=== PATIENT | female | born 2000 | race Caucasian/White ===

== ENCOUNTER 2023-03-22 20:00 | Outpatient (REF) | payer BC, SELFPAY ==
[2023-03-26 17:07] LABS: Age Gdln ACOG Testing Note (.); IGP, rfx Aptima HPV ASCU Note (.)
== END 2023-03-22 20:01 | disposition home or self-care (01) ==
LOC: LAB 20:00
PROVIDERS: Visit Provider Obstetrics & Gynecology
DX: Z12.4 Encounter for screening for malignant neoplasm of cervix (principal)
CPT/HCPCS: G0145

== ENCOUNTER 2023-07-01 08:29 | Outpatient (OUT) | payer BC, SELFPAY ==
--- NOTE | 2023-07-01 08:31 | US_ITS ---
[address] [address] Patient Name: DONAVAN WALTON MRN: [id number] date: 2000 Sex: F Assigned Patient Location: US Current Patient Location: US Accession/Order Number: [id number] Exam Date: 07/01/2023 08:32 Report Date: 07/01/2023 09:14 At the request of: RUDI CHACON Procedure: US OB transvaginal EXAMINATION: US OB transvaginal HISTORY: MISSED MENSES COMPARISON: No relevant comparison available. FINDINGS: Ladd intrauterine gestation Gestational sac: 2.33 cm, 7 weeks 0 days CRL: 0.5 cm, 6 weeks 1 day Yolk sac: 2 mm. Heart rate: 105 bpm Cervix: Closed, 3.7 cm. The ovaries are normal in appearance Identified adjacent to the gestational sac is a 9.5 x 5.7 x 6.8 mm area of hypoechogenicity Clinical age: 8 weeks 5 days Clinical JIGNESH: 02/05/2024 Ultrasound age: 6 weeks 1 day Ultrasound JIGNESH: 02/23/2024 US/US OB transvaginal IMPRESSION: Viable ladd intrauterine gestation measuring 6 weeks 1 day 9.5 mm subchorionic hematoma Electronically authenticated by: ÁNGELA PRIETO Date: 07/01/2023 09:14
== END 2023-07-01 08:30 | disposition home or self-care (01) ==
LOC: US 08:29
PROVIDERS: Visit Provider Obstetrics & Gynecology
DX: Z34.81 Encounter for supervision of other normal pregnancy, first trimester (principal); N92.6 Irregular menstruation, unspecified; Z3A.01 Less than 8 weeks gestation of pregnancy
CPT/HCPCS: 76817

== ENCOUNTER 2023-07-07 09:40 | Outpatient (OUT) | payer BC, SELFPAY ==
--- NOTE | 2023-07-07 09:44 | US_ITS ---
The [address] [address] Patient Name: DONAVAN WALTON MRN: [id number] date: 2000 Sex: F Assigned Patient Location: US Current Patient Location: US Accession/Order Number: [id number] Exam Date: 07/07/2023 09:59 Report Date: 07/07/2023 15:08 At the request of: RUDI CHACON Procedure: US OB transvaginal EXAMINATION: US OB transvaginal HISTORY: subchorionic hematoma [id number] COMPARISON: Ultrasound OB transvaginal 07/01/2023 FINDINGS: GESTATIONAL SAC: Present and normal appearing. YOLK SAC: Present and normal appearing. POLE: Present and normal appearing. CARDIAC: Present. UTERUS: 1.6 x 1.0 x 0.7 cm hypoechoic area within endometrial cavity adjacent the gestational sac. OVARIES: Right: Normal. Left: Corpus lutein cyst. CERVIX: 5.2 cm in length and closed. CUL-DE-SAC: Normal. OTHER: None. AGE BY LMP: 7 weeks 0 days JIGNESH BY LMP: 02/23/2024 AGE BY US CRL: 7 weeks 5 days JIGNESH BY US CRL: 02/18/2024 US/US OB transvaginal IMPRESSION: 1. Single live intrauterine . 2. Slight increase in size of the nonspecific hypoechoic fluid collection within the endometrial cavity adjacent the gestational sac; most likely representing sequela of prior subchorionic hematoma. A blighted ovum is not completely excluded. Follow-up recommended. Electronically authenticated by: KIM LEIGH Date: 07/07/2023 15:08
--- OUTSIDE RECORDS SUMMARY | 2023-07-07 10:38 | XMS_ITS | CCD ---
Author Name Unknown Address [address] [place] [address] Organization [facility] Care Team Providers Care Peoplesoft Programmer Name Role Phone VIA, DR BRADSHAW Admitting Unavailable KARASIK, DR BRADSHAW Procedure Practitioner Unava ilable KARASIK, DR BRADSHAW Attending Unavailable REQUEST, DR SANTA LISTED Primary Care Unavaila ble KARASIK, DR BRADSHAW Consulting Unavailable INES, DR GRIJALVA Consulting Unavailable RYAN, ANNMARIE VEGAS Consulting Unava ilable KARASIK, DR BRADSHAW Attending Unavailable KARASIK, DR BRADSHAW Consulting Unavailable KARASIK, DR BRADSHAW Admitting Unavailable ZIEBER, DR KIM Jones Consulting Unavailable KARASIK, DR BRADSHAW Attending Unavailable KARASIK, DR BRADSHAW Consulting Unavailable REQUEST, DR SANTA LISTED Primary Care Unavaila ble KARASIK, DR BRADSHAW Admitting Unavailable ZIEBER, DR KIM Jones Consulting Unavailable KARASIK, DR BRADSHAW Admitting Unavailable REQUEST, DR SANTA LISTED Primary Care Unavaila ble KARASIK, DR BRADSHAW Attending Unavailable KARASIK, DR BRADSHAW Consulting Unavailable KARASIK, DR BRADSHAW Admitting Unavailable KARASIK, DR BRADSHAW Consulting Unavailable KARASIK, DR BRADSHAW Attending Unavailable REQUEST, DR SANTA LISTED Primary Care Unavaila ble KARASIK, DR BRADSHAW Attending Unavailable REQUEST, DR SANTA LISTED Primary Care Unavaila ble KARASIK, DR BRADSHAW Admitting Unavailable KARASIK, DR BRADSHAW Attending Unavailable KARASIK, DR BRADSHAW Consulting Unavailable REQUEST, DR SANTA LISTED Primary Care Unavaila ble KARASIK, DR BRADSHAW Admitting Unavailable Problems Problem Classification Problem Date Documented Date Episodic/Chronic Immunizations and screening for infectious disease (2 sources) Encounter for screening for infections with a predominantly sexual mode of transmission; Translations: [Contact with and (suspected) exposure to infections with a predominantly sexual mode of transmission] Onset: 01-22-2022 Episodic Other and delivery including normal (12 sources) Encounter for full-term uncomplicated delivery; Translations: [Single live ] Onset: 11-23-2021 Episodic Other screening for suspected conditions (not mental disorders or infectious disease) (13 sources) Encounter for screening for Streptococcus B; Translations: [Encounter for other specified screening] Onset: 01-22-2022 Episodic Residual codes; unclassified (1 source) 38 weeks gestation of ; Translations: [38 WEEKS GESTATION OF ] Onset: 07-04-2022 Episodic Unclassified (1 source) CONTACT W/AND (SUSP) EXPOS COVID-19; Translations: [CONTACT W/AND (SUSP) EXPOS COVID-19] Onset: 07-04-2022 Results Test Name Value Interpretation Reference Range Facility CBC AUTO DIFFon 06-18-2022 BASO # 0.1 103/ul Normal 0.0-0.1 [facility] Comment on above: Performed By: #### U MICRO, UACSIND #### [facility] [address] [place] [address] Dr. Pancho Oliva Basophils/100 WBC (Bld) 0.8 % Normal 0.2-2.0 [facility] Comment on above: Performed By: #### U MICRO, UACSIND #### [facility] [address] [place] [address] Dr. Pancho Oliva EO # 0.3 103/ul Normal 0.0-0.7 [facility] Comment on above: Performed By: #### U MICRO, UACSIND #### [facility] [address] [place] [address] Dr. Pancho Oliva Eosinophils/100 WBC (Bld) 2.1 % Normal 0.9-7.0 [facility] Comment on above: Performed By: #### U MICRO, UACSIND #### [facility] [address] [place] [address] Dr. Pancho Oliva Erythrocyte distribution width (RBC) [Ratio] 13.9 % Normal 11.0-15.0 [facility] Comment on above: Performed By: #### U MICRO, UACSIND #### [facility] [address] [place] [address] Dr. Pancho Oliva Hematocrit (Bld) [Volume fraction] 36.2 % Normal 36.0-48.0 [facility] Comment on above: Performed By: #### U MICRO, UACSIND #### [facility] [address] [place] [address] Dr. Pancho Oliva Hemoglobin (Bld) [Mass/Vol] 11.8 g/dL Critically low 12.0-16.0 [facility] Comment on above: Performed By: #### U MICRO, UACSIND #### [facility] [address] [place] [address] Dr. Pancho Oliva IG # 0.16 10e3/ul Critically high 0.00-0.03 [facility] Comment on above: Performed By: #### U MICRO, UACSIND #### [facility] [address] [place] [address] Dr. Pancho Oliva IG % 1.1 % Critically high 0.0-0.5 [facility] Comment on above: Performed By: #### U MICRO, UACSIND #### [facility] [address] [place] [address] Dr. Pancho Oliva LYMPH # 3.5 103/ul Normal 1.2-3.8 [facility] Comment on above: Performed By: #### U MICRO, UACSIND #### [facility] [address] [place] [address] Dr. Pancho Oliva Lymphocytes/100 WBC (Bld) 23.3 % Normal 20.5-60.0 [facility] Comment on above: Performed By: #### U MICRO, UACSIND #### [facility] [address] [place] [address] Dr. Pancho Oliva MANUAL DIFF REQ NO Normal [facility] Comment on above: Performed By: #### U MICRO, UACSIND #### [facility] [address] [place] [address] Dr. Pancho Oliva MCH (RBC) [Entitic mass] 27.1 pg Normal 26.7-34.0 [facility] Comment on above: Performed By: #### U MICRO, UACSIND #### [facility] [address] [address] [address] Pancho Oliva MCHC (RBC) [Mass/Vol] 32.6 g/dL Normal 29.9-35.2 [facility] Comment on above: Performed By: #### U MICRO, UACSIND #### [facility] [address] [address] [address] Pancho Oliva MCV (RBC) [Entitic vol] 83.0 fL Normal 81.0-99.0 [facility] Comment on above: Performed By: #### U MICRO, UACSIND #### [facility] [address] [address] [address] Pancho Oliva MONO # 0.7 103/ul Normal 0.3-0.8 [facility] Comment on above: Performed By: #### U MICRO, UACSIND #### [facility] [address] [place] [address] Dr. Pancho Oliva Monocytes/100 WBC (Bld) 4.3 % Normal 1.7-12.0 [facility] Comment on above: Performed By: #### U MICRO, UACSIND #### [facility] [address] [address] [address] Pancho Oliva NEUT # 10.2 103/ul Critically high 1.4-6.5 [facility] Comment on above: Performed By: #### U MICRO, UACSIND #### [facility] [address] [address] [address] Pancho Oliva Neutrophils/100 WBC (Bld) 68.4 % Normal 43.0-75.0 [facility] Comment on above: Performed By: #### U MICRO, UACSIND #### [facility] [address] [address] [address] Pancho Oliva Platelet mean volume (Bld) [Entitic vol] 9.7 fL Normal 9.5-13.5 [facility] Comment on above: Performed By: #### U MICRO, UACSIND #### [facility] [address] [address] [address] Pancho Oliva PLT 271 103/ul Normal 150-450 [facility] Comment on above: Performed By: #### U MICRO, UACSIND #### [facility] [address] [address] [address] Pancho Oliva RBC 4.36 106/ul Normal 4.20-5.40 [facility] Comment on above: Performed By: #### U MICRO, UACSIND #### [facility] [address] [address] [address] Pancho Oliva WBC 15.0 103/ul Critically high 4.0-11.0 [facility] Comment on above: Performed By: #### U MICRO, UACSIND #### [facility] [address] [place] [address] Dr. Pancho Oliva RPR QUANTon 06-18-2022 Rapid Plasma Reagin, Quant Non-Reactive Normal NonRea<1:1 [facility] Comment on above: Result Comment: Plea se Note: This test does not meet current guidelines for screening and diagnosis of syphilis. This test is intended for following treatment response in patients being treated for syphilis infection. To screen for syphilis infection, a reflex cascade that includes both RPR and a treponema-specific assay should be utilized, such as Treponema pallidum (Syphilis) Screening [place] (252768) or Rapid Plasma Reagin (RPR) Test With Reflex to Quantitative RPR and Confirmatory Treponema pallidum Antibodies (512522). Performed By: #### R PRQ #### [facility] [address] [place] [address] Dr. Pancho Oliva CBC AUTO DIFFon 06-16-2022 BASO # 0.1 103/ul Normal 0.0-0.1 [facility] Comment on above: Performed By: #### U MICRO, UACSIND #### [facility] [address] [place] [address] Dr. Pancho Oliva Basophils/100 WBC (Bld) 0.5 % Normal 0.2-2.0 [facility] Comment on above: Performed By: #### U MICRO, UACSIND #### [facility] [address] [place] [address] Dr. Pancho Oliva EO # 0.0 103/ul Normal 0.0-0.7 [facility] Comment on above: Performed By: #### U MICRO, UACSIND #### [facility] [address] [place] [address] Dr. Pancho Oliva Eosinophils/100 WBC (Bld) 0.1 % Critically low 0.9-7.0 [facility] Comment on above: Performed By: #### U MICRO, UACSIND #### [facility] [address] [address] [address] Pancho Oliva Erythrocyte distribution width (RBC) [Ratio] 13.5 % Normal 11.0-15.0 [facility] Comment on above: Performed By: #### U MICRO, UACSIND #### [facility] [address] [place] [address] Dr. Pancho Oliva Hematocrit (Bld) [Volume fraction] 38.7 % Normal 36.0-48.0 [facility] Comment on above: Performed By: #### U MICRO, UACSIND #### [facility] [address] [place] [address] Dr. Pancho Oliva Hemoglobin (Bld) [Mass/Vol] 13.0 g/dL Normal 12.0-16.0 [facility] Comment on above: Performed By: #### U MICRO, UACSIND #### [facility] [address] [place] [address] Dr. Pancho Oliva IG # 0.15 10e3/ul Critically high 0.00-0.[address] [facility] Comment on above: Performed By: #### U MICRO, UACSIND #### [facility] [address] [place] [address] Dr. Pancho Oliva IG % 0.8 % Critically high 0.0-0.5 [facility] Comment on above: Performed By: #### U MICRO, UACSIND #### [facility] [address] [place] [address] Dr. Pancho Oliva LYMPH # 1.8 103/ul Normal 1.2-3.8 [facility] Comment on above: Performed By: #### U MICRO, UACSIND #### [facility] [address] [address] [address] Pancho Oliva Lymphocytes/100 WBC (Bld) 8.9 % Critically low 20.5-60.0 [facility] Comment on above: Performed By: #### U MICRO, UACSIND #### [facility] [address] [address] [address] Pancho Oliva MANUAL DIFF REQ NO Normal [facility] Comment on above: Performed By: #### U MICRO, UACSIND #### [facility] [address] [address] [address] Pancho Oliva MCH (RBC) [Entitic mass] 27.2 pg Normal 26.7-34.0 [facility] Comment on above: Performed By: #### U MICRO, UACSIND #### [facility] [address] [place] [address] Dr. Pancho Oliva MCHC (RBC) [Mass/Vol] 33.6 g/dL Normal 29.9-35.2 [facility] Comment on above: Performed By: #### U MICRO, UACSIND #### [facility] [address] [address] [address] Pancho Oliva MCV (RBC) [Entitic vol] 81.0 fL Normal 81.0-99.0 [facility] Comment on above: Performed By: #### U MICRO, UACSIND #### [facility] [address] [address] [address] Pancho Oliva MONO # 0.5 103/ul Normal 0.3-0.8 [facility] Comment on above: Performed By: #### U MICRO, UACSIND #### [facility] [address] [address] [address] Pancho Oliva Monocytes/100 WBC (Bld) 2.5 % Normal 1.7-12.0 [facility] Comment on above: Performed By: #### U MICRO, UACSIND #### [facility] [address] [address] [address] Pancho Oliva NEUT # 17.2 103/ul Critically high 1.4-6.5 [facility] Comment on above: Performed By: #### U MICRO, UACSIND #### [facility] [address] [address] [address] Pancho Oliva Neutrophils/100 WBC (Bld) 87.2 % Critically high 43.0-75.0 [facility] Comment on above: Performed By: #### U MICRO, UACSIND #### [facility] [address] [place] [address] Dr. Pancho Oliva Platelet mean volume (Bld) [Entitic vol] 9.9 fL Normal 9.5-13.5 [facility] Comment on above: Performed By: #### U MICRO, UACSIND #### [facility] [address] [place] [address] Dr. Pancho Oliva PLT 332 103/ul Normal 150-450 [facility] Comment on above: Performed By: #### U MICRO, UACSIND #### [facility] [address] [place] [address] Dr. Pancho Oliva RBC 4.78 106/ul Normal 4.20-5.40 [facility] Comment on above: Performed By: #### U MICRO, UACSIND #### [facility] [address] [place] [address] Dr. Pancho Oliva WBC 19.8 103/ul Critically high 4.0-11.0 [facility] Comment on above: Performed By: #### U MICRO, UACSIND #### [facility] [address] [place] [address] Dr. Pancho Oliva CULTURE URINEon 06-16-2022 CULTURE URINE Culture Observations : LIGHT GROWTH OF MIXED GENITAL XOCHITL. NO POTENTIAL PATHOGENS SEEN. Normal [facility] Comment on above: Performed By: #### U RCX #### [facility] [address] [place] [address] Dr. Pancho Oliva Cov[facility]-19 PCR ([facility]on 05-20 SARS-CoV-2 (COVID-19) RNA RHIANNA+probe Ql (Unsp spec) Not detected Normal NOT DETECTED [facility] Comment on above: Result Comment: When diagnostic testing is negative, the possibility of a false negative should be considered in the context of a patient's recent exposures and the presence of clinical signs and symptoms consistent with SARS-CoV-2. This test is not yet approved or cleared by the [place] FDA. When there are no FDA-approved or cleared tests available, and other criteria are met, FDA can make tests available under an emergency access mechanism called an Emergency Use Authorization (EUA). The EUA for this test is supported by the [place] of Health and Human Service's declaration that circumstances exist to justify the emergency use of in vitro diagnostics for the detection and/or diagnosis of the virus that causes COVID-19. This EUA will remain in effect for the duration of the COVID-19 declaration justifying emergency of IVDs, unless it is terminated or revoked by the FDA (after which the test may no longer be used). Performed By: #### C VDTBH #### [facility] [address] [place] [address] Dr. Pancho Oliva DRUG SCREEN RAPID (URINE)on 06-16-2022 AMP Negative Normal NEGATIVE [facility] Comment on above: Performed By: #### U MICRO, UACSIND #### [facility] [address] [place] [address] Dr. Pancho Oliva BAR Negative Normal NEGATIVE [facility] Comment on above: Performed By: #### U MICRO, UACSIND #### [facility] [address] [place] [address] Dr. Pancho Oliva BUP Negative Normal NEGATIVE [facility] Comment on above: Performed By: #### U MICRO, UACSIND #### [facility] [address] [place] [address] Dr. Pancho Oliva BZO Negative Normal NEGATIVE [facility] Comment on above: Performed By: #### U MICRO, UACSIND #### [facility] [address] [place] [address] Dr. Pancho Oliva CALVIN Negative Normal NEGATIVE [facility] Comment on above: Performed By: #### U MICRO, UACSIND #### [facility] [address] [place] [address] Dr. Pancho Oliva CUT-OFFS SEE BELOW Normal [facility] Comment on above: Result Comment: AMP (Amphetamine): 500ng/mL, BAR (Barbituates): 200 ng/mL, BZO (Benzodiazepines): 150 ng/mL, BUP (Buprenorphine): 10 ng/mL, CALVIN (Cocaine): 150 ng/mL, mAMP (Methamphetamine): 500 ng/mL, MTD (Methadone): 200 ng/mL, OPI (Opiates): 100 ng/mL, OXY (Oxycodone): 100 ng/mL, PCP (Phencyclidine): 25 ng/mL, PPX (Propoxyphene): 300 ng/mL, THC (Cannabinoids): 50 ng/mL, TCA (Trycyclic Antidepressants): 300 ng/mL Performed By: #### U MICRO, UACSIND #### [facility] [address] [place] [address] Dr. Pancho Oliva DRUG CUT HEADER DRUG CLASS TEST SYSTEM CUT-OFF CONCENTRATIONS ARE FOLLOWS: Normal [facility] Comment on above: Performed By: #### U MICRO, UACSIND #### [facility] [address] [place] [address] Dr. Pancho Oliva mAMP Negative Normal NEGATIVE [facility] Comment on above: Performed By: #### U MICRO, UACSIND #### [facility] [address] [place] [address] Dr. Pancho Oliva MTD Negative Normal NEGATIVE [facility] Comment on above: Performed By: #### U MICRO, UACSIND #### [facility] [address] [place] [address] Dr. Pancho Oliva OPI Negative Normal NEGATIVE [facility] Comment on above: Performed By: #### U MICRO, UACSIND #### [facility] [address] [place] [address] Dr. Pancho Oliva OXY Negative Normal NEGATIVE [facility] Comment on above: Performed By: #### U MICRO, UACSIND #### [facility] [address] [place] [address] Dr. Pancho Oliva PCP Negative Normal NEGATIVE [facility] Comment on above: Performed By: #### U MICRO, UACSIND #### [facility] [address] [place] [address] Dr. Pancho Oliva PPX Negative Normal NEGATIVE [facility] Comment on above: Performed By: #### U MICRO, UACSIND #### [facility] [address] [place] [address] Dr. Pancho Oliva TCA Negative Normal NEGATIVE [facility] Comment on above: Performed By: #### U MICRO, UACSIND #### [facility] [address] [place] [address] Dr. Pancho Oliva THC Negative Normal NEGATIVE [facility] Comment on above: Performed By: #### U MICRO, UACSIND #### [facility] [address] [place] [address] Dr. Pancho Oliva TYPE AND SCREENon 06-16-2022 TYPE AND SCREEN Negative Normal [facility] Comment on above: Performed By: #### U MICRO, UACSIND #### [facility] [address] [place] [address] Dr. Pancho Oliva UA (CLEAN/CATCH) KENO WRITER / RUNNER/MICRO I F IND.on 06-16-2022 Bilirubin Ql (U) Negative Normal NEGATIVE [facility] Comment on above: Performed By: #### U MICRO, UACSIND #### [facility] [address] [place] [address] Dr. Pancho Oliva Clarity (U) CLEAR Normal CLEAR [facility] Comment on above: Performed By: #### U MICRO, UACSIND #### [facility] [address] [place] [address] Dr. Pancho Oliva Color (U) YELLOW Normal YELLOW [facility] Comment on above: Performed By: #### U MICRO, UACSIND #### [facility] [address] [place] [address] Dr. Pancho Oliva Glucose Ql (U) Negative Normal NEGATIVE [facility] Comment on above: Performed By: #### U MICRO, UACSIND #### [facility] [address] [place] [address] Dr. Pancho Oliva Hemoglobin Ql (U) SMALL Abnormal NEGATIVE [facility] Comment on above: Performed By: #### U MICRO, UACSIND #### [facility] [address] [address] [address] Pancho Oliva Ketones Ql (U) TRACE Abnormal NEGATIVE [facility] Comment on above: Performed By: #### U MICRO, UACSIND #### [facility] [address] [address] [address] Pancho Oliva LEUKOCYTES Negative Normal NEGATIVE [facility] Comment on above: Performed By: #### U MICRO, UACSIND #### [facility] [address] [address] [address] Pancho Oliva Nitrite Ql (U) Negative Normal NEGATIVE [facility] Comment on above: Performed By: #### U MICRO, UACSIND #### [facility] [address] [place] [address] Dr. Pancho Oliva pH (U) 5.5 [pH] Normal 5-9 [facility] Comment on above: Performed By: #### U MICRO, UACSIND #### [facility] [address] [address] [address] Pancho Oliva SPEC GRAVITY >=1.030 Abnormal 1.005-<=1.025 [facility] Comment on above: Performed By: #### U MICRO, UACSIND #### [facility] [address] [place] [address] Dr. Pancho Oliva UA PROTEIN 100 mg/dl Abnormal NEGATIVE/ TRACE [facility] Comment on above: Performed By: #### U MICRO, UACSIND #### [facility] [address] [address] [address] Pancho Oliva UR MICRO IND INDICATED Normal [facility] Comment on above: Performed By: #### U MICRO, UACSIND #### [facility] [address] [address] [address] Pancho Oliva Urobilinogen Qn (U) 0.2 {Pearl'U}/dL Normal 0.2 - 1. 0 [facility] Comment on above: Performed By: #### U MICRO, UACSIND #### [facility] [address] [place] [address] Dr. Pancho Oliva URINE MICROSCOPIC ONLYon 11- 30-2022 AMORPHOUS CRYSTALS FEW Normal [facility] Comment on above: Performed By: #### U MICRO, UACSIND #### [facility] [address] [address] [address] Pancho Oliva BACTERIA SMALL Abnormal NONE SEEN [facility] Comment on above: Performed By: #### U MICRO, UACSIND #### [facility] [address] [address] [address] Pancho Oliva Bacteria identified Cx Nom (U) INDICATED Normal [facility] Comment on above: Performed By: #### U MICRO, UACSIND #### [facility] [address] [address] [address] Pancho Oliva CAST SEEN Abnormal NONE SEEN [facility] Comment on above: Performed By: #### U MICRO, UACSIND #### [facility] [address] [place] [address] Dr. Pancho Oliva Crystals LM Nom (Urine sed) SEEN Abnormal NONE SEEN [facility] Comment on above: Performed By: #### U MICRO, UACSIND #### [facility] [address] [place] [address] Dr. Pancho Oliva Epithelial cells LM Ql (Urine sed) FEW Abnormal NONE SEEN /RARE [facility] Comment on above: Performed By: #### U MICRO, UACSIND #### [facility] [address] [place] [address] Dr. Pancho Oliva HYALINE CAST RARE Normal [facility] Comment on above: Performed By: #### U MICRO, UACSIND #### [facility] [address] [place] [address] Dr. Pancho Oliva MUCOUS TRACE Abnormal NONE SEEN [facility] Comment on above: Performed By: #### U MICRO, UACSIND #### [facility] [address] [place] [address] Dr. Pancho Oliva RBC 2-5 Abnormal 0-2 [facility] Comment on above: Performed By: #### U MICRO, UACSIND #### [facility] [address] [place] [address] Dr. Pancho Oliva WBC 0-2 Abnormal NONE SEEN [facility] Comment on above: Performed By: #### U MICRO, UACSIND #### [facility] [address] [address] [address] Pancho Oliva CHLAMYDIA/GONOCOCCUS RHIANNA ( AB/URINE/PAPon 06-04-2022 Chlamydia trachomatis, RHIANNA Negative Normal Negative [facility] [facility] Comment on above: Performed By: #### U MICRO, UACSIND #### [facility] [address] [address] [address] Pancho Oliva Neisseria gonorrhoeae, RHIANNA Negative Normal Negative [facility] Comment on above: Performed By: #### U MICRO, UACSIND #### [facility] [address] [place] [address] Dr. Pancho Oliva GROUP B STREP CULTUREon 05-18 S. agalactiae Ag Ql (Unsp spec) Culture Observations: NEGATIVE FOR GROUP B STREPTOCOCCUS. Normal [facility] Comment on above: Performed By: #### U MICRO, UACSIND #### [facility] [address] [place] [address] Dr. Pancho Oliva US PREG ANATOMY SINGLEon US PREG ANATOMY SINGLE EXAMINATION: US PREG ANATOMY SINGLE HISTORY: anatomy study COMPARISON: No relevant comparison available. TECHNIQUE: Transabdominal sonographic examination was performed for obstetrical and evaluation. FINDINGS: Number: 1 Heart Rate: 148.0 bpm H.B. /min Amniotic Fluid Volume: Placental Location: ANTERIOR with lower margin 7.0 cm from os. Cervix Length: 4 cm , closed. ANATOMY: Normal Structures -cerebellum, choroid plexus, cisterna magna, lateral cerebral ventricles, orbits, midline falx, hard palate, four-chamber heart, RVOT, LVOT, stomach, kidneys, bladder, umbilical cord insertion into abdomen, three-vessel cord, cervical spine, thoracic spine, lumbar spine, sacral spine, right upper extremity, left upper extremity, right lower extremity, left lower extremity. SUBOPTIMALLY SEEN: None ABNORMALITIES: None BIOMETRY: BPD: 7.2 cm 28 weeks 5 days HC: 25.9 cm 28 weeks 1 days AC: 25.2 cm 29 weeks 3 days FL: 5.8 cm 30 weeks 2 days EFW:1402.9 grams; 77% FL/AC: 23.0 FL/BPD: 81.0 HC/AC: 1.0 GESTATIONAL AGE: Age by EDC: 28 weeks 3 days JIGNESH by EDC: 06/28/2022 Age by current US: 29 weeks 1 days JIGNESH by current US: 06/23/2022 IMPRESSION: 1. Single live intrauterine with growth detailed above. Electronically authenticated by: KIM LEIGH Date: 2022-04-08 22:10 Normal [facility] GLUCOSE - 1HRon 04-07-2022 Glucose [Mass/Vol] 114 mg/dL Critically high 74-106 [facility] Comment on above: Performed By: #### U MICRO, UACSIND #### [facility] [address] [place] [address] Dr. Pancho Oliva HEMOGRAM AND PLATELon 2021 Hematocrit (Bld) [Volume fraction] 36.1 % Normal 36.0-48.0 [facility] Comment on above: Performed By: #### U MICRO, UACSIND #### [facility] [address] [address] [address] Pancho Oliva Hemoglobin (Bld) [Mass/Vol] 12.1 g/dL Normal 12.0-16.0 [facility] Comment on above: Performed By: #### U MICRO, UACSIND #### [facility] [address] [address] [address] Pancho Oliva MCH (RBC) [Entitic mass] 28.5 pg Normal 26.7-34.0 [facility] Comment on above: Performed By: #### U MICRO, UACSIND #### [facility] [address] [address] [address] Pancho Oliva MCHC (RBC) [Mass/Vol] 33.5 g/dL Normal 29.9-35.2 [facility] Comment on above: Performed By: #### U MICRO, UACSIND #### [facility] [address] [place] [address] Dr. Pancho Oliva MCV (RBC) [Entitic vol] 85.1 fL Normal 81.0-99.0 [facility] Comment on above: Performed By: #### U MICRO, UACSIND #### [facility] [address] [address] [address] Pancho Oliva PLT 333 103/ul Normal 150-450 [facility] Comment on above: Performed By: #### U MICRO, UACSIND #### [facility] [address] [address] [address] Pancho Oliva RBC 4.24 106/ul Normal 4.20-5.40 [facility] Comment on above: Performed By: #### U MICRO, UACSIND #### [facility] [address] [address] [address] Pancho Oliva WBC 16.5 103/ul Critically high 4.0-11.0 The [facility] Comment on above: Performed By: #### U MICRO, UACSIND #### [facility] [address] [address] [address] Pancho Oliva AFP TETRA PROFILE (MATERNAL) on 01-21-2022 AFP MoM 0.81 Normal [facility] Comment on above: Performed By: #### A FPTET #### [facility] [address] [address] [address] Pancho Oliva AFP Value 26.1 ng/mL Normal [facility] Comment on above: Performed By: #### A FPTET #### [facility] [address] [address] [address] Pancho Oliva Comment Comment Normal [facility] Comment on above: Result Comment: Marguerite Hassan, Ph.D., [facility] Director . References: Available Upon Request. . Multiples Of Median Cutoffs Abbreviation Definitions For AFP Elevations IDD- Insulin Dep Diabetes Daugherty 2.5 Black 2.8 OSBR- Open Spina Bifida IDD 2.0 Twins 4.5 Risk DSR Cutoff 1:270 DSR- Down Syndrome Risk T18 Cutoff 1:100 T18- Trisomy 18 . For further inquiries contact [facility] at [phone]. . This test was developed and its performance characteristics determined by [employer]. It has not been cleared or approved by the Food and Drug Administration. Performed By: #### A FPTET #### [facility] [address] [place] [address] Dr. Pancho Oliva INDRA MoM 0.96 Normal [facility] Comment on above: Performed By: #### A FPTET #### [facility] [address] [place] [address] Dr. Pancho Oliva INDRA Value 118.40 pg/mL Normal [facility] Comment on above: Performed By: #### A FPTET #### [facility] [address] [place] [address] Dr. Pancho Oliva DSR (By Age) 1 [place] 1121 Normal [facility] Comment on above: Performed By: #### A FPTET #### [facility] [address] [place] [address] Dr. Pancho Oliva DSR (Second Trimester) 1 [place] [address] [facility] Comment on above: Performed By: #### A FPTET #### [facility] [address] [place] [address] Dr. Pancho Lee. Age on Collection Date 17.1 WEEKS [facility] Comment on above: Performed By: #### A FPTET #### [facility] [address] [place] [address] Dr. Pancho Foss. Age Based On LMP [facility] Comment on above: Performed By: #### A FPTET #### [facility] [address] [place] [address] Dr. Pancho Oliva hCG MoM 0.73 Normal [facility] Comment on above: Performed By: #### A FPTET #### [facility] [address] [place] [address] [place] [address] m[IU]/mL Normal [facility] Comment on above: Performed By: #### A FPTET #### [facility] [address] [place] [address] Dr. Pancho Oliva Insulin Dep Diabetes No Normal [facility] Comment on above: Performed By: #### A FPTET #### [facility] [address] [place] [address] Dr. Pancho Oliva Interpretation Comment Normal [facility] Comment on above: Result Comment: Inte rpretation: Screen Negative This result is screen negative for OSB, Down Syndrome and Trisomy 18. The AFP MoM and patient specific risks calculated are based on the gestational age and the clinical information provided. This test can identify up to 80% of open neural tube defects. Closed neural tube defects and some open defects may not be detected by this test. The combination of maternal age, AFP, hCG, uE3, and INDRA identifies 75-80% of Down Syndrome. The combination of maternal age, AFP, hCG and uE3 identifies 60% of Trisomy 18 pregnancies. The [place] [employer] recommends amniocentesis be offered to women age 35 and older. Recalculations are not recommended when gestational dating by LMP and ultrasound are within 10 days. Performed By: #### A FPTET #### [facility] [address] [place] [address] Dr. Pancho Oliva [age] Normal [facility] Comment on above: Performed By: #### A FPTET #### [facility] [address] [place] [address] Dr. Pancho Oliva Multiple Gestation No Normal [facility] Comment on above: Performed By: #### A FPTET #### [facility] [address] [place] [address] Dr. Panch[place] Oliva OS[place] 1 [place] [address] Normal [facility] Comment on above: Performed By: #### A FPTET #### [facility] [address] [place] [address] Dr. Pancho Oliva PDF . Normal [facility] Comment on above: Performed By: #### A FPTET #### [facility] [address] [place] [address] Dr. Pancho Oliva Race [facility] Comment on above: Performed By: #### A FPTET #### [facility] [address] [place] [address] Dr. Pancho Oliva Results Report Normal [facility] Comment on above: Performed By: #### A FPTET #### [facility] [address] [place] [address] Dr. Pancho Oliva T18 (By Age) 1:4368 Normal [facility] Comment on above: Performed By: #### A FPTET #### [facility] [address] [place] [address] Dr. Pancho Oliva T18 Risk Not increased Normal [facility] Comment on above: Performed By: #### A FPTET #### [facility] [address] [place] [address] Dr. Pancho Oliva Test Results: Negative Normal [facility] Comment on above: Performed By: #### A FPTET #### [facility] [address] [place] [address] Dr. Pancho Oliva uE3 MoM 1.70 Normal [facility] Comment on above: Performed By: #### A FPTET #### [facility] [address] [place] [address] Dr. Pancho Oliva uE3 Value 1.80 ng/mL Normal [facility] Comment on above: Performed By: #### A FPTET #### [facility] [address] [place] [address] Dr. Pancho Oliva HEP B SURFACE ANTIGEN SCREEN on 01-20-2022 HBsAg Screen Negative Normal Negative [facility] Comment on above: Performed By: #### U MICRO, UACSIND #### [facility] [address] [place] [address] Dr. Pancho Oliva HEPATITIS C VIRUS AB W/ REFL EX QUANTon 01-20-2022 HCV AB 0.1 s/co ratio Normal 0.0-0.9 [facility] Comment on above: Performed By: #### U MICRO, UACSIND #### [facility] [address] [place] [address] Dr. Pancho Oliva Interpretation: Comment Normal [facility] Comment on above: Result Comment: Nega tive Not infected with HCV, unless recent infection is suspected or other evidence exists to indicate HCV infection. Performed By: #### U MICRO, UACSIND #### [facility] [address] [place] [address] Dr. Pancho Oliva HIV 1 AND 2 WITH REFLEXon HIV Screen 4th Generation wRfx Non-Reactive Normal Non Reactive [facility] Comment on above: Result Comment: HIV Negative HIV-1/HIV-2 antibodies and HIV-1 p24 antigen were NOT detected. There is no laboratory evidence of HIV infection. Performed By: #### U MICRO, UACSIND #### [facility] [address] [place] [address] Dr. Pacnho Oliva RPR QUANTon 01-20-2022 Rapid Plasma Reagin, Quant Non-Reactive Normal NonRea<1:1 [facility] Comment on above: Result Comment: Plea Note: This test does not meet current guidelines for screening and diagnosis of syphilis. This test is intended for following treatment response in patients being treated for syphilis infection. To screen for syphilis infection, a reflex cascade that includes both RPR and a treponema-specific assay should be utilized, such as Treponema pallidum (Syphilis) Screening [place] (556266) or Rapid Plasma Reagin (RPR) Test With Reflex to Quantitative RPR and Confirmatory Treponema pallidum Antibodies (449533). Performed By: #### R PRQ #### [facility] [address] [place] [address] Dr. Pancho Oliva RUBELLA AB IGGon 01-20-2022 Rubella Antibodies, IgG 6.39 index Normal Immune >0.99 [facility] Comment on above: Result Comment: Non- immune <0.90 Equivocal 0.90 - 0.99 Immune >0.99 Performed By: #### R UBIGG #### [facility] [address] [place] [address] Dr. Pancho Oliva CBC AUTO DIFFon 01-19-2022 BASO # 0.1 103/ul Normal 0.0-0.1 [facility] Comment on above: Performed By: #### C BC #### [facility] [address] [place] [address] Dr. Pancho Oliva Basophils/100 WBC (Bld) 0.6 % Normal 0.2-2.0 [facility] Comment on above: Performed By: #### C BC #### [facility] [address] [place] [address] Dr. Pancho Oliva EO # 0.3 103/ul Normal 0.0-0.7 [facility] Comment on above: Performed By: #### C BC #### [facility] [address] [place] [address] Dr. Pancho Oliva Eosinophils/100 WBC (Bld) 2.1 % Normal 0.9-7.0 [facility] Comment on above: Performed By: #### C BC #### [facility] [address] [place] [address] Dr. Pancho Oliva Erythrocyte distribution width (RBC) [Ratio] 12.3 % Normal 11.0-15.0 [facility] Comment on above: Performed By: #### C BC #### [facility] [address] [place] [address] Dr. Pancho Oliva Hematocrit (Bld) [Volume fraction] 37.0 % Normal 36.0-48.0 [facility] Comment on above: Performed By: #### C BC #### [facility] [address] [place] [address] Dr. Pancho Oliva Hemoglobin (Bld) [Mass/Vol] 12.6 g/dL Normal 12.0-16.0 [facility] Comment on above: Performed By: #### C BC #### [facility] [address] [place] [address] Dr. Pancho Oliva IG # 0.19 10e3/ul Critically high 0.00-0.03 [facility] Comment on above: Performed By: #### C BC #### [facility] [address] [place] [address] Dr. Pancho Oliva IG % 1.2 % Critically high 0.0-0.5 [facility] Comment on above: Performed By: #### C BC #### [facility] [address] [place] [address] Dr. Pancho Oliva LYMPH # 2.6 103/ul Normal 1.2-3.8 [facility] Comment on above: Performed By: #### C BC #### [facility] [address] [address] [address] Pancho Oliva Lymphocytes/100 WBC (Bld) 15.6 % Critically low 20.5-60.0 [facility] Comment on above: Performed By: #### C BC #### [facility] [address] [address] [address] Pancho Oliva MANUAL DIFF REQ NO Normal [facility] Comment on above: Performed By: #### C BC #### [facility] [address] [address] [address] Pancho Oliva MCH (RBC) [Entitic mass] 28.4 pg Normal 26.7-34.0 [facility] Comment on above: Performed By: #### C BC #### [facility] [address] [place] [address] Dr. Pancho Oliva MCHC (RBC) [Mass/Vol] 34.1 g/dL Normal 29.9-35.2 [facility] Comment on above: Performed By: #### C BC #### [facility] [address] [place] [address] Dr. Pancho Oliva MCV (RBC) [Entitic vol] 83.5 fL Normal 81.0-99.0 [facility] Comment on above: Performed By: #### C BC #### [facility] [address] [place] [address] Dr. Pancho Oliva MONO # 0.7 103/ul Normal 0.3-0.8 [facility] Comment on above: Performed By: #### C BC #### [facility] [address] [place] [address] Dr. Pancho Oliva Monocytes/100 WBC (Bld) 4.2 % Normal 1.7-12.0 [facility] Comment on above: Performed By: #### C BC #### [facility] [address] [place] [address] Dr. Pancho Oliva NEUT # 12.6 103/ul Critically high 1.4-6.5 The [facility] Comment on above: Performed By: #### C BC #### [facility] [address] [address] [address] Pancho Oliva Neutrophils/100 WBC (Bld) 76.3 % Critically high 43.0-75.0 [facility] Comment on above: Performed By: #### C BC #### [facility] [address] [address] [address] Pancho Oliva Platelet mean volume (Bld) [Entitic vol] 9.0 fL Critically low 9.5-13.5 [facility] Comment on above: Performed By: #### C BC #### [facility] [address] [address] [address] Pancho Oliva PLT 359 103/ul Normal 150-450 [facility] Comment on above: Performed By: #### C BC #### [facility] [address] [place] [address] Dr. Pancho Oliva RBC 4.43 106/ul Normal 4.20-5.40 [facility] Comment on above: Performed By: #### C BC #### [facility] [address] [address] [address] Pancho Oliva WBC 16.5 103/ul Critically high 4.0-11.0 [facility] Comment on above: Performed By: #### C BC #### [facility] [address] [place] [address] Dr. Pancho Oliva CULTURE URINEon 01-19-2022 CULTURE URINE Culture Observations : HEAVY GROWTH OF MIXED GENITAL XOCHITL. NO POTENTIAL PATHOGENS SEEN. Normal [facility] Comment on above: Performed By: #### U RCX #### [facility] [address] [place] [address] Dr. Pancho Oliva GLYCOHEMOGLOBIN A1Con 2021 ADA RECOMMENDATION SEE BELOW Normal [facility] Comment on above: Result Comment: ADA RECOMMENDED LIMIT 4.0 - 6.0 ADA THERAPEUTIC TARGET < 7.0 ACTION SUGGESTED > 7.0 Performed By: #### U MICRO, UACSIND #### [facility] [address] [place] [address] Dr. Pancho Oliva Glucose [Mass/Vol] 94 mg/dL Normal [facility] Comment on above: Performed By: #### U MICRO, UACSIND #### [facility] [address] [address] [address] Pancho Oliva HbA1c (Bld) [Mass fraction] 4.9 % Normal 4.5-6.2 [facility] Comment on above: Performed By: #### U MICRO, UACSIND #### [facility] [address] [address] [address] Pancho Oliva TYPE AND SCREENon 01-19-2022 TYPE AND SCREEN Negative Normal [facility] Comment on above: Performed By: #### U MICRO, UACSIND #### [facility] [address] [address] [address] Pancho Oliva US PREG TVon 11-23-2021 US PREG TV EXAMINATION: US PREG TV HISTORY: Missed period COMPARISON: No relevant comparison available. FINDINGS: GESTATIONAL SAC: Present and normal appearing. POLE: Present and normal appearing. YOLK SAC: Present. CARDIAC: Present. UTERUS: Normal size and appearance. OVARIES: Right: Contains a large 3.6 cm simple appearing cyst. Left: Not seen. CERVIX: 5.9 cm in length and closed. CUL-DE-SAC: Normal. OTHER: None. AGE BY LMP: 9 weeks, 0 days JIGNESH BY LMP: 06/28/2022 AGE BY US CRL: 9 weeks, 0 days JIGNESH BY US CRL: 06/28/2022 IMPRESSION: 1. Single live intrauterine . Electronically authenticated by: KIM LEIGH Date: 2021-11-23 16:11 Normal [facility] Vital Signs Date Time Vital Sign Value Performing Clinician Terrii jcy 01-21-2022 02:06-0400 Body weight 97.[address] AUGUSTINE ENRIQUE [facility] Comment on above: Performed By: #### A FPTET #### [facility] [address] [address] [address] Pancho Oliva Encounters Encounter Date Encounter Type Care Provider Facility Start: 07-01-2023 End: 07-01-2023 ambulatory Not Available Start: 06-16-2022 End: 06-18-2022 Evaluation and management of inpatient DR AUGUSTINE ENRIQUE Facility:[facility] Start: 06-01-2022 End: 06-01-[address] AUGUSTINE ENRIQUE Facility:[facility] Start: 04-08-2022 End: 04-09-[address] AUGUSTINE ENRIQUE Facility:[facility] Start: 04-07-2022 End: 04-08-[address] AUGUSTINE ENRIQUE Facility:[facility] Start: 02-16-[address] AUGUSTINE ENRIQUE Faci lity:[facility] Start: 01-19-2022 End: 01-20-[address] AUGUSTINE ENRIQUE Facility:[facility] Start: 11-23-2021 End: 11-24-[address] AUGUSTINE ENRIQUE Facility:[facility] Procedures Date Procedure Procedure Detail Performing Clinician Start: 06-17-2022 Delivery of Products of Conception, External Approach DR AUGUSTINE ENRIQUE Payers Date Payer Category Payer Unknown [id number] [id number] [id number] 2000 Unknown [id number] 2.16.84 [id number] 2000 Unknown [id number] 2.16.84 [id number] 2000 Unknown [id number] 2.16.84 [id number] 2000 Unknown [id number] 2.16.84 [id number] 2000 Unknown [id number] 2.16.84 [id number] 2000 Unknown [id number] 2.16.84 [id number] 2000 Unknown [id number] 1959 Self-pay 1959 Unknown [id number] 1959 Unknown [id number] Summary Purpose Family History No Family History Records FoundNo Family History Records Found Advance Directives No Advanced Directives Records FoundNo Advanced Directives Records Found Additional Source Comments INFORMATION SOURCE (unrecogn ized section and content) DATE CREATED AUTHOR 07/09/2022 [facility] DATE CREATED AUTHOR AUTHOR'S MOJGAN BAEZA 07/03/2023 [facility] FOR RECORDS PERTAINING TO PATIENTS WHO ARE OR HAVE BEEN ENROLLED IN A CHEMICAL DEPENDENCY/SUBSTANCEABUSE PROGRAM, SOME INFORMATION MAY BE OMITTED. This clinical summary was aggregated from multiple sources. Caution should be exercised in using it in the provision of clinical care. This summary normalizes information from multiple sources, and as a consequence, information in this document may materially change the coding, format and clinical context of patient data. In addition, data may be omitted in some cases. CLINICAL DECISIONS SHOULD BE BASED ON THE PRIMARY CLINICAL RECORDS. [facility] [employer] provides no warranty or guarantee of the accuracy or completeness of information in this document.
== END 2023-07-07 09:41 | disposition home or self-care (01) ==
LOC: US 09:40
PROVIDERS: Visit Provider Obstetrics & Gynecology
DX: O41.8X90 Other specified disorders of amniotic fluid and membranes, unspecified trimester, not applicable or unspecified (principal); O46.8X9 Other antepartum hemorrhage, unspecified trimester; Z3A.01 Less than 8 weeks gestation of pregnancy
CPT/HCPCS: 76817

== ENCOUNTER 2023-08-08 09:54 | Outpatient (OUT) | payer BC, SELFPAY ==
--- NOTE | 2023-08-08 10:00 | US_ITS ---
[address] [address] Patient Name: DONAVAN WALTON MRN: [id number] date: 2000 Sex: F Assigned Patient Location: Current Patient Location: Accession/Order Number: [id number] Exam Date: 08/08/2023 10:01 Report Date: 08/08/2023 10:56 At the request of: RUDI CHACON Procedure: US OB <= 14 weeks fetus EXAMINATION: US OB <= 14 weeks fetus HISTORY: Subchorionic hematoma, antepartum,single fetus O41.8X90 COMPARISON: No relevant comparison available. FINDINGS: Ladd intrauterine gestation Gestational sac: 5.45 cm, 11 weeks 3 days CRL: 5.8 cm, 12 weeks 3 days Heart rate: 145 beats minute Cervix: Closed, 6.6 cm The uterus is normal. Identified adjacent to the gestational sac is an area of anechoic echogenicity measuring 1.5 x 1.2 x 0.9 cm. The ovaries are normal Clinical age: 11 weeks 4 days Clinical JIGNESH: 02/23/2024 Ultrasound age: 12 weeks 3 days Ultrasound JIGNESH: 8/2 cm 24 US/US OB <= 14 weeks fetus IMPRESSION: 1.5 cm subchorionic hematoma Viable ladd intrauterine gestation measuring 12 weeks 3 days Electronically authenticated by: ÁNGELA PRIETO Date: 08/08/2023 10:56
== END 2023-08-08 09:55 | disposition home or self-care (01) ==
LOC: US 09:56
PROVIDERS: Visit Provider Obstetrics & Gynecology
DX: O41.8X91 Other specified disorders of amniotic fluid and membranes, unspecified trimester, fetus 1 (principal); O46.8X1 Other antepartum hemorrhage, first trimester; Z3A.12 12 weeks gestation of pregnancy
CPT/HCPCS: 76801

== ENCOUNTER 2023-08-11 08:04 | Outpatient (OUT) | payer BC, SELFPAY ==
--- OUTSIDE RECORDS SUMMARY | 2023-08-11 08:07 | XMS_ITS | CCD ---
Author Name Unknown Address [address] [place] [id number] Organization [facility] Care Team Providers Care Bone Crusher Name Role Phone IVA, DR BRADSHAW Admitting Unavailable KARASIK, DR BRADSHAW [...] Unavaila ble KARASIK, DR BRADSHAW Admitting Unavailable INESRUDI Attending Unavailable Problems Problem Classification Problem Date Documented [...] 06-18-2022 BASO # 0.1 103/ul Normal 0.0-0.1 [facility] Comment on above: Performed By: #### U MICRO, UACSIND #### [facility] [address] [place] [address] Dr. Pancho Oliva Basophils/100 WBC (Bld) 0.8 % Normal 0.2-2.0 [facility] Comment on above: Performed By: #### U MICRO, UACSIND #### [facility] [address] [place] [address] Dr. Pancho Oliva EO # 0.3 103/ul Normal 0.0-0.7 [facility] Comment on above: Performed By: #### U MICRO, UACSIND #### [facility] [address] [place] [address] Dr. Pancho Oliva Eosinophils/100 WBC (Bld) 2.1 % Normal 0.9-7.0 [facility] Comment on above: Performed By: #### U MICRO, UACSIND #### [facility] [address] [place] [address] Dr. Pancho Oliva Erythrocyte distribution width (RBC) [Ratio] 13.9 % Normal 11.0-15.0 [facility] Comment on above: Performed By: #### U MICRO, UACSIND #### [facility] [address] [address] [address] Pancho Oliva Hematocrit (Bld) [Volume fraction] 36.2 % Normal 36.0-48.0 [facility] Comment on above: Performed By: #### U MICRO, UACSIND #### [facility] [address] [place] [address] Dr. Pancho Oliva Hemoglobin (Bld) [Mass/Vol] 11.8 g/dL Critically low 12.0-16.0 [facility] Comment on above: Performed By: #### U MICRO, UACSIND #### [facility] [address] [place] [address] Dr. Pancho Oliva IG # 0.16 10e3/ul Critically high 0.00-0.03 [facility] Comment on above: Performed By: #### U MICRO, UACSIND #### [facility] [address] [place] [address] Dr. Pancho Oliva IG % 1.1 % Critically high 0.0-0.5 [facility] Comment on above: Performed By: #### U MICRO, UACSIND #### [facility] [address] [place] [address] Dr. Pancho Oliva LYMPH # 3.5 103/ul Normal 1.2-3.8 [facility] Comment on above: Performed By: #### U MICRO, UACSIND #### [facility] [address] [place] [address] Dr. Pancho Oliva Lymphocytes/100 WBC (Bld) 23.3 % Normal 20.5-60.0 [facility] Comment on above: Performed By: #### U MICRO, UACSIND #### [facility] [address] [place] [address] Dr. Pancho Oliva MANUAL DIFF REQ NO Normal [facility] Comment on above: Performed By: #### U MICRO, UACSIND #### [facility] [address] [place] [address] Dr. Pancho Oliva MCH (RBC) [Entitic mass] 27.1 pg Normal 26.7-34.0 [facility] Comment on above: Performed By: #### U MICRO, UACSIND #### [facility] [address] [place] [address] Dr. Pancho Oliva MCHC (RBC) [Mass/Vol] 32.6 g/dL Normal 29.9-35.2 [facility] Comment on above: Performed By: #### U MICRO, UACSIND #### [facility] [address] [place] [address] Dr. Pancho Oliva MCV (RBC) [Entitic vol] 83.0 fL Normal 81.0-99.0 [facility] Comment on above: Performed By: #### U MICRO, UACSIND #### [facility] [address] [place] [address] Dr. Pancho Oliva MONO # 0.7 103/ul Normal 0.3-0.8 [facility] Comment on above: Performed By: #### U MICRO, UACSIND #### [facility] [address] [place] [address] Dr. Pancho Oliva Monocytes/100 WBC (Bld) 4.3 % Normal 1.7-12.0 [facility] Comment on above: Performed By: #### U MICRO, UACSIND #### [facility] [address] [place] [address] Dr. Pancho Oliva NEUT # 10.2 103/ul Critically high 1.4-6.5 [facility] Comment on above: Performed By: #### U MICRO, UACSIND #### [facility] [address] [place] [address] Dr. Pancho Oliva Neutrophils/100 WBC (Bld) 68.4 % Normal 43.0-75.0 [facility] Comment on above: Performed By: #### U MICRO, UACSIND #### [facility] [address] [place] [address] Dr. Pancho Oliva Platelet mean volume (Bld) [Entitic vol] 9.7 fL Normal 9.5-13.5 [facility] Comment on above: Performed By: #### U MICRO, UACSIND #### [facility] [address] [place] [address] Dr. Pancho Oliva PLT 271 103/ul Normal 150-450 [facility] Comment on above: Performed By: #### U MICRO, UACSIND #### [facility] [address] [place] [address] Dr. Pancho Oliva RBC 4.36 106/ul Normal 4.20-5.40 [facility] Comment on above: Performed By: #### U MICRO, UACSIND #### [facility] [address] [place] [address] Dr. Pancho Oliva WBC 15.0 103/ul Critically high 4.0-11.0 [facility] Comment on above: Performed By: #### U MICRO, UACSIND #### [facility] [address] [place] [address] Dr. Pancho Oliva RPR QUANTon 06-18-2022 Rapid Plasma Reagin, Quant Non-Reactive Normal NonRea<1:1 [facility] Comment on above: Result Comment: Jami acuna Note: This test does not meet current guidelines for screening and diagnosis of syphilis. This test is intended for following treatment response in patients being treated for syphilis infection. To screen for syphilis infection, a reflex cascade that includes both RPR and a treponema-specific assay should be utilized, such as Treponema pallidum (Syphilis) Screening [place] (778756) or Rapid Plasma Reagin (RPR) Test With Reflex to Quantitative RPR and Confirmatory Treponema pallidum Antibodies (661068). Performed By: #### R PRQ #### [facility] [address] [place] [address] Dr. Pancho Oliva CBC AUTO DIFFon 06-16-2022 BASO # 0.1 103/ul Normal 0.0-0.1 [facility] Comment on above: Performed By: #### U MICRO, UACSIND #### [facility] [address] [place] [address] Dr. Pancho Oliva Basophils/100 WBC (Bld) 0.5 % Normal 0.2-2.0 [facility] Comment on above: Performed By: #### U MICRO, UACSIND #### [facility] [address] [place] [address] Dr. Pancho Oliva EO # 0.0 103/ul Normal 0.0-0.7 [facility] Comment on above: Performed By: #### U MICRO, UACSIND #### [facility] [address] [address] [address] Pancho Oliva Eosinophils/100 WBC (Bld) 0.1 % Critically low 0.9-7.0 [facility] Comment on above: Performed By: #### U MICRO, UACSIND #### [facility] [address] [place] [address] Dr. Pancho Oliva Erythrocyte distribution width (RBC) [Ratio] 13.5 % Normal 11.0-15.0 [facility] Comment on above: Performed By: #### U MICRO, UACSIND #### [facility] [address] [place] [address] Dr. Pancho Oliva Hematocrit (Bld) [Volume fraction] 38.7 % Normal 36.0-48.0 [facility] Comment on above: Performed By: #### U MICRO, UACSIND #### [facility] [address] [place] [address] Dr. Pancho Oliva Hemoglobin (Bld) [Mass/Vol] 13.0 g/dL Normal 12.0-16.0 [facility] Comment on above: Performed By: #### U MICRO, UACSIND #### [facility] [address] [place] [address] Dr. Pancho Oliva IG # 0.15 10e3/ul Critically high 0.00-0.03 [facility] Comment on above: Performed By: #### U MICRO, UACSIND #### [facility] [address] [place] [address] Dr. Pancho Oliva IG % 0.8 % Critically high 0.0-0.5 [facility] Comment on above: Performed By: #### U MICRO, UACSIND #### [facility] [address] [place] [address] Dr. Pancho Oliva LYMPH # 1.8 103/ul Normal 1.2-3.8 [facility] Comment on above: Performed By: #### U MICRO, UACSIND #### [facility] [address] [address] [address] Pancho Oliva Lymphocytes/100 WBC (Bld) 8.9 % Critically low 20.5-60.0 [facility] Comment on above: Performed By: #### U MICRO, UACSIND #### [facility] [address] [place] [address] Dr. Pancho Oliva MANUAL DIFF REQ NO Normal [facility] Comment on above: Performed By: #### U MICRO, UACSIND #### [facility] [address] [place] [address] Dr. Pancho Oliva MCH (RBC) [Entitic mass] 27.2 pg Normal 26.7-34.0 [facility] Comment on above: Performed By: #### U MICRO, UACSIND #### [facility] [address] [place] [address] Dr. Pancho Oliva MCHC (RBC) [Mass/Vol] 33.6 g/dL Normal 29.9-35.2 [facility] Comment on above: Performed By: #### U MICRO, UACSIND #### [facility] [address] [place] [address] Dr. Pancho Oliva MCV (RBC) [Entitic vol] 81.0 fL Normal 81.0-99.0 [facility] Comment on above: Performed By: #### U MICRO, UACSIND #### [facility] [address] [place] [address] Dr. Pancho Oliva MONO # 0.5 103/ul Normal 0.3-0.8 [facility] Comment on above: Performed By: #### U MICRO, UACSIND #### [facility] [address] [place] [address] Dr. Pancho Oliva Monocytes/100 WBC (Bld) 2.5 % Normal 1.7-12.0 [facility] Comment on above: Performed By: #### U MICRO, UACSIND #### [facility] [address] [place] [address] Dr. Pancho Oliva NEUT # 17.2 103/ul Critically high 1.4-6.5 [facility] Comment on above: Performed By: #### U MICRO, UACSIND #### [facility] [address] [place] [address] Dr. Pancho Oliva Neutrophils/100 WBC (Bld) 87.2 % Critically high 43.0-75.0 [facility] Comment on above: Performed By: #### U MICRO, UACSIND #### [facility] [address] [place] [address] Dr. Pancho Oliva Platelet mean volume (Bld) [Entitic vol] 9.9 fL Normal 9.5-13.5 [facility] Comment on above: Performed By: #### U MICRO, UACSIND #### [facility] [address] [place] [address] Dr. Pancho Oliva PLT 332 103/ul Normal 150-450 [facility] Comment on above: Performed By: #### U MICRO, UACSIND #### [facility] [address] [place] [address] Dr. Pancho Oliva RBC 4.78 106/ul Normal 4.20-5.40 [facility] Comment on above: Performed By: #### U MICRO, UACSIND #### [facility] [address] [place] [address] Dr. Pancho Oliva WBC 19.8 103/ul Critically high 4.0-11.0 [facility] Comment on above: Performed By: #### U MICRO, UACSIND #### [facility] [address] [place] [address] Dr. Pancho Oliva CULTURE URINEon 06-16-2022 CULTURE URINE Culture Observations : LIGHT GROWTH OF MIXED GENITAL XOCHITL. NO POTENTIAL PATHOGENS SEEN. Normal [facility] Comment on above: Performed By: #### U RCX #### [facility] [address] [place] [address] Dr. Pancho Oliva [facility] SARS-CoV-2 (COVID-19) RNA RHIANNA+probe Ql (Unsp spec) Not detected Normal NOT DETECTED [facility] Comment on above: Result Comment: When [...] for this test is supported by the [employer] of Health and Human Service's declaration that [...] used). Performed By: #### C VDTBH #### [facility] [address] [place] [address] Dr. Pancho Oliva DRUG SCREEN RAPID (URINE)on 06-16-2022 AMP Negative Normal NEGATIVE [facility] Comment on above: Performed By: #### U MICRO, UACSIND #### [facility] [address] [place] [address] Dr. Pancho Oliva BAR Negative Normal NEGATIVE [facility] Comment on above: Performed By: #### U MICRO, UACSIND #### [facility] [address] [place] [address] Dr. Pancho Oliva BUP Negative Normal NEGATIVE [facility] Comment on above: Performed By: #### U MICRO, UACSIND #### [facility] [address] [place] [address] Dr. Pancho Oliva BZO Negative Normal NEGATIVE [facility] Comment on above: Performed By: #### U MICRO, UACSIND #### [facility] [address] [place] [address] Dr. Pancho Oliva CALVIN Negative Normal NEGATIVE [facility] Comment on above: Performed By: #### U MICRO, UACSIND #### [facility] [address] [place] [address] Dr. Pancho Oliva CUT-OFFS SEE BELOW Normal [facility] Comment on above: Result Comment: AMP (Amphetamine): [...] Performed By: #### U MICRO, UACSIND #### [facility] [address] [place] [address] Dr. Pancho Oliva DRUG CUT HEADER DRUG CLASS TEST SYSTEM CUT-OFF CONCENTRATIONS ARE FOLLOWS: Normal [facility] Comment on above: Performed By: #### U MICRO, UACSIND #### [facility] [address] [place] [address] Dr. Pancho Oliva mAMP Negative Normal NEGATIVE [facility] Comment on above: Performed By: #### U MICRO, UACSIND #### [facility] [address] [place] [address] Dr. Pancho Oliva MTD Negative Normal NEGATIVE [facility] Comment on above: Performed By: #### U MICRO, UACSIND #### [facility] [address] [address] [address] Pancho Oliva OPI Negative Normal NEGATIVE [facility] Comment on above: Performed By: #### U MICRO, UACSIND #### [facility] [address] [address] [address] Pancho Oliva OXY Negative Normal NEGATIVE [facility] Comment on above: Performed By: #### U MICRO, UACSIND #### [facility] [address] [address] [address] Pancho Oliva PCP Negative Normal NEGATIVE [facility] Comment on above: Performed By: #### U MICRO, UACSIND #### [facility] [address] [place] [address] Dr. Pancho Oliva PPX Negative Normal NEGATIVE [facility] Comment on above: Performed By: #### U MICRO, UACSIND #### [facility] [address] [place] [address] Dr. Pancho Oliva TCA Negative Normal NEGATIVE [facility] Comment on above: Performed By: #### U MICRO, UACSIND #### [facility] [address] [place] [address] Dr. Pancho Oliva THC Negative Normal NEGATIVE [facility] Comment on above: Performed By: #### U MICRO, UACSIND #### [facility] [address] [place] [address] Dr. Pancho Oliva TYPE AND SCREENon 06-16-2022 TYPE AND SCREEN Negative Normal [facility] Comment on above: Performed By: #### U MICRO, UACSIND #### [facility] [address] [place] [address] Dr. Pancho Oliva UA (CLEAN/CATCH) TRAVELING SECRETARY/MICRO I F IND.on 06-16-2022 Bilirubin Ql (U) Negative Normal NEGATIVE [facility] Comment on above: Performed By: #### U MICRO, UACSIND #### [facility] [address] [place] [address] Dr. Pancho Oliva Clarity (U) CLEAR Normal CLEAR [facility] Comment on above: Performed By: #### U MICRO, UACSIND #### [facility] [address] [place] [address] Dr. Pancho Oliva Color (U) YELLOW Normal YELLOW [facility] Comment on above: Performed By: #### U MICRO, UACSIND #### [facility] [address] [place] [address] Dr. Pancho Oliva Glucose Ql (U) Negative Normal NEGATIVE [facility] Comment on above: Performed By: #### U MICRO, UACSIND #### [facility] [address] [place] [address] Dr. Pancho Oliva Hemoglobin Ql (U) SMALL Abnormal NEGATIVE [facility] Comment on above: Performed By: #### U MICRO, UACSIND #### [facility] [address] [address] [address] Pancho Oliva Ketones Ql (U) TRACE Abnormal NEGATIVE [facility] Comment on above: Performed By: #### U MICRO, UACSIND #### [facility] [address] [address] [address] Pancho Oliva LEUKOCYTES Negative Normal NEGATIVE [facility] Comment on above: Performed By: #### U MICRO, UACSIND #### [facility] [address] [place] [address] Dr. Pancho Oliva Nitrite Ql (U) Negative Normal NEGATIVE [facility] Comment on above: Performed By: #### U MICRO, UACSIND #### [facility] [address] [place] [address] Dr. Pancho Oliva pH (U) 5.5 [pH] Normal 5-9 [facility] Comment on above: Performed By: #### U MICRO, UACSIND #### [facility] [address] [place] [address] Dr. Pancho Oliva SPEC GRAVITY >=1.030 Abnormal 1.005-<=1.025 [facility] Comment on above: Performed By: #### U MICRO, UACSIND #### [facility] [address] [place] [address] Dr. Pancho Oliva UA PROTEIN 100 mg/dl Abnormal NEGATIVE/ TRACE [facility] Comment on above: Performed By: #### U MICRO, UACSIND #### [facility] [address] [address] [address] Pancho Oliva UR MICRO IND INDICATED Normal [facility] Comment on above: Performed By: #### U MICRO, UACSIND #### [facility] [address] [place] [address] Dr. Pancho Oliva Urobilinogen Qn (U) 0.2 {Pearl'U}/dL Normal 0.2 - 1. 0 [facility] Comment on above: Performed By: #### U MICRO, UACSIND #### [facility] [address] [place] [address] Dr. Pancho Oliva URINE MICROSCOPIC ONLYon AMORPHOUS CRYSTALS FEW Normal [facility] Comment on above: Performed By: #### U MICRO, UACSIND #### [facility] [address] [address] [address] Pancho Oliva BACTERIA SMALL Abnormal NONE SEEN [facility] Comment on above: Performed By: #### U MICRO, UACSIND #### [facility] [address] [address] [address] Pancho Oliva Bacteria identified Cx Nom (U) INDICATED Normal [facility] Comment on above: Performed By: #### U MICRO, UACSIND #### [facility] [address] [place] [address] Dr. Pancho Oliva CAST SEEN Abnormal NONE SEEN [facility] Comment on above: Performed By: #### U MICRO, UACSIND #### [facility] [address] [place] [address] Dr. Pancho Oliva Crystals LM Nom (Urine sed) SEEN Abnormal NONE SEEN [facility] Comment on above: Performed By: #### U MICRO, UACSIND #### [facility] [address] [address] [address] Pancho Oliva Epithelial cells LM Ql (Urine sed) FEW Abnormal NONE SEEN /RARE [facility] Comment on above: Performed By: #### U MICRO, UACSIND #### [facility] [address] [place] [address] Dr. Pancho Oliva HYALINE CAST RARE Normal [facility] Comment on above: Performed By: #### U MICRO, UACSIND #### [facility] [address] [address] [address] Pancho Oliva MUCOUS TRACE Abnormal NONE SEEN [facility] Comment on above: Performed By: #### U MICRO, UACSIND #### [facility] [address] [place] [address] Dr. Pancho Oliva RBC 2-5 Abnormal 0-2 [facility] Comment on above: Performed By: #### U MICRO, UACSIND #### [facility] [address] [place] [address] Dr. Pancho Oliva WBC 0-2 Abnormal NONE SEEN [facility] Comment on above: Performed By: #### U MICRO, UACSIND #### [facility] [address] [address] [address] Pancho Oliva CHLAMYDIA/GONOCOCCUS RHIANNA ( AB/URINE/PAPon 06-04-2022 Chlamydia trachomatis, RHIANNA Negative Normal Negative [facility] Comment on above: Performed By: #### U MICRO, UACSIND #### [facility] [address] [address] [address] Pancho Oliva Neisseria gonorrhoeae, RHIANNA Negative Normal Negative [facility] Comment on above: Performed By: #### U MICRO, UACSIND #### [facility] [address] [address] [address] Pancho Oliva GROUP B STREP CULTUREon 05-18 S. agalactiae Ag Ql (Unsp spec) Culture Observations: NEGATIVE FOR GROUP B STREPTOCOCCUS. Normal [facility] Comment on above: Performed By: #### U MICRO, UACSIND #### [facility] [address] [place] [address] Dr. Pancho Oliva US PREG ANATOMY SINGLEon [...] KIM LEIGH Date: 2022-04-08 22:10 Normal [facility] GLUCOSE - 1HRon 04-07-2022 Glucose [Mass/Vol] 114 mg/dL Critically high 74-106 [facility] Comment on above: Performed By: #### U MICRO, UACSIND #### [facility] [address] [address] [address] Pancho Oliva HEMOGRAM AND PLATELon 2021 Hematocrit (Bld) [Volume fraction] 36.1 % Normal 36.0-48.0 [facility] Comment on above: Performed By: #### U MICRO, UACSIND #### [facility] [address] [address] [address] Pancho Oliva Hemoglobin (Bld) [Mass/Vol] 12.1 g/dL Normal 12.0-16.0 [facility] Comment on above: Performed By: #### U MICRO, UACSIND #### [facility] [address] [address] [address] Pancho Oliva MCH (RBC) [Entitic mass] 28.5 pg Normal 26.7-34.0 [facility] Comment on above: Performed By: #### U MICRO, UACSIND #### [facility] [address] [address] [address] Pancho Oliva MCHC (RBC) [Mass/Vol] 33.5 g/dL Normal 29.9-35.2 [facility] Comment on above: Performed By: #### U MICRO, UACSIND #### [facility] [address] [address] [address] Pancho Oliva MCV (RBC) [Entitic vol] 85.1 fL Normal 81.0-99.0 [facility] Comment on above: Performed By: #### U MICRO, UACSIND #### [facility] [address] [address] [address] Pancho Oliva PLT 333 103/ul Normal 150-450 [facility] Comment on above: Performed By: #### U MICRO, UACSIND #### [facility] [address] [address] [address] Pancho Oliva RBC 4.24 106/ul Normal 4.20-5.40 [facility] Comment on above: Performed By: #### U MICRO, UACSIND #### [facility] [address] [address] [address] Pancho Oliva WBC 16.5 103/ul Critically high 4.0-11.0 [facility] Comment on above: Performed By: #### U MICRO, UACSIND #### [facility] [address] [address] [address] Pancho Oliva AFP TETRA PROFILE (MATERNAL) on 01-21-2022 AFP MoM 0.81 Normal [facility] Comment on above: Performed By: #### A FPTET #### [facility] [address] [address] [address] Pancho Oliva AFP Value 26.1 ng/mL Normal [facility] Comment on above: Performed By: #### A FPTET #### [facility] [address] [address] [address] Pancho Oliva Comment Comment Normal [facility] Comment on above: Result Comment: Marguerite Hassan, Ph.D., [facility] Director . References: Available Upon Request. . Multiples Of Median Cutoffs Abbreviation Definitions For AFP Elevations IDD- Insulin Dep Diabetes Daugherty 2.5 Black 2.8 OSBR- Open Spina Bifida IDD 2.0 Twins 4.5 Risk DSR Cutoff 1:270 DSR- Down Syndrome Risk T18 Cutoff 1:100 T18- Trisomy 18 . For further inquiries contact [facility] at [phone]. . This test was developed and its performance characteristics determined by [employer]. It has not been cleared or approved by the Food and Drug Administration. Performed By: #### A FPTET #### [facility] [address] [place] [address] Dr. Pancho Oliva INDRA MoM 0.96 Normal [facility] Comment on above: Performed By: #### A FPTET #### [facility] [address] [place] [address] Dr. Pancho Oliva INDRA Value 118.40 pg/mL Normal [facility] Comment on above: Performed By: #### A FPTET #### [facility] [address] [place] [address] Dr. Pancho Oliva DSR (By Age) 1 [place] 1121 Normal [facility] Comment on above: Performed By: #### A FPTET #### [facility] [address] [place] [address] Dr. Pancho Oliva DSR (Second Trimester) 1 [place] [address] [facility] Comment on above: Performed By: #### A FPTET #### [facility] [address] [place] [address] Dr. Pancho Lee. Age on Collection Date 17.1 WEEKS [facility] Comment on above: Performed By: #### A FPTET #### [facility] [address] [place] [address] Dr. Pancho Foss. Age Based On LMP [facility] Comment on above: Performed By: #### A FPTET #### [facility] [address] [place] [address] Dr. Pancho Oliva hCG MoM 0.73 Normal [facility] Comment on above: Performed By: #### A FPTET #### [facility] [address] [place] [address] [place] [address] m[IU]/mL [facility] Comment on above: Performed By: #### A FPTET #### [facility] [address] [place] [address] Dr. Pancho Oliva Insulin Dep Diabetes No Normal [facility] Comment on above: Performed By: #### A FPTET #### [facility] [address] [place] [address] Dr. Pancho Oliva Interpretation Comment Normal [facility] Comment on above: Result Comment: Inte rpretation: [...] of maternal age, AFP, hCG, uE3, and NIDRA identifies 75-80% of Down Syndrome. The combination of maternal age, AFP, hCG and uE3 identifies 60% of Trisomy 18 pregnancies. The [employer] recommends amniocentesis be offered to women age 35 and older. Recalculations are not recommended when gestational dating by LMP and ultrasound are within 10 days. Performed By: #### A FPTET #### [facility] [address] [place] [address] Dr. Pancho Oliva [age] [address] [facility] Comment on above: Performed By: #### A FPTET #### [facility] [address] [place] [address] Dr. Pancho Oliva Multiple Gestation No Normal [facility] Comment on above: Performed By: #### A FPTET #### [facility] [address] [place] [address] Dr. Panch[place] Oliva OSBR [place] 1 [place] [address] Normal [facility] Comment on above: Performed By: #### A FPTET #### [facility] [address] [place] [address] Dr. Pancho Oliva PDF . Normal [facility] Comment on above: Performed By: #### A FPTET #### [facility] [address] [place] [address] Dr. Pancho Oliva Race Normal [facility] Comment on above: Performed By: #### A FPTET #### [facility] [address] [place] [address] Dr. Pancho Oliva Results Report Normal [facility] Comment on above: Performed By: #### A FPTET #### [facility] [address] [place] [address] Dr. Pancho Oliva T18 (By Age) 1:4368 Normal [facility] Comment on above: Performed By: #### A FPTET #### [facility] [address] [place] [address] Dr. Pancho Oliva T18 Risk Not increased Normal [facility] Comment on above: Performed By: #### A FPTET #### [facility] [address] [place] [address] Dr. Pancho Oliva Test Results: Negative Normal [facility] Comment on above: Performed By: #### A FPTET #### [facility] [address] [place] [address] Dr. Pancho Oliva uE3 MoM 1.70 Normal [facility] Comment on above: Performed By: #### A FPTET #### [facility] [address] [place] [address] Dr. Pancho Oliva uE3 Value 1.80 ng/mL Normal [facility] Comment on above: Performed By: #### A FPTET #### [facility] [address] [place] [address] Dr. Pancho Oliva HEP B SURFACE ANTIGEN SCREEN on 01-20-2022 HBsAg Screen Negative Normal Negative [facility] Comment on above: Performed By: #### U MICRO, UACSIND #### [facility] [address] [place] [address] Dr. Pancho Oliva HEPATITIS C VIRUS AB W/ REFL EX QUANTon 01-20-2022 HCV AB 0.1 s/co ratio Normal 0.0-0.9 [facility] Comment on above: Performed By: #### U MICRO, UACSIND #### [facility] [address] [place] [address] Dr. Pancho Oliva Interpretation: Comment Normal [facility] Comment on above: Result Comment: Nega tive Not infected with HCV, unless recent infection is suspected or other evidence exists to indicate HCV infection. Performed By: #### U MICRO, UACSIND #### [facility] [address] [address] [address] Pancho Oliva HIV 1 AND 2 WITH REFLEXon HIV Screen 4th Generation wRfx Non-Reactive Normal Non Reactive [facility] Comment on above: Result Comment: HIV Negative HIV-1/HIV-2 antibodies and HIV-1 p24 antigen were NOT detected. There is no laboratory evidence of HIV infection. Performed By: #### U MICRO, UACSIND #### [facility] [address] [place] [address] Dr. Pancho Oliva RPR QUANTon 01-20-2022 Rapid Plasma Reagin, Quant Non-Reactive Normal NonRea<1:1 [facility] Comment on above: Result Comment: Plea se Note: This test does not meet current guidelines for screening and diagnosis of syphilis. This test is intended for following treatment response in patients being treated for syphilis infection. To screen for syphilis infection, a reflex cascade that includes both RPR and a treponema-specific assay should be utilized, such as Treponema pallidum (Syphilis) Screening [place] (110586) or Rapid Plasma Reagin (RPR) Test With Reflex to Quantitative RPR and Confirmatory Treponema pallidum Antibodies (761774). Performed By: #### R PRQ #### [facility] [address] [place] [address] Dr. Pancho Oliva RUBELLA AB IGGon 01-20-2022 Rubella Antibodies, IgG 6.39 index Normal Immune >0.99 [facility] Comment on above: Result Comment: Non- immune <0.90 Equivocal 0.90 - 0.99 Immune >0.99 Performed By: #### R UBIGG #### [facility] [address] [place] [address] Dr. Pancho Oliva CBC AUTO DIFFon 01-19-2022 BASO # 0.1 103/ul Normal 0.0-0.1 [facility] Comment on above: Performed By: #### C BC #### [facility] [address] [place] [address] Dr. Pancho Oliva Basophils/100 WBC (Bld) 0.6 % Normal 0.2-2.0 [facility] Comment on above: Performed By: #### C BC #### [facility] [address] [address] [address] Pancho Oliva EO # 0.3 103/ul Normal 0.0-0.7 [facility] Comment on above: Performed By: #### C BC #### [facility] [address] [address] [address] Pancho Oliva Eosinophils/100 WBC (Bld) 2.1 % Normal 0.9-7.0 [facility] Comment on above: Performed By: #### C BC #### [facility] [address] [address] [address] Pancho Oliva Erythrocyte distribution width (RBC) [Ratio] 12.3 % Normal 11.0-15.0 [facility] Comment on above: Performed By: #### C BC #### [facility] [address] [place] [address] Dr. Pancho Oliva Hematocrit (Bld) [Volume fraction] 37.0 % Normal 36.0-48.0 [facility] Comment on above: Performed By: #### C BC #### [facility] [address] [place] [address] Dr. Pancho Oliva Hemoglobin (Bld) [Mass/Vol] 12.6 g/dL Normal 12.0-16.0 [facility] Comment on above: Performed By: #### C BC #### [facility] [address] [address] [address] Pancho Oliva IG # 0.19 10e3/ul Critically high 0.00-0.03 [facility] Comment on above: Performed By: #### C BC #### [facility] [address] [address] [address] Pancho Oliva IG % 1.2 % Critically high 0.0-0.5 [facility] Comment on above: Performed By: #### C BC #### [facility] [address] [place] [address] Dr. Pancho Oliva LYMPH # 2.6 103/ul Normal 1.2-3.8 [facility] Comment on above: Performed By: #### C BC #### [facility] [address] [place] [address] Dr. Pancho Oliva Lymphocytes/100 WBC (Bld) 15.6 % Critically low 20.5-60.0 [facility] Comment on above: Performed By: #### C BC #### [facility] [address] [place] [address] Dr. Pancho Oliva MANUAL DIFF REQ NO Normal [facility] Comment on above: Performed By: #### C BC #### [facility] [address] [place] [address] Dr. aPncho Oliva MCH (RBC) [Entitic mass] 28.4 pg Normal 26.7-34.0 [facility] Comment on above: Performed By: #### C BC #### [facility] [address] [place] [address] Dr. Pancho Oliva MCHC (RBC) [Mass/Vol] 34.1 g/dL Normal 29.9-35.2 [facility] Comment on above: Performed By: #### C BC #### [facility] [address] [place] [address] Dr. Pancho Oliva MCV (RBC) [Entitic vol] 83.5 fL Normal 81.0-99.0 [facility] Comment on above: Performed By: #### C BC #### [facility] [address] [place] [address] Dr. Pancho Oliva MONO # 0.7 103/ul Normal 0.3-0.8 [facility] Comment on above: Performed By: #### C BC #### [facility] [address] [place] [address] Dr. Pancho Oliva Monocytes/100 WBC (Bld) 4.2 % Normal 1.7-12.0 [facility] Comment on above: Performed By: #### C BC #### [facility] [address] [place] [address] Dr. Pancho Oliva NEUT # 12.6 103/ul Critically high 1.4-6.5 [facility] Comment on above: Performed By: #### C BC #### [facility] [address] [address] [address] Pancho Oliva Neutrophils/100 WBC (Bld) 76.3 % Critically high 43.0-75.0 [facility] Comment on above: Performed By: #### C BC #### [facility] [address] [address] [address] Pancho Oliva Platelet mean volume (Bld) [Entitic vol] 9.0 fL Critically low 9.5-13.5 [facility] Comment on above: Performed By: #### C BC #### [facility] [address] [address] [address] Pancho Oliva PLT 359 103/ul Normal 150-450 [facility] Comment on above: Performed By: #### C BC #### [facility] [address] [place] [address] Dr. Pancho Oliva RBC 4.43 106/ul Normal 4.20-5.40 [facility] Comment on above: Performed By: #### C BC #### [facility] [address] [address] [address] Pancho Oliva WBC 16.5 103/ul Critically high 4.0-11.0 [facility] Comment on above: Performed By: #### C BC #### [facility] [address] [place] [address] Dr. Pancho Oliva CULTURE URINEon 01-19-2022 CULTURE URINE Culture Observations : HEAVY GROWTH OF MIXED GENITAL XOCHITL. NO POTENTIAL PATHOGENS SEEN. Normal [facility] Comment on above: Performed By: #### U RCX #### [facility] [address] [place] [address] Dr. Pancho Oliva GLYCOHEMOGLOBIN A1Con 2021 ADA RECOMMENDATION SEE BELOW Normal [facility] Comment on above: Result Comment: ADA RECOMMENDED LIMIT 4.0 - 6.0 ADA THERAPEUTIC TARGET < 7.0 ACTION SUGGESTED > 7.0 Performed By: #### U MICRO, UACSIND #### [facility] [address] [place] [address] Dr. Pancho Oliva Glucose [Mass/Vol] 94 mg/dL Normal [facility] Comment on above: Performed By: #### U MICRO, UACSIND #### [facility] [address] [address] [address] Pancho Oliva HbA1c (Bld) [Mass fraction] 4.9 % Normal 4.5-6.2 [facility] Comment on above: Performed By: #### U MICRO, UACSIND #### [facility] [address] [address] [address] Pancho Oliva TYPE AND SCREENon 01-19-2022 TYPE AND SCREEN Negative Normal [facility] Comment on above: Performed By: #### U MICRO, UACSIND #### [facility] [address] [address] [address] Pancho Oliva US PREG TVon 11-23-2021 [...] KIM LEIGH Date: 2021-11-23 16:11 Normal [facility] Vital Signs Date Time Vital Sign Value Performing Clinician Faci lity 01-21-2022 02:06-0400 Body weight 97.[address] AUGUSTINE ENRIQUE [facility] Comment on above: Performed By: #### A FPTET #### [facility] [address] [place] [address] Dr. Pancho Oliva Encounters Encounter Date Encounter Type Care Provider Facility Start: 08-01-2023 End: 08-01-2023 ambulatory RUDI INES Not Available Start: 07-01-2023 End: 07-01-2023 ambulatory RUDI INES Not Available Start: 06-16-2022 End: 06-18-2022 Evaluation [...] ENRIQUE Payers Date Payer Category Payer Unknown [id number] [id number] [id number] 2000 Unknown [id number] 2.16.84 [id number] 2000 Unknown [id number] 2.16.84 [id number] 2000 Unknown [id number] 2.16.84 [id number] 2000 Unknown [id number] 2.16.84 [id number] 2000 Unknown [id number] 2.16.84 [id number] 2000 Unknown [id number] 2.16.84 [id number] 2000 Unknown [id number] 2.16.84 [id number] 2000 Unknown [id number] 1959 Self-pay 1959 Unknown [id number] 1959 Unknown [id number] Summary Purpose Family History No Family History Records FoundNo Family History Records Found Advance Directives No Advanced Directives Records FoundNo Advanced Directives Records Found Additional Source Comments INFORMATION SOURCE (unrecogn ized section and content) DATE CREATED AUTHOR 07/09/2022 [facility] DATE CREATED AUTHOR AUTHOR'S ORGANIZ ATION 08/01/2023 [facility] FOR RECORDS PERTAINING TO PATIENTS WHO [...] BE BASED ON THE PRIMARY CLINICAL RECORDS. [employer] provides no warranty or guarantee of the accuracy or completeness of information in this document.
[2023-08-11 08:33] LABS: Basophils Absolute Auto 0.1 10^3/uL (0.0-0.1); Basophils Percent Auto 0.7 % (0.2-2.0); Eosinophils Absolute Auto 0.3 10^3/uL (0.0-0.7); Hematocrit 38.3 % (36.0-48.0); Hemoglobin 12.6 g/dL (12.0-16.0); Immature Granulocytes Abs Auto 0.08 10^3/uL (0.00-0.03); Immature Granulocytes Pct Auto 0.6 % (0.0-0.5); Lymphocytes Absolute Auto 2.5 10^3/uL (1.2-3.8); Lymphocytes Percent Auto 18.6 % (20.5-60.0); Mean Corpuscular HGB Conc 32.9 g/dL (29.9-35.2); Mean Corpuscular Hemoglobin 27.6 pg (26.7-34.0); Mean Corpuscular Volume 83.8 fL (81.0-99.0); Mean Platelet Volume 9.6 fL (9.5-13.5); Monocytes Absolute Auto 0.6 10^3/uL (0.3-0.8); Monocytes Percent Auto 4.1 % (1.7-12.0); Platelet Count 336 10^3/uL (150-450); Red Blood Count 4.57 10^6/uL (4.20-5.40); Red Cell Distribution Width 12.9 % (11.0-15.0); White Blood Count 13.5 10^3/uL (4.0-11.0)
[2023-08-11 09:30] LABS: BOX Test Sent Out Y
[2023-08-11 11:22] LABS: Estimated Average Glucose 94 mg/dL; Glycohemoglobin A1C 4.9 % (4.5-6.2)
[2023-08-11 11:33] LABS: Thyroid Stimulating Hormone 1.839 uIU/mL (0.358-3.740)
[2023-08-12 07:09] LABS: HBsAg Screen Negative (Negative); HCV Ab Non Reactive (Non Reactive); HIV Ab/p24 Ag Screen Non Reactive (Non Reactive); Rubella Antibodies, IgG 4.18 index (Immune >0.99)
[2023-08-12 12:10] LABS: Rapid Plasma Reagin, Quant Non Reactive titer (NonRea<1:1)
== END 2023-08-11 08:05 | disposition home or self-care (01) ==
LOC: LAB 08:04
PROVIDERS: Visit Provider Obstetrics & Gynecology
DX: Z34.80 Encounter for supervision of other normal pregnancy, unspecified trimester (principal); Z3A.00 Weeks of gestation of pregnancy not specified
CPT/HCPCS: 36415; 83036; 84443; 85025; 86592; 86762; 86803; 86850; 86900; 86901; 87086; 87340; 87389

== ENCOUNTER 2023-10-10 10:32 | Outpatient (OUT) | payer BC, SELFPAY ==
--- NOTE | 2023-10-10 10:34 | US_ITS ---
[address] [address] Patient Name: DONAVAN WALTON MRN: [id number] date: 2000 Sex: F Assigned Patient Location: [facility] Current Patient Location: Accession/Order Number: [id number] Exam Date: 10/10/2023 10:35 Report Date: 10/10/2023 11:51 At the request of: RUDI CHACON Procedure: US OB anatomy EXAMINATION: US OB anatomy, US OB cervical length HISTORY: ANATOMY COMPARISON: No relevant comparison available. TECHNIQUE: Transabdominal sonographic examination was performed for obstetrical and evaluation. FINDINGS: Number: 1 Heart Rate: 137.0 bpm H.B. /min Amniotic Fluid Volume: Subjectively normal position: Breech Placental Location: Anterior fundal. The placental edge is 11.3 cm from the internal os Cervix Length: 5 cm , closed Normal anatomy: Lateral ventricles, cerebellum, posterior fossa, nose, lips, orbits, diaphragm, stomach, kidneys, abdominal cord insertion, bladder, umbilical arteries, three-vessel cord, spine, extremities Suboptimal visualization: Four-chamber heart, RVOT, LVOT BIOMETRY: BPD: 4.9 cm 20 weeks 6 days , 59% HC: 18.9 cm 21 weeks 1 days, 69% AC: 16.4 cm 21 weeks 3 days, 73% FL: 3.6 cm 21 weeks 3 days , 70% EFW:419.6 grams; 15 ounces, 86% FL/AC: 21.9 FL/BPD: 73.4 HC/AC: 1.2 GESTATIONAL AGE: Age by EDC: 20 weeks 4 days Age by current US: 21 weeks, 0 days JIGNESH by current US: 02/20/2024 JIGNESH by EDC: 02/23/2024 US/US OB anatomy IMPRESSION: Suboptimal visualization of the heart and ventricular outflow tracts Otherwise normal anatomy scan *Reference: [employer] Practice Guideline for the performance of Obstetric Ultrasound Examinations, April 17, 2007. Electronically authenticated by: ÁNGELA PRIETO Date: 10/10/2023 11:51
--- NOTE | 2023-10-10 10:34 | US_ITS ---
[address] [address] Patient Name: DONAVAN WALTON MRN: [id number] date: 2000 Sex: F Assigned Patient Location[facility] Current Patient Location: Accession/Order Number: [id number] Exam Date: 10/10/2023 10:35 Report Date: 10/10/2023 11:51 At the request of: RUDI CHACON Procedure: US OB cervical length EXAMINATION: US OB anatomy, US OB cervical length HISTORY: ANATOMY COMPARISON: No relevant comparison available. TECHNIQUE: Transabdominal sonographic examination was performed for obstetrical and evaluation. FINDINGS: Number: 1 Heart Rate: 137.0 bpm H.B. /min Amniotic Fluid Volume: Subjectively normal position: Breech Placental Location: Anterior fundal. The placental edge is 11.3 cm from the internal os Cervix Length: 5 cm , closed Normal anatomy: Lateral ventricles, cerebellum, posterior fossa, nose, lips, orbits, diaphragm, stomach, kidneys, abdominal cord insertion, bladder, umbilical arteries, three-vessel cord, spine, extremities Suboptimal visualization: Four-chamber heart, RVOT, LVOT BIOMETRY: BPD: 4.9 cm 20 weeks 6 days , 59% HC: 18.9 cm 21 weeks 1 days, 69% AC: 16.4 cm 21 weeks 3 days, 73% FL: 3.6 cm 21 weeks 3 days , 70% EFW:419.6 grams; 15 ounces, 86% FL/AC: 21.9 FL/BPD: 73.4 HC/AC: 1.2 GESTATIONAL AGE: Age by EDC: 20 weeks 4 days Age by current US: 21 weeks, 0 days JIGNESH by current US: 02/20/2024 JIGNESH by EDC: 02/23/2024 US/US OB cervical length IMPRESSION: Suboptimal visualization of the heart and ventricular outflow tracts Otherwise normal anatomy scan *Reference: [employer] Practice Guideline for the performance of Obstetric Ultrasound Examinations, April 17, 2007. Electronically authenticated by: ÁNGELA PRIETO Date: 10/10/2023 11:51
--- OUTSIDE RECORDS SUMMARY | 2023-10-10 10:39 | XMS_ITS | CCD ---
Author Organization [facility] Care Team Providers Care Test Equipment Mechanic Name Role Phone IVA, DR BRADSHAW Admitting [...] Unavailable KARASIK, DR BRADSHAW Attending Unavailable REQUEST, NONE LISTED Primary Care Unavaila ble KARASIK, DR BRADSHAW Attending Unavailable REQUEST, NONE LISTED Primary Care Unavaila ble KARASIK, DR BRADSHAW Admitting Unavailable KARASIK, DR BRADSHAW Attending Unavailable KARASIK, DR BRADSHAW Consulting Unavailable REQUEST, DR SANTA LISTED Primary Care Unavaila ble KARASIK, DR BRADSHAW Admitting Unavailable Unavailable Primary Care Provider Unavailabl RUDI Hendricks Attending Unavailable MERNAOLYA Attending Unavailable RUDI TRACEY Attending Unavailable Problems Problem Classification Problem Date Documented Date Episodic/Chronic Immunizations and screening for infectious disease (4 sources) Encounter for screening for infections with a predominantly sexual mode of transmission; Translations: [Contact with and (suspected) exposure to infections with a predominantly sexual mode of transmission] Onset: 01-22-2022 08-29-2023 Episodic Other female genital disorders (2 sources) Vaginal discharge; Translations: [Other specified noninflammatory disorders of vagina] 08-29-2023 Episodic Other and delivery including normal (14 sources) Encounter for full-term uncomplicated delivery; Translations: [...] Test Name Value Interpretation Reference Range Facility URETHRITIS/DISCHARGE PLUS VA GINITIS (HTRX)on 08-31-2023 ATOPOBIUM VAGINAE 0 [facility] ATOPOBIUM VAGINAE Not detected [facility] BVAB 2,3 (BACTERIAL VAGINOSIS ASSOCIATED BACTERIA 2, 3); MOBILUNCUS SPP 22.438 Abnormal [facility] BVAB 2,3 (BACTERIAL VAGINOSIS ASSOCIATED BACTERIA 2, 3); MOBILUNCUS SPP Detected Abnormal [facility] JEREMI ALBICANS, PARAPSILOSIS, TROPICALIS 0 [facility] JEREMI ALBICANS, PARAPSILOSIS, TROPICALIS Not detected [facility] JEREMI GLABRATA 0 [facility] lthcare JEREMI GLABRATA Not detected [facility] J[facility]I [facility]USEI [facility] JEREMI KRUSEI Not detected [facility] lthcare CHLAMYDIA TRACHOMATIS 0 [facility] Healthcare CHLAMYDIA TRACHOMATIS Not detected [facility] Healthcare DFR (A1, A5), SUL (1,2) 0 PPM [facility] Healthcare DFR (A1, A5), SUL (1,2) Not detected [facility] Healthcare ERMB, C; MEFA 25.226 Abnormal PPM [facility] care ERMB, C; MEFA Detected Abnormal [facility] care GARDNERELLA VAGINALIS 30.91 Abnormal [facility] GARDNERELLA VAGINALIS Detected Abnormal [facility] Interpretation and review of laboratory results Abnormal [facility] MEGASPHAERA (TYPES 1, 2) 0 [facility] MEGASPHAERA (TYPES 1, 2) Not detected [facility] MYCOPLASMA GENITALIUM 0 [facility] MYCOPLASMA GENITALIUM Not detected [facility] NEISSERIA GONORRHOEAE 0 [facility] NEISSERIA GONORRHOEAE Not detected [facility] TET B, TET M 23.014 Abnormal PPM [facility] are TET B, TET M Detected Abnormal [facility] are TRICHOMONAS VAGINALIS 0 [facility] TRICHOMONAS VAGINALIS Not detected [facility] macro (dipstick) panel (U)on 08-29-2023 Bilirubin, UA Negative Negative - 4(70) +++ mg/dL [facility] Blood, UA Negative Negative - 50 Teddy/mcL [facility] Clarity, UA Clear [facility] re Color, UA [facility] Glucose, [facility]A Negative Negative - 1999(110) ++++ mg/dL [facility] Interpretation and review of laboratory results Abnormal [facility] Ketones, UA Positive Negative - 160(16) ++++ mg/dL [facility] Leukocytes, UA Trace Negative - 500+++ Nicolasa/mcL [facility] Nitrite, UA Negative Negative - Positive [facility] pH, UA 6.0 5 - 9 [facility] e Protein, UA Negative Negative - 1999(20) ++++ mg/dL [facility] Spec Grav, UA 1.030 1 - 1.03 [facility] Urobilinogen, UA 0.2 0.2 - 12 mg/dL [facility] CBC AUTO DIFFon 06-18-2022 BASO # 0.1 103/ul Normal 0.0-0.1 [facility] Comment on above: Performed By: #### U MICRO, UACSIND #### [facility] [address] [address] [address] Pancho Oliva Basophils/100 WBC (Bld) 0.8 % Normal 0.2-2.0 [facility] Comment on above: Performed By: #### U MICRO, UACSIND #### [facility] [address] [address] [address] Pancho Oliva EO # 0.3 103/ul Normal 0.0-0.7 [facility] Comment on above: Performed By: #### U MICRO, UACSIND #### [facility] [address] [address] [address] Pancho Oliva Eosinophils/100 WBC (Bld) 2.1 % Normal 0.9-7.0 [facility] Comment on above: Performed By: #### U MICRO, UACSIND #### [facility] [address] [place] [address] Dr. Pancho Oliva Erythrocyte distribution width (RBC) [Ratio] 13.9 % Normal 11.0-15.0 [facility] Comment on above: Performed By: #### U MICRO, UACSIND #### [facility] [address] [place] [address] Dr. Pancho Oliva Hematocrit (Bld) [Volume fraction] 36.2 % Normal 36.0-48.0 [facility] Comment on above: Performed By: #### U MICRO, UACSIND #### [facility] [address] [place] [address] Dr. Pancho Oliva Hemoglobin (Bld) [Mass/Vol] 11.8 g/dL Critically low 12.0-16.0 [facility] Comment on above: Performed By: #### U MICRO, UACSIND #### [facility] [address] [place] [address] Dr. Pancho Oliva IG # 0.16 10e3/ul Critically high 0.00-0.03 [facility] Comment on above: Performed By: #### U MICRO, UACSIND #### [facility] [address] [place] [address] Dr. Pancho Oliva IG % 1.1 % Critically high 0.0-0.5 [facility] Comment on above: Performed By: #### U MICRO, UACSIND #### [facility] [address] [place] [address] Dr. Pancho Oliva LYMPH # 3.5 103/ul Normal 1.2-3.8 [facility] Comment on above: Performed By: #### U MICRO, UACSIND #### [facility] [address] [place] [address] Dr. Pancho Oliva Lymphocytes/100 WBC (Bld) 23.3 % Normal 20.5-60.0 [facility] Comment on above: Performed By: #### U MICRO, UACSIND #### [facility] [address] [place] [address] Dr. Pancho Oliva MANUAL DIFF REQ NO Normal [facility] Comment on above: Performed By: #### U MICRO, UACSIND #### [facility] [address] [place] [address] Dr. Pancho Oliva MCH (RBC) [Entitic mass] 27.1 pg Normal 26.7-34.0 [facility] Comment on above: Performed By: #### U MICRO, UACSIND #### [facility] [address] [place] [address] Dr. Pancho Oliva MCHC (RBC) [Mass/Vol] 32.6 g/dL Normal 29.9-35.2 [facility] Comment on above: Performed By: #### U MICRO, UACSIND #### [facility] [address] [place] [address] Dr. Pancho Oliva MCV (RBC) [Entitic vol] 83.0 fL Normal 81.0-99.0 [facility] Comment on above: Performed By: #### U MICRO, UACSIND #### [facility] [address] [place] [address] Dr. Pancho Oliva MONO # 0.7 103/ul Normal 0.3-0.8 [facility] Comment on above: Performed By: #### U MICRO, UACSIND #### [facility] [address] [place] [address] Dr. Pancho Oliva Monocytes/100 WBC (Bld) 4.3 % Normal 1.7-12.0 [facility] Comment on above: Performed By: #### U MICRO, UACSIND #### [facility] [address] [place] [address] Dr. Pancho Oliva NEUT # 10.2 103/ul Critically high 1.4-6.5 [facility] Comment on above: Performed By: #### U MICRO, UACSIND #### [facility] [address] [address] [address] Pancho Oliva Neutrophils/100 WBC (Bld) 68.4 % Normal 43.0-75.0 [facility] Comment on above: Performed By: #### U MICRO, UACSIND #### [facility] [address] [address] [address] Pancho Oliva Platelet mean volume (Bld) [Entitic vol] 9.7 fL Normal 9.5-13.5 [facility] Comment on above: Performed By: #### U MICRO, UACSIND #### [facility] [address] [address] [address] Pancho Oliva PLT 271 103/ul Normal 150-450 [facility] Comment on above: Performed By: #### U MICRO, UACSIND #### [facility] [address] [address] [address] Pancho Oliva RBC 4.36 106/ul Normal 4.20-5.40 [facility] Comment on above: Performed By: #### U MICRO, UACSIND #### [facility] [address] [address] [address] Pancho Oliva WBC 15.0 103/ul Critically high 4.0-11.0 [facility] Comment on above: Performed By: #### U MICRO, UACSIND #### [facility] [address] [address] [address] Pancho Oliva RPR QUANTon 06-18-2022 Rapid Plasma Reagin, Quant Non-Reactive Normal NonRea<1:1 [facility] Comment on above: Result Comment: Plea se Note: This test does not meet current guidelines for screening and diagnosis of syphilis. This test is intended for following treatment response in patients being treated for syphilis infection. To screen for syphilis infection, a reflex cascade that includes both RPR and a treponema-specific assay should be utilized, such as Treponema pallidum (Syphilis) Screening [place] (378245) or Rapid Plasma Reagin (RPR) Test With Reflex to Quantitative RPR and Confirmatory Treponema pallidum Antibodies (814465). Performed By: #### R PRQ #### [facility] [address] [place] [address] Dr. Pancho Oliva CBC AUTO DIFFon 06-16-2022 BASO # 0.1 103/ul Normal 0.0-0.1 [facility] Comment on above: Performed By: #### U MICRO, UACSIND #### [facility] [address] [place] [address] Dr. Pancho Oliva Basophils/100 WBC (Bld) 0.5 % Normal 0.2-2.0 [facility] Comment on above: Performed By: #### U MICRO, UACSIND #### [facility] [address] [place] [address] Dr. Pancho Oliva EO # 0.0 103/ul Normal 0.0-0.7 [facility] Comment on above: Performed By: #### U MICRO, UACSIND #### [facility] [address] [place] [address] Dr. Pancho Oliva Eosinophils/100 WBC (Bld) 0.1 % Critically low 0.9-7.0 [facility] Comment on above: Performed By: #### U MICRO, UACSIND #### [facility] [address] [place] [address] Dr. Pancho Oliva Erythrocyte distribution width (RBC) [Ratio] 13.5 % Normal 11.0-15.0 [facility] Comment on above: Performed By: #### U MICRO, UACSIND #### [facility] [address] [place] [address] Dr. Pancho Oliva Hematocrit (Bld) [Volume fraction] 38.7 % Normal 36.0-48.0 [facility] Comment on above: Performed By: #### U MICRO, UACSIND #### [facility] [address] [place] [address] Dr. Pancho Oliva Hemoglobin (Bld) [Mass/Vol] 13.0 g/dL Normal 12.0-16.0 [facility] Comment on above: Performed By: #### U MICRO, UACSIND #### [facility] [address] [place] [address] Dr. Pancho Oliva IG # 0.15 10e3/ul Critically high 0.00-0.03 [facility] Comment on above: Performed By: #### U MICRO, UACSIND #### [facility] [address] [address] [address] Pancho Oliva IG % 0.8 % Critically high 0.0-0.5 [facility] Comment on above: Performed By: #### U MICRO, UACSIND #### [facility] [address] [address] [address] Pancho Oliva LYMPH # 1.8 103/ul Normal 1.2-3.8 [facility] Comment on above: Performed By: #### U MICRO, UACSIND #### [facility] [address] [place] [address] Dr. Pancho Oliva Lymphocytes/100 WBC (Bld) 8.9 % Critically low 20.5-60.0 [facility] Comment on above: Performed By: #### U MICRO, UACSIND #### [facility] [address] [place] [address] Dr. Pancho Oliva MANUAL DIFF REQ NO Normal [facility] Comment on above: Performed By: #### U MICRO, UACSIND #### [facility] [address] [place] [address] Dr. Pancho Oliva MCH (RBC) [Entitic mass] 27.2 pg Normal 26.7-34.0 [facility] Comment on above: Performed By: #### U MICRO, UACSIND #### [facility] [address] [place] [address] Dr. Pancho Oliva MCHC (RBC) [Mass/Vol] 33.6 g/dL Normal 29.9-35.2 [facility] Comment on above: Performed By: #### U MICRO, UACSIND #### [facility] [address] [place] [address] Dr. Pancho Oliva MCV (RBC) [Entitic vol] 81.0 fL Normal 81.0-99.0 [facility] Comment on above: Performed By: #### U MICRO, UACSIND #### [facility] [address] [address] [address] Pancho Oliva MONO # 0.5 103/ul Normal 0.3-0.8 [facility] Comment on above: Performed By: #### U MICRO, UACSIND #### [facility] [address] [address] [address] Pancho Oliva Monocytes/100 WBC (Bld) 2.5 % Normal 1.7-12.0 [facility] Comment on above: Performed By: #### U MICRO, UACSIND #### [facility] [address] [address] [address] Pancho Oliva NEUT # 17.2 103/ul Critically high 1.4-6.5 [facility] Comment on above: Performed By: #### U MICRO, UACSIND #### [facility] [address] [place] [address] Dr. Pancho Oliva Neutrophils/100 WBC (Bld) 87.2 % Critically high 43.0-75.0 [facility] Comment on above: Performed By: #### U MICRO, UACSIND #### [facility] [address] [address] [address] Pancho Oliva Platelet mean volume (Bld) [Entitic vol] 9.9 fL Normal 9.5-13.5 [facility] Comment on above: Performed By: #### U MICRO, UACSIND #### [facility] [address] [address] [address] Pancho Oliva PLT 332 103/ul Normal 150-450 [facility] Comment on above: Performed By: #### U MICRO, UACSIND #### [facility] [address] [address] [address] Pancho Oliva RBC 4.78 106/ul Normal 4.20-5.40 [facility] Comment on above: Performed By: #### U MICRO, UACSIND #### [facility] [address] [address] [address] Pancho Oliva WBC 19.8 103/ul Critically high 4.0-11.0 [facility] Comment on above: Performed By: #### U MICRO, UACSIND #### [facility] [address] [address] [address] Pancho Oliva CULTURE URINEon 06-16-2022 CULTURE URINE Culture Observations: LIGHT GROWTH OF MIXED GENITAL XOCHITL. NO POTENTIAL PATHOGENS SEEN. Normal [facility] Comment on above: Performed By: #### U RCX #### [facility] [address] [address] [address] Pancho Oliva Covid-19 PCR (CVDTB)on 05-20 SARS-CoV-2 (COVID-19) RNA RHIANNA+probe Ql (Unsp spec) Not detected Normal NOT DETECTED [facility] Comment on above: Result Comment: When diagnostic [...] for this test is supported by the [place] of Health and Human Service's declaration that [...] used). Performed By: #### C VDTBH #### [facility] [address] [address] [address] Pancho Oliva DRUG SCREEN RAPID (URINE)on 06-16-2022 AMP Negative Normal NEGATIVE [facility] Comment on above: Performed By: #### U MICRO, UACSIND #### [facility] [address] [place] [address] Dr. Pancho Oliva BAR Negative Normal NEGATIVE [facility] Comment on above: Performed By: #### U MICRO, UACSIND #### [facility] [address] [address] [address] Pancho Oliva BUP Negative Normal NEGATIVE [facility] Comment on above: Performed By: #### U MICRO, UACSIND #### [facility] [address] [place] [address] Dr. Pancho Oliva BZO Negative Normal NEGATIVE [facility] Comment on above: Performed By: #### U MICRO, UACSIND #### [facility] [address] [place] [address] Dr. Pancho Oliva CALVIN Negative Normal NEGATIVE [facility] Comment on above: Performed By: #### U MICRO, UACSIND #### [facility] [address] [place] [address] Dr. Pancho Oliva CUT-OFFS SEE BELOW Normal [facility] Comment on above: Result Comment: AMP [...] Performed By: #### U MICRO, UACSIND #### [facility] [address] [place] [address] Dr. Pancho Oliva DRUG CUT HEADER DRUG CLASS TEST SYSTEM CUT-OFF CONCENTRATIONS ARE FOLLOWS: Normal [facility] Comment on above: Performed By: #### U MICRO, UACSIND #### [facility] [address] [place] [address] Dr. Pancho Oliva mAMP Negative Normal NEGATIVE [facility] Comment on above: Performed By: #### U MICRO, UACSIND #### [facility] [address] [place] [address] Dr. Pancho Oliva MTD Negative Normal NEGATIVE [facility] Comment on above: Performed By: #### U MICRO, UACSIND #### [facility] [address] [address] [address] Pancho Oliva OPI Negative Normal NEGATIVE [facility] Comment on above: Performed By: #### U MICRO, UACSIND #### [facility] [address] [address] [address] Pancho Oliva OXY Negative Normal NEGATIVE [facility] Comment on above: Performed By: #### U MICRO, UACSIND #### [facility] [address] [address] [address] Pancho Oliva PCP Negative Normal NEGATIVE [facility] Comment on above: Performed By: #### U MICRO, UACSIND #### [facility] [address] [address] [address] Pancho Oliva PPX Negative Normal NEGATIVE [facility] Comment on above: Performed By: #### U MICRO, UACSIND #### [facility] [address] [address] [address] Pancho Olvia TCA Negative Normal NEGATIVE [facility] Comment on above: Performed By: #### U MICRO, UACSIND #### [facility] [address] [address] [address] Pancho Oliva THC Negative Normal NEGATIVE [facility] Comment on above: Performed By: #### U MICRO, UACSIND #### [facility] [address] [place] [address] Dr. Pancho Oliva TYPE AND SCREENon 06-16-2022 TYPE AND SCREEN Negative Normal [facility] Comment on above: Performed By: #### U MICRO, UACSIND #### [facility] [address] [address] [address] Pancho Oliva UA (CLEAN/CATCH) TICKET SALES SUPERVISOR/MICRO I F IND.on 06-16-2022 Bilirubin Ql (U) Negative Normal NEGATIVE [facility] Comment on above: Performed By: #### U MICRO, UACSIND #### [facility] [address] [place] [address] Dr. Pancho Oliva Clarity (U) CLEAR Normal CLEAR [facility] Comment on above: Performed By: #### U MICRO, UACSIND #### [facility] [address] [address] [address] Pancho Oliva Color (U) YELLOW Normal YELLOW [facility] Comment on above: Performed By: #### U MICRO, UACSIND #### [facility] [address] [address] [address] Pancho Oliva Glucose Ql (U) Negative Normal NEGATIVE [facility] Comment on above: Performed By: #### U MICRO, UACSIND #### [facility] [address] [address] [address] Pancho Oliva Hemoglobin Ql (U) SMALL Abnormal NEGATIVE [facility] Comment on above: Performed By: #### U MICRO, UACSIND #### [facility] [address] [place] [address] Dr. Pancho Oliva Ketones Ql (U) TRACE Abnormal NEGATIVE [facility] Comment on above: Performed By: #### U MICRO, UACSIND #### [facility] [address] [place] [address] Dr. Pancho Oliva LEUKOCYTES Negative Normal NEGATIVE [facility] Comment on above: Performed By: #### U MICRO, UACSIND #### [facility] [address] [address] [address] Pancho Oliva Nitrite Ql (U) Negative Normal NEGATIVE [facility] Comment on above: Performed By: #### U MICRO, UACSIND #### [facility] [address] [address] [address] Pancho Oliva pH (U) 5.5 [pH] Normal 5-9 [facility] Comment on above: Performed By: #### U MICRO, UACSIND #### [facility] [address] [address] [address] Pancho Oliva SPEC GRAVITY >=1.030 Abnormal 1.005-<=1.025 [facility] Comment on above: Performed By: #### U MICRO, UACSIND #### [facility] [address] [address] [address] Pancho Oliva UA PROTEIN 100 mg/dl Abnormal NEGATIVE/ TRACE [facility] Comment on above: Performed By: #### U MICRO, UACSIND #### [facility] [address] [address] [address] Pancho Oliva UR MICRO IND INDICATED Normal [facility] Comment on above: Performed By: #### U MICRO, UACSIND #### [facility] [address] [address] [address] Pancho Oliva Urobilinogen Qn (U) 0.2 {Pearl'U}/dL Normal 0.2 - 1. 0 [facility] Comment on above: Performed By: #### U MICRO, UACSIND #### [facility] [address] [address] [address] Pancho Oliva URINE MICROSCOPIC ONLYon AMORPHOUS CRYSTALS FEW Normal [facility] Comment on above: Performed By: #### U MICRO, UACSIND #### [facility] [address] [place] [address] Dr. Pancho Oliva BACTERIA SMALL Abnormal NONE SEEN [facility] Comment on above: Performed By: #### U MICRO, UACSIND #### [facility] [address] [address] [address] Pancho Oliva Bacteria identified Cx Nom (U) INDICATED Normal [facility] Comment on above: Performed By: #### U MICRO, UACSIND #### [facility] [address] [place] [address] Dr. Pancho Oliva CAST SEEN Abnormal NONE SEEN [facility] Comment on above: Performed By: #### U MICRO, UACSIND #### [facility] [address] [place] [address] Dr. Pancho Oliva Crystals LM Nom (Urine sed) SEEN Abnormal NONE SEEN [facility] Comment on above: Performed By: #### U MICRO, UACSIND #### [facility] [address] [place] [address] Dr. Pancho Oliva Epithelial cells LM Ql (Urine sed) FEW Abnormal NONE SEEN /RARE [facility] Comment on above: Performed By: #### U MICRO, UACSIND #### [facility] [address] [address] [address] Pancho Oliva HYALINE CAST RARE Normal [facility] Comment on above: Performed By: #### U MICRO, UACSIND #### [facility] [address] [address] [address] Pancho Oliva MUCOUS TRACE Abnormal NONE SEEN [facility] Comment on above: Performed By: #### U MICRO, UACSIND #### [facility] [address] [address] [address] Pancho Oliva RBC 2-5 Abnormal 0-2 [facility] Comment on above: Performed By: #### U MICRO, UACSIND #### [facility] [address] [address] [address] Pancho Oliva WBC 0-2 Abnormal NONE SEEN [facility] Comment on above: Performed By: #### U MICRO, UACSIND #### [facility] [address] [place] [address] Dr. Pancho Oliva CHLAMYDIA/GONOCOCCUS RHIANNA (SW AB/URINE/PAPon 06-04-2022 Chlamydia trachomatis, RHIANNA Negative Normal Negative [facility] Comment on above: Performed By: #### U MICRO, UACSIND #### [facility] [address] [place] [address] Dr. Pancho Oliva Neisseria gonorrhoeae, RHIANNA Negative Normal Negative [facility] Comment on above: Performed By: #### U MICRO, UACSIND #### [facility] [address] [place] [address] Dr. Pancho Oliva GROUP B STREP CULTUREon 05-18 S. agalactiae Ag Ql (Unsp spec) Culture Observations: NEGATIVE FOR GROUP B STREPTOCOCCUS. Normal [facility] Comment on above: Performed By: #### U MICRO, UACSIND #### [facility] [address] [place] [address] Dr. Pancho Oliva US PREG ANATOMY SINGLEon [...] by: KIM LEIGH Date: 2022-04-08 22:10 Normal [facility] GLUCOSE - 1HRon 04-07-2022 Glucose [Mass/Vol] 114 mg/dL Critically high 74-106 [facility] Comment on above: Performed By: #### U MICRO, UACSIND #### [facility] [address] [address] [address] Pancho Oliva HEMOGRAM AND PLATELon 2021 Hematocrit (Bld) [Volume fraction] 36.1 % Normal 36.0-48.0 [facility] Comment on above: Performed By: #### U MICRO, UACSIND #### [facility] [address] [address] [address] Pancho Oliva Hemoglobin (Bld) [Mass/Vol] 12.1 g/dL Normal 12.0-16.0 [facility] Comment on above: Performed By: #### U MICRO, UACSIND #### [facility] [address] [address] [address] Pancho Oliva MCH (RBC) [Entitic mass] 28.5 pg Normal 26.7-34.0 [facility] Comment on above: Performed By: #### U MICRO, UACSIND #### [facility] [address] [place] [address] Dr. Pancho Oliva MCHC (RBC) [Mass/Vol] 33.5 g/dL Normal 29.9-35.2 [facility] Comment on above: Performed By: #### U MICRO, UACSIND #### [facility] [address] [address] [address] Pancho Oliva MCV (RBC) [Entitic vol] 85.1 fL Normal 81.0-99.0 [facility] Comment on above: Performed By: #### U MICRO, UACSIND #### [facility] [address] [place] [address] Dr. Pancho Oliva PLT 333 103/ul Normal 150-450 [facility] Comment on above: Performed By: #### U MICRO, UACSIND #### [facility] [address] [place] [address] Dr. Pancho Oliva RBC 4.24 106/ul Normal 4.20-5.40 [facility] Comment on above: Performed By: #### U MICRO, UACSIND #### [facility] [address] [place] [address] Dr. Pancho Oliva WBC 16.5 103/ul Critically high 4.0-11.0 [facility] Comment on above: Performed By: #### U MICRO, UACSIND #### [facility] [address] [place] [address] Dr. Pancho Oliva AFP TETRA PROFILE (MATERNAL) on 01-21-2022 AFP MoM 0.81 Normal [facility] Comment on above: Performed By: #### A FPTET #### [facility] [address] [place] [address] Dr. Pancho Oliva AFP Value 26.1 ng/mL Normal [facility] Comment on above: Performed By: #### A FPTET #### [facility] [address] [place] [address] Dr. Pancho Oliva Comment Comment Normal [facility] Comment on above: Result Comment: Marguerite Hassan, Ph.D., [facility] Director . References: Available Upon Request. . Multiples Of Median Cutoffs Abbreviation Definitions For AFP Elevations IDD- Insulin Dep Diabetes Daugherty 2.5 Black 2.8 OSBR- Open Spina Bifida IDD 2.0 Twins 4.5 Risk DSR Cutoff 1:270 DSR- Down Syndrome Risk T18 Cutoff 1:100 T18- Trisomy 18 . For further inquiries contact [employer] [facility] at [phone]. . This test was developed and its performance characteristics determined by [employer]. It has not been cleared or approved by the Food and Drug Administration. Performed By: #### A FPTET #### [facility] [address] [place] [address] Dr. Pancho Oliva INDRA MoM 0.96 Normal [facility] Comment on above: Performed By: #### A FPTET #### [facility] [address] [place] [address] Dr. Pancho Oliva INDRA Value 118.40 pg/mL [facility] Comment on above: Performed By: #### A FPTET #### [facility] [address] [place] [address] Dr. Pancho Oliva DSR (By Age) 1 [place] 1121 Normal [facility] Comment on above: Performed By: #### A FPTET #### [facility] [address] [place] [address] Dr. aPncho Oliva DSR (Second Trimester) 1 [place] [address] [facility] Comment on above: Performed By: #### A FPTET #### [facility] [address] [place] [address] Dr. Pancho Lee. Age on Collection Date 17.1 WEEKS Normal [facility] Comment on above: Performed By: #### A FPTET #### [facility] [address] [place] [address] Dr. Pancho Foss. Age Based On LMP [facility] Comment on above: Performed By: #### A FPTET #### [facility] [address] [address] [address] Pancho Oliva hCG MoM 0.73 Normal [facility] Comment on above: Performed By: #### A FPTET #### [facility] [address] [address] [place] [address] m[IU]/mL Normal [facility] Comment on above: Performed By: #### A FPTET #### [facility] [address] [address] [address] Pancho Oliva Insulin Dep Diabetes No Normal [facility] Comment on above: Performed By: #### A FPTET #### [facility] [address] [address] [address] Pancho Oliva Interpretation Comment Normal [facility] Comment on above: Result Comment: Inte rpretation: [...] identifies 60% of Trisomy 18 pregnancies. The [employer] recommends amniocentesis be offered to women age 35 and older. Recalculations are not recommended when gestational dating by LMP and ultrasound are within 10 days. Performed By: #### A FPTET #### [facility] [address] [place] [address] Dr. Pancho Oliva [age] Normal [facility] Comment on above: Performed By: #### A FPTET #### [facility] [address] [place] [address] Dr. Pancho Oliva Multiple Gestation No Normal [facility] Comment on above: Performed By: #### A FPTET #### [facility] [address] [place] [address] Dr. Panch[place] Oliva OS[place] 1 [place] [address] Normal [facility] Comment on above: Performed By: #### A FPTET #### [facility] [address] [place] [address] Dr. Pancho Oliva PDF . Normal [facility] Comment on above: Performed By: #### A FPTET #### [facility] [address] [place] [address] Dr. Pancho Oliva Race Normal [facility] Comment on above: Performed By: #### A FPTET #### [facility] [address] [place] [address] Dr. Pancho Oliva Results Report [facility] Comment on above: Performed By: #### A FPTET #### [facility] [address] [place] [address] Dr. Pancho Oliva T18 (By Age) 1:4368 Normal [facility] Comment on above: Performed By: #### A FPTET #### [facility] [address] [place] [address] Dr. Pancho Oliva T18 Risk Not increased [facility] Comment on above: Performed By: #### A FPTET #### [facility] [address] [place] [address] Dr. Pancho Oliva Test Results: Negative [facility] Comment on above: Performed By: #### A FPTET #### [facility] [address] [place] [address] Dr. Pancho Oliva uE3 MoM 1.70 [facility] Comment on above: Performed By: #### A FPTET #### [facility] [address] [place] [address] Dr. Pancho Oliva uE3 Value 1.80 ng/mL Normal [facility] Comment on above: Performed By: #### A FPTET #### [facility] [address] [place] [address] Dr. Pancho Oliva HEP B SURFACE ANTIGEN SCREEN on 01-20-2022 HBsAg Screen Negative Normal Negative [facility] Comment on above: Performed By: #### U MICRO, UACSIND #### [facility] [address] [address] [address] Pancho Oliva HEPATITIS C VIRUS AB W/ REFL EX QUANTon 01-20-2022 HCV AB 0.1 s/co ratio Normal 0.0-0.9 [facility] Comment on above: Performed By: #### U MICRO, UACSIND #### [facility] [address] [address] [address] Pancho Oliva Interpretation: Comment Normal [facility] Comment on above: Result Comment: Nega tive Not infected with HCV, unless recent infection is suspected or other evidence exists to indicate HCV infection. Performed By: #### U MICRO, UACSIND #### [facility] [address] [address] [address] Pancho Oliva HIV 1 AND 2 WITH REFLEXon HIV Screen 4th Generation wRfx Non-Reactive Normal Non Reactive [facility] Comment on above: Result Comment: HIV Negative HIV-1/HIV-2 antibodies and HIV-1 p24 antigen were NOT detected. There is no laboratory evidence of HIV infection. Performed By: #### U MICRO, UACSIND #### [facility] [address] [place] [address] Dr. Pancho Oliva RPR QUANTon 01-20-2022 Rapid Plasma Reagin, Quant Non-Reactive Normal NonRea<1:1 [facility] Comment on above: Result Comment: Plea se Note: This test does not meet current guidelines for screening and diagnosis of syphilis. This test is intended for following treatment response in patients being treated for syphilis infection. To screen for syphilis infection, a reflex cascade that includes both RPR and a treponema-specific assay should be utilized, such as Treponema pallidum (Syphilis) Screening [place] (697219) or Rapid Plasma Reagin (RPR) Test With Reflex to Quantitative RPR and Confirmatory Treponema pallidum Antibodies (942539). Performed By: #### R PRQ #### [facility] [address] [place] [address] Dr. Pancho Oliva RUBELLA AB IGGon 01-20-2022 Rubella Antibodies, IgG 6.39 index Normal Immune >0.99 [facility] Comment on above: Result Comment: Non- immune <0.90 Equivocal 0.90 - 0.99 Immune >0.99 Performed By: #### R UBIGG #### [facility] [address] [place] [address] Dr. Pancho Oliva CBC AUTO DIFFon 01-19-2022 BASO # 0.1 103/ul Normal 0.0-0.1 [facility] Comment on above: Performed By: #### C BC #### [facility] [address] [place] [address] Dr. Pancho Oliva Basophils/100 WBC (Bld) 0.6 % Normal 0.2-2.0 [facility] Comment on above: Performed By: #### C BC #### [facility] [address] [place] [address] Dr. Pancho Oliva EO # 0.3 103/ul Normal 0.0-0.7 [facility] Comment on above: Performed By: #### C BC #### [facility] [address] [place] [address] Dr. Pancho lOiva Eosinophils/100 WBC (Bld) 2.1 % Normal 0.9-7.0 [facility] Comment on above: Performed By: #### C BC #### [facility] [address] [place] [address] Dr. Pancho Oliva Erythrocyte distribution width (RBC) [Ratio] 12.3 % Normal 11.0-15.0 [facility] Comment on above: Performed By: #### C BC #### [facility] [address] [place] [address] Dr. Pancho Oliva Hematocrit (Bld) [Volume fraction] 37.0 % Normal 36.0-48.0 [facility] Comment on above: Performed By: #### C BC #### [facility] [address] [place] [address] Dr. Pancho Oliva Hemoglobin (Bld) [Mass/Vol] 12.6 g/dL Normal 12.0-16.0 [facility] Comment on above: Performed By: #### C BC #### [facility] [address] [address] [address] Pancho Oliva IG # 0.19 10e3/ul Critically high 0.00-0.03 [facility] Comment on above: Performed By: #### C BC #### [facility] [address] [address] [address] Pancho Oliva IG % 1.2 % Critically high 0.0-0.5 [facility] Comment on above: Performed By: #### C BC #### [facility] [address] [address] [address] Pancho Oliva LYMPH # 2.6 103/ul Normal 1.2-3.8 [facility] Comment on above: Performed By: #### C BC #### [facility] [address] [place] [address] Dr. Pancho Oliva Lymphocytes/100 WBC (Bld) 15.6 % Critically low 20.5-60.0 [facility] Comment on above: Performed By: #### C BC #### [facility] [address] [place] [address] Dr. Pancho Oliva MANUAL DIFF REQ NO Normal [facility] Comment on above: Performed By: #### C BC #### [facility] [address] [place] [address] Dr. Pancho Oliva MCH (RBC) [Entitic mass] 28.4 pg Normal 26.7-34.0 [facility] Comment on above: Performed By: #### C BC #### [facility] [address] [address] [address] Pancho Oliva MCHC (RBC) [Mass/Vol] 34.1 g/dL Normal 29.9-35.2 [facility] Comment on above: Performed By: #### C BC #### [facility] [address] [place] [address] Dr. Pancho Oliva MCV (RBC) [Entitic vol] 83.5 fL Normal 81.0-99.0 [facility] Comment on above: Performed By: #### C BC #### [facility] [address] [place], [place] [id number] Dr. Pancho Oliva MONO # 0.7 103/ul Normal 0.3-0.8 [facility] Comment on above: Performed By: #### C BC #### [facility] [address] [place] [address] Dr. Pancho Oliva Monocytes/100 WBC (Bld) 4.2 % Normal 1.7-12.0 [facility] Comment on above: Performed By: #### C BC #### [facility] [address] [place] [address] Dr. Pancho Oliva NEUT # 12.6 103/ul Critically high 1.4-6.5 [facility] Comment on above: Performed By: #### C BC #### [facility] [address] [place] [address] Dr. Pancho Oliva Neutrophils/100 WBC (Bld) 76.3 % Critically high 43.0-75.0 [facility] Comment on above: Performed By: #### C BC #### [facility] [address] [place] [address] Dr. Pancho Oliva Platelet mean volume (Bld) [Entitic vol] 9.0 fL Critically low 9.5-13.5 [facility] Comment on above: Performed By: #### C BC #### [facility] [address] [place] [address] Dr. Pancho Oliva PLT 359 103/ul Normal 150-450 [facility] Comment on above: Performed By: #### C BC #### [facility] [address] [place] [address] Dr. Pancho Oliva RBC 4.43 106/ul Normal 4.20-5.40 [facility] Comment on above: Performed By: #### C BC #### [facility] [address] [place] [address] Dr. Pancho Oliva WBC 16.5 103/ul Critically high 4.0-11.0 [facility] Comment on above: Performed By: #### C BC #### [facility] [address] [place] [address] Dr. Pancho Oliva CULTURE URINEon 01-19-2022 CULTURE URINE Culture Observations: HEAVY GROWTH OF MIXED GENITAL XOCHITL. NO POTENTIAL PATHOGENS SEEN. Normal [facility] Comment on above: Performed By: #### U RCX #### [facility] [address] [address] [address] Pancho Oliva GLYCOHEMOGLOBIN A1Con 2021 ADA RECOMMENDATION SEE BELOW Normal [facility] Comment on above: Result Comment: ADA RECOMMENDED LIMIT 4.0 - 6.0 ADA THERAPEUTIC TARGET < 7.0 ACTION SUGGESTED > 7.0 Performed By: #### U MICRO, UACSIND #### [facility] [address] [address] [address] Pancho Oliva Glucose [Mass/Vol] 94 mg/dL Normal [facility] Comment on above: Performed By: #### U MICRO, UACSIND #### [facility] [address] [address] [address] Pancho Oliva HbA1c (Bld) [Mass fraction] 4.9 % Normal 4.5-6.2 [facility] Comment on above: Performed By: #### U MICRO, UACSIND #### [facility] [address] [address] [address] Pancho Oliva TYPE AND SCREENon 01-19-2022 TYPE AND SCREEN Negative Normal [facility] Comment on above: Performed By: #### U MICRO, UACSIND #### [facility] [address] [address] [address] Pancho Oliva US PREG TVon 11-23-2021 [...] by: KIM LEIGH Date: 2021-11-23 16:11 Normal [facility] Vital Signs Date Time Vital Sign Value Performing Clinician Facility 08-29-2023 10:55-0500 Body mass index (BMI) [Ratio] 38.11 kg/m2 Olya LE Work Phone: [facility] 08-29-2023 10:55-0500 Body weight 103.87 kg Olya LE Work Phone: [facility] 08-29-2023 10:55-0500 Diastolic blood pressure 78 mm[Hg] Olya LE Work Phone: [facility] 08-29-2023 10:55-0500 Systolic blood pressure 118 mm[Hg] Olya LE Work Phone: [facility] 01-21-2022 02:06-0400 Body weight 97.[address] AUGUSTINE ENRIQUE [facility] Comment on above: Performed By: #### AFPTET #### [facility] [address] [place] [address] Dr. Pancho Oliva Encounters Encounter Date Encounter Type Care Provider Facility Start: 09-26-2023 End: 09-26-2023 ambulatory RUDI TRACEY Not Available Start: 08-29-2023 External Result Encounter Olya LE Work Phone: [facility] External Department Unsolicited Start: 08-29-2023 External Result Encounter Olya LE Work Phone: [facility] External Department Unsolicited Start: 08-29-2023 End: 08-29-2023 ambulatory OLYA BAUMAN Not Available Start: 08-29-2023 End: 08-29-2023 Patient encounter procedure Oyla LE Work Phone: [facility] Healthcare Start: 08-29-2023 End: 08-29-2023 Periodic preventive med est patient 18-39 yrs Olya LE Work Phone: [facility] Comment on above: Second trimester pre gnancy; Well woman exam with routine gynecological exam; STD exposure; Vaginal discharge Start: 08-26-2023 Chart abstracting Olya LE Work Phone: [facility] Start: 08-01-2023 End: 08-01-2023 ambulatory RUDI INES [...] Date Procedure Procedure Detail Performing Clinician Start: 08-29-2023 URETHRITIS/DISCHARGE PLUS VAGINITIS (HTRX) Olya LE Work Phone: Start: 08-29-2023 Urnls dip stick/tabl et rgnt non-auto w/o micrscp Olya LE Work Phone: Start: 06-17-2022 Delivery of Products of Conception, External Approach DR AUGUSTINE ENRIQUE Plan of Treatment Date Care Activity Detail Author Start: 09-26-2023 End: 09-26-2023 Patient encounter procedure 09/26/2023 10:50 AM EDT Routine [facility] [address] [place] [address] Rudi Tracey, DO [address] [place] [address] [facility] Start: 08-29-2023 End: 10-28-2023 Alpha fetoprotein, maternal Alpha fetoprotein, maternal Lab Routine Second trimester Expected: 08/29/2023 (Approximate), Expires: 10/28/2023 [facility] Comment on above: Expected: 08/29/2023 (Approximate), Expires: 10/28/2023 Start: 08-29-2023 End: 08-29-2023 Patient encounter procedure 08/29/2023 10:30 AM EST Routine [facility] [address] [place] [id number] Olya Bauman PA [address] [place] [address] Second trimester [facility] Comment on above: Second trimester pre gnancy CHLAMYDIA TRACHOMATI S (GENITO/STI) CHLAMYDIA TRACHOMATIS (GENITO/STI) Lab Routine STD exposure Ordered: 08/29/2023 [facility] Comment on above: Ordered: 08/29/2023 Cytology Cervical or vaginal smear or scraping study Pap Smear Pathology and Cytology Routine Well woman exam with routine gynecological exam Ordered: 08/29/2023 [facility] Comment on above: Ordered: 08/29/2023 Neisseria gonorrhoea e DNA [Presence] in Unspecified specimen by RHIANNA with probe detection Neisseria gonorrhea DNA probe, direct Lab Routine STD exposure Ordered: 08/29/2023 [facility] Comment on above: Ordered: 08/29/2023 SURESWAB(R) ADVANCED VAGINITIS PLUS, TMA SURESWAB(R) ADVANCED VAGINITIS PLUS, TMA Pathology and Cytology Routine Vaginal discharge Ordered: 08/29/2023 [facility] Work Phone: Comment on above: Ordered: 08/29/2023 Payers Date Payer Category Payer Unknown BCBS BCBS xxxxxx [id number] 2022-Present [phone] [address] [place] [address] [id number] 2000 Unknown [id number] 2000 Unknown [id number] 2000 Unknown [id number] 2000 Unknown [id number] 2000 Unknown [id number] 2000 Unknown [id number] 2000 Unknown [id number] 2000 Unknown [id number] 2000 Unknown [id number] 2000 Unknown [id number] 2000 Unknown [id number] 1959 Self-pay 1959 Unknown [id number] 1959 Unknown [id number] Social History Date Type Detail Facility Start: 02-06-2023 Tobacco smoking stat [facility] Never smoked tobacco [facility] Start: 08-01-2023 End: 08-29-2023 Alcohol intake Lifetime non-drinker (finding) [facility] Start: 02-06-2023 History of Social function [facility] Start: 02-06-2023 Tobacco use panel [facility] Start: 06-02-2023 [facility] Start: 2000 Sex Assigned At Female [facility] Start: 02-07-2023 Gender identity Identifies as female gender (finding) [facility] History of Present illness Narrative 08-29-2023 REY Freeman - 08/29/2023 10:30 AM EST Note Date & Type Note Facility 08-29-2023 History of Presen t illness Narrative Reason for Appointment: Patient ID: Michele Vega is a 23 y.o. female who presents for Routine Visit Patient presents today for Return OB appointment. Current Medications: currently has no medications in their medication list. Medical History: Active Ambulatory Problems Diagnosis Date Noted No Active Ambulatory Problems Resolved Ambulatory Problems Diagnosis Date Noted No Resolved Ambulatory Problems Past Medical History: Diagnosis Date depression ([facility]) Family History Problem Relation Name Age of Onset No Known Problems Daughter Social History Tobacco Use Smoking status: Never Smokeless tobacco: Not on file Substance Use Topics Alcohol use: Never Drug use: Never History reviewed. No pertinent surgical history. No Known Allergies Review of Systems: Review of Systems Constitutional: Negative. HENT: Negative. Eyes: Negative. Respiratory: Negative. Cardiovascular: Negative. Gastrointestinal: Negative. Musculoskeletal: Negative. Skin: Negative. Neurological: Negative. Psychiatric/Behavioral: Negative. All other systems reviewed and are negative. Hematological: Negative. Endocrine: Negative. Objective Physical Exam Constitutional: Appearance: Normal appearance. She is normal weight. Genitourinary: No vaginal discharge. Right Adnexa: not tender and no mass present. Left Adnexa: not tender and no mass present. No cervical discharge. Breasts: Breasts are soft. Right: Normal. Left: Normal. HENT: Head: Normocephalic. Cardiovascular: Rate and Rhythm: Normal rate. Pulses: Normal pulses. Pulmonary: Effort: Pulmonary effort is normal. Breath sounds: Normal breath sounds. Abdominal: Palpations: Abdomen is soft. Musculoskeletal: General: Normal range of motion. Neurological: General: No focal deficit present. Mental Status: She is alert and oriented to person, place, and time. Psychiatric: Mood and Affect: Mood normal. Behavior: Behavior normal. Thought Content: Thought content normal. Judgment: Judgment normal. Vitals and nursing note reviewed. Vitals: Estimated body mass index is 38.11 kg/m as calculated from the following: Height as of 03/22/23: 5' 5 . Weight as of this encounter: 229 lb. BP: 118/78 Patient's last menstrual period was 05/01/2023. Assessment/Plan Encounter Diagnoses Name Primary? Second trimester Well woman exam with routine gynecological exam STD exposure Vaginal discharge Patient presents today for an annual exam/routine obstetrics appointment. Patient is currently 14w4d . Patient is doing well and states she has no complaints. Pap/cultures was obtained without difficulty and [facility]. Follow Up: Patient is to return to our office in 4 weeks for routine OB appointment Documented by REY Freeman on behalf of: REY Freeman documented in this encounter [facility] Evaluation note Note Date & Type Note Facility Evaluation note Diagnosis Second trimester state, incidental Well woman exam with routine gynecological exam Routine gynecological examination STD exposure Vaginal discharge Leukorrhea, not specified as infective documented in this encounter [facility] Summary Purpose Family History No Family History Records FoundNo Family History Records Found Advance Directives No Advanced Directives Records FoundNo Advanced Directives Records Found Additional Source Comments INFORMATION SOURCE (unrecogn ized section and content) DATE CREATED AUTHOR 07/09/2022 [facility] DATE CREATED AUTHOR AUTHOR'S ORGANIZ ATION 09/26/2023 [facility] EPIC Reason for Visit (unrecogniz ed section and content) Reason Comments Routine Visit FOR RECORDS PERTAINING TO PATIENTS WHO ARE [...] BE BASED ON THE PRIMARY CLINICAL RECORDS. [employer] provides no warranty or guarantee of the accuracy or completeness of information in this document.
== END 2023-10-10 10:33 | disposition home or self-care (01) ==
LOC: NOMS 10:33
PROVIDERS: Visit Provider Obstetrics & Gynecology
DX: Z34.92 Encounter for supervision of normal pregnancy, unspecified, second trimester (principal); Z36.89 Encounter for other specified antenatal screening; Z3A.21 21 weeks gestation of pregnancy
CPT/HCPCS: 76805; 76817

== ENCOUNTER 2023-11-08 09:15 | Outpatient (OUT) | payer BC, SELFPAY ==
--- NOTE | 2023-11-08 09:19 | US_ITS ---
[address] [address] Patient Name: DONAVAN WALTON MRN: [id number] date: 2000 Sex: F Assigned Patient Location: US Current Patient Location: US Accession/Order Number: [id number] Exam Date: 11/08/2023 09:20 Report Date: 11/08/2023 10:16 At the request of: RUDI CHACON Procedure: US OB incomplete anatomy EXAM: US OB incomplete anatomy HISTORY: follow up ultrasound of anatomy Z36.2 COMPARISON: 10/10/2023 TECHNIQUE: Transabdominal images FINDINGS: position: Cephalic Amniotic fluid volume: Subjectively normal Heart rate: 132 beats minute Normal anatomy: Four-chamber heart, RVOT, LVOT Clinical age: 24 weeks 5 days Clinical JIGNESH: 02/23/2024 US/US OB incomplete anatomy IMPRESSION: Normal observed anatomy Electronically authenticated by: ÁNGELA PRIETO Date: 11/08/2023 10:16
== END 2023-11-08 09:16 | disposition home or self-care (01) ==
LOC: US 09:16
PROVIDERS: Visit Provider Obstetrics & Gynecology
DX: Z36.2 Encounter for other antenatal screening follow-up (principal); Z3A.24 24 weeks gestation of pregnancy
CPT/HCPCS: 76815

== ENCOUNTER 2023-11-30 10:49 | Outpatient (OUT) | payer BC, SELFPAY ==
[2023-11-30 12:00] LABS: Basophils Absolute Auto 0.1 10^3/uL (0.0-0.1); Basophils Percent Auto 0.6 % (0.2-2.0); Eosinophils Absolute Auto 0.1 10^3/uL (0.0-0.7); Eosinophils Percent Auto 1.2 % (0.9-7.0); Hematocrit 34.6 % (36.0-48.0); Hemoglobin 11.3 g/dL (12.0-16.0); Immature Granulocytes Abs Auto 0.08 10^3/uL (0.00-0.03); Immature Granulocytes Pct Auto 0.7 % (0.0-0.5); Lymphocytes Absolute Auto 1.9 10^3/uL (1.2-3.8); Lymphocytes Percent Auto 15.9 % (20.5-60.0); Mean Corpuscular HGB Conc 32.7 g/dL (29.9-35.2); Mean Corpuscular Hemoglobin 27.1 pg (26.7-34.0); Mean Platelet Volume 9.3 fL (9.5-13.5); Monocytes Absolute Auto 0.5 10^3/uL (0.3-0.8); Monocytes Percent Auto 3.7 % (1.7-12.0); Neutrophils Absolute Auto 9.5 10^3/uL (1.4-6.5); Neutrophils Percent Auto 77.9 % (43.0-75.0); Platelet Count 309 10^3/uL (150-450); Red Blood Count 4.17 10^6/uL (4.20-5.40); Red Cell Distribution Width 12.6 % (11.0-15.0); White Blood Count 12.2 10^3/uL (4.0-11.0)
[2023-11-30 12:15] LABS: Glucose 1 Hour 116 mg/dL (<130)
[2023-12-08 00:10] LABS: AFP Value 58.8 ng/mL (.); Gest. Age on Collection Date 18.6 weeks (.); Gestat. Age Based On As provided (.); Insulin Dep Diabetes No (.); Maternal Age At EDD 24.1 yr (.); OSBR Risk 1 IN 2155 (.); Results Report (.)
== END 2023-11-30 10:50 | disposition home or self-care (01) ==
PROVIDERS: Visit Provider Obstetrics & Gynecology
DX: Z34.92 Encounter for supervision of normal pregnancy, unspecified, second trimester (principal)
CPT/HCPCS: 36415; 82105; 82950; 85025

== ENCOUNTER 2023-12-14 11:02 | Outpatient (OUT) | payer BC, SELFPAY ==
--- NOTE | 2023-12-14 11:04 | US_ITS ---
[address] [address] Patient Name: DONAVAN WALTON MRN: [id number] date: 2000 Sex: F Assigned Patient Location: [facility] Current Patient Location: [facility] Accession/Order Number: [id number] Exam Date: 12/14/2023 11:04 Report Date: 12/14/2023 11:57 At the request of: RUDI CHACON Procedure: US OB growth EXAMINATION: US OB growth HISTORY: LARGE FOR GESTATIONAL AGE COMPARISON: No relevant comparison available. FINDINGS: Heart Rate: 140.0 bpm Amniotic Fluid Volume: 28.3 cm Number: 1.0 Position: VARIABLE Maximum Vertical Pocket: 8.5 cm cm 6.8 cm cm 5.8 cm cm 7.2 cm cm BIOMETRY: BPD: 7.9 cm cm; 31 weeks 4 days; 87% HC: 28.6 cmcm; 31 weeks 3 days , 60% AC: 25.8 cm cm; 30 weeks 0 days, 48% FL: 6.0 cm cm; 31 weeks 1 days; 70.6 % % EFW: 1603.6 grams, 3lb 9 oz, 64% FL/AC: 23.1 FL/BPD: 75.8 HC/AC: 1.1 GESTATIONAL AGE: Age by EDC: 29 weeks 6 days JIGNESH by EDC: 02/23/2024 Age by US: 31weeks, 0 days JIGNESH by US: 02/15/2024 US/US OB growth IMPRESSION: Polyhydramnios Otherwise, normal interval growth Electronically authenticated by: ÁNGELA PRIETO Date: 12/14/2023 11:57
== END 2023-12-14 11:03 | disposition home or self-care (01) ==
LOC: NOMS 11:02
PROVIDERS: Visit Provider Obstetrics & Gynecology
DX: Z34.93 Encounter for supervision of normal pregnancy, unspecified, third trimester (principal); Z3A.31 31 weeks gestation of pregnancy
CPT/HCPCS: 76816

== ENCOUNTER 2023-12-30 06:58 | Outpatient (OUT) | payer BC, SELFPAY ==
--- NOTE | 2023-12-30 | US_ITS ---
[address] [address] Patient Name: DONAVAN WALTON MRN: [id number] date: 2000 Sex: F Assigned Patient Location: [facility] Current Patient Location: [facility] Accession/Order Number: [id number] Exam Date: 12/30/2023 10:12 Report Date: 12/30/2023 10:47 At the request of: RUDI CHACON Procedure: US OB BPP w non-stress EXAMINATION: US OB BPP w non-stress HISTORY: POLYHYDRAMINOS AFFECTING O40.9XX0 COMPARISON: 12/14/2023 TECHNIQUE: Ultrasound biophysical profile was performed in the radiology department. FINDINGS: BREATHING MOVEMENTS: 2.0 GROSS BODY MOVEMENTS: 2.0 TONE: 2.0 QUALITATIVE AMNIOTIC FLUID VOLUME: 2.0 PRESENTATION: CEPHALIC HEART RATE: 139.2 bpm H.B./min AMNIOTIC FLUID VOLUME: 37.8 cm cm GESTATIONAL AGE: 32 weeks 1 days CONCLUSION: Total biophysical profile score: 8.0 Polyhydramnios Electronically authenticated by: ÁNGELA PRIETO Date: 12/30/2023 10:47
--- OUTSIDE RECORDS SUMMARY | 2023-12-30 07:01 | XMS_ITS | CCD ---
Author Organization [facility] Care Team Providers Care Marketing Sales Supervisor Name Role Phone IVA, DR BRADSHAW Admitting Unavailable KARASIK, DR BRADSHAW Procedure Practitioner Unava ilable KARASIK, DR BRADSHAW Attending Unavailable REQUEST, NONE LISTED Primary Care Unavaila ble KARASIK, DR BRADSHAW Consulting Unavailable INES, DR GRIJALVA Consulting Unavailable RYAN, ANNMARIE VEGAS Consulting Unava ilable KARASIK, DR BRADSHAW Attending Unavailable KARASIK, DR BRADSHAW Consulting Unavailable KARASIK, DR BRADSHAW Admitting Unavailable ZIEBER, DR KIM Jones Consulting Unavailable KARASIK, DR BRADSHAW Attending Unavailable KARASIK, DR BRADSHAW Consulting Unavailable REQUEST, NONE LISTED Primary Care Unavaila ble KARASIK, DR BRADSHAW Admitting Unavailable ZIEBER, DR KIM Jones Consulting Unavailable KARASIK, DR BRADSHAW Admitting Unavailable REQUEST, NONE LISTED Primary Care Unavaila [...] Unavailable KARASIK, DR BRADSHAW Consulting Unavailable REQUEST, NONE LISTED Primary Care Unavaila ble KARASIK, DR BRADSHAW Admitting Unavailable Unavailable Primary Care Provider Unavailabl e RUDI TRACEY Attending Unavailable OLYA BAUMAN Attending Unavailable RUDI TRACEY Attending Unavailable OLYA BAUMAN Attending Unavailable INESRUDI KING Attending Unavailable RUDI TRACEY Attending Unavailable Problems [...] VA GINITIS (HTRX)on 08-31-2023 [facility] V[facility]INAE Not detected [facility] BVAB 2,3 (BACTERIAL VAGINOSIS ASSOCIATED BACTERIA 2, 3); MOBILUNCUS SPP 22.438 Abnormal [facility] BVAB 2,3 (BACTERIAL VAGINOSIS ASSOCIATED BACTERIA 2, 3); MOBILUNCUS SPP Detected Abnormal [facility] Healthcare JEREMI ALBICANS, PARAPSILOSIS, TROPICALIS 0 [facility] JEREMI ALBICANS, PARAPSILOSIS, TROPICALIS Not detected [facility]EMI GLABRATA 0 [facility]EREMI GLABRATA Not [facility]I KRUSEI [facility] JEREMI KRUSEI Not [facility] CHLAMYDIA TRACHOMATIS 0 [facility] Healthcare CHLAMYDIA TRACHOMATIS Not detected [facility] Healthcare DFR (A1, A5), SUL (1,2) 0 PPM [facility] Healthcare DFR (A1, A5), SUL (1,2) Not detected [facility] Healthcare ERMB, C; MEFA 25.226 Abnormal PPM [facility] care ERMB, C; MEFA Detected Abnormal [facility] GARDNERELLA VAGINALIS 30.91 Abnormal [facility] GARDNERELLA VAGINALIS Detected Abnormal [facility] Interpretation and review of laboratory results Abnormal [facility] MEGASPHAERA (TYPES 1, 2) 0 [facility] MEGASPHAERA (TYPES 1, 2) Not detected [facility] MYCOPLASMA GENITALIUM 0 [facility] MYCOPLASMA GENITALIUM Not detected [facility] NEISSERIA GONORRHOEAE 0 [facility] NEISSERIA GONORRHOEAE Not detected [facility] TET B, TET M 23.014 Abnormal PPM [facility] are TET B, TET M Detected Abnormal [facility] are TRICHOMONAS VAGINALIS 0 [facility] TRICHOMONAS VAGINALIS Not detected [facility]inal[facility] macro (dipstick) panel (U)on 08-29-2023 Bilirubin, UA Negative Negative - 4(70) +++ mg/dL [facility] Blood, UA Negative Negative - 50 Teddy/mcL [facility] Clarity, UA Clear [facility] re Color, UA Yellow [facility] e Glucose, UA Negative Negative - 1999(110) ++++ mg/dL [facility] Interpretation and review of laboratory results Abnormal [facility] Ketones, UA Positive Negative - 160(16) ++++ mg/dL [facility] Leukocytes, UA Trace Negative - 500+++ Nicolasa/mcL [facility] Nitrite, UA Negative Negative - Positive [facility] pH, UA 6.0 5 - 9 [facility] e Protein, UA Negative Negative - 1999(20) ++++ mg/dL [facility] Spec Grav, UA 1.030 1 - 1.03 [facility] Urobilinogen, UA 0.2 0.2 - 12 mg/dL [facility] e CBC AUTO DIFFon 06-18-2022 BASO # 0.1 103/ul Normal 0.0-0.1 [facility] Comment on above: Performed By: #### U MICRO, UACSIND #### [facility] [address] [address] [address] Pancho Oliva Basophils/100 WBC (Bld) 0.8 % Normal 0.2-2.0 [facility] Comment on above: Performed By: #### U MICRO, UACSIND #### [facility] [address] [address] [address] Pancho Oliva EO # 0.3 103/ul Normal 0.0-0.7 [facility] Comment on above: Performed By: #### U MICRO, UACSIND #### [facility] [address] [address] [address] Pancho Oliva Eosinophils/100 WBC (Bld) 2.1 % Normal 0.9-7.0 [facility] Comment on above: Performed By: #### U MICRO, UACSIND #### [facility] [address] [place] [address] Dr. Pancho Oliva Erythrocyte distribution width (RBC) [Ratio] 13.9 % Normal 11.0-15.0 [facility] Comment on above: Performed By: #### U MICRO, UACSIND #### [facility] [address] [place] [address] Dr. Pancho Oliva Hematocrit (Bld) [Volume fraction] 36.2 % Normal 36.0-48.0 [facility] Comment on above: Performed By: #### U MICRO, UACSIND #### [facility] [address] [place] [address] Dr. Pancho Oliva Hemoglobin (Bld) [Mass/Vol] 11.8 g/dL Critically low 12.0-16.0 [facility] Comment on above: Performed By: #### U MICRO, UACSIND #### [facility] [address] [place] [address] Dr. Pancho Oliva IG # 0.16 10e3/ul Critically high 0.00-0.03 [facility] Comment on above: Performed By: #### U MICRO, UACSIND #### [facility] [address] [place] [address] Dr. Pancho Oliva IG % 1.1 % Critically high 0.0-0.5 [facility] Comment on above: Performed By: #### U MICRO, UACSIND #### [facility] [address] [place] [address] Dr. Pancho Oliva LYMPH # 3.5 103/ul Normal 1.2-3.8 [facility] Comment on above: Performed By: #### U MICRO, UACSIND #### [facility] [address] [address] [address] Pancho Oliva Lymphocytes/100 WBC (Bld) 23.3 % Normal 20.5-60.0 [facility] Comment on above: Performed By: #### U MICRO, UACSIND #### [facility] [address] [place] [address] Dr. Pancho Oliva MANUAL DIFF REQ NO Normal [facility] Comment on above: Performed By: #### U MICRO, UACSIND #### [facility] [address] [place] [address] Dr. Pancho Oliva MCH (RBC) [Entitic mass] 27.1 pg Normal 26.7-34.0 [facility] Comment on above: Performed By: #### U MICRO, UACSIND #### [facility] [address] [place] [address] Dr. Pancho Oliva MCHC (RBC) [Mass/Vol] 32.6 g/dL Normal 29.9-35.2 [facility] Comment on above: Performed By: #### U MICRO, UACSIND #### [facility] [address] [place] [address] Dr. Pancho Oliva MCV (RBC) [Entitic vol] 83.0 fL Normal 81.0-99.0 [facility] Comment on above: Performed By: #### U MICRO, UACSIND #### [facility] [address] [place] [address] Dr. Pancho Oliva MONO # 0.7 103/ul Normal 0.3-0.8 [facility] Comment on above: Performed By: #### U MICRO, UACSIND #### [facility] [address] [place] [address] Dr. Pancho Oliva Monocytes/100 WBC (Bld) 4.3 % Normal 1.7-12.0 [facility] Comment on above: Performed By: #### U MICRO, UACSIND #### [facility] [address] [place] [address] Dr. Pancho Oliva NEUT # 10.2 103/ul Critically high 1.4-6.5 [facility] Comment on above: Performed By: #### U MICRO, UACSIND #### [facility] [address] [place] [address] Dr. Pancho Oliva Neutrophils/100 WBC (Bld) 68.4 % Normal 43.0-75.0 [facility] Comment on above: Performed By: #### U MICRO, UACSIND #### [facility] [address] [place] [address] Dr. Pancho Oliva Platelet mean volume (Bld) [Entitic vol] 9.7 fL Normal 9.5-13.5 [facility] Comment on above: Performed By: #### U MICRO, UACSIND #### [facility] [address] [place] [address] Dr. Pancho Oliva PLT 271 103/ul Normal 150-450 [facility] Comment on above: Performed By: #### U MICRO, UACSIND #### [facility] [address] [place] [address] Dr. Pancho Oliva RBC 4.36 106/ul Normal 4.20-5.40 [facility] Comment on above: Performed By: #### U MICRO, UACSIND #### [facility] [address] [place] [address] Dr. Pancho Oliva WBC 15.0 103/ul Critically high 4.0-11.0 [facility] Comment on above: Performed By: #### U MICRO, UACSIND #### [facility] [address] [place] [address] Dr. Pancho Oliva RPR QUANTon 06-18-2022 Rapid Plasma Reagin, Quant Non-Reactive Normal NonRea<1:1 [facility] Comment on above: Result Comment: Jami acuna Note: This test does not meet current guidelines for screening and diagnosis of syphilis. This test is intended for following treatment response in patients being treated for syphilis infection. To screen for syphilis infection, a reflex cascade that includes both RPR and a treponema-specific assay should be utilized, such as Treponema pallidum (Syphilis) Screening [place] (844095) or Rapid Plasma Reagin (RPR) Test With Reflex to Quantitative RPR and Confirmatory Treponema pallidum Antibodies (344839). Performed By: #### R PRQ #### [facility] [address] [place] [address] Dr. Pancho Oliva CBC AUTO DIFFon 06-16-2022 BASO # 0.1 103/ul Normal 0.0-0.1 [facility] Comment on above: Performed By: #### U MICRO, UACSIND #### [facility] [address] [place] [address] Dr. Pancho Oliva Basophils/100 WBC (Bld) 0.5 % Normal 0.2-2.0 [facility] Comment on above: Performed By: #### U MICRO, UACSIND #### [facility] [address] [place] [address] Dr. Pancho Oliva EO # 0.0 103/ul Normal 0.0-0.7 [facility] Comment on above: Performed By: #### U MICRO, UACSIND #### [facility] [address] [place] [address] Dr. Pancho Oliva Eosinophils/100 WBC (Bld) 0.1 % Critically low 0.9-7.0 [facility] Comment on above: Performed By: #### U MICRO, UACSIND #### [facility] [address] [place] [address] Dr. Pancho Oliva Erythrocyte distribution width (RBC) [Ratio] 13.5 % Normal 11.0-15.0 [facility] Comment on above: Performed By: #### U MICRO, UACSIND #### [facility] [address] [place] [address] Dr. Pancho Oliva Hematocrit (Bld) [Volume fraction] 38.7 % Normal 36.0-48.0 [facility] Comment on above: Performed By: #### U MICRO, UACSIND #### [facility] [address] [place] [address] Dr. Pancho Oliva Hemoglobin (Bld) [Mass/Vol] 13.0 g/dL Normal 12.0-16.0 [facility] Comment on above: Performed By: #### U MICRO, UACSIND #### [facility] [address] [address] [address] Pancho Oliva IG # 0.15 10e3/ul Critically high 0.00-0.03 [facility] Comment on above: Performed By: #### U MICRO, UACSIND #### [facility] [address] [address] [address] Pancho Oliva IG % 0.8 % Critically high 0.0-0.5 [facility] Comment on above: Performed By: #### U MICRO, UACSIND #### [facility] [address] [address] [address] Pancho Oilva LYMPH # 1.8 103/ul Normal 1.2-3.8 [facility] Comment on above: Performed By: #### U MICRO, UACSIND #### [facility] [address] [address] [address] Pancho Oliva Lymphocytes/100 WBC (Bld) 8.9 % Critically low 20.5-60.0 [facility] Comment on above: Performed By: #### U MICRO, UACSIND #### [facility] [address] [address] [address] Pancho Oliva MANUAL DIFF REQ NO Normal [facility] Comment on above: Performed By: #### U MICRO, UACSIND #### [facility] [address] [address] [address] Pancho Oliva MCH (RBC) [Entitic mass] 27.2 pg Normal 26.7-34.0 [facility] Comment on above: Performed By: #### U MICRO, UACSIND #### [facility] [address] [address] [address] Pancho Oliva MCHC (RBC) [Mass/Vol] 33.6 g/dL Normal 29.9-35.2 [facility] Comment on above: Performed By: #### U MICRO, UACSIND #### [facility] [address] [address] [address] Pancho Oliva MCV (RBC) [Entitic vol] 81.0 fL Normal 81.0-99.0 [facility] Comment on above: Performed By: #### U MICRO, UACSIND #### [facility] [address] [place] [address] Dr. Pancho Oliva MONO # 0.5 103/ul Normal 0.3-0.8 [facility] Comment on above: Performed By: #### U MICRO, UACSIND #### [facility] [address] [place] [address] Dr. Pancho Oliva Monocytes/100 WBC (Bld) 2.5 % Normal 1.7-12.0 [facility] Comment on above: Performed By: #### U MICRO, UACSIND #### [facility] [address] [place] [address] Dr. Pancho Oliva NEUT # 17.2 103/ul Critically high 1.4-6.5 [facility] Comment on above: Performed By: #### U MICRO, UACSIND #### [facility] [address] [place] [address] Dr. Pancho Oliva Neutrophils/100 WBC (Bld) 87.2 % Critically high 43.0-75.0 [facility] Comment on above: Performed By: #### U MICRO, UACSIND #### [facility] [address] [place] [address] Dr. Pancho Oliva Platelet mean volume (Bld) [Entitic vol] 9.9 fL Normal 9.5-13.5 [facility] Comment on above: Performed By: #### U MICRO, UACSIND #### [facility] [address] [place] [address] Dr. aPncho Oliva PLT 332 103/ul Normal 150-450 [facility] Comment on above: Performed By: #### U MICRO, UACSIND #### [facility] [address] [place] [address] Dr. Pancho Oliva RBC 4.78 106/ul Normal 4.20-5.40 [facility] Comment on above: Performed By: #### U MICRO, UACSIND #### [facility] [address] [place] [address] Dr. Pancho Oliva WBC 19.8 103/ul Critically high 4.0-11.0 [facility] Comment on above: Performed By: #### U MICRO, UACSIND #### [facility] [address] [address] [address] Pancho Oliva CULTURE URINEon 06-16-2022 CULTURE URINE Culture Observations: LIGHT GROWTH OF MIXED GENITAL XOCHITL. NO POTENTIAL PATHOGENS SEEN. Normal [facility] Comment on above: Performed By: #### U RCX #### [facility] [address] [address] [address] Pancho Oliva Covid-19 PCR (CVDTB)on 05-20 SARS-CoV-2 (COVID-19) RNA RHIANNA+probe Ql (Unsp spec) Not detected Normal NOT DETECTED [facility] Comment on above: Result Comment: When diagnostic [...] for this test is supported by the [employer] Worker of Health and Human Service's declaration that [...] used). Performed By: #### C VDTBH #### [facility] [address] [address] [address] Pancho Oliva DRUG SCREEN RAPID (URINE)on 06-16-2022 AMP Negative Normal NEGATIVE [facility] Comment on above: Performed By: #### U MICRO, UACSIND #### [facility] [address] [address] [address] Pancho Oliva BAR Negative Normal NEGATIVE [facility] Comment on above: Performed By: #### U MICRO, UACSIND #### [facility] [address] [address] [address] Pancho Oliva BUP Negative Normal NEGATIVE [facility] Comment on above: Performed By: #### U MICRO, UACSIND #### [facility] [address] [address] [address] Pancho Oliva BZO Negative Normal NEGATIVE [facility] Comment on above: Performed By: #### U MICRO, UACSIND #### [facility] [address] [address] [address] Pancho Oliva CALVIN Negative Normal NEGATIVE [facility] Comment on above: Performed By: #### U MICRO, UACSIND #### [facility] [address] [address] [address] Pancho Oliva CUT-OFFS SEE BELOW Normal [facility] Comment on above: Result Comment: AMP (Amphetamine): [...] Performed By: #### U MICRO, UACSIND #### [facility] [address] [address] [address] Pancho Oliva DRUG CUT HEADER DRUG CLASS TEST SYSTEM CUT-OFF CONCENTRATIONS ARE FOLLOWS: Normal [facility] Comment on above: Performed By: #### U MICRO, UACSIND #### [facility] [address] [address] [address] Pancho Oliva mAMP Negative Normal NEGATIVE [facility] Comment on above: Performed By: #### U MICRO, UACSIND #### [facility] [address] [address] [address] Pancho Oliva MTD Negative Normal NEGATIVE [facility] Comment on above: Performed By: #### U MICRO, UACSIND #### [facility] [address] [address] [address] Pancho Oliva OPI Negative Normal NEGATIVE [facility] Comment on above: Performed By: #### U MICRO, UACSIND #### [facility] [address] [address] [address] Pancho Oliva OXY Negative Normal NEGATIVE [facility] Comment on above: Performed By: #### U MICRO, UACSIND #### [facility] [address] [address] [address] Pancho Oliva PCP Negative Normal NEGATIVE [facility] Comment on above: Performed By: #### U MICRO, UACSIND #### [facility] [address] [place] [address] Dr. Pancho Oliva PPX Negative Normal NEGATIVE [facility] Comment on above: Performed By: #### U MICRO, UACSIND #### [facility] [address] [place] [address] Dr. Pancho Oliva TCA Negative Normal NEGATIVE [facility] Comment on above: Performed By: #### U MICRO, UACSIND #### [facility] [address] [place] [address] Dr. Pancho Oliva THC Negative Normal NEGATIVE [facility] Comment on above: Performed By: #### U MICRO, UACSIND #### [facility] [address] [place] [address] Dr. Pancho Oliva TYPE AND SCREENon 06-16-2022 TYPE AND SCREEN Negative Normal [facility] Comment on above: Performed By: #### U MICRO, UACSIND #### [facility] [address] [place] [address] Dr. Pancho Oliva UA (CLEAN/CATCH) LIFE INSURANCE SALES/MICRO I F IND.on 06-16-2022 Bilirubin Ql (U) Negative Normal NEGATIVE [facility] Comment on above: Performed By: #### U MICRO, UACSIND #### [facility] [address] [place] [address] Dr. Pancho Oliva Clarity (U) CLEAR Normal CLEAR [facility] Comment on above: Performed By: #### U MICRO, UACSIND #### [facility] [address] [address] [address] Pancho Oliva Color (U) YELLOW Normal YELLOW [facility] Comment on above: Performed By: #### U MICRO, UACSIND #### [facility] [address] [address] [address] Pancho Oliva Glucose Ql (U) Negative Normal NEGATIVE [facility] Comment on above: Performed By: #### U MICRO, UACSIND #### [facility] [address] [address] [address] Pancho Oliva Hemoglobin Ql (U) SMALL Abnormal NEGATIVE [facility] Comment on above: Performed By: #### U MICRO, UACSIND #### [facility] [address] [place] [address] Dr. Pancho Oliva Ketones Ql (U) TRACE Abnormal NEGATIVE [facility] Comment on above: Performed By: #### U MICRO, UACSIND #### [facility] [address] [place] [address] Dr. Pancho Oliva LEUKOCYTES Negative Normal NEGATIVE [facility] Comment on above: Performed By: #### U MICRO, UACSIND #### [facility] [address] [place] [address] Dr. Pancho Oliva Nitrite Ql (U) Negative Normal NEGATIVE [facility] Comment on above: Performed By: #### U MICRO, UACSIND #### [facility] [address] [address] [address] Pancho Oliva pH (U) 5.5 [pH] Normal 5-9 The [facility] Comment on above: Performed By: #### U MICRO, UACSIND #### [facility] [address] [address] [address] Pancho Oliva SPEC GRAVITY >=1.030 Abnormal 1.005-<=1.025 [facility] Comment on above: Performed By: #### U MICRO, UACSIND #### [facility] [address] [address] [address] Pancho Oliva UA PROTEIN 100 mg/dl Abnormal NEGATIVE/ TRACE The [facility] Comment on above: Performed By: #### U MICRO, UACSIND #### [facility] [address] [place] [address] Dr. Pancho Oliva UR MICRO IND INDICATED Normal The [facility] Comment on above: Performed By: #### U MICRO, UACSIND #### [facility] [address] [address] [address] Pancho Oliva Urobilinogen Qn (U) 0.2 {Pearl'U}/dL Normal 0.2 - 1. 0 The [facility] Comment on above: Performed By: #### U MICRO, UACSIND #### [facility] [address] [place] [address] Dr. Pancho Oliva URINE MICROSCOPIC ONLYon AMORPHOUS CRYSTALS FEW Normal The [facility] Comment on above: Performed By: #### U MICRO, UACSIND #### [facility] [address] [place] [address] Dr. Pancho Oliva BACTERIA SMALL Abnormal NONE SEEN The [facility] Comment on above: Performed By: #### U MICRO, UACSIND #### [facility] [address] [place] [address] Dr. Pancho Oliva Bacteria identified Cx Nom (U) INDICATED Normal The [facility] Comment on above: Performed By: #### U MICRO, UACSIND #### [facility] [address] [address] [address] Pancho Oliva CAST SEEN Abnormal NONE SEEN The [facility] Comment on above: Performed By: #### U MICRO, UACSIND #### [facility] [address] [address] [address] Pancho Oliva Crystals LM Nom (Urine sed) SEEN Abnormal NONE SEEN The [facility] Comment on above: Performed By: #### U MICRO, UACSIND #### [facility] [address] [place] [address] Dr. Panhco Oliva Epithelial cells LM Ql (Urine sed) FEW Abnormal NONE SEEN /RARE The [facility] Comment on above: Performed By: #### U MICRO, UACSIND #### [facility] [address] [address] [address] Pancho Oliva HYALINE CAST RARE Normal The [facility] Comment on above: Performed By: #### U MICRO, UACSIND #### [facility] [address] [address] [address] Pancho Oliva MUCOUS TRACE Abnormal NONE SEEN [facility] Comment on above: Performed By: #### U MICRO, UACSIND #### [facility] [address] [address] [address] Pancho Oliva RBC 2-5 Abnormal 0-2 [facility] Comment on above: Performed By: #### U MICRO, UACSIND #### [facility] [address] [address] [address] Pancho Oliva WBC 0-2 Abnormal NONE SEEN [facility] Comment on above: Performed By: #### U MICRO, UACSIND #### [facility] [address] [address] [address] Pancho Oliva CHLAMYDIA/GONOCOCCUS RHIANNA ( AB/URINE/PAPon 06-04-2022 Chlamydia trachomatis, RHIANNA Negative Normal Negative [facility] Comment on above: Performed By: #### U MICRO, UACSIND #### [facility] [address] [address] [address] Pancho Oliva Neisseria gonorrhoeae, RHIANNA Negative Normal Negative [facility] Comment on above: Performed By: #### U MICRO, UACSIND #### [facility] [address] [address] [address] Pancho Oliva GROUP B STREP CULTUREon 05-18 S. agalactiae Ag Ql (Unsp spec) Culture Observations: NEGATIVE FOR GROUP B STREPTOCOCCUS. Normal The [facility] Comment on above: Performed By: #### U MICRO, UACSIND #### [facility] [address] [address] [address] Pancho Oliva US PREG ANATOMY SINGLEon [...] KIM LEIGH Date: 2022-04-08 22:10 Normal The [facility] GLUCOSE - 1HRon 04-07-2022 Glucose [Mass/Vol] 114 mg/dL Critically high 74-106 [facility] Comment on above: Performed By: #### U MICRO, UACSIND #### [facility] [address] [address] [address] Pancho Oliva HEMOGRAM AND PLATELon 2021 Hematocrit (Bld) [Volume fraction] 36.1 % Normal 36.0-48.0 [facility] Comment on above: Performed By: #### U MICRO, UACSIND #### [facility] [address] [address] [address] Pancho Oliva Hemoglobin (Bld) [Mass/Vol] 12.1 g/dL Normal 12.0-16.0 [facility] Comment on above: Performed By: #### U MICRO, UACSIND #### [facility] [address] [address] [address] Pancho Oliva MCH (RBC) [Entitic mass] 28.5 pg Normal 26.7-34.0 [facility] Comment on above: Performed By: #### U MICRO, UACSIND #### [facility] [address] [address] [address] Pancho Oliva MCHC (RBC) [Mass/Vol] 33.5 g/dL Normal 29.9-35.2 The [facility] Comment on above: Performed By: #### U MICRO, UACSIND #### [facility] [address] [place] [address] Dr. Pancho Oliva MCV (RBC) [Entitic vol] 85.1 fL Normal 81.0-99.0 [facility] Comment on above: Performed By: #### U MICRO, UACSIND #### [facility] [address] [place] [address] Dr. Pancho Oliva PLT 333 103/ul Normal 150-450 The [facility] Comment on above: Performed By: #### U MICRO, UACSIND #### [facility] [address] [place] [address] Dr. Pancho Oliva RBC 4.24 106/ul Normal 4.20-5.40 The [facility] Comment on above: Performed By: #### U MICRO, UACSIND #### [facility] [address] [address] [address] Pancho Oliva WBC 16.5 103/ul Critically high 4.0-11.0 The [facility] Comment on above: Performed By: #### U MICRO, UACSIND #### [facility] [address] [place] [address] Dr. Pancho Oliva AFP TETRA PROFILE (MATERNAL) on 01-21-2022 AFP MoM 0.81 Normal [facility] Comment on above: Performed By: #### A FPTET #### [facility] [address] [place] [address] Dr. Pancho Oliva AFP Value 26.1 ng/mL Normal [facility] Comment on above: Performed By: #### A FPTET #### [facility] [address] [place] [address] Dr. Pancho Oliva Comment Comment Normal [facility] Comment on above: Result Comment: Marguerite Hassan, Ph.D., [facility] Director . References: Available Upon Request. . Multiples Of Median Cutoffs Abbreviation Definitions For AFP Elevations IDD- Insulin Dep Diabetes Daugherty 2.5 Black 2.8 OSBR- Open Spina Bifida IDD 2.0 Twins 4.5 Risk DSR Cutoff 1:270 DSR- Down Syndrome Risk T18 Cutoff 1:100 T18- Trisomy 18 . For further inquiries contact [facility] [facility] at [phone]. . This test was developed and its performance characteristics determined by [employer]. It has not been cleared or approved by the Food and Drug Administration. Performed By: #### A FPTET #### [facility] [address] [place] [address] Dr. Pancho Oliva INDRA MoM 0.96 Normal [facility] Comment on above: Performed By: #### A FPTET #### [facility] [address] [place] [address] Dr. Pancho Oliva INDRA Value 118.40 pg/mL Normal [facility] Comment on above: Performed By: #### A FPTET #### [facility] [address] [place] [address] Dr. Pancho Oliva DSR (By Age) 1 [place] 1121 Normal [facility] Comment on above: Performed By: #### A FPTET #### [facility] [address] [place] [address] Dr. Pancho Oliva DSR (Second Trimester) 1 [place] [address] Normal [facility] Comment on above: Performed By: #### A FPTET #### [facility] [address] [place] [address] Dr. Pancho Oliva Gest. Age on Collection Date 17.1 WEEKS Normal [facility] Comment on above: Performed By: #### A FPTET #### [facility] [address] [place] [address] Dr. Pancho Oliva Gestat. Age Based On LMP Normal [facility] Comment on above: Performed By: #### A FPTET #### [facility] [address] [place] [address] Dr. Pancho Oliva hCG MoM 0.73 Normal [facility] Comment on above: Performed By: #### A FPTET #### [facility] [address] [place] [address] [place] [address] m[IU]/mL Normal [facility] Comment on above: Performed By: #### A FPTET #### [facility] [address] [address] [address] Pancho Oliva Insulin Dep Diabetes No Normal [facility] Comment on above: Performed By: #### A FPTET #### [facility] [address] [place] [address] Dr. Pancho Oliva Interpretation Comment Normal [facility] Comment on above: Result Comment: Inte [...] identifies 60% of Trisomy 18 pregnancies. The [employer] recommends amniocentesis be offered to women age 35 and older. Recalculations are not recommended when gestational dating by LMP and ultrasound are within 10 days. Performed By: #### A FPTET #### [facility] [address] [place] [address] Dr. Pancho Oliva [age] Normal [facility] Comment on above: Performed By: #### A FPTET #### [facility] [address] [place] [address] Dr. Pancho Oliva Multiple Gestation No Normal [facility] Comment on above: Performed By: #### A FPTET #### [facility] [address] [place] [address] Dr. Pancho Oliva OSBR [place] 1 [place] [address] [facility] Comment on above: Performed By: #### A FPTET #### [facility] [address] [address] [address] Pancho Oliva PDF . Normal [facility] Comment on above: Performed By: #### A FPTET #### [facility] [address] [place] [address] Dr. Pancho Oliva Race Normal [facility] Comment on above: Performed By: #### A FPTET #### [facility] [address] [place] [address] Dr. Pancho Oliva Results Report [facility] Comment on above: Performed By: #### A FPTET #### [facility] [address] [place] [address] Dr. Pancho Oliva T18 (By Age) 1:4368 Normal [facility] Comment on above: Performed By: #### A FPTET #### [facility] [address] [place] [address] Dr. Pancho Oliva T18 Risk Not increased [facility] Comment on above: Performed By: #### A FPTET #### [facility] [address] [place] [address] Dr. Pancho Oliva Test Results: Negative Normal [facility] Comment on above: Performed By: #### A FPTET #### [facility] [address] [place] [address] Dr. Pancho Oliva uE3 MoM [address] [facility] Comment on above: Performed By: #### A FPTET #### [facility] [address] [place] [address] Dr. Pancho Oliva uE3 Value 1.80 ng/mL [facility] Comment on above: Performed By: #### A FPTET #### [facility] [address] [place] [address] Dr. Pancho Oliva HEP B SURFACE ANTIGEN SCREEN on 01-20-2022 HBsAg Screen Negative Normal Negative The [facility] Comment on above: Performed By: #### U MICRO, UACSIND #### [facility] [address] [address] [address] Pancho Oliva HEPATITIS C VIRUS AB W/ REFL EX QUANTon 01-20-2022 HCV AB 0.1 s/co ratio Normal 0.0-0.9 [facility] Comment on above: Performed By: #### U MICRO, UACSIND #### [facility] [address] [address] [address] Pancho Oliva Interpretation: Comment Normal [facility] Comment on above: Result Comment: Nega tive Not infected with HCV, unless recent infection is suspected or other evidence exists to indicate HCV infection. Performed By: #### U MICRO, UACSIND #### [facility] [address] [place] [address] Dr. Pancho Oliva HIV 1 AND 2 WITH REFLEXon HIV Screen 4th Generation wRfx Non-Reactive Normal Non Reactive The [facility] Comment on above: Result Comment: HIV Negative HIV-1/HIV-2 antibodies and HIV-1 p24 antigen were NOT detected. There is no laboratory evidence of HIV infection. Performed By: #### U MICRO, UACSIND #### [facility] [address] [place] [address] Dr. Pancho Oliva RPR QUANTon 01-20-2022 Rapid Plasma Reagin, Quant Non-Reactive Normal NonRea<1:1 The [facility] Comment on above: Result Comment: Plea se Note: This test does not meet current guidelines for screening and diagnosis of syphilis. This test is intended for following treatment response in patients being treated for syphilis infection. To screen for syphilis infection, a reflex cascade that includes both RPR and a treponema-specific assay should be utilized, such as Treponema pallidum (Syphilis) Screening [place] (683165) or Rapid Plasma Reagin (RPR) Test With Reflex to Quantitative RPR and Confirmatory Treponema pallidum Antibodies (657960). Performed By: #### R PRQ #### [facility] [address] [address] [address] Pancho Oliva RUBELLA AB IGGon 01-20-2022 Rubella Antibodies, IgG 6.39 index Normal Immune >0.99 [facility] Comment on above: Result Comment: Non- immune <0.90 Equivocal 0.90 - 0.99 Immune >0.99 Performed By: #### R UBIGG #### [facility] [address] [place] [address] Dr. Pancho Oliva CBC AUTO DIFFon 01-19-2022 BASO # 0.1 103/ul Normal 0.0-0.1 [facility] Comment on above: Performed By: #### C BC #### [facility] [address] [place] [address] Dr. Pancho Oliva Basophils/100 WBC (Bld) 0.6 % Normal 0.2-2.0 [facility] Comment on above: Performed By: #### C BC #### [facility] [address] [place] [address] Dr. Pancho Oliva EO # 0.3 103/ul Normal 0.0-0.7 [facility] Comment on above: Performed By: #### C BC #### [facility] [address] [place] [address] Dr. Pancho Oliva Eosinophils/100 WBC (Bld) 2.1 % Normal 0.9-7.0 [facility] Comment on above: Performed By: #### C BC #### [facility] [address] [place] [address] Dr. Pancho Oliva Erythrocyte distribution width (RBC) [Ratio] 12.3 % Normal 11.0-15.0 [facility] Comment on above: Performed By: #### C BC #### [facility] [address] [place] [address] Dr. Pancho Oliva Hematocrit (Bld) [Volume fraction] 37.0 % Normal 36.0-48.0 [facility] Comment on above: Performed By: #### C BC #### [facility] [address] [place] [address] Dr. Pancho Oliva Hemoglobin (Bld) [Mass/Vol] 12.6 g/dL Normal 12.0-16.0 [facility] Comment on above: Performed By: #### C BC #### [facility] [address] [place] [address] Dr. Pancho Oliva IG # 0.19 10e3/ul Critically high 0.00-0.03 [facility] Comment on above: Performed By: #### C BC #### [facility] [address] [place] [address] Dr. Pancho Oliva IG % 1.2 % Critically high 0.0-0.5 [facility] Comment on above: Performed By: #### C BC #### [facility] [address] [place] [address] Dr. Pancho Oliva LYMPH # 2.6 103/ul Normal 1.2-3.8 [facility] Comment on above: Performed By: #### C BC #### [facility] [address] [place] [address] Dr. Pancho Oliva Lymphocytes/100 WBC (Bld) 15.6 % Critically low 20.5-60.0 [facility] Comment on above: Performed By: #### C BC #### [facility] [address] [place] [address] Dr. Pancho Oliva MANUAL DIFF REQ NO Normal [facility] Comment on above: Performed By: #### C BC #### [facility] [address] [place] [address] Dr. Pancho Oliva MCH (RBC) [Entitic mass] 28.4 pg Normal 26.7-34.0 [facility] Comment on above: Performed By: #### C BC #### [facility] [address] [place] [address] Dr. Pancho Oliva MCHC (RBC) [Mass/Vol] 34.1 g/dL Normal 29.9-35.2 [facility] Comment on above: Performed By: #### C BC #### [facility] [address] [place] [address] Dr. Pancho Oliva MCV (RBC) [Entitic vol] 83.5 fL Normal 81.0-99.0 [facility] Comment on above: Performed By: #### C BC #### [facility] [address] [address] [address] Pancho Oliva MONO # 0.7 103/ul Normal 0.3-0.8 [facility] Comment on above: Performed By: #### C BC #### [facility] [address] [address] [address] Pancho Oliva Monocytes/100 WBC (Bld) 4.2 % Normal 1.7-12.0 [facility] Comment on above: Performed By: #### C BC #### [facility] [address] [address] [address] Pancho Oliva NEUT # 12.6 103/ul Critically high 1.4-6.5 [facility] Comment on above: Performed By: #### C BC #### [facility] [address] [place] [address] Dr. Pancho Oliva Neutrophils/100 WBC (Bld) 76.3 % Critically high 43.0-75.0 [facility] Comment on above: Performed By: #### C BC #### [facility] [address] [place] [address] Dr. Pancho Oliva Platelet mean volume (Bld) [Entitic vol] 9.0 fL Critically low 9.5-13.5 [facility] Comment on above: Performed By: #### C BC #### [facility] [address] [place] [address] Dr. Pancho Oliva PLT 359 103/ul Normal 150-450 [facility] Comment on above: Performed By: #### C BC #### [facility] [address] [place] [address] Dr. Pancho Oliva RBC 4.43 106/ul Normal 4.20-5.40 The [facility] Comment on above: Performed By: #### C BC #### [facility] [address] [place] [address] Dr. Pancho Oliva WBC 16.5 103/ul Critically high 4.0-11.0 [facility] Comment on above: Performed By: #### C BC #### [facility] [address] [address] [address] Pancho Oliva CULTURE URINEon 01-19-2022 CULTURE URINE Culture Observations: HEAVY GROWTH OF MIXED GENITAL XOCHITL. NO POTENTIAL PATHOGENS SEEN. Normal The [facility] [place] Comment on above: Performed By: #### U RCX #### [facility] [place] Laboratory [address] [address] [address] Pancho Oliva GLYCOHEMOGLOBIN A1Con 2021 ADA RECOMMENDATION SEE BELOW Normal The [facility] Comment on above: Result Comment: ADA RECOMMENDED LIMIT 4.0 - 6.0 ADA THERAPEUTIC TARGET < 7.0 ACTION SUGGESTED > 7.0 Performed By: #### U MICRO, UACSIND #### [facility] [place] Laboratory [address] [address] [address] Pancho Oliva Glucose [Mass/Vol] 94 mg/dL Normal [facility] Comment on above: Performed By: #### U MICRO, UACSIND #### [facility] [place] Laboratory [address] [address] [address] Pancho Oliva HbA1c (Bld) [Mass fraction] 4.9 % Normal 4.5-6.2 [facility] [place] Comment on above: Performed By: #### U MICRO, UACSIND #### [facility] [place] [facility] [address] [address] [address] Pancho Oliva TYPE AND SCREENon 01-19-2022 TYPE AND SCREEN Negative Normal [facility] Comment on above: Performed By: #### U MICRO, UACSIND #### [facility] [place] Laboratory [address] [address] [address] Pancho Oliva US PREG TVon 11-23-2021 [...] by: KIM LEIGH Date: 2021-11-23 16:11 Normal [facility] Vital Signs Date Time Vital Sign Value Performing Clinician Facility 08-29-2023 10:55-0500 Body mass index (BMI) [Ratio] 38.11 kg/m2 Olya LE Work Phone: [facility] 08-29-2023 10:55-0500 Body weight 103.87 kg Olya LE Work Phone: [facility] 08-29-2023 10:55-0500 Diastolic blood pressure 78 mm[Hg] Olya LE Work Phone: [facility] 08-29-2023 10:55-0500 Systolic blood pressure 118 mm[Hg] Olya LE Work Phone: [facility] 01-21-2022 02:06-0400 Body weight 97.[address] AUGUSTINE ENRIQUE [facility] Comment on above: Performed By: #### AFPTET #### [facility] [place] Laboratory [address] [place] [address] Dr. Pancho Oliva Encounters Encounter Date Encounter Type Care Provider Facility Start: 12-14-2023 End: 12-14-2023 ambulatory RUDI INES Not Available Start: 12-01-2023 End: 12-01-2023 ambulatory RUDI INES Not Available Start: 10-25-2023 End: 10-25-2023 ambulatory OLYA BAUMAN Not Available Start: 09-26-2023 End: 09-26-2023 ambulatory RUDI INES Not Available Start: 08-29-2023 External Result Encounter Olya LE Work Phone: [facility] External Department Unsolicited Start: 08-29-2023 External Result Encounter Olya LE Work Phone: [facility] External Department Unsolicited Start: 08-29-2023 End: 08-29-2023 ambulatory OLYA BAUMAN Not Available Start: 08-29-2023 End: 08-29-2023 Patient encounter procedure Olya LE Work Phone: [facility] Start: 08-29-2023 End: 08-29-2023 Periodic preventive med est patient 18-39 yrs Olya LE Work Phone: [facility] Comment on above: Second trimester pre gnancy; Well woman exam with routine gynecological exam; STD exposure; Vaginal discharge Start: 08-26-2023 Chart abstracting Olya LE Work Phone: [facility] Start: 08-01-2023 End: 08-01-2023 ambulatory [...] AM EDT Routine [facility] [address] [place] [id number] Rudi Tracey DO [address] [place] [address] [facility] Start: 08-29-2023 End: 10-28-2023 Alpha fetoprotein, maternal Alpha fetoprotein, maternal Lab Routine Second trimester Expected: 08/29/2023 (Approximate), Expires: 10/28/2023 [facility] Comment on above: Expected: 08/29/2023 (Approximate), Expires: 10/28/2023 Start: 08-29-2023 End: 08-29-2023 Patient encounter procedure 08/29/2023 10:30 AM EST Routine [facility] [address] [place] [id number] Olya Bauman PA [address] [place] [address] Second trimester [facility] Comment on above: Second trimester pre gnancy CHLAMYDIA TRACHOMATI S (GENITO/STI) CHLAMYDIA TRACHOMATIS (GENITO/STI) Lab Routine STD exposure Ordered: 08/29/2023 [facility] Comment on above: Ordered: 08/29/2023 Cytology Cervical or vaginal smear or scraping study Pap Smear Pathology and Cytology Routine Well woman exam with routine gynecological exam Ordered: 08/29/2023 [facility] Comment on above: Ordered: 08/29/2023 Neisseria gonorrhoea e DNA [Presence] in Unspecified specimen by RHIANNA with probe detection Neisseria gonorrhea DNA probe, direct Lab Routine STD exposure Ordered: 08/29/2023 [facility] Comment on above: Ordered: 08/29/2023 SURESWAB(R) ADVANCED VAGINITIS PLUS, TMA SURESWAB(R) ADVANCED VAGINITIS PLUS, TMA Pathology and Cytology Routine Vaginal discharge Ordered: 08/29/2023 [facility] Work Phone: Comment on above: Ordered: 08/29/2023 Payers Date Payer Category Payer Unknown BCBS BCBS xxxxxx [id number] 2022-Present [phone] [address] [place] [address] [id number] 2000 Unknown [id number] [id number]3 2000 Unknown [id number] 2.16.840.1.111497.3.579.2.593 2000 Unknown [id number] 2.16.840.1.805011.3.579.2.593 2000 Unknown [id number] 2.16.840.1.358827.3.579.2.593 2000 Unknown [id number] 2.16.840.1.270902.3.579.2.593 2000 Unknown [id number] 2.16.840.1.996809.3.579.2.593 2000 Unknown [id number] 2.16.840.1.831133.3.579.2.593 2000 Unknown [id number] 2.16.840.1.969234.3.579.2.1259 2000 Unknown [id number] 2.16.840.1.918415.3.579.2.1259 2000 Unknown [id number] 2.16.840.1.855694.3.579.2.1259 2000 Unknown [id number] 2.16.840.1.488386.3.579.2.1259 2000 Unknown [id number] 2.16.840.1.632480.3.579.2.1259 2000 Unknown [id number] 2.16.840.1.356949.3.579.2.1259 2000 Unknown [id number] 2.16.840.1.544837.3.579.2.1259 1959 Self-pay 1959 Unknown [id number] 1959 Unknown [id number] Social History Date Type Detail Facility Start: 02-06-2023 Tobacco smoking stat [facility] Never smoked tobacco [facility] Start: 08-01-2023 End: 08-29-2023 Alcohol intake Lifetime non-drinker (finding) [facility] Start: 02-06-2023 History of Social function [facility] Start: 02-06-2023 Tobacco use panel [facility] Start: 06-02-2023 [facility] Start: 2000 Sex Assigned At Female [facility] Start: 02-07-2023 Gender identity Identifies as female gender (finding) [facility] History of Present illness Narrative 08-29-2023 [...] Problems Past Medical History: Diagnosis Date depression ([facility]) Family History Problem Relation Name Age of [...] [facility] without difficulty [facility]. Follow Up: [...] content) DATE CREATED AUTHOR 07/09/2022 The Lisa nguyen DATE CREATED AUTHOR AUTHOR'S ORGANIZ ATION 12/15/2023 [facility] EPIC Reason for Visit (unrecogniz [...] BE BASED ON THE PRIMARY CLINICAL RECORDS. [facility] [employer] [facility]. provides no warranty or guarantee of the accuracy or completeness of information in this document.
[2023-12-30 10:33] VITALS: BP 115/79; PULSE 112
== END 2023-12-30 11:15 | disposition home or self-care (01) ==
LOC: US 06:58 → FBC 10:04
PROVIDERS: Visit Provider Obstetrics & Gynecology
DX: O40.3XX0 Polyhydramnios, third trimester, not applicable or unspecified (principal); Z3A.32 32 weeks gestation of pregnancy
CPT/HCPCS: 76818

== ENCOUNTER 2024-01-03 07:02 | Outpatient (OUT) | payer BC, SELFPAY ==
[2024-01-03 12:04] VITALS: BP 127/86; PULSE 116
== END 2024-01-03 12:30 | disposition home or self-care (01) ==
LOC: FBCO 07:02 → FBC 11:56
PROVIDERS: Visit Provider Obstetrics & Gynecology
DX: O40.3XX0 Polyhydramnios, third trimester, not applicable or unspecified (principal)
CPT/HCPCS: 59025

== ENCOUNTER 2024-01-04 06:42 | Observation (INO) | payer BC, SELFPAY ==
[2024-01-04] VITALS (14 sets, daily range): BP systolic 114–150; BP diastolic 58–110; PULSE 90–126; TEMP 36.4–37.1; O2SAT 92–98; BMI 39.9
--- OUTSIDE RECORDS SUMMARY | 2024-01-04 06:47 | XMS_ITS | CCD ---
Author Organization [facility] Care Team Providers Care Director Of Child Welfare Services Name Role Phone IVA, DR BRADSHAW Admitting [...] BAUMAN Attending Unavailable INESRUDI KING Attending Unavailable MERNAOLYA FAJARDO Attending Unavailable INESRUDI KING Attending Unavailable INESRUDI Attending Unavailable MERNA, OLYA Attending Unavailable Problems Problem Classification Problem Date [...] VA GINITIS (HTRX)on 08-31-2023 AT[facility]BIUM [facility]INAE 0 [facility] ATOPOBIUM VAGINAE Not detected [facility] BVAB 2,3 (BACTERIAL VAGINOSIS ASSOCIATED BACTERIA 2, 3); MOBILUNCUS SPP 22.438 Abnormal [facility] BVAB 2,3 (BACTERIAL VAGINOSIS ASSOCIATED BACTERIA 2, 3); MOBILUNCUS SPP Detected Abnormal [facility] Healthcare JEREMI ALBICANS, PARAPSILOSIS, TROPICALIS 0 [facility] Healthcare JEREMI ALBICANS, PARAPSILOSIS, TROPICALIS Not detected [facility] Healthcare JEREMI GLABRATA 0 NOMS a lthcare JEREMI GLABRATA Not detected [facility] JEREMI KRUSEI 0 [facility] JEREMI KRUSEI Not [facility] CHLAMYDIA TRACHOMATIS 0 [facility] Healthcare CHLAMYDIA TRACHOMATIS Not detected [facility] DFR (A1, A5), SUL (1,2) 0 PPM [facility] Healthcare DFR (A1, A5), SUL (1,2) Not detected [facility] Healthcare ERMB, C; MEFA 25.226 Abnormal PPM [facility] Health care ERMB, C; MEFA Detected Abnormal [facility] GARDNERELLA VAGINALIS 30.91 Abnormal [facility] GARDNERELLA VAGINALIS Detected Abnormal [facility] Interpretation and review of laboratory results Abnormal [facility] MEGASPHAERA (TYPES 1, 2) 0 [facility] MEGASPHAERA (TYPES 1, 2) Not detected [facility] MYCOPLASMA GENITALIUM 0 [facility] MYCOPLASMA GENITALIUM Not detected [facility] NEISSERIA GONORRHOEAE 0 [facility] NEISSERIA GONORRHOEAE Not detected [facility] TET B, TET M 23.014 Abnormal PPM [facility] are TET B, TET M Detected Abnormal [facility] are TRICHOMONAS VAGINALIS 0 [facility] TRICHOMONAS VAGINALIS Not detected [facility] macro (dipstick) panel (U)on 08-29-2023 Bilirubin, UA Negative Negative - 4(70) +++ mg/dL [facility] Blood, UA Negative Negative - 50 Teddy/mcL [facility] Clarity, UA [facility] re Color, UA Yellow [facility] e Glucose, UA Negative Negative - 1999(110) ++++ mg/dL [facility] Interpretation and review of laboratory results Abnormal [facility] Ketones, UA Positive Negative - 160(16) ++++ mg/dL [facility] Leukocytes, UA Trace Negative - 500+++ Nicolasa/mcL [facility] Nitrite, UA Negative Negative - Positive [facility] pH, UA 6.0 5 - 9 [facility] e Protein, UA Negative Negative - 1999(20) ++++ mg/dL [facility] Spec Grav, UA 1.030 1 - 1.03 [facility] Urobilinogen, UA 0.2 0.2 - 12 mg/dL [facility] e CBC AUTO DIFFon 06-18-2022 BASO # 0.1 103/ul Normal 0.0-0.1 [facility] Comment on above: Performed By: #### U MICRO, UACSIND #### [facility] [address] [place], [place] [address] Dr. Pancho Oliva Basophils/100 WBC (Bld) 0.8 % Normal 0.2-2.0 [facility] Comment on above: Performed By: #### U MICRO, UACSIND #### [facility] [address] [place] [address] [address] Pancho Oliva EO # 0.3 103/ul Normal 0.0-0.7 [facility] Comment on above: Performed By: #### U MICRO, UACSIND #### [facility] [address] [place] [address] Dr. Pancho Oliva Eosinophils/100 WBC (Bld) 2.1 % Normal 0.9-7.0 [facility] Comment on above: Performed By: #### U MICRO, UACSIND #### [facility] [address] [place] [address] Dr. Pancho Oliva Erythrocyte distribution width (RBC) [Ratio] 13.9 % Normal 11.0-15.0 [facility] Comment on above: Performed By: #### U MICRO, UACSIND #### [facility] [address] [place] [address] Dr. Pancho Oliva Hematocrit (Bld) [Volume fraction] 36.2 % Normal 36.0-48.0 [facility] Comment on above: Performed By: #### U MICRO, UACSIND #### [facility] [address] [place] [address] Dr. Pancho Oliva Hemoglobin (Bld) [Mass/Vol] 11.8 g/dL Critically low 12.0-16.0 [facility] Comment on above: Performed By: #### U MICRO, UACSIND #### [facility] [address] [place] [address] Dr. Pancho Oliva IG # 0.16 10e3/ul Critically high 0.00-0.03 [facility] Comment on above: Performed By: #### U MICRO, UACSIND #### [facility] [address] [place] [address] Dr. Pancho Oliva IG % 1.1 % Critically high 0.0-0.5 [facility] Comment on above: Performed By: #### U MICRO, UACSIND #### [facility] [address] [place] [address] Dr. Pancho Oliva LYMPH # 3.5 103/ul Normal 1.2-3.8 [facility] Comment on above: Performed By: #### U MICRO, UACSIND #### [facility] [address] [place] [address] Dr. Pancho Oliva Lymphocytes/100 WBC (Bld) 23.3 % Normal 20.5-60.0 [facility] Comment on above: Performed By: #### U MICRO, UACSIND #### [facility] [address] [place] [address] Dr. Pancho Oliva MANUAL DIFF REQ NO Normal [facility] Comment on above: Performed By: #### U MICRO, UACSIND #### [facility] [address] [place] [address] Dr. Pancho Oliva MCH (RBC) [Entitic mass] 27.1 pg Normal 26.7-34.0 [facility] Comment on above: Performed By: #### U MICRO, UACSIND #### [facility] [address] [place] [address] Dr. Pancho Oliva MCHC (RBC) [Mass/Vol] 32.6 g/dL Normal 29.9-35.2 [facility] Comment on above: Performed By: #### U MICRO, UACSIND #### [facility] [address] [place] [address] Dr. Pancho Oliva MCV (RBC) [Entitic vol] 83.0 fL Normal 81.0-99.0 [facility] Comment on above: Performed By: #### U MICRO, UACSIND #### [facility] [address] [place] [address] Dr. Pancho Oliva MONO # 0.7 103/ul Normal 0.3-0.8 [facility] Comment on above: Performed By: #### U MICRO, UACSIND #### [facility] [address] [place] [address] Dr. Pancho Oliva Monocytes/100 WBC (Bld) 4.3 % Normal 1.7-12.0 [facility] Comment on above: Performed By: #### U MICRO, UACSIND #### [facility] [address] [place] [address] Dr. Pancho Oliva NEUT # 10.2 103/ul Critically high 1.4-6.5 [facility] Comment on above: Performed By: #### U MICRO, UACSIND #### [facility] [address] [place] [address] [address] Pancho Oliva Neutrophils/100 WBC (Bld) 68.4 % Normal 43.0-75.0 [facility] Comment on above: Performed By: #### U MICRO, UACSIND #### [facility] [address] [place] [address] [address] Pancho Oliva Platelet mean volume (Bld) [Entitic vol] 9.7 fL Normal 9.5-13.5 [facility] Comment on above: Performed By: #### U MICRO, UACSIND #### [facility] [address] [place] [address] Dr. Pancho Oliva PLT 271 103/ul Normal 150-450 [facility] Comment on above: Performed By: #### U MICRO, UACSIND #### [facility] [address] [place] [address] Dr. Pancho Oliva RBC 4.36 106/ul Normal 4.20-5.40 [facility] Comment on above: Performed By: #### U MICRO, UACSIND #### [facility] [address] [place] [address] Dr. Pancho Oliva WBC 15.0 103/ul Critically high 4.0-11.0 [facility] Comment on above: Performed By: #### U MICRO, UACSIND #### [facility] [address] [place] [address] Dr. Pancho Oliva RPR QUANTon 06-18-2022 Rapid Plasma Reagin, Quant Non-Reactive Normal NonRea<1:1 [facility] Comment on above: Result Comment: Plea Note: This test does not meet current guidelines for screening and diagnosis of syphilis. This test is intended for following treatment response in patients being treated for syphilis infection. To screen for syphilis infection, a reflex cascade that includes both RPR and a treponema-specific assay should be utilized, such as Treponema pallidum (Syphilis) Screening Ravenel (108951) or Rapid Plasma Reagin (RPR) Test With Reflex to Quantitative RPR and Confirmatory Treponema pallidum Antibodies (749845). Performed By: #### R PRQ #### [facility] [address] [place] [address] Dr. Pancho Oliva CBC AUTO DIFFon 06-16-2022 BASO # 0.1 103/ul Normal 0.0-0.1 [facility] Comment on above: Performed By: #### U MICRO, UACSIND #### [facility] [address] [place] [address] Dr. Pancho Oliva Basophils/100 WBC (Bld) 0.5 % Normal 0.2-2.0 [facility] Comment on above: Performed By: #### U MICRO, UACSIND #### [facility] [address] [place] [address] Dr. Pancho Oliva EO # 0.0 103/ul Normal 0.0-0.7 [facility] Comment on above: Performed By: #### U MICRO, UACSIND #### [facility] [address] [place] [address] Dr. Pancho Oliva Eosinophils/100 WBC (Bld) 0.1 % Critically low 0.9-7.0 [facility] Comment on above: Performed By: #### U MICRO, UACSIND #### [facility] [address] [place] [address] Dr. Pancho Oliva Erythrocyte distribution width (RBC) [Ratio] 13.5 % Normal 11.0-15.0 [facility] Comment on above: Performed By: #### U MICRO, UACSIND #### [facility] [address] [place] [address] Dr. Pancho Oliva Hematocrit (Bld) [Volume fraction] 38.7 % Normal 36.0-48.0 [facility] Comment on above: Performed By: #### U MICRO, UACSIND #### [facility] [address] [place] [address] Dr. Pancho Oliva Hemoglobin (Bld) [Mass/Vol] 13.0 g/dL Normal 12.0-16.0 [facility] Comment on above: Performed By: #### U MICRO, UACSIND #### [facility] [address] [place] [address] [address] Pancho Oliva IG # 0.15 10e3/ul Critically high 0.00-0.03 [facility] Comment on above: Performed By: #### U MICRO, UACSIND #### [facility] [address] [place] [address] [address] Pancho Oliva IG % 0.8 % Critically high 0.0-0.5 [facility] Comment on above: Performed By: #### U MICRO, UACSIND #### [facility] [address] [place] [address] [address] Pancho Oliva LYMPH # 1.8 103/ul Normal 1.2-3.8 [facility] Comment on above: Performed By: #### U MICRO, UACSIND #### [facility] [address] [place] [address] [address] Pancho Oliva Lymphocytes/100 WBC (Bld) 8.9 % Critically low 20.5-60.0 [facility] Comment on above: Performed By: #### U MICRO, UACSIND #### [facility] [address] [place] [address] Dr. Pancho Oliva MANUAL DIFF REQ NO Normal [facility] Comment on above: Performed By: #### U MICRO, UACSIND #### [facility] [address] [place] [address] [address] Pancho Oliva MCH (RBC) [Entitic mass] 27.2 pg Normal 26.7-34.0 [facility] Comment on above: Performed By: #### U MICRO, UACSIND #### [facility] [address] [place] [address] [address] Pancho Oliva MCHC (RBC) [Mass/Vol] 33.6 g/dL Normal 29.9-35.2 [facility] Comment on above: Performed By: #### U MICRO, UACSIND #### [facility] [address] [place] [address] [address] Pancho Oliva MCV (RBC) [Entitic vol] 81.0 fL Normal 81.0-99.0 [facility] Comment on above: Performed By: #### U MICRO, UACSIND #### [facility] [address] [place] [address] Dr. Pancho Oliva MONO # 0.5 103/ul Normal 0.3-0.8 [facility] Comment on above: Performed By: #### U MICRO, UACSIND #### [facility] [address] [place] [address] Dr. Pancho Oliva Monocytes/100 WBC (Bld) 2.5 % Normal 1.7-12.0 [facility] Comment on above: Performed By: #### U MICRO, UACSIND #### [facility] [address] [place] [address] Dr. Pancho Oliva NEUT # 17.2 103/ul Critically high 1.4-6.5 [facility] Comment on above: Performed By: #### U MICRO, UACSIND #### [facility] [address] [place] [address] Dr. Pancho Oliva Neutrophils/100 WBC (Bld) 87.2 % Critically high 43.0-75.0 [facility] Comment on above: Performed By: #### U MICRO, UACSIND #### [facility] [address] [place] [address] Dr. Pancho Oliva Platelet mean volume (Bld) [Entitic vol] 9.9 fL Normal 9.5-13.5 [facility] Comment on above: Performed By: #### U MICRO, UACSIND #### [facility] [address] [place] [address] Dr. Pancho Oliva PLT 332 103/ul Normal 150-450 [facility] Comment on above: Performed By: #### U MICRO, UACSIND #### [facility] [address] [place] [address] Dr. Pancho Oliva RBC 4.78 106/ul Normal 4.20-5.40 [facility] Comment on above: Performed By: #### U MICRO, UACSIND #### [facility] [address] [place] [address] [address] Pancho Oliva WBC 19.8 103/ul Critically high 4.0-11.0 [facility] Comment on above: Performed By: #### U MICRO, UACSIND #### [facility] [address] [place] [address] [address] Pancho Oliva CULTURE URINEon 06-16-2022 CULTURE URINE Culture Observations: LIGHT GROWTH OF MIXED GENITAL XOCHITL. NO POTENTIAL PATHOGENS SEEN. Normal [facility] Comment on above: Performed By: #### U RCX #### [facility] [address] [place] [address] [address] Pancho Oliva Covid-19 PCR (CVDTBH)on 05-20 SARS-CoV-2 (COVID-19) RNA RHIANNA+probe Ql (Unsp spec) Not detected Normal NOT DETECTED [facility] Comment on above: Result Comment: When diagnostic [...] for this test is supported by the [employer] of Health and Human Service's declaration that [...] used). Performed By: #### C VDTBH #### [facility] [address] [id number] Pancho Oliva DRUG SCREEN RAPID (URINE)on 06-16-2022 AMP Negative Normal NEGATIVE [facility] Comment on above: Performed By: #### U MICRO, UACSIND #### [facility] [address] [place] [address] [address] Pancho Oliva BAR Negative Normal NEGATIVE [facility] Comment on above: Performed By: #### U MICRO, UACSIND #### [facility] [address] [place] [address] [address] Pancho Oliva BUP Negative Normal NEGATIVE [facility] Comment on above: Performed By: #### U MICRO, UACSIND #### [facility] [address] [place] [address] [address] Pancho Oliva BZO Negative Normal NEGATIVE [facility] Comment on above: Performed By: #### U MICRO, UACSIND #### [facility] [address] [place] [address] [address] Pancho Oliva CALVIN Negative Normal NEGATIVE [facility] Comment on above: Performed By: #### U MICRO, UACSIND #### [facility] [address] [place] [address] Dr. Pancho Oliva CUT-OFFS SEE BELOW Normal [facility] Comment on above: Result Comment: [...] Performed By: #### U MICRO, UACSIND #### [facility] [address] [place] [address] Dr. Pancho Oliva DRUG CUT HEADER DRUG CLASS TEST SYSTEM CUT-OFF CONCENTRATIONS ARE FOLLOWS: Normal [facility] Comment on above: Performed By: #### U MICRO, UACSIND #### [facility] [address] [place] [address] Dr. Pancho Oliva mAMP Negative Normal NEGATIVE [facility] Comment on above: Performed By: #### U MICRO, UACSIND #### [facility] [address] [place] [address] [address] Pancho Oliva MTD Negative Normal NEGATIVE [facility] Comment on above: Performed By: #### U MICRO, UACSIND #### [facility] [address] [place] [address] [address] Pancho Oliva OPI Negative Normal NEGATIVE [facility] Comment on above: Performed By: #### U MICRO, UACSIND #### [facility] [address] [place] [address] [address] Pancho Oliva OXY Negative Normal NEGATIVE [facility] Comment on above: Performed By: #### U MICRO, UACSIND #### [facility] [address] [place] [address] [address] Pancho Oliva PCP Negative Normal NEGATIVE [facility] Comment on above: Performed By: #### U MICRO, UACSIND #### [facility] [address] [place] [address] Dr. Pancho Oliva PPX Negative Normal NEGATIVE [facility] Comment on above: Performed By: #### U MICRO, UACSIND #### [facility] [address] [place] [address] [address] Pancho Oliva TCA Negative Normal NEGATIVE [facility] Comment on above: Performed By: #### U MICRO, UACSIND #### [facility] [address] [place] [address] Dr. Pancho Oliva THC Negative Normal NEGATIVE [facility] Comment on above: Performed By: #### U MICRO, UACSIND #### [facility] [address] [place] [address] [address] Pancho Oliva TYPE AND SCREENon 06-16-2022 TYPE AND SCREEN Negative Normal [facility] Comment on above: Performed By: #### U MICRO, UACSIND #### [facility] [address] [place] [address] Dr. Pancho Oliva UA (CLEAN/CATCH) MEASUREMENT PSYCHOLOGIST/MICRO I F IND.on 06-16-2022 Bilirubin Ql (U) Negative Normal NEGATIVE [facility] Comment on above: Performed By: #### U MICRO, UACSIND #### [facility] [address] [address] [address] Pancho Oliva Clarity (U) CLEAR Normal CLEAR [facility] Comment on above: Performed By: #### U MICRO, UACSIND #### [facility] [address] [place] [address] [address] Pancho Oliva Color (U) YELLOW Normal YELLOW [facility] Comment on above: Performed By: #### U MICRO, UACSIND #### [facility] [address] [place] [address] [address] Pancho Oliva Glucose Ql (U) Negative Normal NEGATIVE [facility] Comment on above: Performed By: #### U MICRO, UACSIND #### [facility] [address] [place] [address] Dr. Pancho Oliva Hemoglobin Ql (U) SMALL Abnormal NEGATIVE [facility] Comment on above: Performed By: #### U MICRO, UACSIND #### [facility] [address] [place] [address] Dr. Pancho Oliva Ketones Ql (U) TRACE Abnormal NEGATIVE [facility] Comment on above: Performed By: #### U MICRO, UACSIND #### [facility] [address] [place] [address] Dr. Pancho Oliva LEUKOCYTES Negative Normal NEGATIVE [facility] Comment on above: Performed By: #### U MICRO, UACSIND #### [facility] [address] [place] [address] Dr. Pancho Oliva Nitrite Ql (U) Negative Normal NEGATIVE [facility] Comment on above: Performed By: #### U MICRO, UACSIND #### [facility] [address] [place] [address] Dr. Pancho Oliva pH (U) 5.5 [pH] Normal 5-9 [facility] Comment on above: Performed By: #### U MICRO, UACSIND #### [facility] [address] [place] [address] Dr. Pancho Oliva SPEC GRAVITY >=1.030 Abnormal 1.005-<=1.025 [facility] Comment on above: Performed By: #### U MICRO, UACSIND #### [facility] [address] [address] [address] Pancho Oliva UA PROTEIN 100 mg/dl Abnormal NEGATIVE/ TRACE [facility] Comment on above: Performed By: #### U MICRO, UACSIND #### [facility] [address] [address] [address] Pancho Oliva UR MICRO IND INDICATED Normal [facility] Comment on above: Performed By: #### U MICRO, UACSIND #### [facility] [address] [address] [address] Pancho Oliva Urobilinogen Qn (U) 0.2 {Pearl'U}/dL Normal 0.2 - 1. 0 [facility] Comment on above: Performed By: #### U MICRO, UACSIND #### [facility] [address] [address] [address] Pancho Oliva URINE MICROSCOPIC ONLYon AMORPHOUS CRYSTALS FEW Normal [facility] Comment on above: Performed By: #### U MICRO, UACSIND #### [facility] [address] [address] [address] Pancho Oliva BACTERIA SMALL Abnormal NONE SEEN [facility] Comment on above: Performed By: #### U MICRO, UACSIND #### [facility] [address] [place] [address] Dr. Pancho Oliva Bacteria identified Cx Nom (U) INDICATED Normal [facility] Comment on above: Performed By: #### U MICRO, UACSIND #### [facility] [address] [address] [address] Pancho Oliva CAST SEEN Abnormal NONE SEEN [facility] Comment on above: Performed By: #### U MICRO, UACSIND #### [facility] [address] [address] [address] Pancho Oliva Crystals LM Nom (Urine sed) SEEN Abnormal NONE SEEN [facility] Comment on above: Performed By: #### U MICRO, UACSIND #### [facility] [address] [address] [address] Pancho Oliva Epithelial cells LM Ql (Urine sed) FEW Abnormal NONE SEEN /RARE [facility] Comment on above: Performed By: #### U MICRO, UACSIND #### [facility] [address] [address] [address] Pancho Oliva HYALINE CAST RARE Normal [facility] Comment on above: Performed By: #### U MICRO, UACSIND #### [facility] [address] [address] [address] Pancho Oliva MUCOUS TRACE Abnormal NONE SEEN [facility] Comment on above: Performed By: #### U MICRO, UACSIND #### [facility] [address] [address] [address] Pancho Oliva RBC 2-5 Abnormal 0-2 [facility] Comment on above: Performed By: #### U MICRO, UACSIND #### [facility] [address] [address] [address] Pancho Oliva WBC 0-2 Abnormal NONE SEEN [facility] Comment on above: Performed By: #### U MICRO, UACSIND #### [facility] [address] [address] [address] Pancho Oliva CHLAMYDIA/GONOCOCCUS RHIANNA ( AB/URINE/PAPon 06-04-2022 Chlamydia trachomatis, RHIANNA Negative Normal Negative [facility] Comment on above: Performed By: #### U MICRO, UACSIND #### [facility] [address] [address] [address] Pancho Oliva Neisseria gonorrhoeae, RHIANNA Negative Normal Negative [facility] Comment on above: Performed By: #### U MICRO, UACSIND #### [facility] [address] [address] [address] Pancho Oliva GROUP B STREP CULTUREon 05-18 S. agalactiae Ag Ql (Unsp spec) Culture Observations: NEGATIVE FOR GROUP B STREPTOCOCCUS. Normal [facility] Comment on above: Performed By: #### U MICRO, UACSIND #### [facility] [address] [place] [address] Dr. Pancho Oliva US PREG ANATOMY SINGLEon [...] by: KIM LEIGH Date: 2022-04-08 22:10 Normal [facility] GLUCOSE - 1HRon 04-07-2022 Glucose [Mass/Vol] 114 mg/dL Critically high 74-106 [facility] Comment on above: Performed By: #### U MICRO, UACSIND #### [facility] [address] [address] [address] Pancho Oliva HEMOGRAM AND PLATELon 2021 Hematocrit (Bld) [Volume fraction] 36.1 % Normal 36.0-48.0 [facility] Comment on above: Performed By: #### U MICRO, UACSIND #### [facility] [address] [address] [address] Pancho Oliva Hemoglobin (Bld) [Mass/Vol] 12.1 g/dL Normal 12.0-16.0 [facility] Comment on above: Performed By: #### U MICRO, UACSIND #### [facility] [address] [address] [address] Pancho Oliva MCH (RBC) [Entitic mass] 28.5 pg Normal 26.7-34.0 [facility] Comment on above: Performed By: #### U MICRO, UACSIND #### [facility] [address] [address] [address] Pancho Oliva MCHC (RBC) [Mass/Vol] 33.5 g/dL Normal 29.9-35.2 [facility] Comment on above: Performed By: #### U MICRO, UACSIND #### [facility] [address] [place] [address] Dr. Pancho Oliva MCV (RBC) [Entitic vol] 85.1 fL Normal 81.0-99.0 [facility] Comment on above: Performed By: #### U MICRO, UACSIND #### [facility] [address] [place] [address] Dr. Pancho Oliva PLT 333 103/ul Normal 150-450 [facility] Comment on above: Performed By: #### U MICRO, UACSIND #### [facility] [address] [place] [address] Dr. Pancho Oliva RBC 4.24 106/ul Normal 4.20-5.40 [facility] Comment on above: Performed By: #### U MICRO, UACSIND #### [facility] [address] [address] [address] Pancho Oliva WBC 16.5 103/ul Critically high 4.0-11.0 [facility] Comment on above: Performed By: #### U MICRO, UACSIND #### [facility] [address] [place] [address] Dr. Pancho Oliva AFP TETRA PROFILE (MATERNAL) on 01-21-2022 AFP MoM 0.81 Normal [facility] Comment on above: Performed By: #### A FPTET #### [facility] [address] [place] [address] Dr. Pancho Oliva AFP Value 26.1 ng/mL Normal [facility] Comment on above: Performed By: #### A FPTET #### [facility] [address] [place] [address] Dr. Pancho Oliva Comment Comment Normal [facility] Comment on above: Result Comment: Marguerite Hassan, Ph.D., [facility] Director . References: Available Upon Request. . Multiples Of Median Cutoffs Abbreviation Definitions For AFP Elevations IDD- Insulin Dep Diabetes Daugherty 2.5 Black 2.8 OSBR- Open Spina Bifida IDD 2.0 Twins 4.5 Risk DSR Cutoff 1:270 DSR- Down Syndrome Risk T18 Cutoff 1:100 T18- Trisomy 18 . For further inquiries contact [facility] at [phone]. . This test was developed and its performance characteristics determined by [facility]. It has not been cleared or approved by the Food and Drug Administration. Performed By: #### A FPTET #### [facility] [address] [place] [address] Dr. Pancho Oliva INDRA MoM 0.96 Normal [facility] Comment on above: Performed By: #### A FPTET #### [facility] [address] [place] [address] Dr. Pancho Oliva INDRA Value 118.40 pg/mL Normal [facility] Comment on above: Performed By: #### A FPTET #### [facility] [address] [place] [address] Dr. Pancho Oliva DSR (By Age) 1 [place] 1121 Normal [facility] Comment on above: Performed By: #### A FPTET #### [facility] [address] [place] [address] Dr. Pancho Oliva DSR (Second Trimester) 1 [place] [address] [facility] Comment on above: Performed By: #### A FPTET #### [facility] [address] [place] [address] Dr. Pancho Oliva Gest. Age on Collection Date 17.1 WEEKS Normal [facility] Comment on above: Performed By: #### A FPTET #### [facility] [address] [place], [place] [id number] Dr. Pancho Oliva Gestat. Age Based On LMP Normal [facility] Comment on above: Performed By: #### A FPTET #### [facility] [address] [place] [address] Dr. Pancho Oliva hCG MoM 0.73 Normal [facility] Comment on above: Performed By: #### A FPTET #### [facility] [address] [place] [address] [place] [address] m[IU]/mL Normal [facility] Comment on above: Performed By: #### A FPTET #### [facility] [address] [place] [address] Dr. Pancho Oliva Insulin Dep Diabetes No Normal [facility] Comment on above: Performed By: #### A FPTET #### [facility] [address] [place] [address] Dr. Pancho Oliva Interpretation Comment Normal [facility] Comment on above: Result Comment: Inte [...] identifies 60% of Trisomy 18 pregnancies. The [employer] recommends amniocentesis be offered to women age 35 and older. Recalculations are not recommended when gestational dating by LMP and ultrasound are within 10 days. Performed By: #### A FPTET #### [facility] [address] [place] [address] Dr. Pancho Oliva [age] Normal [facility] [place] Comment on above: Performed By: #### A FPTET #### [facility] [address] [place] [address] Dr. Pancho Oliva Multiple Gestation No Normal [facility] Comment on above: Performed By: #### A FPTET #### [facility] [address] [address] [address] Panch[place] Oliva OS[place] 1 [place] [address] Normal [facility] Comment on above: Performed By: #### A FPTET #### [facility] [address] [address] [address] Pancho Oliva PDF . Normal [facility] Comment on above: Performed By: #### A FPTET #### [facility] [address] [place] [address] Dr. Pancho Oliva Race Normal [facility] Comment on above: Performed By: #### A FPTET #### [facility] [address] [place] [address] Dr. Pnacho Oliva Results Report Normal [facility] Comment on above: Performed By: #### A FPTET #### [facility] [address] [place] [address] Dr. Pancho Oliva T18 (By Age) 1:4368 Normal [facility] Comment on above: Performed By: #### A FPTET #### [facility] [address] [place] [address] Dr. Pancho Oliva T18 Risk Not increased [facility] Comment on above: Performed By: #### A FPTET #### [facility] [address] [place] [address] Dr. Pancho Oliva Test Results: Negative Normal [facility] Comment on above: Performed By: #### A FPTET #### [facility] [address] [address] [address] Pancho Oliva uE3 MoM 1.70 [facility] Comment on above: Performed By: #### A FPTET #### [facility] [address] [place] [address] Dr. Pancho Oliva uE3 Value 1.80 ng/mL Normal [facility] Comment on above: Performed By: #### A FPTET #### [facility] [address] [place] [address] Dr. Pancho Oliva HEP B SURFACE ANTIGEN SCREEN on 01-20-2022 HBsAg Screen Negative Normal Negative [facility] Comment on above: Performed By: #### U MICRO, UACSIND #### [facility] [address] [address] [address] Pancho Oliva HEPATITIS C VIRUS AB W/ REFL EX QUANTon 01-20-2022 HCV AB 0.1 s/co ratio Normal 0.0-0.9 [facility] Comment on above: Performed By: #### U MICRO, UACSIND #### [facility] [address] [address] [address] Pancho Oliva Interpretation: Comment Normal [facility] Comment on above: Result Comment: Nega tive Not infected with HCV, unless recent infection is suspected or other evidence exists to indicate HCV infection. Performed By: #### U MICRO, UACSIND #### [facility] [address] [place] [address] Dr. Pancho Oliva HIV 1 AND 2 WITH REFLEXon HIV Screen 4th Generation wRfx Non-Reactive Normal Non Reactive [facility] Comment on above: Result Comment: HIV Negative HIV-1/HIV-2 antibodies and HIV-1 p24 antigen were NOT detected. There is no laboratory evidence of HIV infection. Performed By: #### U MICRO, UACSIND #### [facility] [address] [place] [address] Dr. Pancho Oliva RPR QUANTon 01-20-2022 Rapid Plasma Reagin, Quant Non-Reactive Normal NonRea<1:1 [facility] Comment on above: Result Comment: Plea se Note: This test does not meet current guidelines for screening and diagnosis of syphilis. This test is intended for following treatment response in patients being treated for syphilis infection. To screen for syphilis infection, a reflex cascade that includes both RPR and a treponema-specific assay should be utilized, such as Treponema pallidum (Syphilis) Screening Ravenel (020321) or Rapid Plasma Reagin (RPR) Test With Reflex to Quantitative RPR and Confirmatory Treponema pallidum Antibodies (231846). Performed By: #### R PRQ #### [facility] [address] [place] [address] Dr. Pancho Oliva RUBELLA AB IGGon 01-20-2022 Rubella Antibodies, IgG 6.39 index Normal Immune >0.99 [facility] Comment on above: Result Comment: Non- immune <0.90 Equivocal 0.90 - 0.99 Immune >0.99 Performed By: #### R UBIGG #### [facility] [address] [place] [address] Dr. Pancho Oliva CBC AUTO DIFFon 01-19-2022 BASO # 0.1 103/ul Normal 0.0-0.1 [facility] Comment on above: Performed By: #### C BC #### [facility] [address] [place] [address] Dr. Pancho Oliva Basophils/100 WBC (Bld) 0.6 % Normal 0.2-2.0 [facility] Comment on above: Performed By: #### C BC #### [facility] [address] [place] [address] Dr. Pancho Oliva EO # 0.3 103/ul Normal 0.0-0.7 [facility] Comment on above: Performed By: #### C BC #### [facility] [address] [place] [address] Dr. Pancho Oliva Eosinophils/100 WBC (Bld) 2.1 % Normal 0.9-7.0 [facility] Comment on above: Performed By: #### C BC #### [facility] [address] [place] [address] Dr. Pancho Oliva Erythrocyte distribution width (RBC) [Ratio] 12.3 % Normal 11.0-15.0 [facility] Comment on above: Performed By: #### C BC #### [facility] [address] [place] [address] Dr. Pancho Oliva Hematocrit (Bld) [Volume fraction] 37.0 % Normal 36.0-48.0 [facility] Comment on above: Performed By: #### C BC #### [facility] [address] [place] [address] Dr. Pancho Oliva Hemoglobin (Bld) [Mass/Vol] 12.6 g/dL Normal 12.0-16.0 [facility] Comment on above: Performed By: #### C BC #### [facility] [address] [place] [address] Dr. Pancho Oliva IG # 0.19 10e3/ul Critically high 0.00-0.03 [facility] Comment on above: Performed By: #### C BC #### [facility] [address] [place] [address] Dr. Pancho Oliva IG % 1.2 % Critically high 0.0-0.5 [facility] Comment on above: Performed By: #### C BC #### [facility] [address] [place] [address] Dr. Pancho Oliva LYMPH # 2.6 103/ul Normal 1.2-3.8 [facility] Comment on above: Performed By: #### C BC #### [facility] [address] [place] [address] Dr. Pancho Oliva Lymphocytes/100 WBC (Bld) 15.6 % Critically low 20.5-60.0 [facility] Comment on above: Performed By: #### C BC #### [facility] [address] [place] [address] Dr. Pancho Oliva MANUAL DIFF REQ NO Normal [facility] Comment on above: Performed By: #### C BC #### [facility] [address] [place] [address] Dr. Pancho Oliva MCH (RBC) [Entitic mass] 28.4 pg Normal 26.7-34.0 [facility] Comment on above: Performed By: #### C BC #### [facility] [address] [place] [address] Dr. Pancho Oliva MCHC (RBC) [Mass/Vol] 34.1 g/dL Normal 29.9-35.2 [facility] Comment on above: Performed By: #### C BC #### [facility] [address] [place] [address] Dr. Pancho Oliva MCV (RBC) [Entitic vol] 83.5 fL Normal 81.0-99.0 [facility] Comment on above: Performed By: #### C BC #### [facility] [address] [place] [address] Dr. Pancho Oliva MONO # 0.7 103/ul Normal 0.3-0.8 [facility] Comment on above: Performed By: #### C BC #### [facility] [address] [place] [address] Dr. Pancho Oliva Monocytes/100 WBC (Bld) 4.2 % Normal 1.7-12.0 [facility] Comment on above: Performed By: #### C BC #### [facility] [address] [place] [address] Dr. Pancho Oliva NEUT # 12.6 103/ul Critically high 1.4-6.5 [facility] Comment on above: Performed By: #### C BC #### [facility] [address] [place] [address] Dr. Pancho Oliva Neutrophils/100 WBC (Bld) 76.3 % Critically high 43.0-75.0 [facility] Comment on above: Performed By: #### C BC #### [facility] [address] [place] [address] Dr. Pancho Oliva Platelet mean volume (Bld) [Entitic vol] 9.0 fL Critically low 9.5-13.5 [facility] Comment on above: Performed By: #### C BC #### [facility] [address] [place] [address] Dr. Pancho Oliva PLT 359 103/ul Normal 150-450 [facility] Comment on above: Performed By: #### C BC #### [facility] [address] [place] [address] Dr. Pancho Oliva RBC 4.43 106/ul Normal 4.20-5.40 [facility] Comment on above: Performed By: #### C BC #### [facility] [address] [place] [address] Dr. Pancho Oliva WBC 16.5 103/ul Critically high 4.0-11.0 [facility] Comment on above: Performed By: #### C BC #### [facility] [address] [address] [address] Pancho Oliva CULTURE URINEon 01-19-2022 CULTURE URINE Culture Observations: HEAVY GROWTH OF MIXED GENITAL XOCHITL. NO POTENTIAL PATHOGENS SEEN. Normal [facility] Comment on above: Performed By: #### U RCX #### [facility] [address] [address] [address] Pancho Oliva GLYCOHEMOGLOBIN A1Con 2021 ADA RECOMMENDATION SEE BELOW Normal [facility] Comment on above: Result Comment: ADA RECOMMENDED LIMIT 4.0 - 6.0 ADA THERAPEUTIC TARGET < 7.0 ACTION SUGGESTED > 7.0 Performed By: #### U MICRO, UACSIND #### [facility] [address] [address] [address] Pancho Oliva Glucose [Mass/Vol] 94 mg/dL Normal [facility] Comment on above: Performed By: #### U MICRO, UACSIND #### [facility] [address] [address] [address] Pancho Oliva HbA1c (Bld) [Mass fraction] 4.9 % Normal 4.5-6.2 [facility] Comment on above: Performed By: #### U MICRO, UACSIND #### [facility] [address] [place] [address] Dr. Pancho Oliva TYPE AND SCREENon 01-19-2022 TYPE AND SCREEN Negative Normal [facility] Comment on above: Performed By: #### U MICRO, UACSIND #### [facility] [address] [address] [address] Pancho Oliva US PREG TVon 11-23-2021 [...] KIM LEIGH Date: 2021-11-23 16:11 Normal [facility] Vital Signs Date Time Vital Sign Value Performing Clinician Facility 08-29-2023 10:55-0500 Body mass index (BMI) [Ratio] 38.11 kg/m2 Olya LE Work Phone: [facility] 08-29-2023 10:55-0500 Body weight 103.87 kg Olya LE Work Phone: [facility] 08-29-2023 10:55-0500 Diastolic blood pressure 78 mm[Hg] Olya LE Work Phone: [facility] 08-29-2023 10:55-0500 Systolic blood pressure 118 mm[Hg] Olya LE Work Phone: [facility] 01-21-2022 02:06-0400 Body weight 97.[address] AUGUSTINE ENRIQUE [facility] Comment on above: Performed By: #### AFPTET #### [facility] [address] [place] [address] Dr. Pancho Oliva Encounters Encounter Date Encounter Type Care Provider Facility Start: 12-29-2023 End: 12-29-2023 ambulatory OLYA BAUMAN Not Available Start: 12-14-2023 End: 12-14-2023 ambulatory RUDI INES Not Available Start: 12-01-2023 End: 12-01-2023 ambulatory RUDI INES Not Available Start: 10-25-2023 End: 10-25-2023 ambulatory OLYA BAUMAN Not Available Start: 09-26-2023 End: 09-26-2023 ambulatory RUDI INES Not Available Start: 08-29-2023 External Result Encounter Olya LE Work Phone: [facility] External Department Unsolicited Start: 08-29-2023 External Result Encounter Olya LE Work Phone: [facility] External Department Unsolicited Start: 08-29-2023 End: 08-29-2023 Patient encounter procedure Olya LE Work Phone: [facility] Healthcare Start: 08-29-2023 End: 08-29-2023 Periodic preventive med est patient 18-39 yrs Olya LE Work Phone: [facility] Comment on above: Second trimester pre gnancy; Well woman exam with routine gynecological exam; STD exposure; Vaginal discharge Start: 08-29-2023 End: 08-29-2023 ambulatory OLYA BAUMAN Not Available Start: 08-26-2023 Chart abstracting Olya LE Work Phone: [facility] Start: 08-01-2023 End: 08-01-2023 ambulatory [...] AM EDT Routine [facility] [address] [place] [id number] Rudi Tracey DO [address] [place] [address] [facility] Start: 08-29-2023 End: 10-28-2023 Alpha fetoprotein, maternal Alpha fetoprotein, maternal Lab Routine Second trimester Expected: 08/29/2023 (Approximate), Expires: 10/28/2023 [facility] Comment on above: Expected: 08/29/2023 (Approximate), Expires: 10/28/2023 Start: 08-29-2023 End: 08-29-2023 Patient encounter procedure 08/29/2023 10:30 AM EST Routine [facility] [address] [place] [id number] Olya Bauman PA [address] [place] [address] Second trimester [facility] Comment on above: Second trimester pre gnancy CHLAMYDIA TRACHOMATI S (GENITO/STI) CHLAMYDIA TRACHOMATIS (GENITO/STI) Lab Routine STD exposure Ordered: 08/29/2023 [facility] Comment on above: Ordered: 08/29/2023 Cytology Cervical or vaginal smear or scraping study Pap Smear Pathology and Cytology Routine Well woman exam with routine gynecological exam Ordered: 08/29/2023 [facility] Comment on above: Ordered: 08/29/2023 Neisseria gonorrhoea e DNA [Presence] in Unspecified specimen by RHIANNA with probe detection Neisseria gonorrhea DNA probe, direct Lab Routine STD exposure Ordered: 08/29/2023 [facility] Comment on above: Ordered: 08/29/2023 SURESWAB(R) ADVANCED VAGINITIS PLUS, TMA SURESWAB(R) ADVANCED VAGINITIS PLUS, TMA Pathology and Cytology Routine Vaginal discharge Ordered: 08/29/2023 [facility] Work Phone: Comment on above: Ordered: 08/29/2023 Payers Date Payer Category Payer Unknown BCBS BCBS xxxxxx [id number] 2022-Present [phone] [address] [place] [address] [id number] 2000 Unknown [id number] [id number] 2000 Unknown [id number] 2.16.840.1.041800.3.579.2.593 2000 Unknown [id number] 2.16.840.1.590544.3.579.2.593 2000 Unknown [id number] 2.16.840.1.180375.3.579.2.593 2000 Unknown [id number] 2.16.840.1.813912.3.579.2.593 2000 Unknown [id number] 2.16.840.1.336481.3.579.2.593 2000 Unknown [id number] 2.16.840.1.056034.3.579.2.593 2000 Unknown [id number] 2.16.840.1.545545.3.579.2.1259 2000 Unknown [id number] 2.16.840.1.287057.3.579.2.1259 2000 Unknown [id number] 2.16.840.1.649892.3.579.2.1259 2000 Unknown [id number] 2.16.840.1.698887.3.579.2.1259 2000 Unknown [id number] 2.16.840.1.398014.3.579.2.1259 2000 Unknown [id number] 2.16.840.1.139253.3.579.2.1259 2000 Unknown [id number] 2.16.840.1.394477.3.579.2.1259 2000 Unknown [id number] 2.16.840.1.468657.3.579.2.1259 1959 Self-pay 1959 Unknown [id number] 1959 Unknown [id number] Social History Date Type Detail Facility Start: 02-06-2023 Tobacco smoking stat [facility] Never smoked tobacco [facility] Start: 08-01-2023 [...] Problems Past Medical History: Diagnosis Date depression ([facility]) Family History Problem Relation Name Age of [...] obtained without difficulty [facility]. Follow Up: [...] nguyen DATE CREATED AUTHOR AUTHOR'S ORGANIZ ATION 12/30/2023 [facility] Reason for Visit (unrecogniz ed section and [...] BE BASED ON THE PRIMARY CLINICAL RECORDS. [facility] [facility]. provides no warranty or guarantee of the accuracy or completeness of information in this document.
--- NOTE | 2024-01-04 07:03 | ED.GENADUL1 ---
HPI HPI - General Adult General Chief complaint: Chest Pain Stated complaint: chest pain 33 weeks Time Seen by Provider: 01/04/24 07:03 Source: patient Mode of arrival: walk-in Limitations: no limitations History of Present Illness HPI narrative: Patient presents to ED complaining of abdominal pain on and off as well as chest pain. She arrived hypertensive and tachycardic. The nurses had brought me the EKG as soon as I walked in the door which was tachycardic but stable showing no acute ST elevation or depression. Nurses called up to OB and they asked for the patient to be brought directly upstairs. I did not see the patient or do a physical exam as they wanted her directly taken upstairs. Related Data Home Medications ?Medication ?Instructions ?Recorded ?Confirmed citalopram 20 mg tablet mg 01/04/24 omeprazole 20 mg capsule,delayed mg 01/04/24 release ondansetron 4 mg disintegrating mg 01/04/24 tablet Allergies Allergy/AdvReac Type Severity Reaction Status Date / Time No Known Drug Allergies Allergy Verified 01/04/24 06:52 Opioid HPI Opioid Management Most Recent Opioid Data: No Data to Display Review of Systems ROS Narrative Unable to obtain due to taking patient directly upstairs Exam Narrative Exam Narrative: Not completed due to taking patient directly upstairs Constitutional Vital Signs, click to edit/add: Last Vital Signs Temp 98.7 F 01/04/24 06:46 Pulse 118 H 01/04/24 06:46 Resp 24 H 01/04/24 06:46 BP 150/104 H 01/04/24 06:53 Pulse Ox 95 01/04/24 06:46 O2 Del Method Room Air 01/04/24 06:46 Course Vital Signs Vital signs: Vital Signs Temperature 98.7 F 01/04/24 06:46 Pulse Rate 118 H 01/04/24 06:46 Respiratory Rate 24 H 01/04/24 06:46 Pulse Oximetry 95 01/04/24 06:46 Oxygen Delivery Method Room Air 01/04/24 06:46 Temperature 98.7 F 01/04/24 06:46 Pulse Rate 118 H 01/04/24 06:46 Respiratory Rate 24 H 01/04/24 06:46 Blood Pressure 150/104 H 01/04/24 06:53 Pulse Oximetry 95 01/04/24 06:46 Oxygen Delivery Method Room Air 01/04/24 06:46 Medical Decision Making MDM Narrative Medical decision making narrative: Patient was taken directly upstairs for further medical management by [employer] Discharge Plan Discharge Chief Complaint: Chest Pain Clinical Impression: Chest pain Patient Disposition: Admitted as Observation Time of Disposition Decision: 07:05 Prescriptions / Home Meds: No Action citalopram 20 mg tablet omeprazole 20 mg capsule,delayed release(DR/EC) ondansetron 4 mg tablet,disintegrating Print Language: French Referrals: Physician,Non-Staff, MD [Primary Care Provider] - 1 week
--- OUTSIDE RECORDS SUMMARY | 2024-01-04 07:10 | XMS_ITS | CCD ---
Author Organization [facility] Care Team Providers Care Transport Company Manager Name Role Phone IVA, DR BRADSHAW Admitting Unavailable KARASIK, DR BARDSHAW Procedure Practitioner Unava ilable KARASIK, DR BRADSHAW [...] GINITIS (HTRX)on 08-31-2023 AT[facility]UM V[facility]AE 0 [facility] ATOPOBIUM VAGINAE Not detected [facility] BVAB 2,3 (BACTERIAL VAGINOSIS ASSOCIATED BACTERIA 2, 3); MOBILUNCUS SPP 22.438 Abnormal [facility] BVAB 2,3 (BACTERIAL VAGINOSIS ASSOCIATED BACTERIA 2, 3); MOBILUNCUS SPP Detected Abnormal [facility] JEREMI ALBICANS, PARAPSILOSIS, TROPICALIS 0 [facility] JEREMI ALBICANS, PARAPSILOSIS, TROPICALIS Not detected [facility] JEREMI GLABRATA 0 NOMS a lthcare JEREMI GLABRATA Not detected [facility] JEREMI KRUSEI 0 [facility] JEREMI KRUSEI Not [facility] CHLAMYDIA TRACHOMATIS 0 [facility] CHLAMYDIA TRACHOMATIS Not detected [facility] DFR (A1, A5), SUL (1,2) 0 PPM [facility] DFR (A1, A5), SUL (1,2) Not detected [facility] ERMB, C; MEFA 25.226 Abnormal PPM [facility] Health care ERMB, C; MEFA Detected Abnormal [facility] GARDNERELLA VAGINALIS 30.91 Abnormal [facility] GARDNERELLA VAGINALIS Detected Abnormal [facility] Interpretation and review of laboratory results Abnormal [facility] MEGASPHAERA (TYPES 1, 2) 0 [facility] MEGASPHAERA (TYPES 1, 2) Not detected [facility] MYCOPLASMA GENITALIUM 0 [facility] MYCOPLASMA GENITALIUM Not detected [facility] NEISSERIA GONORRHOEAE 0 [facility] NEISSERIA GONORRHOEAE Not detected [facility] TET B, TET M 23.014 Abnormal PPM [facility] are TET B, TET M Detected Abnormal [facility] are TRICHOMONAS VAGINALIS 0 [facility] TRICHOMONAS VAGINALIS Not detected [facility] macro (dipstick) panel (U)on 08-29-2023 Bilirubin, UA Negative Negative - 4(70) +++ mg/dL [facility] Blood, UA Negative Negative - 50 Teddy/mcL [facility] Clarity, UA Clear [facility] re Color, UA Yellow [facility] e Glucose, UA Negative Negative - 1999(110) ++++ mg/dL [facility] Interpretation and review of laboratory results Abnormal [facility] Ketones, UA Positive Negative - 160(16) ++++ mg/dL [facility] Leukocytes, UA Trace Negative - 500+++ Nicolasa/mcL [facility] Nitrite, UA Negative Negative - Positive [facility] pH, UA 6.0 5 - 9 [facility] e Protein, UA Negative Negative - 1999(20) ++++ mg/dL [facility] Spec Grav, UA 1.030 1 - 1.03 [facility] Urobilinogen, UA 0.2 0.2 - 12 mg/dL [facility] Health[facility] e CBC AUTO DIFFon 06-18-2022 BASO # 0.1 103/ul Normal 0.0-0.1 [facility] Comment on above: Performed By: #### U MICRO, UACSIND #### [facility] [address] [place], [place] [address] Dr. Pancho Oliva Basophils/100 WBC (Bld) 0.8 % Normal 0.2-2.0 [facility] Comment on above: Performed By: #### U MICRO, UACSIND #### [facility] [address] [place] [address] [address] Pancho Oliva EO # 0.3 103/ul Normal 0.0-0.7 [facility] Comment on above: Performed By: #### U MICRO, UACSIND #### [facility] [address] [place] [address] Dr. Pancho Oliva Eosinophils/100 WBC (Bld) 2.1 % Normal 0.9-7.0 [facility] Comment on above: Performed By: #### U MICRO, UACSIND #### [facility] [address] [place] [address] Dr. Pancho Oliva Erythrocyte distribution width (RBC) [Ratio] 13.9 % Normal 11.0-15.0 [facility] Comment on above: Performed By: #### U MICRO, UACSIND #### [facility] [address] [place] [address] Dr. Pancho Oliva Hematocrit (Bld) [Volume fraction] 36.2 % Normal 36.0-48.0 [facility] Comment on above: Performed By: #### U MICRO, UACSIND #### [facility] [address] [place] [address] Dr. Pancho Oliva Hemoglobin (Bld) [Mass/Vol] 11.8 g/dL Critically low 12.0-16.0 [facility] Comment on above: Performed By: #### U MICRO, UACSIND #### [facility] [address] [place] [address] Dr. Pancho Oliva IG # 0.16 10e3/ul Critically high 0.00-0.03 [facility] Comment on above: Performed By: #### U MICRO, UACSIND #### [facility] [address] [place] [address] Dr. Pancho Oliva IG % 1.1 % Critically high 0.0-0.5 [facility] Comment on above: Performed By: #### U MICRO, UACSIND #### [facility] [address] [place] [address] Dr. Pancho Oliva LYMPH # 3.5 103/ul Normal 1.2-3.8 [facility] Comment on above: Performed By: #### U MICRO, UACSIND #### [facility] [address] [place] [address] Dr. Pancho Oliva Lymphocytes/100 WBC (Bld) 23.3 % Normal 20.5-60.0 [facility] Comment on above: Performed By: #### U MICRO, UACSIND #### [facility] [address] [place] [address] Dr. Pancho Oliva MANUAL DIFF REQ NO Normal [facility] Comment on above: Performed By: #### U MICRO, UACSIND #### [facility] [address] [place] [address] Dr. Pancho Oliva MCH (RBC) [Entitic mass] 27.1 pg Normal 26.7-34.0 [facility] Comment on above: Performed By: #### U MICRO, UACSIND #### [facility] [address] [place] [address] Dr. Pancho Oliva MCHC (RBC) [Mass/Vol] 32.6 g/dL Normal 29.9-35.2 [facility] Comment on above: Performed By: #### U MICRO, UACSIND #### [facility] [address] [place] [address] Dr. Pancho Oliva MCV (RBC) [Entitic vol] 83.0 fL Normal 81.0-99.0 [facility] Comment on above: Performed By: #### U MICRO, UACSIND #### [facility] [address] [place] [address] Dr. Pancho Oliva MONO # 0.7 103/ul Normal 0.3-0.8 [facility] Comment on above: Performed By: #### U MICRO, UACSIND #### [facility] [address] [place] [address] Dr. Pancho Oliva Monocytes/100 WBC (Bld) 4.3 % Normal 1.7-12.0 [facility] Comment on above: Performed By: #### U MICRO, UACSIND #### [facility] [address] [place] [address] Dr. Pancho Oliva NEUT # 10.2 103/ul Critically high 1.4-6.5 [facility] Comment on above: Performed By: #### U MICRO, UACSIND #### [facility] [address] [address] [address] Pancho Oliva Neutrophils/100 WBC (Bld) 68.4 % Normal 43.0-75.0 [facility] Comment on above: Performed By: #### U MICRO, UACSIND #### [facility] [address] [address] [address] Pancho Oliva Platelet mean volume (Bld) [Entitic vol] 9.7 fL Normal 9.5-13.5 [facility] Comment on above: Performed By: #### U MICRO, UACSIND #### [facility] [address] [place] [address] Dr. Pancho Oliva PLT 271 103/ul Normal 150-450 [facility] Comment on above: Performed By: #### U MICRO, UACSIND #### [facility] [address] [place] [address] Dr. Pancho Oliva RBC 4.36 106/ul Normal 4.20-5.40 [facility] Comment on above: Performed By: #### U MICRO, UACSIND #### [facility] [address] [place] [address] Dr. Pancho Oliva WBC 15.0 103/ul Critically high 4.0-11.0 [facility] Comment on above: Performed By: #### U MICRO, UACSIND #### [facility] [address] [place] [address] Dr. Pancho Oliva RPR QUANTon 06-18-2022 Rapid Plasma Reagin, Quant Non-Reactive Normal NonRea<1:1 [facility] Comment on above: Result Comment: Plea Note: This test does not meet current guidelines for screening and diagnosis of syphilis. This test is intended for following treatment response in patients being treated for syphilis infection. To screen for syphilis infection, a reflex cascade that includes both RPR and a treponema-specific assay should be utilized, such as Treponema pallidum (Syphilis) Screening [place] (477444) or Rapid Plasma Reagin (RPR) Test With Reflex to Quantitative RPR and Confirmatory Treponema pallidum Antibodies (314281). Performed By: #### R PRQ #### [facility] [address] [place] [address] Dr. Pancho Oliva CBC AUTO DIFFon 06-16-2022 BASO # 0.1 103/ul Normal 0.0-0.1 [facility] Comment on above: Performed By: #### U MICRO, UACSIND #### [facility] [address] [place] [address] Dr. Pancho Oliva Basophils/100 WBC (Bld) 0.5 % Normal 0.2-2.0 [facility] Comment on above: Performed By: #### U MICRO, UACSIND #### [facility] [address] [place] [address] Dr. Pancho Oliva EO # 0.0 103/ul Normal 0.0-0.7 [facility] Comment on above: Performed By: #### U MICRO, UACSIND #### [facility] [address] [place] [address] Dr. Pancho Oliva Eosinophils/100 WBC (Bld) 0.1 % Critically low 0.9-7.0 [facility] Comment on above: Performed By: #### U MICRO, UACSIND #### [facility] [address] [place] [address] Dr. Pancho Oliva Erythrocyte distribution width (RBC) [Ratio] 13.5 % Normal 11.0-15.0 [facility] Comment on above: Performed By: #### U MICRO, UACSIND #### [facility] [address] [place] [address] Dr. Pancho Oliva Hematocrit (Bld) [Volume fraction] 38.7 % Normal 36.0-48.0 [facility] Comment on above: Performed By: #### U MICRO, UACSIND #### [facility] [address] [place] [address] Dr. Pancho Oliva Hemoglobin (Bld) [Mass/Vol] 13.0 g/dL Normal 12.0-16.0 [facility] Comment on above: Performed By: #### U MICRO, UACSIND #### [facility] [address] [place] [address] [address] Pancho Oliva IG # 0.15 10e3/ul Critically high 0.00-0.03 [facility] Comment on above: Performed By: #### U MICRO, UACSIND #### [facility] [address] [place] [address] [address] Pancho Oliva IG % 0.8 % Critically high 0.0-0.5 [facility] Comment on above: Performed By: #### U MICRO, UACSIND #### [facility] [address] [place] [address] [address] Pancho Oliva LYMPH # 1.8 103/ul Normal 1.2-3.8 [facility] Comment on above: Performed By: #### U MICRO, UACSIND #### [facility] [address] [place] [address] [address] Pancho Oliva Lymphocytes/100 WBC (Bld) 8.9 % Critically low 20.5-60.0 [facility] Comment on above: Performed By: #### U MICRO, UACSIND #### [facility] [address] [place] [address] Dr. Pancho Oliva MANUAL DIFF REQ NO Normal [facility] Comment on above: Performed By: #### U MICRO, UACSIND #### [facility] [address] [place] [address] [address] Pancho Oliva MCH (RBC) [Entitic mass] 27.2 pg Normal 26.7-34.0 [facility] Comment on above: Performed By: #### U MICRO, UACSIND #### [facility] [address] [place] [address] [address] Pancho Oliva MCHC (RBC) [Mass/Vol] 33.6 g/dL Normal 29.9-35.2 [facility] Comment on above: Performed By: #### U MICRO, UACSIND #### [facility] [address] [address] [address] Pancho Oliva MCV (RBC) [Entitic vol] 81.0 fL Normal 81.0-99.0 [facility] Comment on above: Performed By: #### U MICRO, UACSIND #### [facility] [address] [place] [address] Dr. Pancho Oliva MONO # 0.5 103/ul Normal 0.3-0.8 [facility] Comment on above: Performed By: #### U MICRO, UACSIND #### [facility] [address] [place] [address] Dr. Pancho Oliva Monocytes/100 WBC (Bld) 2.5 % Normal 1.7-12.0 [facility] Comment on above: Performed By: #### U MICRO, UACSIND #### [facility] [address] [place] [address] Dr. Pancho Oliva NEUT # 17.2 103/ul Critically high 1.4-6.5 [facility] Comment on above: Performed By: #### U MICRO, UACSIND #### [facility] [address] [place] [address] Dr. Pnacho Oliva Neutrophils/100 WBC (Bld) 87.2 % Critically high 43.0-75.0 [facility] Comment on above: Performed By: #### U MICRO, UACSIND #### [facility] [address] [place] [address] Dr. Pancho Oliva Platelet mean volume (Bld) [Entitic vol] 9.9 fL Normal 9.5-13.5 [facility] Comment on above: Performed By: #### U MICRO, UACSIND #### [facility] [address] [place] [address] Dr. Pancho Oliva PLT 332 103/ul Normal 150-450 [facility] Comment on above: Performed By: #### U MICRO, UACSIND #### [facility] [address] [place] [address] Dr. Pancho Oliva RBC 4.78 106/ul Normal 4.20-5.40 [facility] Comment on above: Performed By: #### U MICRO, UACSIND #### [facility] [address] [place] [address] [address] Pancho Oliva WBC 19.8 103/ul Critically high 4.0-11.0 [facility] Comment on above: Performed By: #### U MICRO, UACSIND #### [facility] [address] [place] [address] [address] Pancho Oliva CULTURE URINEon 06-16-2022 CULTURE URINE Culture Observations: LIGHT GROWTH OF MIXED GENITAL XOCHITL. NO POTENTIAL PATHOGENS SEEN. Normal [facility] Comment on above: Performed By: #### U RCX #### [facility] [address] [address] [address] Pancho Oliva Covid-19 PCR (CVDTBH)on 05-20 SARS-CoV-2 (COVID-19) RNA RHIANNA+probe Ql (Unsp spec) Not detected Normal NOT DETECTED [facility] Comment on above: Result Comment: When [...] for this test is supported by the Route Service Manager of Health and Human Service's declaration that [...] used). Performed By: #### C VDTBH #### [facility] [id number] Pancho Oliva DRUG SCREEN RAPID (URINE)on 06-16-2022 AMP Negative Normal NEGATIVE [facility] Comment on above: Performed By: #### U MICRO, UACSIND #### [facility] [address] [place] [address] [address] Pancho Oliva BAR Negative Normal NEGATIVE [facility] Comment on above: Performed By: #### U MICRO, UACSIND #### [facility] [address] [address] [address] Pancho Oliva BUP Negative Normal NEGATIVE [facility] Comment on above: Performed By: #### U MICRO, UACSIND #### [facility] [address] [address] [address] Pancho Oliva BZO Negative Normal NEGATIVE [facility] Comment on above: Performed By: #### U MICRO, UACSIND #### [facility] [address] [address] [address] Pancho Oliva CALVIN Negative Normal NEGATIVE [facility] Comment on above: Performed By: #### U MICRO, UACSIND #### [facility] [address] [place] [address] Dr. Pancho Oliva CUT-OFFS SEE BELOW Normal [facility] Comment on above: Result Comment: AMP [...] Performed By: #### U MICRO, UACSIND #### [facility] [address] [place] [address] Dr. Pancho Oliva DRUG CUT HEADER DRUG CLASS TEST SYSTEM CUT-OFF CONCENTRATIONS ARE FOLLOWS: Normal [facility] Comment on above: Performed By: #### U MICRO, UACSIND #### [facility] [address] [place] [address] Dr. Pancho Oliva mAMP Negative Normal NEGATIVE [facility] Comment on above: Performed By: #### U MICRO, UACSIND #### [facility] [address] [place] [address] [address] Pancho Oliva MTD Negative Normal NEGATIVE [facility] Comment on above: Performed By: #### U MICRO, UACSIND #### [facility] [address] [place] [address] [address] Pancho Oliva OPI Negative Normal NEGATIVE [facility] Comment on above: Performed By: #### U MICRO, UACSIND #### [facility] [address] [place] [address] [address] Pancho Oliva OXY Negative Normal NEGATIVE [facility] Comment on above: Performed By: #### U MICRO, UACSIND #### [facility] [address] [place] [address] [address] Pancho Oliva PCP Negative Normal NEGATIVE [facility] Comment on above: Performed By: #### U MICRO, UACSIND #### [facility] [address] [place] [address] Dr. Pancho Oliva PPX Negative Normal NEGATIVE [facility] Comment on above: Performed By: #### U MICRO, UACSIND #### [facility] [address] [address] [address] Pancho Oliva TCA Negative Normal NEGATIVE [facility] Comment on above: Performed By: #### U MICRO, UACSIND #### [facility] [address] [place] [address] Dr. Pancho Oliva THC Negative Normal NEGATIVE [facility] Comment on above: Performed By: #### U MICRO, UACSIND #### [facility] [address] [address] [address] Pancho Oliva TYPE AND SCREENon 06-16-2022 TYPE AND SCREEN Negative Normal [facility] Comment on above: Performed By: #### U MICRO, UACSIND #### [facility] [address] [place] [address] Dr. Pancho Oliva UA (CLEAN/CATCH) NEURORADIOLOGIST/MICRO I F IND.on 06-16-2022 Bilirubin Ql (U) Negative Normal NEGATIVE [facility] Comment on above: Performed By: #### U MICRO, UACSIND #### [facility] [address] [address] [address] Pancho Oliva Clarity (U) CLEAR Normal CLEAR [facility] Comment on above: Performed By: #### U MICRO, UACSIND #### [facility] [address] [address] [address] Pancho Oliva Color (U) YELLOW Normal YELLOW [facility] Comment on above: Performed By: #### U MICRO, UACSIND #### [facility] [address] [address] [address] Pancho Oliva Glucose Ql (U) Negative Normal NEGATIVE [facility] Comment on above: Performed By: #### U MICRO, UACSIND #### [facility] [address] [place] [address] Dr. Pancho Oliva Hemoglobin Ql (U) SMALL Abnormal NEGATIVE [facility] Comment on above: Performed By: #### U MICRO, UACSIND #### [facility] [address] [place] [address] Dr. Pancho Oliva Ketones Ql (U) TRACE Abnormal NEGATIVE [facility] Comment on above: Performed By: #### U MICRO, UACSIND #### [facility] [address] [place] [address] Dr. Pancho Oliva LEUKOCYTES Negative Normal NEGATIVE [facility] Comment on above: Performed By: #### U MICRO, UACSIND #### [facility] [address] [place] [address] Dr. Pancho Oliva Nitrite Ql (U) Negative Normal NEGATIVE [facility] Comment on above: Performed By: #### U MICRO, UACSIND #### [facility] [address] [place] [address] Dr. Pancho Oliva pH (U) 5.5 [pH] Normal 5-9 [facility] Comment on above: Performed By: #### U MICRO, UACSIND #### [facility] [address] [place] [address] Dr. Pancho Oliva SPEC GRAVITY >=1.030 Abnormal 1.005-<=1.025 [facility] Comment on above: Performed By: #### U MICRO, UACSIND #### [facility] [address] [address] [address] Pancho Oliva UA PROTEIN 100 mg/dl Abnormal NEGATIVE/ TRACE [facility] Comment on above: Performed By: #### U MICRO, UACSIND #### [facility] [address] [address] [address] Pancho Oliva UR MICRO IND INDICATED Normal [facility] Comment on above: Performed By: #### U MICRO, UACSIND #### [facility] [address] [address] [address] Pancho Oliva Urobilinogen Qn (U) 0.2 {Pearl'U}/dL Normal 0.2 - 1. 0 [facility] Comment on above: Performed By: #### U MICRO, UACSIND #### [facility] [address] [address] [address] Pancho Oliva URINE MICROSCOPIC ONLYon AMORPHOUS CRYSTALS FEW Normal [facility] Comment on above: Performed By: #### U MICRO, UACSIND #### [facility] [address] [address] [address] Pancho Oliva BACTERIA SMALL Abnormal NONE SEEN [facility] Comment on above: Performed By: #### U MICRO, UACSIND #### [facility] [address] [place] [address] Dr. Pancho Oliva Bacteria identified Cx Nom (U) INDICATED Normal [facility] Comment on above: Performed By: #### U MICRO, UACSIND #### [facility] [address] [address] [address] Pancho Oliva CAST SEEN Abnormal NONE SEEN [facility] Comment on above: Performed By: #### U MICRO, UACSIND #### [facility] [address] [address] [address] Pancho Oliva Crystals LM Nom (Urine sed) SEEN Abnormal NONE SEEN [facility] Comment on above: Performed By: #### U MICRO, UACSIND #### [facility] [address] [address] [address] Pancho Oliva Epithelial cells LM Ql (Urine sed) FEW Abnormal NONE SEEN /RARE [facility] Comment on above: Performed By: #### U MICRO, UACSIND #### [facility] [address] [address] [address] Pancho Oliva HYALINE CAST RARE Normal [facility] Comment on above: Performed By: #### U MICRO, UACSIND #### [facility] [address] [address] [address] Pancho Oliva MUCOUS TRACE Abnormal NONE SEEN [facility] Comment on above: Performed By: #### U MICRO, UACSIND #### [facility] [address] [address] [address] Pancho Oliva RBC 2-5 Abnormal 0-2 [facility] Comment on above: Performed By: #### U MICRO, UACSIND #### [facility] [address] [address] [address] Pancho Oliva WBC 0-2 Abnormal NONE SEEN [facility] Comment on above: Performed By: #### U MICRO, UACSIND #### [facility] [address] [address] [address] Pancho Oliva CHLAMYDIA/GONOCOCCUS RHIANNA ( AB/URINE/PAPon 06-04-2022 Chlamydia trachomatis, RHIANNA Negative Normal Negative [facility] Comment on above: Performed By: #### U MICRO, UACSIND #### [facility] [address] [address] [address] Pancho Oliva Neisseria gonorrhoeae, RHIANNA Negative Normal Negative [facility] Comment on above: Performed By: #### U MICRO, UACSIND #### [facility] [address] [address] [address] Pancho Oliva GROUP B STREP CULTUREon 05-18 S. agalactiae Ag Ql (Unsp spec) Culture Observations: NEGATIVE FOR GROUP B STREPTOCOCCUS. Normal [facility] Comment on above: Performed By: #### U MICRO, UACSIND #### [facility] [address] [place] [address] Dr. Pancho Oliva US PREG ANATOMY SINGLEon [...] Age by EDC: 28 weeks 3 days IJGNESH by EDC: 06/28/2022 Age by current US: 29 weeks 1 days JIGNESH by current US: 06/23/2022 IMPRESSION: 1. Single live intrauterine with growth detailed above. Electronically authenticated by: KIM LEIGH Date: 2022-04-08 22:10 Normal [facility] GLUCOSE - 1HRon 04-07-2022 Glucose [Mass/Vol] 114 mg/dL Critically high 74-106 T [facility] Comment on above: Performed By: #### U MICRO, UACSIND #### [facility] [address] [address] [address] Pancho Oliva HEMOGRAM AND PLATELon 2021 Hematocrit (Bld) [Volume fraction] 36.1 % Normal 36.0-48.0 [facility] Comment on above: Performed By: #### U MICRO, UACSIND #### [facility] [address] [address] [address] Pancho Oliva Hemoglobin (Bld) [Mass/Vol] 12.1 g/dL Normal 12.0-16.0 [facility] Comment on above: Performed By: #### U MICRO, UACSIND #### [facility] [address] [address] [address] Pancho Oliva MCH (RBC) [Entitic mass] 28.5 pg Normal 26.7-34.0 [facility] Comment on above: Performed By: #### U MICRO, UACSIND #### [facility] [address] [address] [address] Pancho Oliva MCHC (RBC) [Mass/Vol] 33.5 g/dL Normal 29.9-35.2 [facility] Comment on above: Performed By: #### U MICRO, UACSIND #### [facility] [address] [place] [address] Dr. Pancho Oliva MCV (RBC) [Entitic vol] 85.1 fL Normal 81.0-99.0 [facility] Comment on above: Performed By: #### U MICRO, UACSIND #### [facility] [address] [place] [address] Dr. Pancho Oliva PLT 333 103/ul Normal 150-450 [facility] Comment on above: Performed By: #### U MICRO, UACSIND #### [facility] [address] [place] [address] Dr. Pancho Oliva RBC 4.24 106/ul Normal 4.20-5.40 [facility] Comment on above: Performed By: #### U MICRO, UACSIND #### [facility] [address] [address] [address] Pancho Oliva WBC 16.5 103/ul Critically high 4.0-11.0 [facility] Comment on above: Performed By: #### U MICRO, UACSIND #### [facility] [address] [place] [address] Dr. Pancho Oliva AFP TETRA PROFILE (MATERNAL) on 01-21-2022 AFP MoM 0.81 Normal [facility] Comment on above: Performed By: #### A FPTET #### [facility] [address] [place] [address] Dr. Pancho Oliva AFP Value 26.1 ng/mL Normal [facility] Comment on above: Performed By: #### A FPTET #### [facility] [address] [place] [address] Dr. Pancho Oliva Comment Comment Normal [facility] Comment on above: Result Comment: Marguerite Hassan, Ph.D., [facility] Director . References: Available Upon Request. . Multiples Of Median Cutoffs Abbreviation Definitions For AFP Elevations IDD- Insulin Dep Diabetes Daugherty 2.5 Black 2.8 OSBR- Open Spina Bifida IDD 2.0 Twins 4.5 Risk DSR Cutoff 1:270 DSR- Down Syndrome Risk T18 Cutoff 1:100 T18- Trisomy 18 . For further inquiries contact [facility] at [phone]. . This test was developed and its performance characteristics determined by [facility]. It has not been cleared or approved by the Food and Drug Administration. Performed By: #### A FPTET #### [facility] [address] [place] [address] Dr. Pancho Oliva INDRA MoM 0.96 Normal [facility] Comment on above: Performed By: #### A FPTET #### [facility] [address] [place] [address] Dr. Pancho Oliva INDRA Value 118.40 pg/mL Normal [facility] Comment on above: Performed By: #### A FPTET #### [facility] [address] [place] [address] Dr. Pancho Oliva DSR (By Age) 1 [place] 1121 Normal [facility] Comment on above: Performed By: #### A FPTET #### [facility] [address] [place] [address] Dr. Pancho Oliva DSR (Second Trimester) 1 [place] [address] [facility] Comment on above: Performed By: #### A FPTET #### [facility] [address] [place] [address] Dr. Pancho Oliva Gest. Age on Collection Date 17.1 WEEKS Normal [facility] Comment on above: Performed By: #### A FPTET #### [facility] [address] [place], [place] [id number] Dr. Pancho Oliva Gestat. Age Based On LMP Normal [facility] Comment on above: Performed By: #### A FPTET #### [facility] [address] [place] [address] Dr. Pancho Oliva hCG MoM 0.73 Normal [facility] Comment on above: Performed By: #### A FPTET #### [facility] [address] [place] [address] [place] [address] m[IU]/mL Normal [facility] Comment on above: Performed By: #### A FPTET #### [facility] [address] [place] [address] Dr. Pancho Oliva Insulin Dep Diabetes No Normal [facility] Comment on above: Performed By: #### A FPTET #### [facility] [address] [place] [address] Dr. Pancho Oliva Interpretation Comment Normal [facility] Comment on above: Result Comment: Inte [...] identifies 60% of Trisomy 18 pregnancies. The [employer] recommends amniocentesis be offered to women age 35 and older. Recalculations are not recommended when gestational dating by LMP and ultrasound are within 10 days. Performed By: #### A FPTET #### [facility] [address] [place] [address] Dr. Pancho Oliva [age] Normal [facility] Comment on above: Performed By: #### A FPTET #### [facility] [address] [place] [address] Dr. Pancho Oliva Multiple Gestation No Normal [facility] Comment on above: Performed By: #### A FPTET #### [facility] [address] [address] [address] Pancho Oliva [place] [address] [place] [address] [facility] Comment on above: Performed By: #### A FPTET #### [facility] [address] [address] [address] Pancho Oliva PDF . Normal [facility] Comment on above: Performed By: #### A FPTET #### [facility] [address] [place] [address] Dr. Pancho Oliva Race Normal [facility] Comment on above: Performed By: #### A FPTET #### [facility] [address] [place] [address] Dr. Pancho Oliva Results Report Normal [facility] Comment on above: Performed By: #### A FPTET #### [facility] [address] [place] [address] Dr. Pancho Oliva T18 (By Age) 1:4368 Normal [facility] Comment on above: Performed By: #### A FPTET #### [facility] [address] [place] [address] Dr. Pancho Oliva T18 Risk Not increased [facility] Comment on above: Performed By: #### A FPTET #### [facility] [address] [place] [address] Dr. Pancho Oliva Test Results: Negative Normal [facility] Comment on above: Performed By: #### A FPTET #### [facility] [address] [address] [address] Pancho Oliva uE3 MoM 1.70 [facility] Comment on above: Performed By: #### A FPTET #### [facility] [address] [place] [address] Dr. Pancho Oliva uE3 Value 1.80 ng/mL Normal [facility] Comment on above: Performed By: #### A FPTET #### [facility] [address] [place] [address] Dr. Pancho Oliva HEP B SURFACE ANTIGEN SCREEN on 01-20-2022 HBsAg Screen Negative Normal Negative [facility] Comment on above: Performed By: #### U MICRO, UACSIND #### [facility] [address] [address] [address] Pancho Oliva HEPATITIS C VIRUS AB W/ REFL EX QUANTon 01-20-2022 HCV AB 0.1 s/co ratio Normal 0.0-0.9 [facility] Comment on above: Performed By: #### U MICRO, UACSIND #### [facility] [address] [address] [address] Pancho Oliva Interpretation: Comment Normal [facility] Comment on above: Result Comment: Nega tive Not infected with HCV, unless recent infection is suspected or other evidence exists to indicate HCV infection. Performed By: #### U MICRO, UACSIND #### [facility] [address] [place] [address] Dr. Pancho Oliva HIV 1 AND 2 WITH REFLEXon HIV Screen 4th Generation wRfx Non-Reactive Normal Non Reactive [facility] Comment on above: Result Comment: HIV Negative HIV-1/HIV-2 antibodies and HIV-1 p24 antigen were NOT detected. There is no laboratory evidence of HIV infection. Performed By: #### U MICRO, UACSIND #### [facility] [address] [place] [address] Dr. Pancho Oliva RPR QUANTon 01-20-2022 Rapid Plasma Reagin, Quant Non-Reactive Normal NonRea<1:1 [facility] Comment on above: Result Comment: Plea se Note: This test does not meet current guidelines for screening and diagnosis of syphilis. This test is intended for following treatment response in patients being treated for syphilis infection. To screen for syphilis infection, a reflex cascade that includes both RPR and a treponema-specific assay should be utilized, such as Treponema pallidum (Syphilis) Screening [place] (392061) or Rapid Plasma Reagin (RPR) Test With Reflex to Quantitative RPR and Confirmatory Treponema pallidum Antibodies (414583). Performed By: #### R PRQ #### [facility] [address] [place] [address] Dr. Pancho Oliva RUBELLA AB IGGon 01-20-2022 Rubella Antibodies, IgG 6.39 index Normal Immune >0.99 [facility] Comment on above: Result Comment: Non- immune <0.90 Equivocal 0.90 - 0.99 Immune >0.99 Performed By: #### R UBIGG #### [facility] [address] [place] [address] Dr. Pancho Oliva CBC AUTO DIFFon 01-19-2022 BASO # 0.1 103/ul Normal 0.0-0.1 [facility] Comment on above: Performed By: #### C BC #### [facility] [address] [place] [address] Dr. Pancho Oliva Basophils/100 WBC (Bld) 0.6 % Normal 0.2-2.0 [facility] Comment on above: Performed By: #### C BC #### [facility] [address] [place] [address] Dr. Pancho Oliva EO # 0.3 103/ul Normal 0.0-0.7 [facility] Comment on above: Performed By: #### C BC #### [facility] [address] [place] [address] Dr. Pancho Oliva Eosinophils/100 WBC (Bld) 2.1 % Normal 0.9-7.0 [facility] Comment on above: Performed By: #### C BC #### [facility] [address] [place] [address] Dr. Pancho Oliva Erythrocyte distribution width (RBC) [Ratio] 12.3 % Normal 11.0-15.0 [facility] Comment on above: Performed By: #### C BC #### [facility] [address] [place] [address] Dr. Pancho Oliva Hematocrit (Bld) [Volume fraction] 37.0 % Normal 36.0-48.0 [facility] Comment on above: Performed By: #### C BC #### [facility] [address] [place] [address] Dr. Pancho Oliva Hemoglobin (Bld) [Mass/Vol] 12.6 g/dL Normal 12.0-16.0 [facility] Comment on above: Performed By: #### C BC #### [facility] [address] [place] [address] Dr. Pancho Oliva IG # 0.19 10e3/ul Critically high 0.00-0.03 [facility] Comment on above: Performed By: #### C BC #### [facility] [address] [place] [address] Dr. Pancho Oliva IG % 1.2 % Critically high 0.0-0.5 [facility] Comment on above: Performed By: #### C BC #### [facility] [address] [place] [address] Dr. Pancho Oliva LYMPH # 2.6 103/ul Normal 1.2-3.8 [facility] Comment on above: Performed By: #### C BC #### [facility] [address] [place] [address] Dr. Pancho Oliva Lymphocytes/100 WBC (Bld) 15.6 % Critically low 20.5-60.0 [facility] Comment on above: Performed By: #### C BC #### [facility] [address] [place] [address] Dr. Pancho Oliva MANUAL DIFF REQ NO Normal [facility] Comment on above: Performed By: #### C BC #### [facility] [address] [place] [address] Dr. Pancho Oliva MCH (RBC) [Entitic mass] 28.4 pg Normal 26.7-34.0 [facility] Comment on above: Performed By: #### C BC #### [facility] [address] [place] [address] Dr. Pancho Oliva MCHC (RBC) [Mass/Vol] 34.1 g/dL Normal 29.9-35.2 [facility] Comment on above: Performed By: #### C BC #### [facility] [address] [place] [address] Dr. Pancho Oliva MCV (RBC) [Entitic vol] 83.5 fL Normal 81.0-99.0 [facility] Comment on above: Performed By: #### C BC #### [facility] [address] [place] [address] Dr. Pancho Oliva MONO # 0.7 103/ul Normal 0.3-0.8 [facility] Comment on above: Performed By: #### C BC #### [facility] [address] [place] [address] Dr. Pancho Oliva Monocytes/100 WBC (Bld) 4.2 % Normal 1.7-12.0 [facility] Comment on above: Performed By: #### C BC #### [facility] [address] [place] [address] Dr. Pancho Oliva NEUT # 12.6 103/ul Critically high 1.4-6.5 [facility] Comment on above: Performed By: #### C BC #### [facility] [address] [place] [address] Dr. Pancho Oliva Neutrophils/100 WBC (Bld) 76.3 % Critically high 43.0-75.0 [facility] Comment on above: Performed By: #### C BC #### [facility] [address] [place] [address] Dr. Pancho Oliva Platelet mean volume (Bld) [Entitic vol] 9.0 fL Critically low 9.5-13.5 [facility] Comment on above: Performed By: #### C BC #### [facility] [address] [place] [address] Dr. Pancho Oliva PLT 359 103/ul Normal 150-450 [facility] Comment on above: Performed By: #### C BC #### [facility] [address] [place] [address] Dr. Pancho Oliva RBC 4.43 106/ul Normal 4.20-5.40 [facility] Comment on above: Performed By: #### C BC #### [facility] [address] [place] [address] Dr. Pancho Oliva WBC 16.5 103/ul Critically high 4.0-11.0 [facility] Comment on above: Performed By: #### C BC #### [facility] [address] [address] [address] Pancho Oliva CULTURE URINEon 01-19-2022 CULTURE URINE Culture Observations: HEAVY GROWTH OF MIXED GENITAL XOCHITL. NO POTENTIAL PATHOGENS SEEN. Normal [facility] Comment on above: Performed By: #### U RCX #### [facility] [address] [address] [address] Pancho Oliva GLYCOHEMOGLOBIN A1Con 2021 ADA RECOMMENDATION SEE BELOW Normal [facility] Comment on above: Result Comment: ADA RECOMMENDED LIMIT 4.0 - 6.0 ADA THERAPEUTIC TARGET < 7.0 ACTION SUGGESTED > 7.0 Performed By: #### U MICRO, UACSIND #### [facility] [address] [address] [address] Pancho Oliva Glucose [Mass/Vol] 94 mg/dL Normal [facility] Comment on above: Performed By: #### U MICRO, UACSIND #### [facility] [address] [address] [address] Pancho Oliva HbA1c (Bld) [Mass fraction] 4.9 % Normal 4.5-6.2 [facility] Comment on above: Performed By: #### U MICRO, UACSIND #### [facility] [address] [place] [address] Dr. Pancho Oliva TYPE AND SCREENon 01-19-2022 TYPE AND SCREEN Negative Normal [facility] Comment on above: Performed By: #### U MICRO, UACSIND #### [facility] [address] [address] [address] Pancho Oliva US PREG TVon 11-23-2021 [...] KIM LEIGH Date: 2021-11-23 16:11 Normal [facility] Vital Signs Date Time Vital Sign Value Performing Clinician Facility 08-29-2023 10:55-0500 Body mass index (BMI) [Ratio] 38.11 kg/m2 Olya LE Work Phone: [facility] 08-29-2023 10:55-0500 Body weight 103.87 kg Olya LE Work Phone: [facility] 08-29-2023 10:55-0500 Diastolic blood pressure 78 mm[Hg] Olya LE Work Phone: [facility] 08-29-2023 10:55-0500 Systolic blood pressure 118 mm[Hg] Olya LE Work Phone: [facility] 01-21-2022 02:06-0400 Body weight 97.[address] AUGUSTINE ENRIQUE [facility] Comment on above: Performed By: #### AFPTET #### [facility] [address] [place] [address] Dr. Pancho Oliva Encounters Encounter Date Encounter [...] External Result Encounter Olya LE Work Phone: [facility] External Department Unsolicited Start: 08-29-2023 External Result Encounter Olya LE Work Phone: [facility] External Department Unsolicited Start: 08-29-2023 End: 08-29-2023 Patient encounter procedure Olya LE Work Phone: [facility] Healthcare Start: 08-29-2023 End: 08-29-2023 Periodic preventive med est patient 18-39 yrs Olya LE Work Phone: [facility] Comment on above: Second trimester pre gnancy; Well woman exam with routine gynecological exam; STD exposure; Vaginal discharge Start: 08-29-2023 End: 08-29-2023 ambulatory OLYA BAUMAN Not Available Start: 08-26-2023 Chart abstracting Olya LE Work Phone: [facility] Start: 08-01-2023 End: 08-01-2023 [...] AM EDT Routine [facility] [address] [place] [id number] Rudi Tracey DO [address] [place] [address] [facility] Start: 08-29-2023 End: 10-28-2023 Alpha fetoprotein, maternal Alpha fetoprotein, maternal Lab Routine Second trimester Expected: 08/29/2023 (Approximate), Expires: 10/28/2023 [facility] Healthcare Comment on above: Expected: 08/29/2023 (Approximate), Expires: 10/28/2023 Start: 08-29-2023 End: 08-29-2023 Patient encounter procedure 08/29/2023 10:30 AM EST Routine [facility] [address] [place] [id number] Olya Bauman PA [address] [place] [address] Second trimester [facility] Comment on above: Second trimester pre gnancy CHLAMYDIA TRACHOMATI S (GENITO/STI) CHLAMYDIA TRACHOMATIS (GENITO/STI) Lab Routine STD exposure Ordered: 08/29/2023 [facility] Comment on above: Ordered: 08/29/2023 Cytology Cervical or vaginal smear or scraping study Pap Smear Pathology and Cytology Routine Well woman exam with routine gynecological exam Ordered: 08/29/2023 [facility] Comment on above: Ordered: 08/29/2023 Neisseria gonorrhoea e DNA [Presence] in Unspecified specimen by RHIANNA with probe detection Neisseria gonorrhea DNA probe, direct Lab Routine STD exposure Ordered: 08/29/2023 [facility] Comment on above: Ordered: 08/29/2023 SURESWAB(R) ADVANCED VAGINITIS PLUS, TMA SURESWAB(R) ADVANCED VAGINITIS PLUS, TMA Pathology and Cytology Routine Vaginal discharge Ordered: 08/29/2023 [facility] Work Phone: Comment on above: Ordered: 08/29/2023 Payers Date Payer Category Payer Unknown BCBS BCBS xxxxxx [id number] 2022-Present [phone] [address] [place] [address] [id number] 2000 Unknown [id number] 2000 Unknown [id number] [id number] 2000 Unknown [id number] [id number]3 2000 Unknown [id number] 2.16.840.1.400465.3.579.2.593 2000 Unknown [id number] 2.16.840.1.788567.3.579.2.593 2000 Unknown [id number] 2.16.840.1.859074.3.579.2.593 2000 Unknown [id number] 2.16.840.1.098055.3.579.2.593 2000 Unknown [id number] 2.16.840.1.344405.3.579.2.1259 2000 Unknown [id number] 2.16.840.1.986471.3.579.2.1259 2000 Unknown [id number] 2.16.840.1.113966.3.579.2.1259 2000 Unknown [id number] 2.16.840.1.789249.3.579.2.1259 2000 Unknown [id number] 2.16.840.1.129103.3.579.2.1259 2000 Unknown [id number] 2.16.840.1.537740.3.579.2.1259 2000 Unknown [id number] 2.16.840.1.656228.3.579.2.1259 2000 Unknown [id number] [id number] 1959 Self-pay 1959 Unknown [id number] 1959 Unknown [id number] Social History Date Type Detail Facility Start: 02-06-2023 Tobacco smoking stat [facility] Never smoked tobacco [facility] Start: [...] Problems Past Medical History: Diagnosis Date depression ([facility]) Family History Problem Relation Name [...] obtained without difficulty [facility]. Follow Up: Patient [...] DATE CREATED AUTHOR AUTHOR'S ORGANIZ ATION 12/30/2023 [facility] Reason for Visit (unrecogniz ed section and [...] BE BASED ON THE PRIMARY CLINICAL RECORDS. [facility] [employer] [facility]. provides no warranty or guarantee of the accuracy or completeness of information in this document.
--- NOTE | 2024-01-04 07:23 | ECG_ITS ---
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
[2024-01-04 07:36] LABS: Bilirubin Urine NEGATIVE (NEGATIVE); Blood Urine LARGE (NEGATIVE); Clarity Urine CLOUDY (CLEAR); Color Urine LT. YELLOW (YELLOW); Glucose Urine UA NEGATIVE (NEGATIVE); Ketones Urine NEGATIVE (NEGATIVE); Leukocyte Esterase Urine MODERATE (NEGATIVE); Nitrite Urine NEGATIVE (NEGATIVE); Protein Urine 30 mg/dL (NEG/TRACE); Specific Gravity Urine 1.015 (1.005-1.025); Urine Microscopic Indicated YES; Urobilinogen Urine 0.2 EU/dL (0.2-1.0)
[2024-01-04 07:44] LABS: Bacteria Urine MODERATE #/HPF (NONE SEEN); Mucus Urine TRACE (NONE SEEN); RBC Urine 20-50 #/HPF (0-2)
[2024-01-04 07:45] LABS: Cast Seen? NONE SEEN #/LPF (NONE SEEN); Crystals Seen? None Seen #/HPF (None Seen); Squamous Epithelial Cell Urine MODERATE #/LPF (NONE/RARE); Urine Culture Indicated YES
--- NOTE | 2024-01-04 07:45 | US_ITS ---
[address] [address] Patient Name: DONAVAN WALTON MRN: [id number] date: 2000 Sex: F Assigned Patient Location: [facility] Current Patient Location: [facility] Accession/Order Number: [id number] Exam Date: 01/04/2024 08:00 Report Date: 01/04/2024 09:04 At the request of: RUDI CHACON Procedure: US OB BPP wo non-stress EXAMINATION: US OB BPP wo non-stress HISTORY: polyhydramnios, abdominal pain COMPARISON: No relevant comparison available. TECHNIQUE: Ultrasound biophysical profile was performed in the radiology department. non-reactive stress testing was performed by nursing staff in the birthing center. FINDINGS: BREATHING MOVEMENTS: 2 GROSS BODY MOVEMENTS: 2 TONE: 2 QUALITATIVE AMNIOTIC FLUID VOLUME: Normal PRESENTATION: CEPHALIC AMNIOTIC FLUID VOLUME: 35.28 cm GESTATIONAL AGE: 230 Day US/US OB BPP wo non-stress IMPRESSION: Total biophysical profile score: 8 Electronically authenticated by: ÁNGELA PRIETO Date: 01/04/2024 09:04
--- NOTE | 2024-01-04 07:48 | US_ITS ---
[address] [address] Patient Name: DONAVAN WALTON MRN: [id number] date: 2000 Sex: F Assigned Patient Location: [facility] Current Patient Location: [facility] Accession/Order Number: [id number] Exam Date: 01/04/2024 08:00 Report Date: 01/04/2024 09:07 At the request of: RUDI CHACON Procedure: US OB cervical length EXAMINATION: US OB cervical length HISTORY: polyhydramnios, abdominal pain COMPARISON: No relevant comparison available. TECHNIQUE: Transabdominal and transvaginal sonographic examination for cervical length. FINDINGS: CERVIX LENGTH: 2.0 cm, closed. (1.7 cm during fundal pressure) POSITION: Cephalic HEART RATE: Present Age by EDC: 32 weeks 6 days JIGNESH by EDC: 02/23/2024 US/US OB cervical length IMPRESSION: 1. Cervix is closed and 2.0 cm in length. Electronically authenticated by: KIM LEIGH Date: 01/04/2024 09:07
[2024-01-04] MEDS: 0.9 % SODIUM CHLORIDE 1,000 ML 999 ML IV (07:59)
[2024-01-04] MEDS: NIFEdipine 10 MG CAPSULE 20 MG PO ×3 (07:59→20:06)
[2024-01-04] MEDS: BETAMETHASONE ACE/BETAMETHASONE SOD PHOS 30 MG/5 ML 12 MG IM (08:53)
[2024-01-04] MEDS: 0.9 % SODIUM CHLORIDE 1,000 ML 125 ML IV ×2 (10:50→19:48)
[2024-01-04] MEDS: NIFEdipine 10 MG CAPSULE PO (11:24)
[2024-01-04] MEDS: ONDANSETRON PF 4 MG/2 ML VIAL IV (11:25)
[2024-01-04] MEDS: AMPICILLIN SODIUM 2,000 MG in 0.9 % SODIUM CHLORIDE 100 ML 200 MG IV (11:25)
[2024-01-04] MEDS: MORPHINE SULFATE 2 MG/ML SYRINGE IV (11:47)
[2024-01-04] MEDS: FLUCONAZOLE 150 MG TABLET PO (11:47)
[2024-01-04] MEDS: AMPICILLIN SODIUM 1,000 MG in 0.9 % SODIUM CHLORIDE 50 ML 100 MG IV ×2 (15:46→20:07)
[2024-01-04] MEDS: CALCIUM CARBONATE 500 MG (200MG ELEMENTAL) TAB CHEW PO (23:26)
--- NOTE | 2024-01-05 00:15 | P.OBHP_ITS ---
OB - H&P: HPI History of Present Illness Chief complaint: chest pain 33 weeks : 2 Para: 1 Gestational age based on last menstrual period: 32 6/7wks Narrative: 23 yo at 33wks presented with uti and ptc, pt denies lof, vb pt has polyhydramnios, sve 1/thick/high History of Present Dating criteria: LMP confirmed by 1st trimester US care: good care Ultrasounds: normal 1st trimester US and normal mid trimester US Labs Blood type: A (+) positive Rubella: immune Review of Systems ROS Status of ROS: 10 or more systems reviewed and unremarkable except as noted in history and below Meds Home Medications and Allergies Home Medications ?Medication ?Instructions ?Recorded ?Confirmed ?Type citalopram 20 mg tablet mg 01/04/24 History omeprazole 20 mg capsule,delayed mg 01/04/24 History release ondansetron 4 mg disintegrating mg 01/04/24 History tablet Allergies Allergy/AdvReac Type Severity Reaction Status Date / Time No Known Drug Allergies Allergy Verified 01/04/24 09:44 Exam Constitutional Vital Signs, click to edit/add: Last Vital Signs Temp 97.7 F 01/04/24 19:21 Pulse 90 01/04/24 20:06 Resp 16 01/04/24 07:00 BP 134/82 01/04/24 20:06 Pulse Ox 96 01/04/24 07:00 O2 Del Method Room Air 01/04/24 06:53 Documenting provider has reviewed patient's vital signs: yes Common normals: no apparent distress Respiratory Common normals: normal respiratory effort and clear to auscultation bilaterally Cardio Common normals: regular rate and regular rhythm GI Common normals: Normal to inspection, nondistended, normoactive bowel sounds present Extremity Common normals: no calf tenderness Results Labs Labs: Urine 01/04/24 Range/Units 07:23 Urine Color Lt. yellow (YELLOW) Urine Clarity Cloudy A (CLEAR) Urine pH 6.0 (5.0-9.0) Ur Specific [place] 1.015 (1.005-1.025) Urine Protein 30 A (NEG/TRACE) mg/dL Urine Glucose (UA) Negative (NEGATIVE) mg/dL OB - A/P Assessment and Plan (1) Intrauterine : (2) Polyhydramnios: (3) Yeast infection involving the vagina and surrounding area: (4) contractions: (5) Suspected shortening of cervix not found: Plan procardia 20mg q6hrs, diflucan and abx given, celestone given, iv hydration, cont efm, pain control, cont observation, dc home in am if symptoms resolved
--- NOTE | 2024-01-05 00:30 | PC.NURSE ---
Pt up to the bathroom to urinate then returns to bed. Signif other at bedside. Pt denies any needs at this time.
[2024-01-05] MEDS: AMPICILLIN SODIUM 1,000 MG in 0.9 % SODIUM CHLORIDE 50 ML 100 MG IV ×3 (00:38→07:56)
[2024-01-05 01:53] VITALS: BP 124/87
[2024-01-05] MEDS: NIFEdipine 10 MG CAPSULE 20 MG PO ×2 (01:53→07:55)
[2024-01-05 01:55] VITALS: BP 124/87; PULSE 83; TEMP 37.3
[2024-01-05] MEDS: 0.9 % SODIUM CHLORIDE 1,000 ML 125 ML IV (04:36)
[2024-01-05 04:43] VITALS: BP 118/82; PULSE 92
[2024-01-05 04:45] VITALS: TEMP 36.9
[2024-01-05] MEDS: CALCIUM CARBONATE 500 MG (200MG ELEMENTAL) TAB CHEW 1000 MG PO (07:55)
[2024-01-05 07:57] VITALS: BP 135/87; PULSE 107
[2024-01-05] MEDS: BETAMETHASONE ACE/BETAMETHASONE SOD PHOS 30 MG/5 ML 12 MG IM (08:44)
== END 2024-01-05 08:50 | disposition home or self-care (01) ==
LOC: ER 07:05 → FBC 07:08
PROVIDERS: Admitting Provider Obstetrics & Gynecology; Emergency Provider Emergency Medicine; Visit Provider Obstetrics & Gynecology
DX: O26.893 Other specified pregnancy related conditions, third trimester (principal); R07.9 Chest pain, unspecified; O40.3XX0 Polyhydramnios, third trimester, not applicable or unspecified; O47.03 False labor before 37 completed weeks of gestation, third trimester; O98.813 Other maternal infectious and parasitic diseases complicating pregnancy, third trimester; B37.31 Acute candidiasis of vulva and vagina; Z3A.33 33 weeks gestation of pregnancy
CPT/HCPCS: 76817; 76819; 81001; 87086; 93005; 96361; 96365; 96366; 96372; 96375; 96376; G0378; J0290; J0702; J2270; J2405

== ENCOUNTER 2024-01-06 07:00 | Outpatient (OUT) | payer BC, SELFPAY ==
--- OUTSIDE RECORDS SUMMARY | 2024-01-06 07:03 | XMS_ITS | CCD ---
Author Organization [facility] Care Team Providers Care Handbag Finisher Name Role Phone IVA, DR BRADSHAW Admitting [...] GINITIS (HTRX)on 08-31-2023 ATOPOBIUM VAGINAE 0 [facility] ATOPOBIUM VAGINAE Not detected [facility] BVAB 2,3 (BACTERIAL VAGINOSIS ASSOCIATED BACTERIA 2, 3); MOBILUNCUS SPP 22.438 Abnormal [facility] BVAB 2,3 (BACTERIAL VAGINOSIS ASSOCIATED BACTERIA 2, 3); MOBILUNCUS SPP Detected Abnormal [facility] JEERMI ALBICANS, PARAPSILOSIS, TROPICALIS 0 [facility] JEREMI ALBICANS, PARAPSILOSIS, TROPICALIS Not detected [facility] JEREMI GLABRATA 0 [facility]S a lthcare JEREMI GLABRATA Not detected [facility] JEREMI KRUSEI 0 [facility] JEREMI KRUSEI Not [facility] CHLAMYDIA TRACHOMATIS 0 [facility] CHLAMYDIA TRACHOMATIS Not detected [facility] DFR (A1, A5), SUL (1,2) 0 PPM [facility] Healthcare DFR (A1, A5), SUL (1,2) Not detected [facility] Healthcare ERMB, C; MEFA 25.226 Abnormal PPM [facility] Health care ERMB, C; MEFA Detected Abnormal [facility] GARDNERELLA VAGINALIS 30.91 Abnormal [facility] GARDNERELLA VAGINALIS Detected Abnormal [facility] Interpretation and review of laboratory results Abnormal [facility] MEGASPHAERA (TYPES 1, 2) 0 [facility] MEGASPHAERA (TYPES 1, 2) Not detected [facility] MYCOPLASMA GENITALIUM 0 [facility] MYCOPLASMA GENITALIUM Not detected [facility] NEISSERIA GONORRHOEAE 0 [facility] NEISSERIA GONORRHOEAE Not detected [facility] TET B, TET M 23.014 Abnormal PPM [facility] are TET B, TET M Detected Abnormal [facility] are TRICHOMONAS VAGINALIS 0 [facility] TRICHOMONAS VAGINALIS Not detected [facility] macro (dipstick) panel (U)on 08-29-2023 Bilirubin, UA Negative Negative - 4(70) +++ mg/dL [facility] Blood, UA Negative Negative - 50 Teddy/mcL [facility] Clarity, UA Clear [facility] re Color, UA Yellow [facility] e Glucose, UA Negative Negative - 1999(110) ++++ mg/dL [facility] Interpretation and review of laboratory results Abnormal [facility] Ketones, UA Positive Negative - 160(16) ++++ mg/dL [facility] Leukocytes, UA Trace Negative - 500+++ Nicolasa/mcL [facility] Nitrite, UA Negative Negative - Positive [facility] pH, UA 6.0 5 - 9 [facility] e Protein, UA Negative Negative - 1999(20) ++++ mg/dL [facility] Spec Grav, UA 1.030 1 - 1.03 [facility] Urobilinogen, UA 0.2 0.2 - 12 mg/dL [facility] e CBC AUTO DIFFon 06-18-2022 BASO # 0.1 103/ul Normal 0.0-0.1 [facility] Comment on above: Performed By: #### U MICRO, UACSIND #### [facility] [address] [place], [place] [address] Dr. Pancho Oliva Basophils/100 WBC (Bld) 0.8 % Normal 0.2-2.0 [facility] Comment on above: Performed By: #### U MICRO, UACSIND #### [facility] [address] [place] [address] [address] Pancho Oliva EO # 0.3 103/ul Normal 0.0-0.7 [facility] Comment on above: Performed By: #### U MICRO, UACSIND #### [facility] [address] [place] [address] Dr. Pancho Oliva Eosinophils/100 WBC (Bld) 2.1 % Normal 0.9-7.0 [facility] Comment on above: Performed By: #### U MICRO, UACSIND #### [facility] [address] [place] [address] Dr. Pancho Oliva Erythrocyte distribution width (RBC) [Ratio] 13.9 % Normal 11.0-15.0 [facility] Comment on above: Performed By: #### U MICRO, UACSIND #### [facility] [address] [place] [address] Dr. Pancho Oliva Hematocrit (Bld) [Volume fraction] 36.2 % Normal 36.0-48.0 [facility] Comment on above: Performed By: #### U MICRO, UACSIND #### [facility] [address] [place] [address] Dr. Pancho Oliva Hemoglobin (Bld) [Mass/Vol] 11.8 g/dL Critically low 12.0-16.0 [facility] Comment on above: Performed By: #### U MICRO, UACSIND #### [facility] [address] [place] [address] Dr. Pancho Oliva IG # 0.16 10e3/ul Critically high 0.00-0.03 [facility] Comment on above: Performed By: #### U MICRO, UACSIND #### [facility] [address] [place] [address] Dr. Pancho Oliva IG % 1.1 % Critically high 0.0-0.5 [facility] Comment on above: Performed By: #### U MICRO, UACSIND #### [facility] [address] [place] [address] Dr. Pancho Oliva LYMPH # 3.5 103/ul Normal 1.2-3.8 [facility] Comment on above: Performed By: #### U MICRO, UACSIND #### [facility] [address] [place] [address] Dr. Pancho Oliva Lymphocytes/100 WBC (Bld) 23.3 % Normal 20.5-60.0 [facility] Comment on above: Performed By: #### U MICRO, UACSIND #### [facility] [address] [place] [address] Dr. Pancho Oliva MANUAL DIFF REQ NO Normal [facility] Comment on above: Performed By: #### U MICRO, UACSIND #### [facility] [address] [place] [address] Dr. Pancho Oliva MCH (RBC) [Entitic mass] 27.1 pg Normal 26.7-34.0 [facility] Comment on above: Performed By: #### U MICRO, UACSIND #### [facility] [address] [place] [address] Dr. Pancho Oliva MCHC (RBC) [Mass/Vol] 32.6 g/dL Normal 29.9-35.2 [facility] Comment on above: Performed By: #### U MICRO, UACSIND #### [facility] [address] [place] [address] Dr. Pancho Oliva MCV (RBC) [Entitic vol] 83.0 fL Normal 81.0-99.0 [facility] Comment on above: Performed By: #### U MICRO, UACSIND #### [facility] [address] [place] [address] Dr. Pancho Oliva MONO # 0.7 103/ul Normal 0.3-0.8 [facility] Comment on above: Performed By: #### U MICRO, UACSIND #### [facility] [address] [place] [address] Dr. Pancho Oliva Monocytes/100 WBC (Bld) 4.3 % Normal 1.7-12.0 [facility] Comment on above: Performed By: #### U MICRO, UACSIND #### [facility] [address] [place] [address] Dr. Pancho Oliva NEUT # 10.2 103/ul Critically high 1.4-6.5 [facility] Comment on above: Performed By: #### U MICRO, UACSIND #### [facility] [address] [place] [address] [address] Pancho Oliva Neutrophils/100 WBC (Bld) 68.4 % Normal 43.0-75.0 [facility] Comment on above: Performed By: #### U MICRO, UACSIND #### [facility] [address] [place] [address] [address] Pancho Oliva Platelet mean volume (Bld) [Entitic vol] 9.7 fL Normal 9.5-13.5 [facility] Comment on above: Performed By: #### U MICRO, UACSIND #### [facility] [address] [place] [address] Dr. Pancho Oliva PLT 271 103/ul Normal 150-450 [facility] Comment on above: Performed By: #### U MICRO, UACSIND #### [facility] [address] [place] [address] Dr. Pancho Oliva RBC 4.36 106/ul Normal 4.20-5.40 [facility] Comment on above: Performed By: #### U MICRO, UACSIND #### [facility] [address] [place] [address] Dr. Pancho Oliva WBC 15.0 103/ul Critically high 4.0-11.0 [facility] Comment on above: Performed By: #### U MICRO, UACSIND #### [facility] [address] [place] [address] Dr. Pancho Oliva RPR QUANTon 06-18-2022 Rapid Plasma Reagin, Quant Non-Reactive Normal NonRea<1:1 [facility] Comment on above: Result Comment: Plea Note: This test does not meet current guidelines for screening and diagnosis of syphilis. This test is intended for following treatment response in patients being treated for syphilis infection. To screen for syphilis infection, a reflex cascade that includes both RPR and a treponema-specific assay should be utilized, such as Treponema pallidum (Syphilis) Screening [place] (432313) or Rapid Plasma Reagin (RPR) Test With Reflex to Quantitative RPR and Confirmatory Treponema pallidum Antibodies (425609). Performed By: #### R PRQ #### [facility] [address] [place] [address] Dr. Pancho Oliva CBC AUTO DIFFon 06-16-2022 BASO # 0.1 103/ul Normal 0.0-0.1 [facility] Comment on above: Performed By: #### U MICRO, UACSIND #### [facility] [address] [place] [address] Dr. Pancho Oliva Basophils/100 WBC (Bld) 0.5 % Normal 0.2-2.0 [facility] Comment on above: Performed By: #### U MICRO, UACSIND #### [facility] [address] [place] [address] Dr. Pancho Oliva EO # 0.0 103/ul Normal 0.0-0.7 [facility] Comment on above: Performed By: #### U MICRO, UACSIND #### [facility] [address] [place] [address] Dr. Pancho Oliva Eosinophils/100 WBC (Bld) 0.1 % Critically low 0.9-7.0 [facility] Comment on above: Performed By: #### U MICRO, UACSIND #### [facility] [address] [place] [address] Dr. Pancho Oliva Erythrocyte distribution width (RBC) [Ratio] 13.5 % Normal 11.0-15.0 [facility] Comment on above: Performed By: #### U MICRO, UACSIND #### [facility] [address] [place] [address] Dr. Pancho Oliva Hematocrit (Bld) [Volume fraction] 38.7 % Normal 36.0-48.0 [facility] Comment on above: Performed By: #### U MICRO, UACSIND #### [facility] [address] [place] [address] Dr. Pancho Oliva Hemoglobin (Bld) [Mass/Vol] 13.0 g/dL Normal 12.0-16.0 [facility] Comment on above: Performed By: #### U MICRO, UACSIND #### [facility] [address] [place] [address] [address] Pancho Oliva IG # 0.15 10e3/ul Critically high 0.00-0.03 [facility] Comment on above: Performed By: #### U MICRO, UACSIND #### [facility] [address] [place] [address] [address] Pancho Oliva IG % 0.8 % Critically high 0.0-0.5 [facility] Comment on above: Performed By: #### U MICRO, UACSIND #### [facility] [address] [place] [address] [address] Pancho Oliva LYMPH # 1.8 103/ul Normal 1.2-3.8 [facility] Comment on above: Performed By: #### U MICRO, UACSIND #### [facility] [address] [place] [address] [address] Pancho Oliva Lymphocytes/100 WBC (Bld) 8.9 % Critically low 20.5-60.0 [facility] Comment on above: Performed By: #### U MICRO, UACSIND #### [facility] [address] [place] [address] Dr. Pancho Oliva MANUAL DIFF REQ NO Normal [facility] Comment on above: Performed By: #### U MICRO, UACSIND #### [facility] [address] [place] [address] [address] Pancho Oliva MCH (RBC) [Entitic mass] 27.2 pg Normal 26.7-34.0 [facility] Comment on above: Performed By: #### U MICRO, UACSIND #### [facility] [address] [place] [address] [address] Pancho Oliva MCHC (RBC) [Mass/Vol] 33.6 g/dL Normal 29.9-35.2 [facility] Comment on above: Performed By: #### U MICRO, UACSIND #### [facility] [address] [place] [address] [address] Pancho Oliva MCV (RBC) [Entitic vol] 81.0 fL Normal 81.0-99.0 [facility] Comment on above: Performed By: #### U MICRO, UACSIND #### [facility] [address] [place] [address] Dr. Pancho Oliva MONO # 0.5 103/ul Normal 0.3-0.8 [facility] Comment on above: Performed By: #### U MICRO, UACSIND #### [facility] [address] [place] [address] Dr. Pancho Oliva Monocytes/100 WBC (Bld) 2.5 % Normal 1.7-12.0 [facility] Comment on above: Performed By: #### U MICRO, UACSIND #### [facility] [address] [place] [address] Dr. Pancho Oliva NEUT # 17.2 103/ul Critically high 1.4-6.5 [facility] Comment on above: Performed By: #### U MICRO, UACSIND #### [facility] [address] [place] [address] Dr. Pancho Oliva Neutrophils/100 WBC (Bld) 87.2 % Critically high 43.0-75.0 [facility] Comment on above: Performed By: #### U MICRO, UACSIND #### [facility] [address] [place] [address] Dr. Pancho Oliva Platelet mean volume (Bld) [Entitic vol] 9.9 fL Normal 9.5-13.5 [facility] Comment on above: Performed By: #### U MICRO, UACSIND #### [facility] [address] [place] [address] Dr. Pancho Oliva PLT 332 103/ul Normal 150-450 [facility] Comment on above: Performed By: #### U MICRO, UACSIND #### [facility] [address] [place] [address] Dr. Pancho Oliva RBC 4.78 106/ul Normal 4.20-5.40 [facility] Comment on above: Performed By: #### U MICRO, UACSIND #### [facility] [address] [place] [address] [address] Pancho Oliva WBC 19.8 103/ul Critically high 4.0-11.0 [facility] Comment on above: Performed By: #### U MICRO, UACSIND #### [facility] [address] [place] [address] [address] Pancho Oliva CULTURE URINEon 06-16-2022 CULTURE URINE Culture Observations: LIGHT GROWTH OF MIXED GENITAL XOCHITL. NO POTENTIAL PATHOGENS SEEN. Normal [facility] Comment on above: Performed By: #### U RCX #### [facility] [address] [place] [address] [address] Pancho Oliva Covid-19 PCR (CVDTBH)on 05-20 SARS-CoV-2 (COVID-19) RNA RHIANNA+probe Ql (Unsp spec) Not detected Normal NOT DETECTED [facility] Comment on above: Result Comment: When [...] for this test is supported by the Sales Operations Analyst of Health and Human Service's declaration that [...] used). Performed By: #### C VDTBH #### [facility] [address] [place] [id number] Pancho Oliva DRUG SCREEN RAPID (URINE)on 06-16-2022 AMP Negative Normal NEGATIVE [facility] Comment on above: Performed By: #### U MICRO, UACSIND #### [facility] [address] [place] [address] [address] Pancho Oliva BAR Negative Normal NEGATIVE [facility] Comment on above: Performed By: #### U MICRO, UACSIND #### [facility] [address] [place] [address] [address] Pancho Oliva BUP Negative Normal NEGATIVE [facility] Comment on above: Performed By: #### U MICRO, UACSIND #### [facility] [address] [place] [address] [address] Pancho Oliva BZO Negative Normal NEGATIVE [facility] Comment on above: Performed By: #### U MICRO, UACSIND #### [facility] [address] [place] [address] [address] Pancho Oliva CALVIN Negative Normal NEGATIVE [facility] Comment on above: Performed By: #### U MICRO, UACSIND #### [facility] [address] [place] [address] Dr. Pancho Oliva CUT-OFFS SEE BELOW Normal [facility] Comment on above: Result Comment: AMP [...] Performed By: #### U MICRO, UACSIND #### [facility] [address] [place] [address] Dr. Pancho Oliva DRUG CUT HEADER DRUG CLASS TEST SYSTEM CUT-OFF CONCENTRATIONS ARE FOLLOWS: Normal [facility] Comment on above: Performed By: #### U MICRO, UACSIND #### [facility] [address] [place] [address] Dr. Pancho Oliva mAMP Negative Normal NEGATIVE [facility] Comment on above: Performed By: #### U MICRO, UACSIND #### [facility] [address] [place] [address] [address] Pancho Oliva MTD Negative Normal NEGATIVE [facility] Comment on above: Performed By: #### U MICRO, UACSIND #### [facility] [address] [place] [address] [address] Pancho Oliva OPI Negative Normal NEGATIVE [facility] Comment on above: Performed By: #### U MICRO, UACSIND #### [facility] [address] [place] [address] [address] Pancho Oliva OXY Negative Normal NEGATIVE [facility] Comment on above: Performed By: #### U MICRO, UACSIND #### [facility] [address] [place] [address] [address] Pancho Oliva PCP Negative Normal NEGATIVE [facility] Comment on above: Performed By: #### U MICRO, UACSIND #### [facility] [address] [place] [address] Dr. Pancho Oliva PPX Negative Normal NEGATIVE [facility] Comment on above: Performed By: #### U MICRO, UACSIND #### [facility] [address] [place] [address] [address] Pancho Oliva TCA Negative Normal NEGATIVE [facility] Comment on above: Performed By: #### U MICRO, UACSIND #### [facility] [address] [place] [address] Dr. Pancho Oliva THC Negative Normal NEGATIVE [facility] Comment on above: Performed By: #### U MICRO, UACSIND #### [facility] [address] [place] [address] [address] Pancho Oliva TYPE AND SCREENon 06-16-2022 TYPE AND SCREEN Negative Normal [facility] Comment on above: Performed By: #### U MICRO, UACSIND #### [facility] [address] [place] [address] Dr. Pancho Oliva UA (CLEAN/CATCH) COMMERCIAL FOOD INSTRUCTOR/MICRO I F IND.on 06-16-2022 Bilirubin Ql (U) Negative Normal NEGATIVE [facility] Comment on above: Performed By: #### U MICRO, UACSIND #### [facility] [address] [place] [address] [address] Pancho Oliva Clarity (U) CLEAR Normal CLEAR [facility] Comment on above: Performed By: #### U MICRO, UACSIND #### [facility] [address] [place] [address] [address] Pancho Oliva Color (U) YELLOW Normal YELLOW [facility] Comment on above: Performed By: #### U MICRO, UACSIND #### [facility] [address] [place] [address] [address] Pancho Oliva Glucose Ql (U) Negative Normal NEGATIVE [facility] Comment on above: Performed By: #### U MICRO, UACSIND #### [facility] [address] [place] [address] Dr. Pancho Oliva Hemoglobin Ql (U) SMALL Abnormal NEGATIVE [facility] Comment on above: Performed By: #### U MICRO, UACSIND #### [facility] [address] [place] [address] Dr. Pancho Oliva Ketones Ql (U) TRACE Abnormal NEGATIVE [facility] Comment on above: Performed By: #### U MICRO, UACSIND #### [facility] [address] [place] [address] Dr. Pancho Oliva LEUKOCYTES Negative Normal NEGATIVE [facility] Comment on above: Performed By: #### U MICRO, UACSIND #### [facility] [address] [place] [address] Dr. Pancho Oliva Nitrite Ql (U) Negative Normal NEGATIVE [facility] Comment on above: Performed By: #### U MICRO, UACSIND #### [facility] [address] [place] [address] Dr. Pancho Oliva pH (U) 5.5 [pH] Normal 5-9 [facility] Comment on above: Performed By: #### U MICRO, UACSIND #### [facility] [address] [place] [address] Dr. Pancho Oliva SPEC GRAVITY >=1.030 Abnormal 1.005-<=1.025 [facility] Comment on above: Performed By: #### U MICRO, UACSIND #### [facility] [address] [place] [address] [address] Pancho Oliva UA PROTEIN 100 mg/dl Abnormal NEGATIVE/ TRACE [facility] Comment on above: Performed By: #### U MICRO, UACSIND #### [facility] [address] [place] [address] [address] Pancho Oliva UR MICRO IND INDICATED Normal [facility] Comment on above: Performed By: #### U MICRO, UACSIND #### [facility] [address] [place] [address] [address] Pancho Oliva Urobilinogen Qn (U) 0.2 {Pearl'U}/dL Normal 0.2 - 1. 0 [facility] Comment on above: Performed By: #### U MICRO, UACSIND #### [facility] [address] [place] [address] [address] Pancho Oliva URINE MICROSCOPIC ONLYon AMORPHOUS CRYSTALS FEW Normal [facility] Comment on above: Performed By: #### U MICRO, UACSIND #### [facility] [address] [place] [address] [address] Pancho Oliva BACTERIA SMALL Abnormal NONE SEEN [facility] Comment on above: Performed By: #### U MICRO, UACSIND #### [facility] [address] [place] [address] Dr. Pancho Oliva Bacteria identified Cx Nom (U) INDICATED Normal [facility] Comment on above: Performed By: #### U MICRO, UACSIND #### [facility] [address] [place] [address] [address] Pancho Oliva CAST SEEN Abnormal NONE SEEN [facility] Comment on above: Performed By: #### U MICRO, UACSIND #### [facility] [address] [place] [address] [address] Pancho Oliva Crystals LM Nom (Urine sed) SEEN Abnormal NONE SEEN [facility] Comment on above: Performed By: #### U MICRO, UACSIND #### [facility] [address] [place] [address] [address] Pancho Oliva Epithelial cells LM Ql (Urine sed) FEW Abnormal NONE SEEN /RARE [facility] Comment on above: Performed By: #### U MICRO, UACSIND #### [facility] [address] [place] [address] [address] Pancho Oliva HYALINE CAST RARE Normal [facility] Comment on above: Performed By: #### U MICRO, UACSIND #### [facility] [address] [place] [address] [address] Pancho Oliva MUCOUS TRACE Abnormal NONE SEEN [facility] Comment on above: Performed By: #### U MICRO, UACSIND #### [facility] [address] [place] [address] [address] Pancho Oliva RBC 2-5 Abnormal 0-2 [facility] Comment on above: Performed By: #### U MICRO, UACSIND #### [facility] [address] [place] [address] [address] Pancho Oliva WBC 0-2 Abnormal NONE SEEN [facility] Comment on above: Performed By: #### U MICRO, UACSIND #### [facility] [address] [place] [address] [address] Pancho Oliva CHLAMYDIA/GONOCOCCUS RHIANNA ( AB/URINE/PAPon 06-04-2022 Chlamydia trachomatis, RHIANNA Negative Normal Negative [facility] Comment on above: Performed By: #### U MICRO, UACSIND #### [facility] [address] [place] [address] [address] Pancho Oliva Neisseria gonorrhoeae, RHIANNA Negative Normal Negative [facility] Comment on above: Performed By: #### U MICRO, UACSIND #### [facility] [address] [place] [address] [address] Pancho Oliva GROUP B STREP CULTUREon 05-18 S. agalactiae Ag Ql (Unsp spec) Culture Observations: NEGATIVE FOR GROUP B STREPTOCOCCUS. Normal [facility] Comment on above: Performed By: #### U MICRO, UACSIND #### [facility] [address] [place] [address] Dr. Pancho Oliva US PREG ANATOMY SINGLEon [...] by: KIM LEIGH Date: 2022-04-08 22:10 Normal [facility] GLUCOSE - 1HRon 04-07-2022 Glucose [Mass/Vol] 114 mg/dL Critically high 74-106 T [facility] Comment on above: Performed By: #### U MICRO, UACSIND #### [facility] [address] [place] [address] [address] Pancho Oliva HEMOGRAM AND PLATELon 2021 Hematocrit (Bld) [Volume fraction] 36.1 % Normal 36.0-48.0 [facility] Comment on above: Performed By: #### U MICRO, UACSIND #### [facility] [address] [place] [address] [address] Pancho Oliva Hemoglobin (Bld) [Mass/Vol] 12.1 g/dL Normal 12.0-16.0 [facility] Comment on above: Performed By: #### U MICRO, UACSIND #### [facility] [address] [place] [address] [address] Pancho Oliva MCH (RBC) [Entitic mass] 28.5 pg Normal 26.7-34.0 [facility] Comment on above: Performed By: #### U MICRO, UACSIND #### [facility] [facility] [address] [address] [address] Pancho Oliva MCHC (RBC) [Mass/Vol] 33.5 g/dL Normal 29.9-35.2 [facility] Comment on above: Performed By: #### U MICRO, UACSIND #### [facility] [address] [place] [address] Dr. Pancho Oliva MCV (RBC) [Entitic vol] 85.1 fL Normal 81.0-99.0 [facility] Comment on above: Performed By: #### U MICRO, UACSIND #### [facility] [address] [place] [address] Dr. Pancho Oliva PLT 333 103/ul Normal 150-450 [facility] Comment on above: Performed By: #### U MICRO, UACSIND #### [facility] [address] [place] [address] Dr. Pancho Oliva RBC 4.24 106/ul Normal 4.20-5.40 [facility] Comment on above: Performed By: #### U MICRO, UACSIND #### [facility] [address] [address] [address] Pancho Oliva WBC 16.5 103/ul Critically high 4.0-11.0 [facility] Comment on above: Performed By: #### U MICRO, UACSIND #### [facility] [address] [place] [address] Dr. Pancho Oliva AFP TETRA PROFILE (MATERNAL) on 01-21-2022 AFP MoM 0.81 Normal [facility] Comment on above: Performed By: #### A FPTET #### [facility] [address] [place] [address] Dr. Pancho Oliva AFP Value 26.1 ng/mL Normal [facility] Comment on above: Performed By: #### A FPTET #### [facility] [address] [place] [address] Dr. Pancho Oliva Comment Comment Normal [facility] Comment on above: Result Comment: Marguerite Hassan, Ph.D., [facility] Director . References: Available Upon Request. . Multiples Of Median Cutoffs Abbreviation Definitions For AFP Elevations IDD- Insulin Dep Diabetes Daugherty 2.5 Black 2.8 OSBR- Open Spina Bifida IDD 2.0 Twins 4.5 Risk DSR Cutoff 1:270 DSR- Down Syndrome Risk T18 Cutoff 1:100 T18- Trisomy 18 . For further inquiries contact [facility] at [phone]. . This test was developed and its performance characteristics determined by [employer]. It has not been cleared or approved by the Food and Drug Administration. Performed By: #### A FPTET #### [facility] [address] [place] [address] Dr. Pancho Oliva INDRA MoM 0.96 Normal [facility] Comment on above: Performed By: #### A FPTET #### [facility] [address] [place] [address] Dr. Pancho Oliva INDRA Value 118.40 pg/mL Normal [facility] Comment on above: Performed By: #### A FPTET #### [facility] [address] [place] [address] Dr. Pancho Oliva DSR (By Age) 1 [place] 1121 Normal [facility] Comment on above: Performed By: #### A FPTET #### [facility] [address] [place] [address] Dr. Pancho Oliva DSR (Second Trimester) 1 [place] [address] [facility] Comment on above: Performed By: #### A FPTET #### [facility] [address] [place] [address] Dr. Pancho Oliva Gest. Age on Collection Date 17.1 WEEKS Normal [facility] Comment on above: Performed By: #### A FPTET #### [facility] [address] [place], [place] [id number] Dr. Pancho Oliva Gestat. Age Based On LMP Normal [facility] Comment on above: Performed By: #### A FPTET #### [facility] [address] [place] [address] Dr. Pancho Oliva hCG MoM 0.73 Normal [facility] Comment on above: Performed By: #### A FPTET #### [facility] [address] [place] [address] [place] [address] m[IU]/mL Normal [facility] Comment on above: Performed By: #### A FPTET #### [facility] [address] [place] [address] Dr. Pancho Oliva Insulin Dep Diabetes No Normal [facility] Comment on above: Performed By: #### A FPTET #### [facility] [address] [place] [address] Dr. Pancho Oliva Interpretation Comment Normal [facility] Comment on above: Result Comment: Inte rpretation: [...] identifies 60% of Trisomy 18 pregnancies. The [employer] recommends amniocentesis be offered to women age 35 and older. Recalculations are not recommended when gestational dating by LMP and ultrasound are within 10 days. Performed By: #### A FPTET #### [facility] [address] [place] [address] Dr. Pancho Oliva [age] Normal [facility] Comment on above: Performed By: #### A FPTET #### [facility] [address] [place] [address] Dr. Pancho Oliva Multiple Gestation No Normal [facility] Comment on above: Performed By: #### A FPTET #### [facility] [address] [address] [address] Panch[place] Oliva OS[place] [address] Normal [facility] Comment on above: Performed By: #### A FPTET #### [facility] [address] [address] [address] Pancho Oliva PDF . Normal [facility] Comment on above: Performed By: #### A FPTET #### [facility] [address] [place] [address] Dr. Pancho Oliva Race Normal [facility] Comment on above: Performed By: #### A FPTET #### [facility] [address] [place] [address] Dr. Pancho Oliva Results Report Normal [facility] Comment on above: Performed By: #### A FPTET #### [facility] [address] [place] [address] Dr. Pancho Oliva T18 (By Age) 1:4368 Normal [facility] Comment on above: Performed By: #### A FPTET #### [facility] [address] [place] [address] Dr. Pancho Oliva T18 Risk Not increased [facility] Comment on above: Performed By: #### A FPTET #### [facility] [address] [place] [address] Dr. Pancho Oliva Test Results: Negative Normal [facility] Comment on above: Performed By: #### A FPTET #### [facility] [address] [address] [address] Pancho Oliva uE3 MoM 1.70 [facility] Comment on above: Performed By: #### A FPTET #### [facility] [address] [place] [address] Dr. Pancho Oliva uE3 Value 1.80 ng/mL Normal [facility] Comment on above: Performed By: #### A FPTET #### [facility] [address] [place] [address] Dr. Pancho Oliva HEP B SURFACE ANTIGEN SCREEN on 01-20-2022 HBsAg Screen Negative Normal Negative [facility] Comment on above: Performed By: #### U MICRO, UACSIND #### [facility] [address] [address] [address] Pancho Oliva HEPATITIS C VIRUS AB W/ REFL EX QUANTon 01-20-2022 HCV AB 0.1 s/co ratio Normal 0.0-0.9 [facility] Comment on above: Performed By: #### U MICRO, UACSIND #### [facility] [address] [address] [address] Pancho Oliva Interpretation: Comment Normal [facility] Comment on above: Result Comment: Nega tive Not infected with HCV, unless recent infection is suspected or other evidence exists to indicate HCV infection. Performed By: #### U MICRO, UACSIND #### [facility] [address] [place] [address] Dr. Pancho Oliva HIV 1 AND 2 WITH REFLEXon HIV Screen 4th Generation wRfx Non-Reactive Normal Non Reactive [facility] Comment on above: Result Comment: HIV Negative HIV-1/HIV-2 antibodies and HIV-1 p24 antigen were NOT detected. There is no laboratory evidence of HIV infection. Performed By: #### U MICRO, UACSIND #### [facility] [address] [place] [address] Dr. Pancho Oliva RPR QUANTon 01-20-2022 Rapid Plasma Reagin, Quant Non-Reactive Normal NonRea<1:1 [facility] Comment on above: Result Comment: Plea se Note: This test does not meet current guidelines for screening and diagnosis of syphilis. This test is intended for following treatment response in patients being treated for syphilis infection. To screen for syphilis infection, a reflex cascade that includes both RPR and a treponema-specific assay should be utilized, such as Treponema pallidum (Syphilis) Screening [place] (253331) or Rapid Plasma Reagin (RPR) Test With Reflex to Quantitative RPR and Confirmatory Treponema pallidum Antibodies (279823). Performed By: #### R PRQ #### [facility] [address] [place] [address] Dr. Pancho Oliva RUBELLA AB IGGon 01-20-2022 Rubella Antibodies, IgG 6.39 index Normal Immune >0.99 [facility] Comment on above: Result Comment: Non- immune <0.90 Equivocal 0.90 - 0.99 Immune >0.99 Performed By: #### R UBIGG #### [facility] [address] [place] [address] Dr. Pancho Oliva CBC AUTO DIFFon 01-19-2022 BASO # 0.1 103/ul Normal 0.0-0.1 [facility] Comment on above: Performed By: #### C BC #### [facility] [address] [place] [address] Dr. Pancho Oliva Basophils/100 WBC (Bld) 0.6 % Normal 0.2-2.0 [facility] Comment on above: Performed By: #### C BC #### [facility] [address] [place] [address] Dr. Pancho Oliva EO # 0.3 103/ul Normal 0.0-0.7 [facility] Comment on above: Performed By: #### C BC #### [facility] [address] [place] [address] Dr. Pancho Oliva Eosinophils/100 WBC (Bld) 2.1 % Normal 0.9-7.0 [facility] Comment on above: Performed By: #### C BC #### [facility] [address] [place] [address] Dr. Pancho Oliva Erythrocyte distribution width (RBC) [Ratio] 12.3 % Normal 11.0-15.0 [facility] Comment on above: Performed By: #### C BC #### [facility] [address] [place] [address] Dr. Pancho Oliva Hematocrit (Bld) [Volume fraction] 37.0 % Normal 36.0-48.0 [facility] Comment on above: Performed By: #### C BC #### [facility] [address] [place] [address] Dr. Pancho Oliva Hemoglobin (Bld) [Mass/Vol] 12.6 g/dL Normal 12.0-16.0 [facility] Comment on above: Performed By: #### C BC #### [facility] [address] [place] [address] Dr. Pancho Oliva IG # 0.19 10e3/ul Critically high 0.00-0.03 [facility] Comment on above: Performed By: #### C BC #### [facility] [address] [place] [address] Dr. Pancho Oliva IG % 1.2 % Critically high 0.0-0.5 [facility] Comment on above: Performed By: #### C BC #### [facility] [address] [place] [address] Dr. Pancho Oliva LYMPH # 2.6 103/ul Normal 1.2-3.8 [facility] Comment on above: Performed By: #### C BC #### [facility] [address] [place] [address] Dr. Pancho Oliva Lymphocytes/100 WBC (Bld) 15.6 % Critically low 20.5-60.0 [facility] Comment on above: Performed By: #### C BC #### [facility] [address] [place] [address] Dr. Pancho Oliva MANUAL DIFF REQ NO Normal [facility] Comment on above: Performed By: #### C BC #### [facility] [address] [place] [address] Dr. Pancho Oliva MCH (RBC) [Entitic mass] 28.4 pg Normal 26.7-34.0 [facility] Comment on above: Performed By: #### C BC #### [facility] [address] [place] [address] Dr. Pancho Oliva MCHC (RBC) [Mass/Vol] 34.1 g/dL Normal 29.9-35.2 [facility] Comment on above: Performed By: #### C BC #### [facility] [address] [place] [address] Dr. Pancho Oliva MCV (RBC) [Entitic vol] 83.5 fL Normal 81.0-99.0 [facility] Comment on above: Performed By: #### C BC #### [facility] [address] [place] [address] Dr. Pancho Oliva MONO # 0.7 103/ul Normal 0.3-0.8 [facility] Comment on above: Performed By: #### C BC #### [facility] [address] [place] [address] Dr. Pancho Oliva Monocytes/100 WBC (Bld) 4.2 % Normal 1.7-12.0 [facility] Comment on above: Performed By: #### C BC #### [facility] [address] [place] [address] Dr. Pancho Oliva NEUT # 12.6 103/ul Critically high 1.4-6.5 [facility] Comment on above: Performed By: #### C BC #### [facility] [address] [place] [address] Dr. Pancho Oliva Neutrophils/100 WBC (Bld) 76.3 % Critically high 43.0-75.0 [facility] Comment on above: Performed By: #### C BC #### [facility] [address] [place] [address] Dr. Pancho Oliva Platelet mean volume (Bld) [Entitic vol] 9.0 fL Critically low 9.5-13.5 [facility] Comment on above: Performed By: #### C BC #### [facility] [address] [place] [address] Dr. Pancho Oliva PLT 359 103/ul Normal 150-450 [facility] Comment on above: Performed By: #### C BC #### [facility] [address] [place] [address] Dr. Pancho Oliva RBC 4.43 106/ul Normal 4.20-5.40 [facility] Comment on above: Performed By: #### C BC #### [facility] [address] [place] [address] Dr. Pancho Oliva WBC 16.5 103/ul Critically high 4.0-11.0 [facility] Comment on above: Performed By: #### C BC #### [facility] [address] [address] [address] Pancho Oliva CULTURE URINEon 01-19-2022 CULTURE URINE Culture Observations: HEAVY GROWTH OF MIXED GENITAL XOCHITL. NO POTENTIAL PATHOGENS SEEN. Normal [facility] Comment on above: Performed By: #### U RCX #### [facility] [address] [address] [address] Pancho Oliva GLYCOHEMOGLOBIN A1Con 2021 ADA RECOMMENDATION SEE BELOW Normal [facility] Comment on above: Result Comment: ADA RECOMMENDED LIMIT 4.0 - 6.0 ADA THERAPEUTIC TARGET < 7.0 ACTION SUGGESTED > 7.0 Performed By: #### U MICRO, UACSIND #### [facility] [address] [address] [address] Pancho Oliva Glucose [Mass/Vol] 94 mg/dL Normal [facility] Comment on above: Performed By: #### U MICRO, UACSIND #### [facility] [address] [address] [address] Pancho Oliva HbA1c (Bld) [Mass fraction] 4.9 % Normal 4.5-6.2 [facility] Comment on above: Performed By: #### U MICRO, UACSIND #### [facility] [address] [place] [address] Dr. Pancho Oliva TYPE AND SCREENon 01-19-2022 TYPE AND SCREEN Negative Normal [facility] Comment on above: Performed By: #### U MICRO, UACSIND #### [facility] [address] [address] [address] Pancho Oliva US PREG TVon 11-23-2021 [...] KIM LEIGH Date: 2021-11-23 16:11 Normal [facility] Vital Signs Date Time Vital Sign Value Performing Clinician Facility 08-29-2023 10:55-0500 Body mass index (BMI) [Ratio] 38.11 kg/m2 Olya LE Work Phone: [facility] 08-29-2023 10:55-0500 Body weight 103.87 kg Olya LE Work Phone: [facility] 08-29-2023 10:55-0500 Diastolic blood pressure 78 mm[Hg] Olya LE Work Phone: [facility] 08-29-2023 10:55-0500 Systolic blood pressure 118 mm[Hg] Olya LE Work Phone: [facility] 01-21-2022 02:06-0400 Body weight 97.[address] AUGUSTINE ENRIQUE [facility] Comment on above: Performed By: #### AFPTET #### [facility] [address] [place] [address] Dr. Pancho Oliva Encounters Encounter Date Encounter [...] External Result Encounter Olya LE Work Phone: [facility] External Department Unsolicited Start: 08-29-2023 External Result Encounter Olya LE Work Phone: [facility] External Department Unsolicited Start: 08-29-2023 End: 08-29-2023 Patient encounter procedure Olya LE Work Phone: [facility] Healthcare Start: 08-29-2023 End: 08-29-2023 Periodic preventive med est patient 18-39 yrs Olya LE Work Phone: [facility] Comment on above: Second trimester pre gnancy; Well woman exam with routine gynecological exam; STD exposure; Vaginal discharge Start: 08-29-2023 End: 08-29-2023 ambulatory OLYA BAUMAN Not Available Start: 08-26-2023 Chart abstracting Olya LE Work Phone: [facility] Start: 08-01-2023 End: 08-01-2023 [...] AM EDT Routine [facility] [address] [place] [id number] Rudi Tracey DO [address] [place] [address] [facility] Start: 08-29-2023 End: 10-28-2023 Alpha fetoprotein, maternal Alpha fetoprotein, maternal Lab Routine Second trimester Expected: 08/29/2023 (Approximate), Expires: 10/28/2023 [facility] Healthcare Comment on above: Expected: 08/29/2023 (Approximate), Expires: 10/28/2023 Start: 08-29-2023 End: 08-29-2023 Patient encounter procedure 08/29/2023 10:30 AM EST Routine [facility] [address] [place] [id number] Olya Bauman PA [address] [place] [address] Second trimester [facility] Comment on above: Second trimester pre gnancy CHLAMYDIA TRACHOMATI S (GENITO/STI) CHLAMYDIA TRACHOMATIS (GENITO/STI) Lab Routine STD exposure Ordered: 08/29/2023 [facility] Comment on above: Ordered: 08/29/2023 Cytology Cervical or vaginal smear or scraping study Pap Smear Pathology and Cytology Routine Well woman exam with routine gynecological exam Ordered: 08/29/2023 [facility] Comment on above: Ordered: 08/29/2023 Neisseria gonorrhoea e DNA [Presence] in Unspecified specimen by RHIANNA with probe detection Neisseria gonorrhea DNA probe, direct Lab Routine STD exposure Ordered: 08/29/2023 [facility] Comment on above: Ordered: 08/29/2023 SURESWAB(R) ADVANCED VAGINITIS PLUS, TMA SURESWAB(R) ADVANCED VAGINITIS PLUS, TMA Pathology and Cytology Routine Vaginal discharge Ordered: 08/29/2023 [facility] Work Phone: Comment on above: Ordered: 08/29/2023 Payers Date Payer Category Payer Unknown BCBS BCBS xxxxxx [id number] 2022-Present [phone] [address] [place] [address] [id number] 2000 Unknown [id number] 2000 Unknown [id number] 2.16.840.1.739988.3.579.2.593 2000 Unknown [id number] 2.16.840.1.976589.3.579.2.593 2000 Unknown [id number] 2.16.840.1.503072.3.579.2.593 2000 Unknown [id number] 2.16.840.1.578762.3.579.2.593 2000 Unknown [id number] 2.16.840.1.181840.3.579.2.593 2000 Unknown [id number] 2.16.840.1.880591.3.579.2.593 2000 Unknown [id number] 2.16.840.1.623215.3.579.2.1259 2000 Unknown [id number] 2.16.840.1.291106.3.579.2.1259 2000 Unknown [id number] 2.16.840.1.946464.3.579.2.1259 2000 Unknown [id number] 2.16.840.1.778665.3.579.2.1259 2000 Unknown [id number] 2.16.840.1.431642.3.579.2.1259 2000 Unknown [id number] 2.16.840.1.520542.3.579.2.1259 2000 Unknown [id number] 2.16.840.1.503373.3.579.2.1259 2000 Unknown [id number] 2.16.840.1.388016.3.579.2.1259 1959 Self-pay 1959 Unknown [id number] 1959 Unknown [id number] Social History Date Type Detail Facility Start: 02-06-2023 Tobacco smoking stat [facility] Never smoked tobacco [facility] Start: 08-01-2023 [...] Problems Past Medical History: Diagnosis Date depression ([facility]) Family History Problem Relation Name [...] obtained without difficulty [facility]. Follow Up: [...] DATE CREATED AUTHOR AUTHOR'S ORGANIZ ATION 12/30/2023 [facility] Reason for Visit (unrecogniz ed section [...] BE BASED ON THE PRIMARY CLINICAL RECORDS. [facility] [employer] [facility]. provides no warranty or guarantee of the accuracy or completeness of information in this document.
--- NOTE | 2024-01-06 10:01 | US_ITS ---
[address] [address] Patient Name: DONAVAN WALTON MRN: [id number] date: 2000 Sex: F Assigned Patient Location: [facility] Current Patient Location: [facility] Accession/Order Number: [id number] Exam Date: 01/06/2024 10:07 Report Date: 01/06/2024 11:30 At the request of: RUDI CHACON Procedure: US OB BPP w non-stress EXAMINATION: US OB BPP w non-stress HISTORY: POLYHYDRAMINOS AFECTING O40.9XX0 COMPARISON: No relevant comparison available. TECHNIQUE: Ultrasound biophysical profile was performed in the radiology department. . FINDINGS: BREATHING MOVEMENTS: 2 GROSS BODY MOVEMENTS: 2 TONE: 2 QUALITATIVE AMNIOTIC FLUID VOLUME: 2 PRESENTATION: CEPHALIC HEART RATE: 121.62 bpm AMNIOTIC FLUID VOLUME: 40.8 GESTATIONAL AGE: 89 Day US/US OB BPP w non-stress IMPRESSION: Marked polyhydramnios Total biophysical profile score: 8 Electronically authenticated by: ÁNGELA PRIETO Date: 01/06/2024 11:30
== END 2024-01-06 11:30 | disposition home or self-care (01) ==
LOC: US 07:01 → FBC 10:01
PROVIDERS: Visit Provider Obstetrics & Gynecology
DX: O40.3XX0 Polyhydramnios, third trimester, not applicable or unspecified (principal); Z3A.33 33 weeks gestation of pregnancy
CPT/HCPCS: 76818

== ENCOUNTER 2024-01-10 06:59 | Outpatient (OUT) | payer BC, SELFPAY ==
[2024-01-10] VITALS (11 sets, daily range): BP systolic 136–151; BP diastolic 80–99; PULSE 100–120; TEMP 36.9
--- OUTSIDE RECORDS SUMMARY | 2024-01-10 07:03 | XMS_ITS | CCD ---
Author Organization [facility] Care Team Providers Care Patient Relations Liaison Name Role Phone IVA, DR BRADSHAW Admitting [...] BAUMAN Attending Unavailable RUDI TRACEY Attending Unavailable MERNAOLYA FAJARDO Attending Unavailable INESRUDI [...] GINITIS (HTRX)on 08-31-2023 AT[facility]UM [facility]AGINAE 0 [facility] ATOPOBIUM VAGINAE Not detected [facility] Healthcare BVAB 2,3 (BACTERIAL VAGINOSIS ASSOCIATED BACTERIA 2, 3); MOBILUNCUS SPP 22.438 Abnormal [facility] BVAB 2,3 (BACTERIAL VAGINOSIS ASSOCIATED BACTERIA 2, 3); MOBILUNCUS SPP Detected Abnormal [facility] Healthcare JEREMI ALBICANS, PARAPSILOSIS, TROPICALIS 0 [facility] Healthcare JEREMI ALBICANS, PARAPSILOSIS, TROPICALIS Not detected [facility] Healthcare JEREMI GLABRATA 0 NOMS a lthcare JEREMI GLABRATA Not detected [facility] ealthcare JEREMI KRUSEI 0 [facility] JEREMI KRUSEI Not [facility] CHLAMYDIA TRACHOMATIS 0 [facility] Healthcare CHLAMYDIA TRACHOMATIS Not detected [facility] Healthcare DFR (A1, A5), SUL (1,2) 0 PPM [facility] Healthcare DFR (A1, A5), SUL (1,2) Not detected [facility] Healthcare ERMB, C; MEFA 25.226 Abnormal PPM [facility] Health care ERMB, C; MEFA Detected Abnormal [facility] GARDNERELLA VAGINALIS 30.91 Abnormal [facility] GARDNERELLA VAGINALIS Detected Abnormal [facility] Interpretation and review of laboratory results Abnormal [facility] MEGASPHAERA (TYPES 1, 2) 0 [facility] MEGASPHAERA (TYPES 1, 2) Not detected [facility] MYCOPLASMA GENITALIUM 0 [facility] MYCOPLASMA GENITALIUM Not detected [facility] NEISSERIA GONORRHOEAE 0 [facility] NEISSERIA GONORRHOEAE Not detected [facility] TET B, TET M 23.014 Abnormal PPM [facility] are TET B, TET M Detected Abnormal [facility] are TRICHOMONAS VAGINALIS 0 [facility] TRICHOMONAS VAGINALIS Not detected [facility] Urinalysis macro (dipstick) panel (U)on 08-29-2023 Bilirubin, UA Negative Negative - 4(70) +++ mg/dL [facility] Blood, UA Negative Negative - 50 Teddy/mcL [facility] Clarity, UA Clear [facility] re Color, UA Yellow [facility] e Glucose, UA Negative Negative - 1999(110) ++++ mg/dL [facility] Interpretation and review of laboratory results Abnormal [facility] Ketones, UA Positive Negative - 160(16) ++++ mg/dL [facility] Leukocytes, UA Trace Negative - 500+++ Nicolasa/mcL [facility] Nitrite, UA Negative Negative - Positive [facility] pH, UA 6.0 5 - 9 [facility] e Protein, UA Negative Negative - 1999(20) ++++ mg/dL [facility] Spec Grav, UA 1.030 1 - 1.03 [facility] Urobilinogen, UA 0.2 0.2 - 12 mg/dL [facility] e CBC AUTO DIFFon 06-18-2022 BASO # 0.1 103/ul Normal 0.0-0.1 [facility] Comment on above: Performed By: #### U MICRO, UACSIND #### [facility] [address] [place], [place] [address] Dr. Pancho Oliva Basophils/100 WBC (Bld) 0.8 % Normal 0.2-2.0 [facility] Comment on above: Performed By: #### U MICRO, UACSIND #### [facility] [address] [place] [address] [address] Pancho Oliva EO # 0.3 103/ul Normal 0.0-0.7 [facility] Comment on above: Performed By: #### U MICRO, UACSIND #### [facility] [address] [place] [address] Dr. Pancho Oliva Eosinophils/100 WBC (Bld) 2.1 % Normal 0.9-7.[address] [facility] Comment on above: Performed By: #### U MICRO, UACSIND #### [facility] [address] [place] [address] Dr. Pancho Oliva Erythrocyte distribution width (RBC) [Ratio] 13.9 % Normal 11.0-15.0 [facility] Comment on above: Performed By: #### U MICRO, UACSIND #### [facility] [address] [place] [address] Dr. Pancho Oliva Hematocrit (Bld) [Volume fraction] 36.2 % Normal 36.0-48.0 [facility] Comment on above: Performed By: #### U MICRO, UACSIND #### [facility] [address] [place] [address] Dr. Pancho Oliva Hemoglobin (Bld) [Mass/Vol] 11.8 g/dL Critically low 12.0-16.0 [facility] Comment on above: Performed By: #### U MICRO, UACSIND #### [facility] [address] [place] [address] Dr. Pancho Oliva IG # 0.16 10e3/ul Critically high 0.00-0.03 [facility] Comment on above: Performed By: #### U MICRO, UACSIND #### [facility] [address] [place] [address] Dr. Pancho Oliva IG % 1.1 % Critically high 0.0-0.5 [facility] Comment on above: Performed By: #### U MICRO, UACSIND #### [facility] [address] [place] [address] Dr. Pancho Oliva LYMPH # 3.5 103/ul Normal 1.2-3.8 [facility] Comment on above: Performed By: #### U MICRO, UACSIND #### [facility] [address] [place] [address] Dr. Pancho Oliva Lymphocytes/100 WBC (Bld) 23.3 % Normal 20.5-60.0 [facility] Comment on above: Performed By: #### U MICRO, UACSIND #### [facility] [address] [place] [address] Dr. Pancho Oliva MANUAL DIFF REQ NO Normal [facility] Comment on above: Performed By: #### U MICRO, UACSIND #### [facility] [address] [place] [address] Dr. Pancho Oliva MCH (RBC) [Entitic mass] 27.1 pg Normal 26.7-34.0 [facility] Comment on above: Performed By: #### U MICRO, UACSIND #### [facility] [address] [place] [address] Dr. Pancho Oliva MCHC (RBC) [Mass/Vol] 32.6 g/dL Normal 29.9-35.2 [facility] Comment on above: Performed By: #### U MICRO, UACSIND #### [facility] [address] [place] [address] Dr. Pancho Oliva MCV (RBC) [Entitic vol] 83.0 fL Normal 81.0-99.[address] [facility] Comment on above: Performed By: #### U MICRO, UACSIND #### [facility] [address] [place] [address] Dr. Pancho Oliva MONO # 0.7 103/ul Normal 0.3-0.[address] [facility] Comment on above: Performed By: #### U MICRO, UACSIND #### [facility] [address] [place] [address] Dr. Pancho Oliva Monocytes/100 WBC (Bld) 4.3 % Normal 1.7-12.0 [facility] Comment on above: Performed By: #### U MICRO, UACSIND #### [facility] [address] [place] [address] Dr. Pancho Oliva NEUT # 10.2 103/ul Critically high 1.4-6.[address] [facility] Comment on above: Performed By: #### U MICRO, UACSIND #### [facility] [address] [address] [address] Pancho Oliva Neutrophils/100 WBC (Bld) 68.4 % Normal 43.0-75.[address] [facility] Comment on above: Performed By: #### U MICRO, UACSIND #### [facility] [address] [address] [address] Pancho Oliva Platelet mean volume (Bld) [Entitic vol] 9.7 fL Normal 9.5-13.[address] [facility] Comment on above: Performed By: #### U MICRO, UACSIND #### [facility] [address] [place] [address] Dr. Pancho Oliva PLT 271 103/ul Normal 150-[address] [facility] Comment on above: Performed By: #### U MICRO, UACSIND #### [facility] [address] [place] [address] Dr. Pancho Oliva RBC 4.36 106/ul Normal 4.20-5.[address] [facility] Comment on above: Performed By: #### U MICRO, UACSIND #### [facility] [address] [place] [address] Dr. Pancho Oliva WBC 15.0 103/ul Critically high 4.0-11.[address] [facility] Comment on above: Performed By: #### U MICRO, UACSIND #### [facility] [address] [place] [address] Dr. Pancho Oliva RPR QUANTon 06-18-2022 Rapid Plasma Reagin, Quant Non-Reactive Normal NonRea<1:[address] [facility] Comment on above: Result Comment: Plea Note: This test does not meet current guidelines for screening and diagnosis of syphilis. This test is intended for following treatment response in patients being treated for syphilis infection. To screen for syphilis infection, a reflex cascade that includes both RPR and a treponema-specific assay should be utilized, such as Treponema pallidum (Syphilis) Screening [place] (612441) or Rapid Plasma Reagin (RPR) Test With Reflex to Quantitative RPR and Confirmatory Treponema pallidum Antibodies ([id number]). Performed By: #### R PRQ #### [facility] [address] [place] [address] Dr. Pancho Oliva CBC AUTO DIFFon 06-16-2022 BASO # 0.1 103/ul Normal 0.0-0.[address] [facility] Comment on above: Performed By: #### U MICRO, UACSIND #### [facility] [address] [place] [address] Dr. Pancho Oliva Basophils/100 WBC (Bld) 0.5 % Normal 0.2-2.[address] [facility] Comment on above: Performed By: #### U MICRO, UACSIND #### [facility] [address] [place] [address] Dr. Pancho Oliva EO # 0.0 103/ul Normal 0.0-0.[address] [facility] Comment on above: Performed By: #### U MICRO, UACSIND #### [facility] [address] [place] [address] Dr. Pancho Oliva Eosinophils/100 WBC (Bld) 0.1 % Critically low 0.9-7.[address] [facility] Comment on above: Performed By: #### U MICRO, UACSIND #### [facility] [address] [place] [address] Dr. Pancho Oliva Erythrocyte distribution width (RBC) [Ratio] 13.5 % Normal 11.0-15.[address] [facility] Comment on above: Performed By: #### U MICRO, UACSIND #### [facility] [address] [place] [address] Dr. Pancho Oliva Hematocrit (Bld) [Volume fraction] 38.7 % Normal 36.0-48.[address] [facility] Comment on above: Performed By: #### U MICRO, UACSIND #### [facility] [address] [place] [address] Dr. Pancho Oliva Hemoglobin (Bld) [Mass/Vol] 13.0 g/dL Normal 12.0-16.[address] [facility] Comment on above: Performed By: #### U MICRO, UACSIND #### [facility] [address] [address] [address] Pancho Oliva IG # 0.15 10e3/ul Critically high 0.00-0.03 [facility] Comment on above: Performed By: #### U MICRO, UACSIND #### [facility] [address] [address] [address] Pancho Oliva IG % 0.8 % Critically high 0.0-0.5 [facility] Comment on above: Performed By: #### U MICRO, UACSIND #### [facility] [address] [address] [address] Pancho Oliva LYMPH # 1.8 103/ul Normal 1.2-3.8 [facility] Comment on above: Performed By: #### U MICRO, UACSIND #### [facility] [address] [address] [address] Pancho Oilva Lymphocytes/100 WBC (Bld) 8.9 % Critically low 20.5-60.0 [facility] Comment on above: Performed By: #### U MICRO, UACSIND #### [facility] [address] [place] [address] Dr. Pancho Oliva MANUAL DIFF REQ NO Normal [facility] Comment on above: Performed By: #### U MICRO, UACSIND #### [facility] [address] [address] [address] Pancho Oliva MCH (RBC) [Entitic mass] 27.2 pg Normal 26.7-34.0 [facility] Comment on above: Performed By: #### U MICRO, UACSIND #### [facility] [address] [address] [address] Pancho Oliva MCHC (RBC) [Mass/Vol] 33.6 g/dL Normal 29.9-35.2 [facility] Comment on above: Performed By: #### U MICRO, UACSIND #### [facility] [address] [address] [address] Pancho Oliva MCV (RBC) [Entitic vol] 81.0 fL Normal 81.0-99.[address] [facility] Comment on above: Performed By: #### U MICRO, UACSIND #### [facility] [address] [place] [address] Dr. Pancho Oliva MONO # 0.5 103/ul Normal 0.3-0.[address] [facility] Comment on above: Performed By: #### U MICRO, UACSIND #### [facility] [address] [place] [address] Dr. Pancho Oliva Monocytes/100 WBC (Bld) 2.5 % Normal 1.7-12.[address] [facility] Comment on above: Performed By: #### U MICRO, UACSIND #### [facility] [address] [place] [address] Dr. Pancho Oliva NEUT # 17.2 103/ul Critically high 1.4-6.[address] [facility] Comment on above: Performed By: #### U MICRO, UACSIND #### [facility] [address] [place] [address] Dr. Pancho Oliva Neutrophils/100 WBC (Bld) 87.2 % Critically high 43.0-75.[address] [facility] Comment on above: Performed By: #### U MICRO, UACSIND #### [facility] [address] [place] [address] Dr. Pancho Oliva Platelet mean volume (Bld) [Entitic vol] 9.9 fL Normal 9.5-13.[address] [facility] Comment on above: Performed By: #### U MICRO, UACSIND #### [facility] [address] [place] [address] Dr. Pancho Oliva PLT 332 103/ul Normal 150-[address] [facility] Comment on above: Performed By: #### U MICRO, UACSIND #### [facility] [address] [place] [address] Dr. Pancho Oliva RBC 4.78 106/ul Normal 4.20-5.[address] [facility] Comment on above: Performed By: #### U MICRO, UACSIND #### [facility] [address] [address] [address] Pancho Oliva WBC 19.8 103/ul Critically high 4.0-11.[address] [facility] Comment on above: Performed By: #### U MICRO, UACSIND #### [facility] [address] [address] [address] Pancho Oliva CULTURE URINEon 06-16-2022 CULTURE URINE Culture Observations: LIGHT GROWTH OF MIXED GENITAL XOCHITL. NO POTENTIAL PATHOGENS SEEN. Normal [facility] Comment on above: Performed By: #### U RCX #### [facility] [address] [address] [address] Pancho Oliva Covid-19 PCR (CVDTBH)on 05-20 SARS-CoV-2 (COVID-19) RNA RHIANNA+probe Ql (Unsp spec) Not detected Normal NOT DETECTED [facility] Comment on above: Result Comment: When [...] for this test is supported by the [employer] of Health and Human Service's declaration that [...] used). Performed By: #### C VDTBH #### [facility] [id number] Pancho Oliva DRUG SCREEN RAPID (URINE)on 06-16-2022 AMP Negative Normal NEGATIVE [facility] Comment on above: Performed By: #### U MICRO, UACSIND #### [facility] [address] [address] [address] Pancho Oliva BAR Negative Normal NEGATIVE [facility] Comment on above: Performed By: #### U MICRO, UACSIND #### [facility] [address] [address] [address] Pancho Oliva BUP Negative Normal NEGATIVE [facility] Comment on above: Performed By: #### U MICRO, UACSIND #### [facility] [address] [address] [address] Pancho Oliva BZO Negative Normal NEGATIVE [facility] Comment on above: Performed By: #### U MICRO, UACSIND #### [facility] [address] [address] [address] Pancho Oliva CALVIN Negative Normal NEGATIVE [facility] Comment on above: Performed By: #### U MICRO, UACSIND #### [facility] [address] [place] [address] Dr. Pancho Oliva CUT-OFFS SEE BELOW Normal [facility] Comment on above: Result Comment: AMP [...] Performed By: #### U MICRO, UACSIND #### [facility] [address] [place] [address] Dr. Pancho Oliva DRUG CUT HEADER DRUG CLASS TEST SYSTEM CUT-OFF CONCENTRATIONS ARE FOLLOWS: Normal [facility] Comment on above: Performed By: #### U MICRO, UACSIND #### [facility] [address] [place] [address] Dr. Pancho Oliva mAMP Negative Normal NEGATIVE [facility] Comment on above: Performed By: #### U MICRO, UACSIND #### [facility] [address] [address] [address] Pancho Oliva MTD Negative Normal NEGATIVE [facility] Comment on above: Performed By: #### U MICRO, UACSIND #### [facility] [address] [address] [address] Pancho Oliva OPI Negative Normal NEGATIVE [facility] Comment on above: Performed By: #### U MICRO, UACSIND #### [facility] [address] [address] [address] Pancho Oliva OXY Negative Normal NEGATIVE [facility] Comment on above: Performed By: #### U MICRO, UACSIND #### [facility] [address] [address] [address] Pancho Oliva PCP Negative Normal NEGATIVE [facility] Comment on above: Performed By: #### U MICRO, UACSIND #### [facility] [address] [place] [address] Dr. Pancho Oliva PPX Negative Normal NEGATIVE [facility] Comment on above: Performed By: #### U MICRO, UACSIND #### [facility] [address] [address] [address] Pancho Oliva TCA Negative Normal NEGATIVE [facility] Comment on above: Performed By: #### U MICRO, UACSIND #### [facility] [address] [place] [address] Dr. Pancho Oliva THC Negative Normal NEGATIVE [facility] Comment on above: Performed By: #### U MICRO, UACSIND #### [facility] [address] [address] [address] Pancho Oliva TYPE AND SCREENon 06-16-2022 TYPE AND SCREEN Negative Normal [facility] Comment on above: Performed By: #### U MICRO, UACSIND #### [facility] [address] [place] [address] Dr. Pancho Oliva UA (CLEAN/CATCH) DIRECTOR OF ANALYTICS/MICRO I F IND.on 06-16-2022 Bilirubin Ql (U) Negative Normal NEGATIVE [facility] Comment on above: Performed By: #### U MICRO, UACSIND #### [facility] [address] [address] [address] Pancho Oliva Clarity (U) CLEAR Normal CLEAR [facility] Comment on above: Performed By: #### U MICRO, UACSIND #### [facility] [address] [address] [address] Pancho Oliva Color (U) YELLOW Normal YELLOW [facility] Comment on above: Performed By: #### U MICRO, UACSIND #### [facility] [address] [address] [address] Pancho Oliva Glucose Ql (U) Negative Normal NEGATIVE [facility] Comment on above: Performed By: #### U MICRO, UACSIND #### [facility] [address] [place] [address] Dr. Pancho Oliva Hemoglobin Ql (U) SMALL Abnormal NEGATIVE [facility] Comment on above: Performed By: #### U MICRO, UACSIND #### [facility] [address] [place] [address] Dr. Pancho Oliva Ketones Ql (U) TRACE Abnormal NEGATIVE [facility] Comment on above: Performed By: #### U MICRO, UACSIND #### [facility] [address] [place] [address] Dr. Pancho Oliva LEUKOCYTES Negative Normal NEGATIVE [facility] Comment on above: Performed By: #### U MICRO, UACSIND #### [facility] [address] [place] [address] Dr. Pancho Oliva Nitrite Ql (U) Negative Normal NEGATIVE [facility] Comment on above: Performed By: #### U MICRO, UACSIND #### [facility] [address] [place] [address] Dr. Pancho Oliva pH (U) 5.5 [pH] Normal 5-[address] [facility] Comment on above: Performed By: #### U MICRO, UACSIND #### [facility] [address] [place] [address] Dr. Pancho Oliva SPEC GRAVITY >=1.030 Abnormal 1.005-<=1.025 [facility] Comment on above: Performed By: #### U MICRO, UACSIND #### [facility] [address] [address] [address] Pancho Oliva UA PROTEIN 100 mg/dl Abnormal NEGATIVE/ TRACE [facility] Comment on above: Performed By: #### U MICRO, UACSIND #### [facility] [address] [address] [address] Pancho Oliva UR MICRO IND INDICATED Normal [facility] Comment on above: Performed By: #### U MICRO, UACSIND #### [facility] [address] [address] [address] Pancho Oliva Urobilinogen Qn (U) 0.2 {Pearl'U}/dL Normal 0.2 - 1. [address] [facility] Comment on above: Performed By: #### U MICRO, UACSIND #### [facility] [facility] [address] [address] [address] Pancho Oliva URINE MICROSCOPIC ONLYon AMORPHOUS CRYSTALS FEW Normal [facility] Comment on above: Performed By: #### U MICRO, UACSIND #### [facility] [address] [address] [address] Pancho Oliva BACTERIA SMALL Abnormal NONE SEEN The [facility] Comment on above: Performed By: #### U MICRO, UACSIND #### [facility] [address] [place] [address] Dr. Pancho Oliva Bacteria identified Cx Nom (U) INDICATED Normal [facility] Comment on above: Performed By: #### U MICRO, UACSIND #### [facility] [address] [address] [address] Pancho Oliva CAST SEEN Abnormal NONE SEEN The [facility] Comment on above: Performed By: #### U MICRO, UACSIND #### [facility] [address] [address] [address] Pancho Oliva Crystals LM Nom (Urine sed) SEEN Abnormal NONE SEEN [facility] Comment on above: Performed By: #### U MICRO, UACSIND #### [facility] [address] [address] [address] Pancho Oliva Epithelial cells LM Ql (Urine sed) FEW Abnormal NONE SEEN /RARE The [facility] Comment on above: Performed By: #### U MICRO, UACSIND #### [facility] [address] [address] [address] Pancho Oliva HYALINE CAST RARE Normal [facility] Comment on above: Performed By: #### U MICRO, UACSIND #### [facility] [address] [address] [address] Pancho Oliva MUCOUS TRACE Abnormal NONE SEEN The [facility] Comment on above: Performed By: #### U MICRO, UACSIND #### [facility] [address] [address] [address] Pancho Oliva RBC 2-5 Abnormal 0-2 [facility] Comment on above: Performed By: #### U MICRO, UACSIND #### [facility] [address] [address] [address] Pancho Oliva WBC 0-2 Abnormal NONE SEEN [facility] Comment on above: Performed By: #### U MICRO, UACSIND #### [facility] [address] [address] [address] Pancho Oliva CHLAMYDIA/GONOCOCCUS RHIANNA ( AB/URINE/PAPon 06-04-2022 Chlamydia trachomatis, RHIANNA Negative Normal Negative [facility] Comment on above: Performed By: #### U MICRO, UACSIND #### [facility] [address] [address] [address] Pancho Oliva Neisseria gonorrhoeae, RHIANNA Negative Normal Negative [facility] Comment on above: Performed By: #### U MICRO, UACSIND #### [facility] [address] [address] [address] Pancho Oliva GROUP B STREP CULTUREon 05-18 S. agalactiae Ag Ql (Unsp spec) Culture Observations: NEGATIVE FOR GROUP B STREPTOCOCCUS. Normal The [facility] Comment on above: Performed By: #### U MICRO, UACSIND #### [facility] [address] [place] [address] Dr. Pancho Oliva US PREG ANATOMY SINGLEon [...] by: KIM LEIGH Date: 2022-04-08 22:10 Normal [facility] GLUCOSE - 1HRon 04-07-2022 Glucose [Mass/Vol] 114 mg/dL Critically high 74-106 [facility] Comment on above: Performed By: #### U MICRO, UACSIND #### [facility] [address] [address] [address] Pancho Oliva HEMOGRAM AND PLATELon 2021 Hematocrit (Bld) [Volume fraction] 36.1 % Normal 36.0-48.0 [facility] Comment on above: Performed By: #### U MICRO, UACSIND #### [facility] [address] [address] [address] Pancho Oliva Hemoglobin (Bld) [Mass/Vol] 12.1 g/dL Normal 12.0-16.0 [facility] Comment on above: Performed By: #### U MICRO, UACSIND #### [facility] [address] [address] [address] Pancho Oliva MCH (RBC) [Entitic mass] 28.5 pg Normal 26.7-34.[address] [facility] Comment on above: Performed By: #### U MICRO, UACSIND #### [facility] [address] [address] [address] Pancho Oliva MCHC (RBC) [Mass/Vol] 33.5 g/dL Normal 29.9-35.[address] [facility] Comment on above: Performed By: #### U MICRO, UACSIND #### [facility] [address] [place] [address] Dr. Pancho Oliva MCV (RBC) [Entitic vol] 85.1 fL Normal 81.0-99.[address] [facility] Comment on above: Performed By: #### U MICRO, UACSIND #### [facility] [address] [place] [address] Dr. Pancho Oliva PLT 333 103/ul Normal 150-[address] [facility] Comment on above: Performed By: #### U MICRO, UACSIND #### [facility] [address] [place] [address] Dr. Pancho Oliva RBC 4.24 106/ul Normal 4.20-5.[address] [facility] Comment on above: Performed By: #### U MICRO, UACSIND #### [facility] [address] [address] [address] Pancho Oliva WBC 16.5 103/ul Critically high 4.0-11.[address] [facility] Comment on above: Performed By: #### U MICRO, UACSIND #### [facility] [address] [place] [address] Dr. Pancho Oliva AFP TETRA PROFILE (MATERNAL) on 01-21-2022 AFP MoM 0.81 Normal [facility] Comment on above: Performed By: #### A FPTET #### [facility] [address] [place] [address] Dr. Pancho Oliva AFP Value 26.1 ng/mL Normal [facility] Comment on above: Performed By: #### A FPTET #### [facility] [address] [place] [address] Dr. Pancho Oliva Comment Comment Normal [facility] Comment on above: Result Comment: Marguerite Hassan, Ph.D., [facility] Director . References: Available Upon Request. . Multiples Of Median Cutoffs Abbreviation Definitions For AFP Elevations IDD- Insulin Dep Diabetes Daugherty 2.5 Black 2.8 OSBR- Open Spina Bifida IDD 2.0 Twins 4.5 Risk DSR Cutoff 1:270 DSR- Down Syndrome Risk T18 Cutoff 1:100 T18- Trisomy 18 . For further inquiries contact [facility] at [phone]. . This test was developed and its performance characteristics determined by [employer]. It has not been cleared or approved by the Food and Drug Administration. Performed By: #### A FPTET #### [facility] [address] [place] [address] Dr. Pancho Oliva INDRA MoM 0.96 Normal [facility] Comment on above: Performed By: #### A FPTET #### [facility] [address] [place] [address] Dr. Pancho Oliva INDRA Value 118.40 pg/mL Normal [facility] Comment on above: Performed By: #### A FPTET #### [facility] [address] [place] [address] Dr. Pancho Oliva DSR (By Age) 1 IN 1121 Normal [facility] Comment on above: Performed By: #### A FPTET #### [facility] [address] [place] [address] Dr. Pancho Oliva DSR (Second Trimester) 1 [place] [address] [facility] Comment on above: Performed By: #### A FPTET #### [facility] [address] [place] [address] Dr. Pancho Oliva Gest. Age on Collection Date 17.1 WEEKS Normal [facility] Comment on above: Performed By: #### A FPTET #### [facility] [address] [place], [place] [id number] Dr. Pancho Oliva Gestat. Age Based On LMP Normal [facility] Comment on above: Performed By: #### A FPTET #### [facility] [address] [place] [address] Dr. Pancho Oliva hCG MoM 0.73 Normal [facility] Comment on above: Performed By: #### A FPTET #### [facility] [address] [place] [address] [place] [address] m[IU]/mL Normal [facility] Comment on above: Performed By: #### A FPTET #### [facility] [address] [place] [address] Dr. Pancho Oliva Insulin Dep Diabetes No Normal [facility] Comment on above: Performed By: #### A FPTET #### [facility] [address] [place] [address] Dr. Pancho Oliva Interpretation Comment Normal [facility] Comment on above: Result Comment: Inte [...] identifies 60% of Trisomy 18 pregnancies. The [employer] recommends amniocentesis be offered to women age 35 and older. Recalculations are not recommended when gestational dating by LMP and ultrasound are within 10 days. Performed By: #### A FPTET #### [facility] [address] [place] [address] Dr. Pancho Oliva [age] Normal [facility] Comment on above: Performed By: #### A FPTET #### [facility] [address] [place] [address] Dr. Pancho Oliva Multiple Gestation No Normal [facility] Comment on above: Performed By: #### A FPTET #### [facility] [address] [address] [address] Panch[place] Oliva [place] [address] Normal [facility] Comment on above: Performed By: #### A FPTET #### [facility] [address] [address] [address] Pancho Oliva PDF . Normal [facility] Comment on above: Performed By: #### A FPTET #### [facility] [address] [place] [address] Dr. Pancho Oliva Race Normal [facility] Comment on above: Performed By: #### A FPTET #### [facility] [address] [place] [address] Dr. Pancho Oliva Results Report Normal [facility] Comment on above: Performed By: #### A FPTET #### [facility] [address] [place] [address] Dr. Pancho Oliva T18 (By Age) 1:4368 Normal [facility] Comment on above: Performed By: #### A FPTET #### [facility] [address] [place] [address] Dr. Pancho Oliva T18 Risk Not increased [facility] Comment on above: Performed By: #### A FPTET #### [facility] [address] [place] [address] Dr. Pancho Oliva Test Results: Negative Normal [facility] Comment on above: Performed By: #### A FPTET #### [facility] [address] [address] [address] Pancho Oliva uE3 MoM 1.70 [facility] Comment on above: Performed By: #### A FPTET #### [facility] [address] [place] [address] Dr. Pancho Oliva uE3 Value 1.80 ng/mL Normal [facility] Comment on above: Performed By: #### A FPTET #### [facility] [address] [place] [address] Dr. Pancho Oliva HEP B SURFACE ANTIGEN SCREEN on 01-20-2022 HBsAg Screen Negative Normal Negative [facility] Comment on above: Performed By: #### U MICRO, UACSIND #### [facility] [address] [address] [address] Pancho Oliva HEPATITIS C VIRUS AB W/ REFL EX QUANTon 01-20-2022 HCV AB 0.1 s/co ratio Normal 0.0-0.9 [facility] Comment on above: Performed By: #### U MICRO, UACSIND #### [facility] [address] [address] [address] Pancho Oliva Interpretation: Comment Normal [facility] Comment on above: Result Comment: Nega tive Not infected with HCV, unless recent infection is suspected or other evidence exists to indicate HCV infection. Performed By: #### U MICRO, UACSIND #### [facility] [address] [place] [address] Dr. Pancho Oliva HIV 1 AND 2 WITH REFLEXon HIV Screen 4th Generation wRfx Non-Reactive Normal Non Reactive [facility] Comment on above: Result Comment: HIV Negative HIV-1/HIV-2 antibodies and HIV-1 p24 antigen were NOT detected. There is no laboratory evidence of HIV infection. Performed By: #### U MICRO, UACSIND #### [facility] [address] [place] [address] Dr. Pancho Oliva RPR QUANTon 01-20-2022 Rapid Plasma Reagin, Quant Non-Reactive Normal NonRea<1:1 [facility] Comment on above: Result Comment: Plea se Note: This test does not meet current guidelines for screening and diagnosis of syphilis. This test is intended for following treatment response in patients being treated for syphilis infection. To screen for syphilis infection, a reflex cascade that includes both RPR and a treponema-specific assay should be utilized, such as Treponema pallidum (Syphilis) Screening [place] (421052) or Rapid Plasma Reagin (RPR) Test With Reflex to Quantitative RPR and Confirmatory Treponema pallidum Antibodies (607712). Performed By: #### R PRQ #### [facility] [address] [place] [address] Dr. Pancho Oliva RUBELLA AB IGGon 01-20-2022 Rubella Antibodies, IgG 6.39 index Normal Immune >0.99 [facility] Comment on above: Result Comment: Non- immune <0.90 Equivocal 0.90 - 0.99 Immune >0.99 Performed By: #### R UBIGG #### [facility] [address] [place] [address] Dr. Pancho Oliva CBC AUTO DIFFon 01-19-2022 BASO # 0.1 103/ul Normal 0.0-0.1 [facility] Comment on above: Performed By: #### C BC #### [facility] [address] [place] [address] Dr. Pancho Oliva Basophils/100 WBC (Bld) 0.6 % Normal 0.2-2.0 [facility] Comment on above: Performed By: #### C BC #### [facility] [address] [place] [address] Dr. Pancho Oliva EO # 0.3 103/ul Normal 0.0-0.7 [facility] Comment on above: Performed By: #### C BC #### [facility] [address] [place] [address] Dr. Pancho Oliva Eosinophils/100 WBC (Bld) 2.1 % Normal 0.9-7.0 [facility] Comment on above: Performed By: #### C BC #### [facility] [address] [place] [address] Dr. Pancho Oliva Erythrocyte distribution width (RBC) [Ratio] 12.3 % Normal 11.0-15.0 [facility] Comment on above: Performed By: #### C BC #### [facility] [address] [place] [address] Dr. Pancho Oliva Hematocrit (Bld) [Volume fraction] 37.0 % Normal 36.0-48.0 [facility] Comment on above: Performed By: #### C BC #### [facility] [address] [place] [address] Dr. Pancho Oliva Hemoglobin (Bld) [Mass/Vol] 12.6 g/dL Normal 12.0-16.0 [facility] Comment on above: Performed By: #### C BC #### [facility] [address] [place] [address] Dr. Pancho Oliva IG # 0.19 10e3/ul Critically high 0.00-0.03 [facility] Comment on above: Performed By: #### C BC #### [facility] [address] [place] [address] Dr. Pancho Oliva IG % 1.2 % Critically high 0.0-0.5 [facility] Comment on above: Performed By: #### C BC #### [facility] [address] [place] [address] Dr. Pancho Oliva LYMPH # 2.6 103/ul Normal 1.2-3.8 [facility] Comment on above: Performed By: #### C BC #### [facility] [address] [place] [address] Dr. Pancho Oliva Lymphocytes/100 WBC (Bld) 15.6 % Critically low 20.5-60.0 [facility] Comment on above: Performed By: #### C BC #### [facility] [address] [place] [address] Dr. Pancho Oliva MANUAL DIFF REQ NO Normal [facility] Comment on above: Performed By: #### C BC #### [facility] [address] [place] [address] Dr. Pancho Oliva MCH (RBC) [Entitic mass] 28.4 pg Normal 26.7-34.0 [facility] Comment on above: Performed By: #### C BC #### [facility] [address] [place] [address] Dr. Pancho Oliva MCHC (RBC) [Mass/Vol] 34.1 g/dL Normal 29.9-35.2 [facility] Comment on above: Performed By: #### C BC #### [facility] [address] [place] [address] Dr. Pancho Oliva MCV (RBC) [Entitic vol] 83.5 fL Normal 81.0-99.0 [facility] Comment on above: Performed By: #### C BC #### [facility] [address] [place] [address] Dr. Pancho Oliva MONO # 0.7 103/ul Normal 0.3-0.8 [facility] Comment on above: Performed By: #### C BC #### [facility] [address] [place] [address] Dr. Pancho Oliva Monocytes/100 WBC (Bld) 4.2 % Normal 1.7-12.0 [facility] Comment on above: Performed By: #### C BC #### [facility] [address] [place] [address] Dr. Pancho Oliva NEUT # 12.6 103/ul Critically high 1.4-6.[address] [facility] Comment on above: Performed By: #### C BC #### [facility] [address] [place] [address] Dr. Pancho Oliva Neutrophils/100 WBC (Bld) 76.3 % Critically high 43.0-75.0 [facility] Comment on above: Performed By: #### C BC #### [facility] [address] [place] [address] Dr. Pancho Oliva Platelet mean volume (Bld) [Entitic vol] 9.0 fL Critically low 9.5-13.5 [facility] Comment on above: Performed By: #### C BC #### [facility] [address] [place] [address] Dr. Pancho Oliva PLT 359 103/ul Normal 150-[address] [facility] Comment on above: Performed By: #### C BC #### [facility] [address] [place] [address] Dr. Pancho Oliva RBC 4.43 106/ul Normal 4.20-5.[address] [facility] Comment on above: Performed By: #### C BC #### [facility] [address] [place] [address] Dr. Pancho Oliva WBC 16.5 103/ul Critically high 4.0-11.[address] [facility] Comment on above: Performed By: #### C BC #### [facility] [address] [address] [address] Pancho Oliva CULTURE URINEon 01-19-2022 CULTURE URINE Culture Observations: HEAVY GROWTH OF MIXED GENITAL XOCHITL. NO POTENTIAL PATHOGENS SEEN. Normal [facility] Comment on above: Performed By: #### U RCX #### [facility] [address] [address] [address] Pancho Oliva GLYCOHEMOGLOBIN A1Con 2021 ADA RECOMMENDATION SEE BELOW Normal [facility] Comment on above: Result Comment: ADA RECOMMENDED LIMIT 4.0 - 6.0 ADA THERAPEUTIC TARGET < 7.0 ACTION SUGGESTED > 7.0 Performed By: #### U MICRO, UACSIND #### [facility] [address] [address] [address] Pancho Oliva Glucose [Mass/Vol] 94 mg/dL Normal [facility] Comment on above: Performed By: #### U MICRO, UACSIND #### [facility] [address] [address] [address] Pancho Oliva HbA1c (Bld) [Mass fraction] 4.9 % Normal 4.5-6.2 [facility] Comment on above: Performed By: #### U MICRO, UACSIND #### [facility] [address] [place] [address] Dr. Pancho Oliva TYPE AND SCREENon 01-19-2022 TYPE AND SCREEN Negative Normal [facility] Comment on above: Performed By: #### U MICRO, UACSIND #### [facility] [address] [address] [address] Pancho Oliva US PREG TVon 11-23-2021 [...] KIM LEIGH Date: 2021-11-23 16:11 Normal [facility] Vital Signs Date Time Vital Sign Value Performing Clinician Facility 08-29-2023 10:55-0500 Body mass index (BMI) [Ratio] 38.11 kg/m2 Olya LE Work Phone: [facility] 08-29-2023 10:55-0500 Body weight 103.87 kg Olya LE Work Phone: [facility] 08-29-2023 10:55-0500 Diastolic blood pressure 78 mm[Hg] Olya LE Work Phone: [facility] 08-29-2023 10:55-0500 Systolic blood pressure 118 mm[Hg] Olya LE Work Phone: [facility] 01-21-2022 02:06-0400 Body weight 97.[address] AUGUSTINE ENRIQUE [facility] Comment on above: Performed By: #### AFPTET #### [facility] [address] [place] [address] Dr. Pancho Oliva Encounters Encounter Date Encounter [...] External Result Encounter Olya LE Work Phone: [facility] External Department Unsolicited Start: 08-29-2023 External Result Encounter Olya LE Work Phone: [facility] External Department Unsolicited Start: 08-29-2023 End: 08-29-2023 Patient encounter procedure Olya LE Work Phone: [facility] Healthcare Start: 08-29-2023 End: 08-29-2023 Periodic preventive med est patient 18-39 yrs Olya LE Work Phone: [facility] Comment on above: Second trimester pre gnancy; Well woman exam with routine gynecological exam; STD exposure; Vaginal discharge Start: 08-29-2023 End: 08-29-2023 ambulatory OLYA BAUMAN Not Available Start: 08-26-2023 Chart abstracting Olya LE Work Phone: [facility] Start: 08-01-2023 End: 08-01-2023 [...] AM EDT Routine [facility] [address] [place] [id number] Rudi Tracey DO [address] [place] [address] [facility] Start: 08-29-2023 End: 10-28-2023 Alpha fetoprotein, maternal Alpha fetoprotein, maternal Lab Routine Second trimester Expected: 08/29/2023 (Approximate), Expires: 10/28/2023 [facility] Healthcare Comment on above: Expected: 08/29/2023 (Approximate), Expires: 10/28/2023 Start: 08-29-2023 End: 08-29-2023 Patient encounter procedure 08/29/2023 10:30 AM EST Routine [facility] [address] [place] [id number] Olya Bauman [place] [address] [place] [address] Second trimester [facility] Comment on above: Second trimester pre gnancy CHLAMYDIA TRACHOMATI S (GENITO/STI) CHLAMYDIA TRACHOMATIS (GENITO/STI) Lab Routine STD exposure Ordered: 08/29/2023 [facility] Comment on above: Ordered: 08/29/2023 Cytology Cervical or vaginal smear or scraping study Pap Smear Pathology and Cytology Routine Well woman exam with routine gynecological exam Ordered: 08/29/2023 [facility] Comment on above: Ordered: 08/29/2023 Neisseria gonorrhoea e DNA [Presence] in Unspecified specimen by RHIANNA with probe detection Neisseria gonorrhea DNA probe, direct Lab Routine STD exposure Ordered: 08/29/2023 [facility] Comment on above: Ordered: 08/29/2023 SURESWAB(R) ADVANCED VAGINITIS PLUS, TMA SURESWAB(R) ADVANCED VAGINITIS PLUS, TMA Pathology and Cytology Routine Vaginal discharge Ordered: 08/29/2023 [facility] Work Phone: Comment on above: Ordered: 08/29/2023 Payers Date Payer Category Payer Unknown BCBS BCBS xxxxxx [id number] 2022-Present [phone] [address] [place] [address] [id number] 2000 Unknown [id number] 2.16.840.1.932861.3.579.2.593 2000 Unknown [id number] 2.16.840.1.495982.3.579.2.593 2000 Unknown [id number] 2.16.840.1.913317.3.579.2.593 2000 Unknown [id number] 2.16.840.1.057174.3.579.2.593 2000 Unknown [id number] 2.16.840.1.899063.3.579.2.593 2000 Unknown [id number] 2.16.840.1.913740.3.579.2.593 2000 Unknown [id number] 2.16.840.1.351118.3.579.2.593 2000 Unknown [id number] 2.16.840.1.681749.3.579.2.1259 2000 Unknown [id number] 2.16.840.1.716526.3.579.2.1259 2000 Unknown [id number] 2.16.840.1.338760.3.579.2.1259 2000 Unknown [id number] 2.16.840.1.605248.3.579.2.1259 2000 Unknown [id number] 2.16.840.1.138583.3.579.2.1259 2000 Unknown [id number] 2.16.840.1.649209.3.579.2.1259 2000 Unknown [id number] 2.16.840.1.275543.3.579.2.1259 2000 Unknown [id number] 2.16.840.1.327360.3.579.2.1259 1959 Self-pay 1959 Unknown [id number] 1959 Unknown [id number] Social History Date Type Detail Facility Start: 02-06-2023 Tobacco smoking stat [facility] Never smoked tobacco [facility] Start: [...] Problems Past Medical History: Diagnosis Date depression ([facility]) Family History Problem Relation Name Age of [...] [facility]. Follow Up: [...] DATE CREATED AUTHOR AUTHOR'S ORGANIZ ATION 12/30/2023 [facility] Reason for Visit (unrecogniz ed section [...] BE BASED ON THE PRIMARY CLINICAL RECORDS. [facility]. provides no warranty or guarantee of the accuracy or completeness of information in this document.
--- NOTE | 2024-01-10 12:58 | US_ITS ---
The [address] [address] Patient Name: DONAVAN WALTON MRN: [id number] date: 2000 Sex: F Assigned Patient Location: [facility] Current Patient Location: [facility] Accession/Order Number: [id number] Exam Date: 01/10/2024 13:00 Report Date: 01/10/2024 13:51 At the request of: RUDI CHACON Procedure: US OB BPP w non-stress Ultrasound biophysical profile CLINICAL: Evaluate well-being. Clinical gestational age 33 weeks 5 days. TECHNIQUE: Dedicated ultrasound imaging of the fetus was performed to include the sand car worker's evaluation of biophysical profile. FINDINGS: Comparison: 01/06/2024 FETUS: There is a single living intrauterine fetus in vertex presentation. heart rate of 121 beats per minute. AMNIOTIC FLUID: The amniotic fluid index is 36.18 cm, with maximum vertical pocket of 10.92 cm. BIOPHYSICAL PROFILE: motion: 2 out of 2. tone: 2 out of 2. breathin out of 2. Amniotic fluid volume: 2 out of 2. Total score: 8 out of 8. OTHER FINDINGS: None. US/US OB BPP w non-stress IMPRESSION: 1. Single viable fetus in vertex presentation with heart rate of 121 beats per minute. 2. Total biophysical profile score of 8 out of 8. 3. Amniotic fluid index of 36.18 cm, with maximum vertical pocket of 10.92 cm. This is greater than 97th percentile for clinical gestational age and compatible with polyhydramnios. KAYLEE on prior study 01/06/2024 was 40.84 cm. Electronically authenticated by: JOHN WILLSON Date: 01/10/2024 13:51
[2024-01-10 13:19] LABS: Basophils Percent Auto 0.3 % (0.2-2.0); Eosinophils Absolute Auto 0.1 10^3/uL (0.0-0.7); Eosinophils Percent Auto 1.2 % (0.9-7.0); Hematocrit 32.8 % (36.0-48.0); Hemoglobin 10.7 g/dL (12.0-16.0); Immature Granulocytes Abs Auto 0.11 10^3/uL (0.00-0.03); Immature Granulocytes Pct Auto 0.9 % (0.0-0.5); Lymphocytes Absolute Auto 2.5 10^3/uL (1.2-3.8); Lymphocytes Percent Auto 20.4 % (20.5-60.0); Mean Corpuscular HGB Conc 32.6 g/dL (29.9-35.2); Mean Corpuscular Hemoglobin 26.2 pg (26.7-34.0); Mean Corpuscular Volume 80.2 fL (81.0-99.0); Mean Platelet Volume 9.8 fL (9.5-13.5); Monocytes Absolute Auto 0.6 10^3/uL (0.3-0.8); Monocytes Percent Auto 4.5 % (1.7-12.0); Neutrophils Absolute Auto 8.8 10^3/uL (1.4-6.5); Neutrophils Percent Auto 72.7 % (43.0-75.0); Platelet Count 276 10^3/uL (150-450); Red Blood Count 4.09 10^6/uL (4.20-5.40); Red Cell Distribution Width 12.8 % (11.0-15.0); White Blood Count 12.1 10^3/uL (4.0-11.0)
[2024-01-10 13:30] LABS: Alanine Aminotransferase 17 U/L (14-59); Aspartate Amino Transferase 14 U/L (15-37); Estimated GFR (African America >60 (>=60); Estimated GFR (Non-African Ame >60 (>=60); Uric Acid 4.5 mg/dL (2.6-6.0)
[2024-01-10 13:51] LABS: Bilirubin Urine NEGATIVE (NEGATIVE); Blood Urine NEGATIVE (NEGATIVE); Clarity Urine CLEAR (CLEAR); Color Urine LT. YELLOW (YELLOW); Glucose Urine UA NEGATIVE (NEGATIVE); Ketones Urine NEGATIVE (NEGATIVE); Leukocyte Esterase Urine MODERATE (NEGATIVE); Nitrite Urine NEGATIVE (NEGATIVE); Protein Urine NEGATIVE (NEG/TRACE); Urobilinogen Urine 0.2 EU/dL (0.2-1.0); pH Urine 6.5 (5.0-9.0)
[2024-01-10 13:59] LABS: Bacteria Urine LARGE #/HPF (NONE SEEN); Mucus Urine NONE SEEN (NONE SEEN); RBC Urine NONE SEEN #/HPF (0-2)
[2024-01-10 14:00] LABS: Squamous Epithelial Cell Urine MODERATE #/LPF (NONE/RARE); Urine Culture Indicated YES
[2024-01-10 14:08] LABS: INR 0.93; Partial Thromboplastin Time 27.7 sec (22.3-36.2); Prothrombin Time 9.9 sec (9.0-11.6)
[2024-01-10 14:10] LABS: Fibrinogen 593 mg/dL (200-400)
== END 2024-01-10 14:20 | disposition home or self-care (01) ==
LOC: FBCO 07:05 → FBC 12:02
PROVIDERS: Visit Provider Obstetrics & Gynecology
DX: O40.3XX0 Polyhydramnios, third trimester, not applicable or unspecified (principal); Z3A.33 33 weeks gestation of pregnancy
CPT/HCPCS: 36415; 76818; 81001; 82565; 84156; 84450; 84460; 84520; 84550; 85025; 85384; 85610; 85730; 87086

== ENCOUNTER 2024-01-11 15:23 | Outpatient (REF) | payer BC, SELFPAY ==
[2024-01-11 15:47] LABS: Total Volume 24 Hour Urine 2700 mL/24hr
[2024-01-11 15:52] LABS: Total Protein 24 Hour Urine 178.2 mg/24hr (<=149.1); Total Protein Urine Random 6.6 mg/dL (<=11.9)
== END 2024-01-11 15:24 | disposition home or self-care (01) ==
LOC: LAB 15:23
PROVIDERS: Visit Provider Obstetrics & Gynecology
DX: I10 Essential (primary) hypertension (principal)
CPT/HCPCS: 81050; 84156

== ENCOUNTER 2024-01-13 11:55 | Observation (INO) | payer BC, SELFPAY ==
--- NOTE | 2024-01-13 | US_ITS ---
[address] [address] Patient Name: DONAVAN WALTON MRN: [id number] date: 2000 Sex: F Assigned Patient Location: [facility] Current Patient Location: [facility] Accession/Order Number: [id number] Exam Date: 01/13/2024 10:36 Report Date: 01/13/2024 12:41 At the request of: RUDI CHACON Procedure: US OB BPP w non-stress EXAMINATION: US OB BPP w non-stress HISTORY: Polyhydramnios effecting O40.9XX0 COMPARISON: No relevant comparison available. TECHNIQUE: Ultrasound biophysical profile was performed in the radiology department. non-reactive stress testing was performed by nursing staff in the birthing center. FINDINGS: BREATHING MOVEMENTS: 2 GROSS BODY MOVEMENTS: 2 TONE: 2 QUALITATIVE AMNIOTIC FLUID VOLUME: 2 PRESENTATION: CEPHALIC HEART RATE: 138.46 bpm AMNIOTIC FLUID VOLUME: 36.8 cm, largest pocket 10.7 cm GESTATIONAL AGE: 34 weeks 1 day US/US OB BPP w non-stress IMPRESSION: Total biophysical profile score: 8 Polyhydramnios Electronically authenticated by: ÁNGELA PRIETO Date: 01/13/2024 12:41
--- OUTSIDE RECORDS SUMMARY | 2024-01-13 07:06 | XMS_ITS | CCD ---
Author Organization [facility] Care Team Providers Care Building Superintendent Name Role Phone IVA, DR BRADSHAW Admitting [...] Provider Unavailabl e RUDI TRACEY Attending Unavailable MERNAOLYA Attending Unavailable INESRUDI KING Attending Unavailable MERNAOLYA Attending Unavailable INESRUDI Attending Unavailable INES, RUDI Attending Unavailable MERNA, OLYA Attending Unavailable INESRUDI Attending Unavailable Problems Problem Classification [...] GINITIS (HTRX)on 08-31-2023 [facility] ATOP[facility]BIUM VAGINAE Not detected [facility] BVAB 2,3 (BACTERIAL VAGINOSIS ASSOCIATED BACTERIA 2, 3); MOBILUNCUS SPP 22.438 Abnormal [facility] BVAB 2,3 (BACTERIAL VAGINOSIS ASSOCIATED BACTERIA 2, 3); MOBILUNCUS SPP Detected Abnormal [facility] JEREMI ALBICANS, PARAPSILOSIS, TROPICALIS 0 [facility] JEREMI ALBICANS, PARAPSILOSIS, TROPICALIS Not detected [facility] Healthcare JEREMI GLABRATA 0 [facility] a lthcare JEREMI GLABRATA Not detected [facility] JEREMI KRUSEI 0 [facility] JEREMI KRUSEI Not [facility] CHLAMYDIA TRACHOMATIS 0 [facility] Healthcare CHLAMYDIA TRACHOMATIS Not detected [facility] DFR (A1, A5), SUL (1,2) 0 PPM [facility] Healthcare DFR (A1, A5), SUL (1,2) Not detected [facility] Healthcare ERMB, C; MEFA 25.226 Abnormal PPM [facility] care ERMB, C; MEFA Detected Abnormal [facility] GARDNERELLA VAGINALIS 30.91 Abnormal [facility] GARDNERELLA VAGINALIS Detected Abnormal [facility] Interpretation and review of laboratory results Abnormal [facility] MEGASPHAERA (TYPES 1, 2) 0 [facility] MEGASPHAERA (TYPES 1, 2) Not detected [facility] MYCOPLASMA GENITALIUM 0 [facility] MYCOPLASMA GENITALIUM Not detected [facility] NEISSERIA GONORRHOEAE 0 [facility] NEISSERIA GONORRHOEAE Not detected [facility] TET B, TET M 23.014 Abnormal PPM [facility] are TET B, TET M Detected Abnormal [facility] are TRICHOMONAS VAGINALIS 0 [facility] TRICHOMONAS VAGINALIS Not detected [facility]inalysis macro (dipstick) panel (U)on 08-29-2023 Bilirubin, UA Negative Negative - 4(70) +++ mg/dL [facility] Blood, UA Negative Negative - 50 Teddy/mcL [facility] Clarity, UA Clear [facility] re Color, UA Yellow [facility] e Glucose, UA Negative Negative - 1999(110) ++++ mg/dL [facility] Interpretation and review of laboratory results Abnormal [facility] Ketones, UA Positive Negative - 160(16) ++++ mg/dL [facility] Leukocytes, UA Trace Negative - 500+++ Nicolasa/mcL [facility] Nitrite, UA Negative Negative - Positive [facility] pH, UA 6.0 5 - 9 [facility] e Protein, UA Negative Negative - 1999(20) ++++ mg/dL [facility] Spec Grav, UA 1.030 1 - 1.03 [facility] Urobilinogen, UA 0.2 0.2 - 12 mg/dL [facility] CBC AUTO DIFFon 06-18-2022 BASO # 0.1 103/ul Normal 0.0-0.1 [facility] Comment on above: Performed By: #### U MICRO, UACSIND #### [facility] [address] [address] [address] Pancho Oliva Basophils/100 WBC (Bld) 0.8 % Normal 0.2-2.0 [facility] Comment on above: Performed By: #### U MICRO, UACSIND #### [facility] [address] [address] [address] Pancho Oliva EO # 0.3 103/ul Normal 0.0-0.7 [facility] Comment on above: Performed By: #### U MICRO, UACSIND #### [facility] [address] [address] [address] Pancho Oliva Eosinophils/100 WBC (Bld) 2.1 % Normal 0.9-7.0 [facility] Comment on above: Performed By: #### U MICRO, UACSIND #### [facility] [address] [address] [address] Pancho Oliva Erythrocyte distribution width (RBC) [Ratio] 13.9 % Normal 11.0-15.0 [facility] Comment on above: Performed By: #### U MICRO, UACSIND #### [facility] [address] [place] [address] Dr. Pancho Oliva Hematocrit (Bld) [Volume fraction] 36.2 % Normal 36.0-48.0 [facility] Comment on above: Performed By: #### U MICRO, UACSIND #### [facility] [address] [address] [address] Pancho Oliva Hemoglobin (Bld) [Mass/Vol] 11.8 g/dL Critically low 12.0-16.0 [facility] Comment on above: Performed By: #### U MICRO, UACSIND #### [facility] [address] [address] [address] Pancho Oliva IG # 0.16 10e3/ul Critically high 0.00-0.03 [facility] Comment on above: Performed By: #### U MICRO, UACSIND #### [facility] [address] [address] [address] Pancho Oliva IG % 1.1 % Critically high 0.0-0.5 [facility] Comment on above: Performed By: #### U MICRO, UACSIND #### [facility] [address] [address] [address] Pancho Oliva LYMPH # 3.5 103/ul Normal 1.2-3.8 [facility] Comment on above: Performed By: #### U MICRO, UACSIND #### [facility] [address] [place] [address] Dr. Pancho Oliva Lymphocytes/100 WBC (Bld) 23.3 % Normal 20.5-60.0 [facility] Comment on above: Performed By: #### U MICRO, UACSIND #### [facility] [address] [place] [address] Dr. Pancho Oliva MANUAL DIFF REQ NO Normal [facility] Comment on above: Performed By: #### U MICRO, UACSIND #### [facility] [address] [place] [address] Dr. Pancho Oliva MCH (RBC) [Entitic mass] 27.1 pg Normal 26.7-34.0 [facility] Comment on above: Performed By: #### U MICRO, UACSIND #### [facility] [address] [place] [address] Dr. Pancho Oliva MCHC (RBC) [Mass/Vol] 32.6 g/dL Normal 29.9-35.2 [facility] Comment on above: Performed By: #### U MICRO, UACSIND #### [facility] [address] [place] [address] Dr. Pancho Oliva MCV (RBC) [Entitic vol] 83.0 fL Normal 81.0-99.0 [facility] Comment on above: Performed By: #### U MICRO, UACSIND #### [facility] [address] [place] [address] Dr. Pancho Oliva MONO # 0.7 103/ul Normal 0.3-0.8 [facility] Comment on above: Performed By: #### U MICRO, UACSIND #### [facility] [address] [place] [address] Dr. Pancho Oliva Monocytes/100 WBC (Bld) 4.3 % Normal 1.7-12.0 [facility] Comment on above: Performed By: #### U MICRO, UACSIND #### [facility] [address] [place] [address] Dr. Pancho Oliva NEUT # 10.2 103/ul Critically high 1.4-6.5 [facility] Comment on above: Performed By: #### U MICRO, UACSIND #### [facility] [address] [address] [address] Pancho Oliva Neutrophils/100 WBC (Bld) 68.4 % Normal 43.0-75.0 [facility] Comment on above: Performed By: #### U MICRO, UACSIND #### [facility] [address] [address] [address] Pancho Oliva Platelet mean volume (Bld) [Entitic vol] 9.7 fL Normal 9.5-13.5 [facility] Comment on above: Performed By: #### U MICRO, UACSIND #### [facility] [address] [place] [address] Dr. Pancho Oliva PLT 271 103/ul Normal 150-450 [facility] Comment on above: Performed By: #### U MICRO, UACSIND #### [facility] [address] [place] [address] Dr. Pancho Oliva RBC 4.36 106/ul Normal 4.20-5.40 [facility] Comment on above: Performed By: #### U MICRO, UACSIND #### [facility] [address] [place] [address] Dr. Pancho Oliva WBC 15.0 103/ul Critically high 4.0-11.0 [facility] Comment on above: Performed By: #### U MICRO, UACSIND #### [facility] [address] [place] [address] Dr. Pancho Oliva RPR QUANTon 06-18-2022 Rapid Plasma Reagin, Quant Non-Reactive Normal NonRea<1:1 [facility] Comment on above: Result Comment: Plea se Note: This test does not meet current guidelines for screening and diagnosis of syphilis. This test is intended for following treatment response in patients being treated for syphilis infection. To screen for syphilis infection, a reflex cascade that includes both RPR and a treponema-specific assay should be utilized, such as Treponema pallidum (Syphilis) Screening [place] (019211) or Rapid Plasma Reagin (RPR) Test With Reflex to Quantitative RPR and Confirmatory Treponema pallidum Antibodies (439077). Performed By: #### R PRQ #### [facility] [address] [place] [address] Dr. Pancho Oliva CBC AUTO DIFFon 06-16-2022 BASO # 0.1 103/ul Normal 0.0-0.1 [facility] Comment on above: Performed By: #### U MICRO, UACSIND #### [facility] [address] [place] [address] Dr. Pancho Oliva Basophils/100 WBC (Bld) 0.5 % Normal 0.2-2.0 [facility] Comment on above: Performed By: #### U MICRO, UACSIND #### [facility] [address] [place] [address] Dr. Pancho Oliva EO # 0.0 103/ul Normal 0.0-0.7 [facility] Comment on above: Performed By: #### U MICRO, UACSIND #### [facility] [address] [place] [address] Dr. Pancho Oliva Eosinophils/100 WBC (Bld) 0.1 % Critically low 0.9-7.0 [facility] Comment on above: Performed By: #### U MICRO, UACSIND #### [facility] [address] [place] [address] Dr. Pancho Oliva Erythrocyte distribution width (RBC) [Ratio] 13.5 % Normal 11.0-15.0 [facility] Comment on above: Performed By: #### U MICRO, UACSIND #### [facility] [address] [place] [address] Dr. Pancho Oliva Hematocrit (Bld) [Volume fraction] 38.7 % Normal 36.0-48.0 [facility] Comment on above: Performed By: #### U MICRO, UACSIND #### [facility] [address] [place] [address] Dr. Pancho Oliva Hemoglobin (Bld) [Mass/Vol] 13.0 g/dL Normal 12.0-16.0 [facility] Comment on above: Performed By: #### U MICRO, UACSIND #### [facility] [address] [place] [address] Dr. Pancho Oliva IG # 0.15 10e3/ul Critically high 0.00-0.03 [facility] Comment on above: Performed By: #### U MICRO, UACSIND #### [facility] [address] [place] [address] Dr. Pancho Oliva IG % 0.8 % Critically high 0.0-0.5 [facility] Comment on above: Performed By: #### U MICRO, UACSIND #### [facility] [address] [place] [address] Dr. Pancho Oliva LYMPH # 1.8 103/ul Normal 1.2-3.8 [facility] Comment on above: Performed By: #### U MICRO, UACSIND #### [facility] [address] [place] [address] Dr. Pancho Oliva Lymphocytes/100 WBC (Bld) 8.9 % Critically low 20.5-60.0 [facility] Comment on above: Performed By: #### U MICRO, UACSIND #### [facility] [address] [place] [address] Dr. Pancho Oliva MANUAL DIFF REQ NO Normal [facility] Comment on above: Performed By: #### U MICRO, UACSIND #### [facility] [address] [place] [address] Dr. Pancho Oliva MCH (RBC) [Entitic mass] 27.2 pg Normal 26.7-34.0 [facility] Comment on above: Performed By: #### U MICRO, UACSIND #### [facility] [address] [place] [address] Dr. Pancho Oliva MCHC (RBC) [Mass/Vol] 33.6 g/dL Normal 29.9-35.2 [facility] Comment on above: Performed By: #### U MICRO, UACSIND #### [facility] [address] [place] [address] Dr. Pancho Oliva MCV (RBC) [Entitic vol] 81.0 fL Normal 81.0-99.0 [facility] Comment on above: Performed By: #### U MICRO, UACSIND #### [facility] [address] [address] [address] Pancho Oliva MONO # 0.5 103/ul Normal 0.3-0.8 [facility] Comment on above: Performed By: #### U MICRO, UACSIND #### [facility] [address] [address] [address] Pancho Oliva Monocytes/100 WBC (Bld) 2.5 % Normal 1.7-12.0 [facility] Comment on above: Performed By: #### U MICRO, UACSIND #### [facility] [address] [place] [address] Dr. Pancho Oliva NEUT # 17.2 103/ul Critically high 1.4-6.5 [facility] Comment on above: Performed By: #### U MICRO, UACSIND #### [facility] [address] [place] [address] Dr. Pancho Oliva Neutrophils/100 WBC (Bld) 87.2 % Critically high 43.0-75.0 [facility] Comment on above: Performed By: #### U MICRO, UACSIND #### [facility] [address] [place] [address] Dr. Pancho Oliva Platelet mean volume (Bld) [Entitic vol] 9.9 fL Normal 9.5-13.5 [facility] Comment on above: Performed By: #### U MICRO, UACSIND #### [facility] [address] [place] [address] Dr. Pancho Oliva PLT 332 103/ul Normal 150-450 [facility] Comment on above: Performed By: #### U MICRO, UACSIND #### [facility] [address] [place] [address] Dr. Pancho Oliva RBC 4.78 106/ul Normal 4.20-5.40 [facility] Comment on above: Performed By: #### U MICRO, UACSIND #### [facility] [address] [address] [address] Pancho Oliva WBC 19.8 103/ul Critically high 4.0-11.0 [facility] Comment on above: Performed By: #### U MICRO, UACSIND #### [facility] [address] [address] [address] Pancho Oliva CULTURE URINEon 06-16-2022 CULTURE URINE Culture Observations: LIGHT GROWTH OF MIXED GENITAL XOCHITL. NO POTENTIAL PATHOGENS SEEN. Normal [facility] Comment on above: Performed By: #### U RCX #### [facility] [address] [address] [address] Pancho Oliva [facility] SARS-CoV-2 (COVID-19) RNA RHIANNA+probe Ql (Unsp spec) Not detected Normal NOT DETECTED [facility] Comment on above: Result Comment: When [...] for this test is supported by the [employer] Serv[employer] of Health and Human Service's declaration that [...] used). Performed By: #### C VDTBH #### [facility] [id number] Pancho Oliva DRUG SCREEN RAPID (URINE)on 06-16-2022 AMP Negative Normal NEGATIVE [facility] Comment on above: Performed By: #### U MICRO, UACSIND #### [facility] [address] [address] [address] Pancho Oliva BAR Negative Normal NEGATIVE [facility] Comment on above: Performed By: #### U MICRO, UACSIND #### [facility] [address] [place] [address] Dr. Pancho Oliva BUP Negative Normal NEGATIVE [facility] Comment on above: Performed By: #### U MICRO, UACSIND #### [facility] [address] [place] [address] Dr. Pancho Oliva BZO Negative Normal NEGATIVE [facility] Comment on above: Performed By: #### U MICRO, UACSIND #### [facility] [address] [place] [address] Dr. Pancho Oliva CALVIN Negative Normal NEGATIVE [facility] Comment on above: Performed By: #### U MICRO, UACSIND #### [facility] [address] [place] [address] Dr. Pancho Oliva CUT-OFFS SEE BELOW Normal [facility] Comment on above: Result Comment: [...] Performed By: #### U MICRO, UACSIND #### [facility] [address] [place] [address] Dr. Pancho Oliva DRUG CUT HEADER DRUG CLASS TEST SYSTEM CUT-OFF CONCENTRATIONS ARE FOLLOWS: Normal [facility] Comment on above: Performed By: #### U MICRO, UACSIND #### [facility] [address] [place] [address] Dr. Pancho Oliva mAMP Negative Normal NEGATIVE [facility] Comment on above: Performed By: #### U MICRO, UACSIND #### [facility] [address] [address] [address] Pancho Oliva MTD Negative Normal NEGATIVE [facility] Comment on above: Performed By: #### U MICRO, UACSIND #### [facility] [address] [address] [address] Pancho Oliva OPI Negative Normal NEGATIVE [facility] Comment on above: Performed By: #### U MICRO, UACSIND #### [facility] [address] [address] [address] Pancho Oliva OXY Negative Normal NEGATIVE [facility] Comment on above: Performed By: #### U MICRO, UACSIND #### [facility] [address] [address] [address] Pancho Oliva PCP Negative Normal NEGATIVE [facility] Comment on above: Performed By: #### U MICRO, UACSIND #### [facility] [address] [place] [address] Dr. Pancho Oliva PPX Negative Normal NEGATIVE [facility] Comment on above: Performed By: #### U MICRO, UACSIND #### [facility] [address] [address] [address] Pancho Oliva TCA Negative Normal NEGATIVE [facility] Comment on above: Performed By: #### U MICRO, UACSIND #### [facility] [address] [place] [address] Dr. Pancho Oliva THC Negative Normal NEGATIVE [facility] Comment on above: Performed By: #### U MICRO, UACSIND #### [facility] [address] [address] [address] Pancho Oliva TYPE AND SCREENon 06-16-2022 TYPE AND SCREEN Negative Normal [facility] Comment on above: Performed By: #### U MICRO, UACSIND #### [facility] [address] [place] [address] Dr. Pancho Oliva UA (CLEAN/CATCH) EUCLID OPERATOR/MICRO I F IND.on 06-16-2022 Bilirubin Ql (U) Negative Normal NEGATIVE [facility] Comment on above: Performed By: #### U MICRO, UACSIND #### [facility] [address] [address] [address] Pancho Oliva Clarity (U) CLEAR Normal CLEAR [facility] Comment on above: Performed By: #### U MICRO, UACSIND #### [facility] [address] [place] [address] Dr. Pancho Oliva Color (U) YELLOW Normal YELLOW [facility] Comment on above: Performed By: #### U MICRO, UACSIND #### [facility] [address] [address] [address] Pancho Oliva Glucose Ql (U) Negative Normal NEGATIVE [facility] Comment on above: Performed By: #### U MICRO, UACSIND #### [facility] [address] [place] [address] Dr. Pancho Oliva Hemoglobin Ql (U) SMALL Abnormal NEGATIVE [facility] Comment on above: Performed By: #### U MICRO, UACSIND #### [facility] [address] [place] [address] Dr. Pancho Oliva Ketones Ql (U) TRACE Abnormal NEGATIVE [facility] Comment on above: Performed By: #### U MICRO, UACSIND #### [facility] [address] [place] [address] Dr. Pancho Olvia LEUKOCYTES Negative Normal NEGATIVE [facility] Comment on above: Performed By: #### U MICRO, UACSIND #### [facility] [address] [place] [address] Dr. Pancho Oliva Nitrite Ql (U) Negative Normal NEGATIVE [facility] Comment on above: Performed By: #### U MICRO, UACSIND #### [facility] [address] [place] [address] Dr. Pancho Oliva pH (U) 5.5 [pH] Normal 5-9 [facility] Comment on above: Performed By: #### U MICRO, UACSIND #### [facility] [address] [place] [address] Dr. Pancho Oliva SPEC GRAVITY >=1.030 Abnormal 1.005-<=1.025 [facility] Comment on above: Performed By: #### U MICRO, UACSIND #### [facility] [address] [address] [address] Pancho Oliva UA PROTEIN 100 mg/dl Abnormal NEGATIVE/ TRACE [facility] Comment on above: Performed By: #### U MICRO, UACSIND #### [facility] [address] [address] [address] Pancho Oliva UR MICRO IND INDICATED Normal [facility] Comment on above: Performed By: #### U MICRO, UACSIND #### [facility] [address] [address] [address] Pancho Oliva Urobilinogen Qn (U) 0.2 {Pearl'U}/dL Normal 0.2 - 1. 0 [facility] Comment on above: Performed By: #### U MICRO, UACSIND #### [facility] [address] [place] [address] Dr. Pancho Oliva URINE MICROSCOPIC ONLYon AMORPHOUS CRYSTALS FEW Normal [facility] Comment on above: Performed By: #### U MICRO, UACSIND #### [facility] [address] [place] [address] Dr. Pancho Oliva BACTERIA SMALL Abnormal NONE SEEN [facility] Comment on above: Performed By: #### U MICRO, UACSIND #### [facility] [address] [place] [address] Dr. Pancho Oliva Bacteria identified Cx Nom (U) INDICATED Normal [facility] Comment on above: Performed By: #### U MICRO, UACSIND #### [facility] [address] [place] [address] Dr. Pancho Oliva CAST SEEN Abnormal NONE SEEN [facility] Comment on above: Performed By: #### U MICRO, UACSIND #### [facility] [address] [place] [address] Dr. Pancho Oliva Crystals LM Nom (Urine sed) SEEN Abnormal NONE SEEN [facility] Comment on above: Performed By: #### U MICRO, UACSIND #### [facility] [address] [place] [address] Dr. Pancho Oliva Epithelial cells LM Ql (Urine sed) FEW Abnormal NONE SEEN /RARE [facility] Comment on above: Performed By: #### U MICRO, UACSIND #### [facility] [address] [address] [address] Pancho Oliva HYALINE CAST RARE Normal [facility] Comment on above: Performed By: #### U MICRO, UACSIND #### [facility] [address] [address] [address] Pancho Oliva MUCOUS TRACE Abnormal NONE SEEN [facility] Comment on above: Performed By: #### U MICRO, UACSIND #### [facility] [address] [address] [address] Pancho Oliva RBC 2-5 Abnormal 0-2 [facility] Comment on above: Performed By: #### U MICRO, UACSIND #### [facility] [address] [address] [address] Pancho Oliva WBC 0-2 Abnormal NONE SEEN [facility] Comment on above: Performed By: #### U MICRO, UACSIND #### [facility] [address] [address] [address] Pancho Oliva CHLAMYDIA/GONOCOCCUS RHIANNA (SW AB/URINE/PAPon 06-04-2022 Chlamydia trachomatis, RHIANNA Negative Normal Negative [facility] Comment on above: Performed By: #### U MICRO, UACSIND #### [facility] [address] [place] [address] Dr. Pancho Oliva Neisseria gonorrhoeae, RHIANNA Negative Normal Negative [facility] Comment on above: Performed By: #### U MICRO, UACSIND #### [facility] [address] [address] [address] Pancho Oliva GROUP B STREP CULTUREon 05-18 S. agalactiae Ag Ql (Unsp spec) Culture Observations: NEGATIVE FOR GROUP B STREPTOCOCCUS. Normal [facility] Comment on above: Performed By: #### U MICRO, UACSIND #### [facility] [address] [address] [address] Pancho Oliva US PREG ANATOMY SINGLEon [...] by: KIM LEIGH Date: 2022-04-08 22:10 Normal [facility] GLUCOSE - 1HRon 04-07-2022 Glucose [Mass/Vol] 114 mg/dL Critically high 74-106 [facility] Comment on above: Performed By: #### U MICRO, UACSIND #### [facility] [address] [address] [address] Pancho Oliva HEMOGRAM AND PLATELon 2021 Hematocrit (Bld) [Volume fraction] 36.1 % Normal 36.0-48.0 [facility] Comment on above: Performed By: #### U MICRO, UACSIND #### [facility] [address] [address] [address] Pancho Oliva Hemoglobin (Bld) [Mass/Vol] 12.1 g/dL Normal 12.0-16.0 [facility] Comment on above: Performed By: #### U MICRO, UACSIND #### [facility] [address] [place] [address] Dr. Pancho Oliva MCH (RBC) [Entitic mass] 28.5 pg Normal 26.7-34.0 [facility] Comment on above: Performed By: #### U MICRO, UACSIND #### [facility] [address] [place] [address] Dr. Pancho Oliva MCHC (RBC) [Mass/Vol] 33.5 g/dL Normal 29.9-35.2 [facility] Comment on above: Performed By: #### U MICRO, UACSIND #### [facility] [address] [place] [address] Dr. Pancho Oliva MCV (RBC) [Entitic vol] 85.1 fL Normal 81.0-99.0 [facility] Comment on above: Performed By: #### U MICRO, UACSIND #### [facility] [address] [place] [address] Dr. Pancho Oliva PLT 333 103/ul Normal 150-450 [facility] Comment on above: Performed By: #### U MICRO, UACSIND #### [facility] [address] [place] [address] Dr. Pancho Oliva RBC 4.24 106/ul Normal 4.20-5.40 [facility] Comment on above: Performed By: #### U MICRO, UACSIND #### [facility] [address] [place] [address] Dr. Pancho Oliva WBC 16.5 103/ul Critically high 4.0-11.0 [facility] Comment on above: Performed By: #### U MICRO, UACSIND #### [facility] [address] [place] [address] Dr. Pancho Oliva AFP TETRA PROFILE (MATERNAL) on 01-21-2022 AFP MoM 0.81 Normal [facility] Comment on above: Performed By: #### A FPTET #### [facility] [address] [place] [address] Dr. Pancho Oliva AFP Value 26.1 ng/mL Normal [facility] Comment on above: Performed By: #### A FPTET #### [facility] [address] [place] [address] Dr. Pancho Oliva Comment Comment Normal [facility] Comment on above: Result Comment: Marguerite Hassan, Ph.D., [facility] Director . References: Available Upon Request. . Multiples Of Median Cutoffs Abbreviation Definitions For AFP Elevations IDD- Insulin Dep Diabetes Daugherty 2.5 Black 2.8 OSBR- Open Spina Bifida IDD 2.0 Twins 4.5 Risk DSR Cutoff 1:270 DSR- Down Syndrome Risk T18 Cutoff 1:100 T18- Trisomy 18 . For further inquiries contact [facility] at [phone]. . This test was developed and its performance characteristics determined by [facility]. It has not been cleared or approved by the Food and Drug Administration. Performed By: #### A FPTET #### [facility] [address] [place] [address] Dr. Pancho Oliva INDRA MoM 0.96 Normal [facility] Comment on above: Performed By: #### A FPTET #### [facility] [address] [place] [address] Dr. Pancho Olvia INDRA Value 118.40 pg/mL [facility] Comment on above: Performed By: #### A FPTET #### [facility] [address] [place] [address] Dr. Pancho Oliva DSR (By Age) 1 [place] 1121 Normal [facility] Comment on above: Performed By: #### A FPTET #### [facility] [address] [place] [address] Dr. Pancho Oliva DSR (Second Trimester) 1 [place] [address] Normal [facility] Comment on above: Performed By: #### A FPTET #### [facility] [address] [place] [address] Dr. Pancho Oliva Gest. Age on Collection Date 17.1 WEEKS Normal [facility] Comment on above: Performed By: #### A FPTET #### [facility] [address] [place] [address] Dr. Pancho Oliva Gestat. Age Based On LMP Normal [facility] Comment on above: Performed By: #### A FPTET #### [facility] [address] [place] [address] Dr. Pancho Oliva hCG MoM 0.73 Normal [facility] Comment on above: Performed By: #### A FPTET #### [facility] [address] [place] [address] [place] [address] m[IU]/mL Normal [facility] Comment on above: Performed By: #### A FPTET #### [facility] [address] [place] [address] Dr. Pancho Oliva Insulin Dep Diabetes No Normal [facility] Comment on above: Performed By: #### A FPTET #### [facility] [address] [place] [address] Dr. Pancho Oliva Interpretation Comment Normal [facility] Comment on [...] identifies 60% of Trisomy 18 pregnancies. The [employer] recommends amniocentesis be offered to women age 35 and older. Recalculations are not recommended when gestational dating by LMP and ultrasound are within 10 days. Performed By: #### A FPTET #### [facility] [address] [place] [address] Dr. Pancho Oliva [age] Normal [facility] Comment on above: Performed By: #### A FPTET #### [facility] [address] [place] [address] Dr. Pancho Oliva Multiple Gestation No Normal [facility] Comment on above: Performed By: #### A FPTET #### [facility] [address] [address] [address] Panch[place] Ol[place] OS[place] [address] Normal [facility] Comment on above: Performed By: #### A FPTET #### [facility] [address] [address] [address] Pancho Oliva PDF . Normal [facility] Comment on above: Performed By: #### A FPTET #### [facility] [address] [address] [address] Pancho Oliva Race Normal [facility] Comment on above: Performed By: #### A FPTET #### [facility] [address] [place] [address] Dr. Pancho Oliva Results Report [facility] Comment on above: Performed By: #### A FPTET #### [facility] [address] [address] [address] Pancho Oliva T18 (By Age) 1:4368 Normal [facility] Comment on above: Performed By: #### A FPTET #### [facility] [address] [place] [address] Dr. Pancho Oliva T18 Risk Not increased [facility] Comment on above: Performed By: #### A FPTET #### [facility] [address] [address] [address] Pancho Oliva Test Results: Negative Normal [facility] Comment on above: Performed By: #### A FPTET #### [facility] [address] [address] [address] Pancho Oliva uE3 MoM 1.70 [facility] Comment on above: Performed By: #### A FPTET #### [facility] [address] [place] [address] Dr. Pancho Oliva uE3 Value 1.80 ng/mL [facility] Comment on above: Performed By: #### A FPTET #### [facility] [address] [address] [address] Pancho Oliva HEP B SURFACE ANTIGEN SCREEN on 01-20-2022 HBsAg Screen Negative Normal Negative [facility] Comment on above: Performed By: #### U MICRO, UACSIND #### [facility] [address] [place] [address] Dr. Pancho Oliva HEPATITIS C VIRUS AB W/ REFL EX QUANTon 01-20-2022 HCV AB 0.1 s/co ratio Normal 0.0-0.9 [facility] Comment on above: Performed By: #### U MICRO, UACSIND #### [facility] [address] [place] [address] Dr. Pancho Oliva Interpretation: Comment Normal [facility] Comment on above: Result Comment: Nega tive Not infected with HCV, unless recent infection is suspected or other evidence exists to indicate HCV infection. Performed By: #### U MICRO, UACSIND #### [facility] [address] [place] [address] Dr. Pancho Oliva HIV 1 AND 2 WITH REFLEXon HIV Screen 4th Generation wRfx Non-Reactive Normal Non Reactive [facility] Comment on above: Result Comment: HIV Negative HIV-1/HIV-2 antibodies and HIV-1 p24 antigen were NOT detected. There is no laboratory evidence of HIV infection. Performed By: #### U MICRO, UACSIND #### [facility] [address] [place] [address] Dr. Pancho Oliva RPR QUANTon 01-20-2022 Rapid Plasma Reagin, Quant Non-Reactive Normal NonRea<1:1 [facility] Comment on above: Result Comment: Plea se Note: This test does not meet current guidelines for screening and diagnosis of syphilis. This test is intended for following treatment response in patients being treated for syphilis infection. To screen for syphilis infection, a reflex cascade that includes both RPR and a treponema-specific assay should be utilized, such as Treponema pallidum (Syphilis) Screening [place] (047911) or Rapid Plasma Reagin (RPR) Test With Reflex to Quantitative RPR and Confirmatory Treponema pallidum Antibodies (205631). Performed By: #### R PRQ #### [facility] [address] [place] [address] Dr. Pancho Oliva RUBELLA AB IGGon 01-20-2022 Rubella Antibodies, IgG 6.39 index Normal Immune >0.99 [facility] Comment on above: Result Comment: Non- immune <0.90 Equivocal 0.90 - 0.99 Immune >0.99 Performed By: #### R UBIGG #### [facility] [address] [place] [address] Dr. Pancho Oliva CBC AUTO DIFFon 01-19-2022 BASO # 0.1 103/ul Normal 0.0-0.1 [facility] Comment on above: Performed By: #### C BC #### [facility] [address] [place] [address] Dr. Pancho Oliva Basophils/100 WBC (Bld) 0.6 % Normal 0.2-2.0 [facility] Comment on above: Performed By: #### C BC #### [facility] [address] [place] [address] Dr. Pancho Oliva EO # 0.3 103/ul Normal 0.0-0.7 [facility] Comment on above: Performed By: #### C BC #### [facility] [address] [place] [address] Dr. Pancho Oliva Eosinophils/100 WBC (Bld) 2.1 % Normal 0.9-7.0 [facility] Comment on above: Performed By: #### C BC #### [facility] [address] [place] [address] Dr. Pancho Oliva Erythrocyte distribution width (RBC) [Ratio] 12.3 % Normal 11.0-15.0 [facility] Comment on above: Performed By: #### C BC #### [facility] [address] [place] [address] Dr. Pancho Oliva Hematocrit (Bld) [Volume fraction] 37.0 % Normal 36.0-48.0 [facility] Comment on above: Performed By: #### C BC #### [facility] [address] [place] [address] Dr. Pancho Oliva Hemoglobin (Bld) [Mass/Vol] 12.6 g/dL Normal 12.0-16.0 [facility] Comment on above: Performed By: #### C BC #### [facility] [address] [place] [address] Dr. Pancho Oliva IG # 0.19 10e3/ul Critically high 0.00-0.03 [facility] Comment on above: Performed By: #### C BC #### [facility] [address] [address] [address] Pancho Oliva IG % 1.2 % Critically high 0.0-0.5 [facility] Comment on above: Performed By: #### C BC #### [facility] [address] [place] [address] Dr. Pancho Oliva LYMPH # 2.6 103/ul Normal 1.2-3.8 [facility] Comment on above: Performed By: #### C BC #### [facility] [address] [place] [address] Dr. Pancho Oliva Lymphocytes/100 WBC (Bld) 15.6 % Critically low 20.5-60.0 [facility] Comment on above: Performed By: #### C BC #### [facility] [address] [place] [address] Dr. Pancho Oliva MANUAL DIFF REQ NO Normal [facility] Comment on above: Performed By: #### C BC #### [facility] [address] [place] [address] Dr. Pancho Oliva MCH (RBC) [Entitic mass] 28.4 pg Normal 26.7-34.0 [facility] Comment on above: Performed By: #### C BC #### [facility] [address] [place] [address] Dr. Pancho Oliva MCHC (RBC) [Mass/Vol] 34.1 g/dL Normal 29.9-35.2 [facility] Comment on above: Performed By: #### C BC #### [facility] [address] [place] [address] Dr. Pancho Oliva MCV (RBC) [Entitic vol] 83.5 fL Normal 81.0-99.0 [facility] Comment on above: Performed By: #### C BC #### [facility] [address] [place] [address] Dr. Pancho Oliva MONO # 0.7 103/ul Normal 0.3-0.8 [facility] Comment on above: Performed By: #### C BC #### [facility] [address] [place] [address] Dr. Pancho Oliva Monocytes/100 WBC (Bld) 4.2 % Normal 1.7-12.0 [facility] Comment on above: Performed By: #### C BC #### [facility] [address] [place] [address] Dr. Pancho Oliva NEUT # 12.6 103/ul Critically high 1.4-6.5 [facility] Comment on above: Performed By: #### C BC #### [facility] [address] [place] [address] Dr. Pancho Oliva Neutrophils/100 WBC (Bld) 76.3 % Critically high 43.0-75.0 [facility] Comment on above: Performed By: #### C BC #### [facility] [address] [place] [address] Dr. Pancho Oliva Platelet mean volume (Bld) [Entitic vol] 9.0 fL Critically low 9.5-13.5 [facility] Comment on above: Performed By: #### C BC #### [facility] [address] [place] [address] Dr. Pancho Oliva PLT 359 103/ul Normal 150-450 [facility] Comment on above: Performed By: #### C BC #### [facility] [address] [place] [address] Dr. Pancho Oliva RBC 4.43 106/ul Normal 4.20-5.40 [facility] Comment on above: Performed By: #### C BC #### [facility] [address] [place] [address] Dr. Pancho Oliva WBC 16.5 103/ul Critically high 4.0-11.0 [facility] Comment on above: Performed By: #### C BC #### [facility] [address] [address] [address] Pancho Oliva CULTURE URINEon 01-19-2022 CULTURE URINE Culture Observations: HEAVY GROWTH OF MIXED GENITAL XOCHITL. NO POTENTIAL PATHOGENS SEEN. Normal [facility] Comment on above: Performed By: #### U RCX #### [facility] [address] [address] [address] Pancho Oliva GLYCOHEMOGLOBIN A1Con 2021 ADA RECOMMENDATION SEE BELOW Normal [facility] Comment on above: Result Comment: ADA RECOMMENDED LIMIT 4.0 - 6.0 ADA THERAPEUTIC TARGET < 7.0 ACTION SUGGESTED > 7.0 Performed By: #### U MICRO, UACSIND #### [facility] [address] [place] [address] Dr. Pancho Oliva Glucose [Mass/Vol] 94 mg/dL Normal [facility] Comment on above: Performed By: #### U MICRO, UACSIND #### [facility] [address] [address] [address] Pancho Oliva HbA1c (Bld) [Mass fraction] 4.9 % Normal 4.5-6.2 [facility] Comment on above: Performed By: #### U MICRO, UACSIND #### [facility] [address] [place] [address] Dr. Pancho Oliva TYPE AND SCREENon 01-19-2022 TYPE AND SCREEN Negative Normal [facility] Comment on above: Performed By: #### U MICRO, UACSIND #### [facility] [address] [address] [address] Pancho Oliva US PREG TVon 11-23-2021 [...] by: KIM LEIGH Date: 2021-11-23 16:11 Normal [facility] Vital Signs Date Time Vital Sign Value Performing Clinician Facility 08-29-2023 10:55-0500 Body mass index (BMI) [Ratio] 38.11 kg/m2 Olya LE Work Phone: [facility] 08-29-2023 10:55-0500 Body weight 103.87 kg Olya LE Work Phone: [facility] 08-29-2023 10:55-0500 Diastolic blood pressure 78 mm[Hg] Olya LE Work Phone: [facility] 08-29-2023 10:55-0500 Systolic blood pressure 118 mm[Hg] Olya LE Work Phone: [facility] 01-21-2022 02:06-0400 Body weight 97.[address] AUGUSTINE ENRIQUE [facility] Comment on above: Performed By: #### AFPTET #### [facility] [address] [place] [address] Dr. Pancho Oliva Encounters Encounter Date Encounter Type Care Provider Facility Start: 01-11-2024 End: 01-11-2024 ambulatory RUDI INES Not Available Start: 12-29-2023 End: 12-29-2023 ambulatory OLYA BAUMAN Not Available Start: 12-14-2023 End: 12-14-2023 ambulatory RUDI INES Not Available Start: 12-01-2023 End: 12-01-2023 ambulatory RUDI INES Not Available Start: 10-25-2023 End: 10-25-2023 ambulatory OLYA BAUMAN Not Available Start: 09-26-2023 End: 09-26-2023 ambulatory RUDI INES Not Available Start: 08-29-2023 External Result Encounter Olya LE Work Phone: [facility] External Department Unsolicited Start: 08-29-2023 External Result Encounter Olya LE Work Phone: [facility] External Department Unsolicited Start: 08-29-2023 End: 08-29-2023 Patient encounter procedure Olya LE Work Phone: [facility] Start: 08-29-2023 End: 08-29-2023 Periodic preventive med est patient 18-39 yrs Olya LE Work Phone: [facility] Comment on above: Second trimester pre gnancy; Well woman exam with routine gynecological exam; STD exposure; Vaginal discharge Start: 08-29-2023 End: 08-29-2023 ambulatory OLYA BAUMAN Not Available Start: 08-26-2023 Chart abstracting Olya LE Work Phone: [facility] Start: 08-01-2023 End: [...] AM EDT Routine [facility] [address] [place] [id number] Rudi Tracey DO [address] [place] [address] [facility] Start: 08-29-2023 End: 10-28-2023 Alpha fetoprotein, maternal Alpha fetoprotein, maternal Lab Routine Second trimester Expected: 08/29/2023 (Approximate), Expires: 10/28/2023 [facility] Comment on above: Expected: 08/29/2023 (Approximate), Expires: 10/28/2023 Start: 08-29-2023 End: 08-29-2023 Patient encounter procedure 08/29/2023 10:30 AM EST Routine [facility] [address] [place] [id number] Olya Bauman PA [address] [place] [address] Second trimester [facility] Comment on above: Second trimester pre gnancy CHLAMYDIA TRACHOMATI S (GENITO/STI) CHLAMYDIA TRACHOMATIS (GENITO/STI) Lab Routine STD exposure Ordered: 08/29/2023 [facility] Comment on above: Ordered: 08/29/2023 Cytology Cervical or vaginal smear or scraping study Pap Smear Pathology and Cytology Routine Well woman exam with routine gynecological exam Ordered: 08/29/2023 [facility] Comment on above: Ordered: 08/29/2023 Neisseria gonorrhoea e DNA [Presence] in Unspecified specimen by RHIANNA with probe detection Neisseria gonorrhea DNA probe, direct Lab Routine STD exposure Ordered: 08/29/2023 [facility] Comment on above: Ordered: 08/29/2023 SURESWAB(R) ADVANCED VAGINITIS PLUS, TMA SURESWAB(R) ADVANCED VAGINITIS PLUS, TMA Pathology and Cytology Routine Vaginal discharge Ordered: 08/29/2023 [facility] Work Phone: Comment on above: Ordered: 08/29/2023 Payers Date Payer Category Payer Unknown BCBS BCBS xxxxxx [id number] 2022-Present [phone] [address] [place] [address] [id number] 2000 Unknown [id number] [id number] 2000 Unknown [id number] 2.16.840.1.444050.3.579.2.593 2000 Unknown [id number] 2.16.840.1.578282.3.579.2.593 2000 Unknown [id number] 2.16.840.1.075422.3.579.2.593 2000 Unknown [id number] 2.16.840.1.098222.3.579.2.593 2000 Unknown [id number] 2.16.840.1.462068.3.579.2.593 2000 Unknown [id number] 2.16.840.1.061247.3.579.2.593 2000 Unknown [id number] 2.16.840.1.637369.3.579.2.1259 2000 Unknown [id number] 2.16.840.1.591799.3.579.2.1259 2000 Unknown [id number] 2.16.840.1.622103.3.579.2.1259 2000 Unknown [id number] 2.16.840.1.666970.3.579.2.1259 2000 Unknown [id number] 2.16.840.1.610400.3.579.2.1259 2000 Unknown [id number] 2.16.840.1.664270.3.579.2.1259 2000 Unknown [id number] 2.16.840.1.722800.3.579.2.1259 2000 Unknown [id number] 2.16.840.1.639994.3.579.2.1259 2000 Unknown [id number] 2.16.840.1.815144.3.579.2.1259 1959 Self-pay 1959 Unknown [id number] 1959 Unknown [id number] Social History Date Type Detail Facility Start: 02-06-2023 Tobacco smoking stat [facility] Never smoked tobacco [facility] [...] Problems Past Medical History: Diagnosis Date depression ([facility] Family History Problem Relation Name [...] obtained without difficulty and patient was given [facility] order to have obtained. Follow Up: Patient [...] pital DATE CREATED AUTHOR AUTHOR'S MOJGAN BAEZA 01/12/2024 [facility] Reason for Visit (unrecogniz ed [...] BE BASED ON THE PRIMARY CLINICAL RECORDS. [employer] provides no warranty or guarantee of the accuracy or completeness of information in this document.
[2024-01-13 11:21] VITALS: BP 154/102; PULSE 100
[2024-01-13 11:29] VITALS: BP 142/97; PULSE 105
[2024-01-13 12:00] VITALS: BP 160/102; TEMP 36.8
[2024-01-13] MEDS: LABETALOL HCL 200 MG TABLET PO (12:03)
--- OUTSIDE RECORDS SUMMARY | 2024-01-13 12:07 | XMS_ITS | CCD ---
Author Organization [facility] Care Team Providers Care Finished Goods Stock Clerk Name Role Phone IVA, DR BRADSHAW Admitting [...] GINITIS (HTRX)on 08-31-2023 ATOPOBIUM VAGINAE 0 [facility] ATOPOBIUM VAGINAE Not detected [facility] BVAB 2,3 (BACTERIAL VAGINOSIS ASSOCIATED BACTERIA 2, 3); MOBILUNCUS SPP 22.438 Abnormal [facility] BVAB 2,3 (BACTERIAL VAGINOSIS ASSOCIATED BACTERIA 2, 3); MOBILUNCUS SPP Detected Abnormal [facility] JEREMI ALBICANS, PARAPSILOSIS, TROPICALIS 0 [facility] JEREMI ALBICANS, PARAPSILOSIS, TROPICALIS Not detected [facility] JEREMI GLABRATA 0 NOMS a lthcare JEREMI GLABRATA Not detected NOM H ealthcare JEREMI KRUSEI 0 [facility] JEREMI KRUSEI Not [facility] CHLAMYDIA TRACHOMATIS 0 [facility] CHLAMYDIA TRACHOMATIS Not detected [facility] DFR (A1, A5), SUL (1,2) 0 PPM [facility] DFR (A1, A5), SUL (1,2) Not detected [facility] ERMB, C; MEFA 25.226 Abnormal PPM [facility] care ERMB, C; MEFA Detected Abnormal [facility] GARDNERELLA VAGINALIS 30.91 Abnormal [facility] GARDNERELLA VAGINALIS Detected Abnormal [facility] Interpretation and review of laboratory results Abnormal [facility] MEGASPHAERA (TYPES 1, 2) 0 [facility] MEGASPHAERA (TYPES 1, 2) Not detected [facility] MYCOPLASMA GENITALIUM 0 [facility] MYCOPLASMA GENITALIUM Not detected [facility] NEISSERIA GONORRHOEAE 0 [facility] NEISSERIA GONORRHOEAE Not detected [facility] TET B, TET M 23.014 Abnormal PPM [facility] are TET B, TET M Detected Abnormal [facility] are TRICHOMONAS VAGINALIS 0 [facility] TRICHOMONAS VAGINALIS Not detected [facility]inalysis macro (dipstick) panel (U)on 08-29-2023 Bilirubin, UA Negative Negative - 4(70) +++ mg/dL [facility] Blood, UA Negative Negative - 50 Teddy/mcL [facility] Clarity, UA Clear [facility] re Color, UA Yellow [facility] e Glucose, UA Negative Negative - 1999(110) ++++ mg/dL [facility] Interpretation and review of laboratory results Abnormal [facility] Ketones, UA Positive Negative - 160(16) ++++ mg/dL [facility] Leukocytes, UA Trace Negative - 500+++ Nicolasa/mcL [facility] Nitrite, UA Negative Negative - Positive [facility] pH, UA 6.0 5 - 9 [facility] e Protein, UA Negative Negative - 1999(20) ++++ mg/dL [facility] Spec Grav, UA 1.030 1 - 1.03 [facility] Urobilinogen, UA 0.2 0.2 - 12 mg/dL [facility] CBC AUTO DIFFon 06-18-2022 BASO # 0.1 103/ul Normal 0.0-0.1 [facility] Comment on above: Performed By: #### U MICRO, UACSIND #### [facility] [address] [address] [address] Pancho Oliva Basophils/100 WBC (Bld) 0.8 % Normal 0.2-2.0 [facility] Comment on above: Performed By: #### U MICRO, UACSIND #### [facility] [address] [address] [address] Pancho Oliva EO # 0.3 103/ul Normal 0.0-0.7 [facility] Comment on above: Performed By: #### U MICRO, UACSIND #### [facility] [address] [address] [address] Pancho Oliva Eosinophils/100 WBC (Bld) 2.1 % Normal 0.9-7.0 [facility] Comment on above: Performed By: #### U MICRO, UACSIND #### [facility] [address] [address] [address] Pancho Oliva Erythrocyte distribution width (RBC) [Ratio] 13.9 % Normal 11.0-15.0 [facility] Comment on above: Performed By: #### U MICRO, UACSIND #### [facility] [address] [place] [address] Dr. Pancho Oliva Hematocrit (Bld) [Volume fraction] 36.2 % Normal 36.0-48.0 [facility] Comment on above: Performed By: #### U MICRO, UACSIND #### [facility] [address] [address] [address] Pancho Oliva Hemoglobin (Bld) [Mass/Vol] 11.8 g/dL Critically low 12.0-16.0 [facility] Comment on above: Performed By: #### U MICRO, UACSIND #### [facility] [address] [address] [address] Pancho Oliva IG # 0.16 10e3/ul Critically high 0.00-0.03 [facility] Comment on above: Performed By: #### U MICRO, UACSIND #### [facility] [address] [address] [address] Pancho Oliva IG % 1.1 % Critically high 0.0-0.5 [facility] Comment on above: Performed By: #### U MICRO, UACSIND #### [facility] [address] [address] [address] Pancho Oliva LYMPH # 3.5 103/ul Normal 1.2-3.8 [facility] Comment on above: Performed By: #### U MICRO, UACSIND #### [facility] [address] [place] [address] Dr. Pancho Oliva Lymphocytes/100 WBC (Bld) 23.3 % Normal 20.5-60.0 [facility] Comment on above: Performed By: #### U MICRO, UACSIND #### [facility] [address] [place] [address] Dr. Pancho Oliva MANUAL DIFF REQ NO Normal [facility] Comment on above: Performed By: #### U MICRO, UACSIND #### [facility] [address] [place] [address] Dr. Pancho Oliva MCH (RBC) [Entitic mass] 27.1 pg Normal 26.7-34.0 [facility] Comment on above: Performed By: #### U MICRO, UACSIND #### [facility] [address] [place] [address] Dr. Pancho Oliva MCHC (RBC) [Mass/Vol] 32.6 g/dL Normal 29.9-35.2 [facility] Comment on above: Performed By: #### U MICRO, UACSIND #### [facility] [address] [place] [address] Dr. Pancho Oliva MCV (RBC) [Entitic vol] 83.0 fL Normal 81.0-99.0 [facility] Comment on above: Performed By: #### U MICRO, UACSIND #### [facility] [address] [place] [address] Dr. Pancho Oliva MONO # 0.7 103/ul Normal 0.3-0.8 [facility] Comment on above: Performed By: #### U MICRO, UACSIND #### [facility] [address] [place] [address] Dr. Pancho Oliva Monocytes/100 WBC (Bld) 4.3 % Normal 1.7-12.0 [facility] Comment on above: Performed By: #### U MICRO, UACSIND #### [facility] [address] [place] [address] Dr. Pancho Oliva NEUT # 10.2 103/ul Critically high 1.4-6.5 [facility] Comment on above: Performed By: #### U MICRO, UACSIND #### [facility] [address] [address] [address] Pancho Oliva Neutrophils/100 WBC (Bld) 68.4 % Normal 43.0-75.0 [facility] Comment on above: Performed By: #### U MICRO, UACSIND #### [facility] [address] [address] [address] Pancho Oliva Platelet mean volume (Bld) [Entitic vol] 9.7 fL Normal 9.5-13.5 [facility] Comment on above: Performed By: #### U MICRO, UACSIND #### [facility] [address] [place] [address] Dr. Pancho Oliva PLT 271 103/ul Normal 150-450 [facility] Comment on above: Performed By: #### U MICRO, UACSIND #### [facility] [address] [place] [address] Dr. Pancho Oliva RBC 4.36 106/ul Normal 4.20-5.40 [facility] Comment on above: Performed By: #### U MICRO, UACSIND #### [facility] [address] [place] [address] Dr. Pancho Oliva WBC 15.0 103/ul Critically high 4.0-11.0 [facility] Comment on above: Performed By: #### U MICRO, UACSIND #### [facility] [address] [place] [address] Dr. Pancho Oilva RPR QUANTon 06-18-2022 Rapid Plasma Reagin, Quant Non-Reactive Normal NonRea<1:1 [facility] Comment on above: Result Comment: Plea se Note: This test does not meet current guidelines for screening and diagnosis of syphilis. This test is intended for following treatment response in patients being treated for syphilis infection. To screen for syphilis infection, a reflex cascade that includes both RPR and a treponema-specific assay should be utilized, such as Treponema pallidum (Syphilis) Screening [place] (824161) or Rapid Plasma Reagin (RPR) Test With Reflex to Quantitative RPR and Confirmatory Treponema pallidum Antibodies (276312). Performed By: #### R PRQ #### [facility] [address] [place] [address] Dr. Pancho Oliva CBC AUTO DIFFon 06-16-2022 BASO # 0.1 103/ul Normal 0.0-0.1 [facility] Comment on above: Performed By: #### U MICRO, UACSIND #### [facility] [address] [place] [address] Dr. Pancho Oliva Basophils/100 WBC (Bld) 0.5 % Normal 0.2-2.0 [facility] Comment on above: Performed By: #### U MICRO, UACSIND #### [facility] [address] [place] [address] Dr. Pancho Oliva EO # 0.0 103/ul Normal 0.0-0.7 [facility] Comment on above: Performed By: #### U MICRO, UACSIND #### [facility] [address] [place] [address] Dr. Pacnho Oliva Eosinophils/100 WBC (Bld) 0.1 % Critically low 0.9-7.0 [facility] Comment on above: Performed By: #### U MICRO, UACSIND #### [facility] [address] [place] [address] Dr. Pancho Oliva Erythrocyte distribution width (RBC) [Ratio] 13.5 % Normal 11.0-15.0 [facility] Comment on above: Performed By: #### U MICRO, UACSIND #### [facility] [address] [place] [address] Dr. Pancho Oliva Hematocrit (Bld) [Volume fraction] 38.7 % Normal 36.0-48.0 [facility] Comment on above: Performed By: #### U MICRO, UACSIND #### [facility] [address] [place] [address] Dr. Pancho Oliva Hemoglobin (Bld) [Mass/Vol] 13.0 g/dL Normal 12.0-16.0 [facility] Comment on above: Performed By: #### U MICRO, UACSIND #### [facility] [address] [place] [address] Dr. Pancho Oliva IG # 0.15 10e3/ul Critically high 0.00-0.03 [facility] Comment on above: Performed By: #### U MICRO, UACSIND #### [facility] [address] [place] [address] Dr. Pancho Oliva IG % 0.8 % Critically high 0.0-0.5 [facility] Comment on above: Performed By: #### U MICRO, UACSIND #### [facility] [address] [place] [address] Dr. Pancho Oliva LYMPH # 1.8 103/ul Normal 1.2-3.8 [facility] Comment on above: Performed By: #### U MICRO, UACSIND #### [facility] [address] [place] [address] Dr. Pancho Oliva Lymphocytes/100 WBC (Bld) 8.9 % Critically low 20.5-60.0 [facility] Comment on above: Performed By: #### U MICRO, UACSIND #### [facility] [address] [place] [address] Dr. Pancho Oliva MANUAL DIFF REQ NO Normal [facility] Comment on above: Performed By: #### U MICRO, UACSIND #### [facility] [address] [place] [address] Dr. Pancho Oliva MCH (RBC) [Entitic mass] 27.2 pg Normal 26.7-34.0 [facility] Comment on above: Performed By: #### U MICRO, UACSIND #### [facility] [address] [place] [address] Dr. Pancho Oliva MCHC (RBC) [Mass/Vol] 33.6 g/dL Normal 29.9-35.2 [facility] Comment on above: Performed By: #### U MICRO, UACSIND #### [facility] [address] [place] [address] Dr. Pancho Oliva MCV (RBC) [Entitic vol] 81.0 fL Normal 81.0-99.0 [facility] Comment on above: Performed By: #### U MICRO, UACSIND #### [facility] [address] [address] [address] Pancho Oliva MONO # 0.5 103/ul Normal 0.3-0.8 [facility] Comment on above: Performed By: #### U MICRO, UACSIND #### [facility] [address] [address] [address] Pancho Oliva Monocytes/100 WBC (Bld) 2.5 % Normal 1.7-12.0 [facility] Comment on above: Performed By: #### U MICRO, UACSIND #### [facility] [address] [place] [address] Dr. Pancho Oliva NEUT # 17.2 103/ul Critically high 1.4-6.5 [facility] Comment on above: Performed By: #### U MICRO, UACSIND #### [facility] [address] [place] [address] Dr. Pancho Oliva Neutrophils/100 WBC (Bld) 87.2 % Critically high 43.0-75.0 [facility] Comment on above: Performed By: #### U MICRO, UACSIND #### [facility] [address] [place] [address] Dr. Pancho Oliva Platelet mean volume (Bld) [Entitic vol] 9.9 fL Normal 9.5-13.5 [facility] Comment on above: Performed By: #### U MICRO, UACSIND #### [facility] [address] [place] [address] Dr. Pancho Oliva PLT 332 103/ul Normal 150-450 [facility] Comment on above: Performed By: #### U MICRO, UACSIND #### [facility] [address] [place] [address] Dr. Pancho Oliva RBC 4.78 106/ul Normal 4.20-5.40 [facility] Comment on above: Performed By: #### U MICRO, UACSIND #### [facility] [address] [address] [address] Pancho Oliva WBC 19.8 103/ul Critically high 4.0-11.0 [facility] Comment on above: Performed By: #### U MICRO, UACSIND #### [facility] [address] [address] [address] Pancho Oliva CULTURE URINEon 06-16-2022 CULTURE URINE Culture Observations: LIGHT GROWTH OF MIXED GENITAL XOCHITL. NO POTENTIAL PATHOGENS SEEN. Normal [facility] Comment on above: Performed By: #### U RCX #### [facility] [address] [address] [address] Pancho Oliva [facility] SARS-CoV-2 (COVID-19) RNA RHIANNA+probe Ql (Unsp spec) Not detected Normal NOT DETECTED [facility] Comment on above: Result Comment: When diagnostic [...] for this test is supported by the [employer] Administrator of Health and Human Service's declaration that [...] By: #### C VDTBH #### [facility] [id number] Pancho Oliva DRUG SCREEN RAPID (URINE)on 06-16-2022 AMP Negative Normal NEGATIVE [facility] Comment on above: Performed By: #### U MICRO, UACSIND #### [facility] [address] [address] [address] Pancho Oliva BAR Negative Normal NEGATIVE [facility] Comment on above: Performed By: #### U MICRO, UACSIND #### [facility] [address] [place] [address] Dr. Pancho Oliva BUP Negative Normal NEGATIVE [facility] Comment on above: Performed By: #### U MICRO, UACSIND #### [facility] [address] [place] [address] Dr. Pancho Oliva BZO Negative Normal NEGATIVE [facility] Comment on above: Performed By: #### U MICRO, UACSIND #### [facility] [address] [place] [address] Dr. Pancho Oliva CALVIN Negative Normal NEGATIVE [facility] Comment on above: Performed By: #### U MICRO, UACSIND #### [facility] [address] [place] [address] Dr. Pancho Oliva CUT-OFFS SEE BELOW Normal [facility] Comment on above: Result Comment: AMP [...] #### U MICRO, UACSIND #### [facility] [address] [place] [address] Dr. Pancho Oliva DRUG CUT HEADER DRUG CLASS TEST SYSTEM CUT-OFF CONCENTRATIONS ARE FOLLOWS: Normal [facility] Comment on above: Performed By: #### U MICRO, UACSIND #### [facility] [address] [place] [address] Dr. Pancho Oliva mAMP Negative Normal NEGATIVE [facility] Comment on above: Performed By: #### U MICRO, UACSIND #### [facility] [address] [address] [address] Pancho Oliva MTD Negative Normal NEGATIVE [facility] Comment on above: Performed By: #### U MICRO, UACSIND #### [facility] [address] [address] [address] Pancho Oliva OPI Negative Normal NEGATIVE [facility] Comment on above: Performed By: #### U MICRO, UACSIND #### [facility] [address] [address] [address] Pancho Oliva OXY Negative Normal NEGATIVE [facility] Comment on above: Performed By: #### U MICRO, UACSIND #### [facility] [address] [address] [address] Pancho Oliva PCP Negative Normal NEGATIVE [facility] Comment on above: Performed By: #### U MICRO, UACSIND #### [facility] [address] [place] [address] Dr. Pancho Oliva PPX Negative Normal NEGATIVE [facility] Comment on above: Performed By: #### U MICRO, UACSIND #### [facility] [address] [address] [address] Pancho Oliva TCA Negative Normal NEGATIVE [facility] Comment on above: Performed By: #### U MICRO, UACSIND #### [facility] [address] [place] [address] Dr. Pancho Oliva THC Negative Normal NEGATIVE [facility] Comment on above: Performed By: #### U MICRO, UACSIND #### [facility] [address] [address] [address] Pancho Oliva TYPE AND SCREENon 06-16-2022 TYPE AND SCREEN Negative Normal [facility] Comment on above: Performed By: #### U MICRO, UACSIND #### [facility] [address] [place] [address] Dr. Pancho Oliva UA (CLEAN/CATCH) OPHTHALMIC TECH/MICRO I F IND.on 06-16-2022 Bilirubin Ql (U) Negative Normal NEGATIVE [facility] Comment on above: Performed By: #### U MICRO, UACSIND #### [facility] [address] [address] [address] Pancho Oliva Clarity (U) CLEAR Normal CLEAR [facility] Comment on above: Performed By: #### U MICRO, UACSIND #### [facility] [address] [place] [address] Dr. Pancho Oliva Color (U) YELLOW Normal YELLOW [facility] Comment on above: Performed By: #### U MICRO, UACSIND #### [facility] [address] [address] [address] Pancho Oliva Glucose Ql (U) Negative Normal NEGATIVE [facility] Comment on above: Performed By: #### U MICRO, UACSIND #### [facility] [address] [place] [address] Dr. Pancho Oliva Hemoglobin Ql (U) SMALL Abnormal NEGATIVE [facility] Comment on above: Performed By: #### U MICRO, UACSIND #### [facility] [address] [place] [address] Dr. Pancho Oliva Ketones Ql (U) TRACE Abnormal NEGATIVE [facility] Comment on above: Performed By: #### U MICRO, UACSIND #### [facility] [address] [place] [address] Dr. Pancho Oliva LEUKOCYTES Negative Normal NEGATIVE [facility] Comment on above: Performed By: #### U MICRO, UACSIND #### [facility] [address] [place] [address] Dr. Pancho Oliva Nitrite Ql (U) Negative Normal NEGATIVE [facility] Comment on above: Performed By: #### U MICRO, UACSIND #### [facility] [address] [place] [address] Dr. Pancho Oliva pH (U) 5.5 [pH] Normal 5-9 [facility] Comment on above: Performed By: #### U MICRO, UACSIND #### [facility] [address] [place] [address] Dr. Pancho Oliva SPEC GRAVITY >=1.030 Abnormal 1.005-<=1.[address] [facility] Comment on above: Performed By: #### U MICRO, UACSIND #### [facility] [address] [address] [address] Pancho Oliva UA PROTEIN 100 mg/dl Abnormal NEGATIVE/ TRACE [facility] Comment on above: Performed By: #### U MICRO, UACSIND #### [facility] [address] [address] [address] Pancho Oliva UR MICRO IND INDICATED Normal [facility] Comment on above: Performed By: #### U MICRO, UACSIND #### [facility] [address] [address] [address] Pancho Oliva Urobilinogen Qn (U) 0.2 {Pearl'U}/dL Normal 0.2 - 1. 0 [facility] Comment on above: Performed By: #### U MICRO, UACSIND #### [facility] [address] [place] [address] Dr. Pancho Oliva URINE MICROSCOPIC ONLYon AMORPHOUS CRYSTALS FEW Normal [facility] Comment on above: Performed By: #### U MICRO, UACSIND #### [facility] [address] [place] [address] Dr. Pancho Oliva BACTERIA SMALL Abnormal NONE SEEN [facility] Comment on above: Performed By: #### U MICRO, UACSIND #### [facility] [address] [place] [address] Dr. Pancho Oliva Bacteria identified Cx Nom (U) INDICATED Normal [facility] Comment on above: Performed By: #### U MICRO, UACSIND #### [facility] [address] [place] [address] Dr. Pancho Oliva CAST SEEN Abnormal NONE SEEN [facility] Comment on above: Performed By: #### U MICRO, UACSIND #### [facility] [address] [place] [address] Dr. Pancho Oliva Crystals LM Nom (Urine sed) SEEN Abnormal NONE SEEN [facility] Comment on above: Performed By: #### U MICRO, UACSIND #### [facility] [address] [place] [address] Dr. Pancho Oliva Epithelial cells LM Ql (Urine sed) FEW Abnormal NONE SEEN /RARE [facility] Comment on above: Performed By: #### U MICRO, UACSIND #### [facility] [address] [address] [address] Pancho Oliva HYALINE CAST RARE Normal [facility] Comment on above: Performed By: #### U MICRO, UACSIND #### [facility] [address] [address] [address] Pancho Oliva MUCOUS TRACE Abnormal NONE SEEN [facility] Comment on above: Performed By: #### U MICRO, UACSIND #### [facility] [address] [address] [address] Pancho Oliva RBC 2-5 Abnormal 0-2 [facility] Comment on above: Performed By: #### U MICRO, UACSIND #### [facility] [address] [address] [address] Pancho Oliva WBC 0-2 Abnormal NONE SEEN [facility] Comment on above: Performed By: #### U MICRO, UACSIND #### [facility] [address] [address] [address] Pancho Oliva CHLAMYDIA/GONOCOCCUS RHIANNA (SW AB/URINE/PAPon 06-04-2022 Chlamydia trachomatis, RHIANNA Negative Normal Negative [facility] Comment on above: Performed By: #### U MICRO, UACSIND #### [facility] [address] [place] [address] Dr. Pancho Oliva Neisseria gonorrhoeae, RHIANNA Negative Normal Negative [facility] Comment on above: Performed By: #### U MICRO, UACSIND #### [facility] [address] [address] [address] Pancho Oliva GROUP B STREP CULTUREon 05-18 S. agalactiae Ag Ql (Unsp spec) Culture Observations: NEGATIVE FOR GROUP B STREPTOCOCCUS. Normal [facility] Comment on above: Performed By: #### U MICRO, UACSIND #### [facility] [address] [address] [address] Pancho Oliva US PREG ANATOMY SINGLEon [...] by: KIM LEIGH Date: 2022-04-08 22:10 Normal [facility] GLUCOSE - 1HRon 04-07-2022 Glucose [Mass/Vol] 114 mg/dL Critically high 74-106 T [facility] Comment on above: Performed By: #### U MICRO, UACSIND #### [facility] [address] [address] [address] Pancho Oliva HEMOGRAM AND PLATELon 2021 Hematocrit (Bld) [Volume fraction] 36.1 % Normal 36.0-48.0 [facility] Comment on above: Performed By: #### U MICRO, UACSIND #### [facility] [address] [address] [address] Pancho Oliva Hemoglobin (Bld) [Mass/Vol] 12.1 g/dL Normal 12.0-16.0 [facility] Comment on above: Performed By: #### U MICRO, UACSIND #### [facility] [address] [place] [address] Dr. Pancho Oliva MCH (RBC) [Entitic mass] 28.5 pg Normal 26.7-34.0 [facility] Comment on above: Performed By: #### U MICRO, UACSIND #### [facility] [address] [place] [address] Dr. Pancho Oliva MCHC (RBC) [Mass/Vol] 33.5 g/dL Normal 29.9-35.2 [facility] Comment on above: Performed By: #### U MICRO, UACSIND #### [facility] [address] [place] [address] Dr. Pancho Oliva MCV (RBC) [Entitic vol] 85.1 fL Normal 81.0-99.0 [facility] Comment on above: Performed By: #### U MICRO, UACSIND #### [facility] [address] [place] [address] Dr. Pancho Oliva PLT 333 103/ul Normal 150-450 [facility] Comment on above: Performed By: #### U MICRO, UACSIND #### [facility] [address] [place] [address] Dr. Pancho Oliva RBC 4.24 106/ul Normal 4.20-5.40 [facility] Comment on above: Performed By: #### U MICRO, UACSIND #### [facility] [address] [place] [address] Dr. Pancho Oliva WBC 16.5 103/ul Critically high 4.0-11.0 [facility] Comment on above: Performed By: #### U MICRO, UACSIND #### [facility] [address] [place] [address] Dr. Pancho Oliva AFP TETRA PROFILE (MATERNAL) on 01-21-2022 AFP MoM 0.81 Normal [facility] Comment on above: Performed By: #### A FPTET #### [facility] [address] [place] [address] Dr. Pancho Oliva AFP Value 26.1 ng/mL Normal [facility] Comment on above: Performed By: #### A FPTET #### [facility] [address] [place] [address] Dr. Pancho Oliva Comment Comment Normal [facility] Comment on above: Result Comment: Marguerite Hassan, Ph.D., [employer] Director . References: Available Upon Request. . Multiples Of Median Cutoffs Abbreviation Definitions For AFP Elevations IDD- Insulin Dep Diabetes Daugherty 2.5 Black 2.8 OSBR- Open Spina Bifida IDD 2.0 Twins 4.5 Risk DSR Cutoff 1:270 DSR- Down Syndrome Risk T18 Cutoff 1:100 T18- Trisomy 18 . For further inquiries contact [facility] at [phone]. . This test was developed and its performance characteristics determined by [employer]. It has not been cleared or approved by the Food and Drug Administration. Performed By: #### A FPTET #### [facility] [address] [place] [address] Dr. Pancho Oliva INDRA MoM 0.96 Normal [facility] Comment on above: Performed By: #### A FPTET #### [facility] [address] [place] [address] Dr. Pancho Oliva INDRA Value 118.40 pg/mL [facility] Comment on above: Performed By: #### A FPTET #### [facility] [address] [place] [address] Dr. Pancho Oliva DSR (By Age) 1 [place] 1121 Normal [facility] Comment on above: Performed By: #### A FPTET #### [facility] [address] [place] [address] Dr. Pancho Oliva DSR (Second Trimester) 1 [place] [address] Normal [facility] Comment on above: Performed By: #### A FPTET #### [facility] [address] [place] [address] Dr. Pancho Oliva Gest. Age on Collection Date 17.1 WEEKS Normal [facility] Comment on above: Performed By: #### A FPTET #### [facility] [address] [place] [address] Dr. Pancho Oliva Gestat. Age Based On LMP Normal [facility] Comment on above: Performed By: #### A FPTET #### [facility] [address] [place] [address] Dr. Pancho Oliva hCG MoM 0.73 Normal [facility] Comment on above: Performed By: #### A FPTET #### [facility] [address] [place] [address] [place] [address] m[IU]/mL Normal [facility] Comment on above: Performed By: #### A FPTET #### [facility] [address] [place] [address] Dr. Pancho Oliva Insulin Dep Diabetes No Normal [facility] Comment on above: Performed By: #### A FPTET #### [facility] [address] [place] [address] Dr. Pancho Oliva Interpretation Comment Normal [facility] Comment on above: Result Comment: Inte rpretation: [...] identifies 60% of Trisomy 18 pregnancies. The [employer] recommends amniocentesis be offered to women age 35 and older. Recalculations are not recommended when gestational dating by LMP and ultrasound are within 10 days. Performed By: #### A FPTET #### [facility] [address] [place] [address] Dr. Pancho Oliva [age] Normal [facility] Comment on above: Performed By: #### A FPTET #### [facility] [address] [place] [address] Dr. Pancho Oliva Multiple Gestation No Normal [facility] Comment on above: Performed By: #### A FPTET #### [facility] [address] [address] [address] Panch[place] Oliva [place] [address] Normal [facility] Comment on above: Performed By: #### A FPTET #### [facility] [address] [address] [address] Pancho Oliva PDF . Normal [facility] Comment on above: Performed By: #### A FPTET #### [facility] [address] [address] [address] Pancho Oliva Race Normal [facility] Comment on above: Performed By: #### A FPTET #### [facility] [address] [place] [address] Dr. Pancho Oliva Results Report [facility] Comment on above: Performed By: #### A FPTET #### [facility] [address] [address] [address] Pancho Oliva T18 (By Age) 1:4368 Normal [facility] Comment on above: Performed By: #### A FPTET #### [facility] [address] [place] [address] Dr. Pancho Oliva T18 Risk Not increased [facility] Comment on above: Performed By: #### A FPTET #### [facility] [address] [address] [address] Pancho Oliva Test Results: Negative Normal [facility] Comment on above: Performed By: #### A FPTET #### [facility] [address] [address] [address] Pancho Oliva uE3 MoM 1.70 [facility] Comment on above: Performed By: #### A FPTET #### [facility] [address] [place] [address] Dr. Pancho Oliva uE3 Value 1.80 ng/mL [facility] Comment on above: Performed By: #### A FPTET #### [facility] [address] [address] [address] Pancho Oliva HEP B SURFACE ANTIGEN SCREEN on 01-20-2022 HBsAg Screen Negative Normal Negative [facility] Comment on above: Performed By: #### U MICRO, UACSIND #### [facility] [address] [place] [address] Dr. Pancho Oliva HEPATITIS C VIRUS AB W/ REFL EX QUANTon 01-20-2022 HCV AB 0.1 s/co ratio Normal 0.0-0.9 [facility] Comment on above: Performed By: #### U MICRO, UACSIND #### [facility] [address] [place] [address] Dr. Pancho Oliva Interpretation: Comment Normal [facility] Comment on above: Result Comment: Nega tive Not infected with HCV, unless recent infection is suspected or other evidence exists to indicate HCV infection. Performed By: #### U MICRO, UACSIND #### [facility] [address] [place] [address] Dr. Pancho Oliva HIV 1 AND 2 WITH REFLEXon HIV Screen 4th Generation wRfx Non-Reactive Normal Non Reactive [facility] Comment on above: Result Comment: HIV Negative HIV-1/HIV-2 antibodies and HIV-1 p24 antigen were NOT detected. There is no laboratory evidence of HIV infection. Performed By: #### U MICRO, UACSIND #### [facility] [address] [place] [address] Dr. Pancho Oliva RPR QUANTon 01-20-2022 Rapid Plasma Reagin, Quant Non-Reactive Normal NonRea<1:1 [facility] Comment on above: Result Comment: Plea se Note: This test does not meet current guidelines for screening and diagnosis of syphilis. This test is intended for following treatment response in patients being treated for syphilis infection. To screen for syphilis infection, a reflex cascade that includes both RPR and a treponema-specific assay should be utilized, such as Treponema pallidum (Syphilis) Screening [place] (741306) or Rapid Plasma Reagin (RPR) Test With Reflex to Quantitative RPR and Confirmatory Treponema pallidum Antibodies (022832). Performed By: #### R PRQ #### [facility] [address] [place] [address] Dr. Pancho Oliva RUBELLA AB IGGon 01-20-2022 Rubella Antibodies, IgG 6.39 index Normal Immune >0.99 [facility] Comment on above: Result Comment: Non- immune <0.90 Equivocal 0.90 - 0.99 Immune >0.99 Performed By: #### R UBIGG #### [facility] [address] [place] [address] Dr. Pancho Oliva CBC AUTO DIFFon 01-19-2022 BASO # 0.1 103/ul Normal 0.0-0.1 [facility] Comment on above: Performed By: #### C BC #### [facility] [address] [place] [address] Dr. Pancho Oliva Basophils/100 WBC (Bld) 0.6 % Normal 0.2-2.0 [facility] Comment on above: Performed By: #### C BC #### [facility] [address] [place] [address] Dr. Pancho Oliva EO # 0.3 103/ul Normal 0.0-0.7 [facility] Comment on above: Performed By: #### C BC #### [facility] [address] [place] [address] Dr. Pancho Oliva Eosinophils/100 WBC (Bld) 2.1 % Normal 0.9-7.0 [facility] Comment on above: Performed By: #### C BC #### [facility] [address] [place] [address] Dr. Pancho Oliva Erythrocyte distribution width (RBC) [Ratio] 12.3 % Normal 11.0-15.0 [facility] Comment on above: Performed By: #### C BC #### [facility] [address] [place] [address] Dr. Pancho Oliva Hematocrit (Bld) [Volume fraction] 37.0 % Normal 36.0-48.0 [facility] Comment on above: Performed By: #### C BC #### [facility] [address] [place] [address] Dr. Pancho Oliva Hemoglobin (Bld) [Mass/Vol] 12.6 g/dL Normal 12.0-16.0 [facility] Comment on above: Performed By: #### C BC #### [facility] [address] [place] [address] Dr. Pancho Oliva IG # 0.19 10e3/ul Critically high 0.00-0.03 [facility] Comment on above: Performed By: #### C BC #### [facility] [address] [address] [address] Pancho Oliva IG % 1.2 % Critically high 0.0-0.5 [facility] Comment on above: Performed By: #### C BC #### [facility] [address] [place] [address] Dr. Pancho Oliva LYMPH # 2.6 103/ul Normal 1.2-3.8 [facility] Comment on above: Performed By: #### C BC #### [facility] [address] [place] [address] Dr. Pancho Oliva Lymphocytes/100 WBC (Bld) 15.6 % Critically low 20.5-60.0 [facility] Comment on above: Performed By: #### C BC #### [facility] [address] [place] [address] Dr. Pancho Oliva MANUAL DIFF REQ NO Normal [facility] Comment on above: Performed By: #### C BC #### [facility] [address] [place] [address] Dr. Pancho Oliva MCH (RBC) [Entitic mass] 28.4 pg Normal 26.7-34.0 [facility] Comment on above: Performed By: #### C BC #### [facility] [address] [place] [address] Dr. Pancho Oliva MCHC (RBC) [Mass/Vol] 34.1 g/dL Normal 29.9-35.2 [facility] Comment on above: Performed By: #### C BC #### [facility] [address] [place] [address] Dr. Pancho Oliva MCV (RBC) [Entitic vol] 83.5 fL Normal 81.0-99.0 [facility] Comment on above: Performed By: #### C BC #### [facility] [address] [place] [address] Dr. Pancho Oliva MONO # 0.7 103/ul Normal 0.3-0.8 [facility] Comment on above: Performed By: #### C BC #### [facility] [address] [place] [address] Dr. Pancho Oliva Monocytes/100 WBC (Bld) 4.2 % Normal 1.7-12.0 [facility] Comment on above: Performed By: #### C BC #### [facility] [address] [place] [address] Dr. Pancho Oliva NEUT # 12.6 103/ul Critically high 1.4-6.5 [facility] Comment on above: Performed By: #### C BC #### [facility] [address] [place] [address] Dr. Pancho Oliva Neutrophils/100 WBC (Bld) 76.3 % Critically high 43.0-75.0 [facility] Comment on above: Performed By: #### C BC #### [facility] [address] [place] [address] Dr. Pancho Oliva Platelet mean volume (Bld) [Entitic vol] 9.0 fL Critically low 9.5-13.5 [facility] Comment on above: Performed By: #### C BC #### [facility] [address] [place] [address] Dr. Pancho Oliva PLT 359 103/ul Normal 150-450 [facility] Comment on above: Performed By: #### C BC #### [facility] [address] [place] [address] Dr. Pancho Oliva RBC 4.43 106/ul Normal 4.20-5.40 [facility] Comment on above: Performed By: #### C BC #### [facility] [address] [place] [address] Dr. Pancho Oliva WBC 16.5 103/ul Critically high 4.0-11.0 [facility] Comment on above: Performed By: #### C BC #### [facility] [address] [address] [address] Pancho Oliva CULTURE URINEon 01-19-2022 CULTURE URINE Culture Observations: HEAVY GROWTH OF MIXED GENITAL XOCHITL. NO POTENTIAL PATHOGENS SEEN. Normal [facility] Comment on above: Performed By: #### U RCX #### [facility] [address] [address] [address] Pancho Oliva GLYCOHEMOGLOBIN A1Con 2021 ADA RECOMMENDATION SEE BELOW Normal [facility] Comment on above: Result Comment: ADA RECOMMENDED LIMIT 4.0 - 6.0 ADA THERAPEUTIC TARGET < 7.0 ACTION SUGGESTED > 7.0 Performed By: #### U MICRO, UACSIND #### [facility] [address] [place] [address] Dr. Pancho Oliva Glucose [Mass/Vol] 94 mg/dL Normal [facility] Comment on above: Performed By: #### U MICRO, UACSIND #### [facility] [address] [address] [address] Pancho Oliva HbA1c (Bld) [Mass fraction] 4.9 % Normal 4.5-6.2 [facility] Comment on above: Performed By: #### U MICRO, UACSIND #### [facility] [address] [place] [address] Dr. Pancho Oliva TYPE AND SCREENon 01-19-2022 TYPE AND SCREEN Negative Normal [facility] Comment on above: Performed By: #### U MICRO, UACSIND #### [facility] [address] [address] [address] Pancho Oliva US PREG TVon 11-23-2021 [...] by: KIM LEIGH Date: 2021-11-23 16:11 Normal [facility] Vital Signs Date Time Vital Sign Value Performing Clinician Facility 08-29-2023 10:55-0500 Body mass index (BMI) [Ratio] 38.11 kg/m2 Olya LE Work Phone: [facility] 08-29-2023 10:55-0500 Body weight 103.87 kg Olya LE Work Phone: [facility] 08-29-2023 10:55-0500 Diastolic blood pressure 78 mm[Hg] Olya LE Work Phone: [facility] 08-29-2023 10:55-0500 Systolic blood pressure 118 mm[Hg] Olya LE Work Phone: [facility] 01-21-2022 02:06-0400 Body weight 97.[address] AUGUSTINE ENRIQUE [facility] Comment on above: Performed By: #### AFPTET #### [facility] [address] [place] [address] Dr. Pancho Oliva Encounters Encounter Date Encounter [...] Patient encounter procedure Olya LE Work Phone: [facility] Start: 08-29-2023 End: 08-29-2023 Periodic preventive [...] AM EDT Routine [facility] OB [address] [id number] Rudi Tracey DO [address] [place] [address] [facility] Start: 08-29-2023 End: 10-28-2023 Alpha fetoprotein, maternal Alpha fetoprotein, maternal Lab Routine Second trimester Expected: 08/29/2023 (Approximate), Expires: 10/28/2023 [facility] Comment on above: Expected: 08/29/2023 (Approximate), Expires: 10/28/2023 Start: 08-29-2023 End: 08-29-2023 Patient encounter procedure 08/29/2023 10:30 AM EST Routine [facility] [address] [id number] Olya Bauman PA [address] [place] [address] Second trimester [facility] OB Comment on [...] direct Lab Routine STD exposure Ordered: 08/29/2023 [facility] Comment on above: Ordered: 08/29/2023 SURESWAB(R) ADVANCED VAGINITIS PLUS, TMA SURESWAB(R) ADVANCED VAGINITIS PLUS, TMA Pathology and Cytology Routine Vaginal discharge Ordered: 08/29/2023 [facility] Work Phone: Comment on above: Ordered: 08/29/2023 Payers Date Payer Category Payer Unknown BCBS BCBS [id number] [id number] 2022-Present [phone] [address] [place] [address] [id number] 2000 Unknown [id number] 2000 Unknown [id number] 2000 Unknown [id number] 2000 Unknown [id number] 2000 Unknown [id number] 2.16.840.1.191045.3.579.2.593 2000 Unknown [id number] 2.16.840.1.097543.3.579.2.593 2000 Unknown [id number] 2.16.840.1.610020.3.579.2.593 2000 Unknown [id number] 2.16.840.1.671354.3.579.2.1259 2000 Unknown [id number] 2.16.840.1.155514.3.579.2.1259 2000 Unknown [id number] 2.16.840.1.174319.3.579.2.1259 2000 Unknown [id number] 2.16.840.1.454443.3.579.2.1259 2000 Unknown [id number] 2.16.840.1.698014.3.579.2.1259 2000 Unknown [id number] 2.16.840.1.184854.3.579.2.1259 2000 Unknown [id number] 2.16.840.1.410984.3.579.2.1259 2000 Unknown [id number] 2.16.840.1.294207.3.579.2.1259 2000 Unknown [id number] 2.16.840.1.748405.3.579.2.1259 1959 Self-pay 1959 Unknown [id number] 1959 Unknown [id number] Social History Date Type Detail Facility Start: 02-06-2023 Tobacco smoking stat [facility] Never smoked tobacco [facility] [...] Problems Past Medical History: Diagnosis Date depression ([facility]) Family History Problem Relation Name [...] obtained without difficulty and patient was given [facility] order to have obtained. Follow Up: [...] DATE CREATED AUTHOR AUTHOR'S MOJGAN BAEZA 01/12/2024 [facility] Reason for Visit (unrecogniz ed section [...] BE BASED ON THE PRIMARY CLINICAL RECORDS. [employer] provides no warranty or guarantee of the accuracy or completeness of information in this document.
[2024-01-13 13:01] LABS: Basophils Absolute Auto 0.1 10^3/uL (0.0-0.1); Basophils Percent Auto 0.4 % (0.2-2.0); Eosinophils Absolute Auto 0.2 10^3/uL (0.0-0.7); Eosinophils Percent Auto 1.1 % (0.9-7.0); Hematocrit 35.2 % (36.0-48.0); Hemoglobin 11.3 g/dL (12.0-16.0); Immature Granulocytes Abs Auto 0.13 10^3/uL (0.00-0.03); Immature Granulocytes Pct Auto 0.9 % (0.0-0.5); Lymphocytes Absolute Auto 2.6 10^3/uL (1.2-3.8); Lymphocytes Percent Auto 17.6 % (20.5-60.0); Mean Corpuscular HGB Conc 32.1 g/dL (29.9-35.2); Mean Corpuscular Hemoglobin 26.4 pg (26.7-34.0); Mean Corpuscular Volume 82.2 fL (81.0-99.0); Monocytes Absolute Auto 0.7 10^3/uL (0.3-0.8); Monocytes Percent Auto 4.8 % (1.7-12.0); Neutrophils Absolute Auto 10.9 10^3/uL (1.4-6.5); Neutrophils Percent Auto 75.2 % (43.0-75.0); Platelet Count 305 10^3/uL (150-450); Red Blood Count 4.28 10^6/uL (4.20-5.40); Red Cell Distribution Width 12.9 % (11.0-15.0); White Blood Count 14.5 10^3/uL (4.0-11.0)
[2024-01-13 13:12] LABS: Alanine Aminotransferase 19 U/L (14-59); Aspartate Amino Transferase 14 U/L (15-37); Estimated GFR (African America >60 (>=60); Estimated GFR (Non-African Ame >60 (>=60); Uric Acid 4.6 mg/dL (2.6-6.0)
[2024-01-13 13:21] VITALS: BP 153/86; PULSE 96
[2024-01-13 13:51] LABS: Bilirubin Urine NEGATIVE (NEGATIVE); Blood Urine TRACE-I (NEGATIVE); Clarity Urine CLEAR (CLEAR); Color Urine LT. YELLOW (YELLOW); Glucose Urine UA NEGATIVE (NEGATIVE); Ketones Urine NEGATIVE (NEGATIVE); Leukocyte Esterase Urine MODERATE (NEGATIVE); Nitrite Urine NEGATIVE (NEGATIVE); Protein Urine NEGATIVE (NEG/TRACE); Specific Gravity Urine 1.015 (1.005-1.025); Urine Microscopic Indicated YES; Urobilinogen Urine 0.2 EU/dL (0.2-1.0)
[2024-01-13 13:58] LABS: Bacteria Urine MODERATE #/HPF (NONE SEEN)
[2024-01-13 13:58] LABS: Partial Thromboplastin Time 27.9 sec (22.3-36.2); Prothrombin Time 9.8 sec (9.0-11.6)
[2024-01-13 14:00] LABS: Cast Seen? NONE SEEN #/LPF (NONE SEEN); Creatinine Urine Random 89.99 mg/dL (20.00-300.00); Crystals Seen? None Seen #/HPF (None Seen); Mucus Urine TRACE (NONE SEEN); Protein Creatinine Ratio Urine 0.28; Squamous Epithelial Cell Urine MODERATE #/LPF (NONE/RARE); Total Protein Urine Random 24.9 mg/dL (<=11.9); Urine Culture Indicated YES
[2024-01-13 14:01] LABS: INR <0.93
[2024-01-13 14:04] LABS: Fibrinogen 717 mg/dL (200-400)
--- OUTSIDE RECORDS SUMMARY | 2024-01-13 14:57 | XMS_ITS ---
Patient Summarization (C-CDA 2.1 CCD) Created on: January 13, 2024 Renetta PIERRE~ANTON : 2000 Sex: Female Author Organization Sample organization Care Team Providers Care Stores Despatch Hand Name Role Phone IVA, DR BRADSHAW Admitting [...] RUDI TRACEY Attending Unavailable MERNAOLYA Attending Unavailable INES, RUDI Attending Unavailable MERNA OLYA Attending Unavailable INES, RUDI Attending Unavailable INES, RUDI Attending Unavailable MERNA, OLYA Attending Unavailable INES, RUDI Attending Unavailable Encounters Encounter Date Encounter Type Care Provider [...] External Result Encounter Olya LE Work Phone: [facility] Department Unsolicited Start: 08-29-2023 External Result Encounter Olya LE Work Phone: [facility] Department Unsolicited Start: 08-29-2023 End: 08-29-2023 Patient encounter procedure Olya LE Work Phone: [facility] Start: 08-29-2023 End: 08-29-2023 Periodic preventive med est patient 18-39 yrs Olya LE Work Phone: [facility] Comment on above: Second trimester pre gnancy; Well woman exam with routine gynecological exam; STD exposure; Vaginal discharge Start: 08-29-2023 End: 08-29-2023 ambulatory OLYA MERNA Not Available Start: 08-26-2023 Chart abstracting Olya [...] End: 11-24-[address] AUGUSTINE ENRIQUE Facility:[facility] Payers Date Payer Category Payer Unknown BCBS BCBS xxxxxx [id number] 2022-Present [phone] [address] [place] [address] [id number] 2000 Unknown [id number] 2000 Unknown [id number] 2.16.840.1.603790.3.579.2.593 2000 Unknown [id number] 2.16.840.1.402766.3.579.2.593 2000 Unknown [id number] 2.16.840.1.358720.3.579.2.593 2000 Unknown [id number] 2.16.840.1.725939.3.579.2.593 2000 Unknown [id number] 2.16.840.1.130779.3.579.2.593 2000 Unknown [id number] 2.16.840.1.289793.3.579.2.593 2000 Unknown [id number] 2.16.840.1.903110.3.579.2.1259 2000 Unknown [id number] 2.16.840.1.242223.3.579.2.1259 2000 Unknown [id number] 2.16.840.1.591628.3.579.2.1259 2000 Unknown [id number] 2.16.840.1.430652.3.579.2.1259 2000 Unknown [id number] 2.16.840.1.477171.3.579.2.9 2000 Unknown [id number] 2.16.840.1.815583.3.579.2.1259 2000 Unknown [id number] 2.16.840.1.954689.3.579.2.9 2000 Unknown [id number] 2.16.840.1.967465.3.579.2.9 2000 Unknown [id number] [id number] 1959 Self-pay 1959 Unknown [id number] 1959 Unknown [id number] Plan of Treatment Date Care Activity Detail Author Start: 09-26-2023 End: 09-26-2023 Patient encounter procedure 09/26/2023 10:50 AM EDT Routine [facility] [address] [place] [id number] Rudi Tracey DO [address] [place] [address] [facility] Start: 08-29-2023 End: 10-28-2023 Alpha fetoprotein, maternal Alpha fetoprotein, maternal Lab Routine Second trimester Expected: 08/29/2023 (Approximate), Expires: 10/28/2023 [facility] Comment on above: Expected: 08/29/2023 (Approximate), Expires: 10/28/2023 Start: 08-29-2023 End: 08-29-2023 Patient encounter procedure 08/29/2023 10:30 AM EST Routine [facility] [address] [id number] Olya Bauman PA [address] [place] [address] Second trimester [facility] Comment on above: Second trimester pre gnancy CHLAMYDIA TRACHOMATI S (GENITO/STI) CHLAMYDIA TRACHOMATIS (GENITO/STI) Lab Routine STD exposure Ordered: 08/29/2023 [facility] Comment on above: Ordered: 08/29/2023 Cytology Cervical or vaginal smear or scraping study Pap Smear Pathology and Cytology Routine Well woman exam with routine gynecological exam Ordered: 08/29/2023 [facility] Comment on above: Ordered: 08/29/2023 Neisseria gonorrhoea e DNA [Presence] in Unspecified specimen by RHIANNA with probe detection Neisseria gonorrhea DNA probe, direct Lab Routine STD exposure Ordered: 08/29/2023 [facility] Comment on above: Ordered: 08/29/2023 SURESWAB(R) ADVANCED VAGINITIS PLUS, TMA SURESWAB(R) ADVANCED VAGINITIS PLUS, TMA Pathology and Cytology Routine Vaginal discharge Ordered: 08/29/2023 [facility] Work Phone: Comment on above: Ordered: 08/29/2023 Problems Problem Classification Problem Date Documented Date [...] [CONTACT W/AND (SUSP) EXPOS COVID-19] Onset: 07-04-2022 Procedures Date Procedure Procedure Detail Performing Clinician Start: 08-29-2023 URETHRITIS/DISCHARGE PLUS VAGINITIS (HTRX) Olya LE Work Phone: Start: 08-29-2023 Urnls dip stick/tabl et rgnt non-auto w/o micrscp Olya LE Work Phone: Start: 06-17-2022 Delivery of Products of Conception, External Approach DR AUGUSTINE ENRIQUE Results Test Name Value Interpretation Reference Range Facility URETHRITIS/DISCHARGE PLUS VA GINITIS (HTRX)on 08-31-2023 [facility] ATOP[facility]BI[facility] VAGINAE Not detected [facility] BVAB 2,3 (BACTERIAL VAGINOSIS ASSOCIATED BACTERIA 2, 3); MOBILUNCUS SPP 22.438 Abnormal [facility] BVAB 2,3 (BACTERIAL VAGINOSIS ASSOCIATED BACTERIA 2, 3); MOBILUNCUS SPP Detected Abnormal [facility] JEREMI ALBICANS, PARAPSILOSIS, TROPICALIS 0 [facility] JEREMI ALBICANS, PARAPSILOSIS, TROPICALIS Not detected [facility] J[facility]I GLABRATA 0 [facility] JEREMI GLABRATA Not detected [facility]althcare [facility]I Not [facility] CHLAMYDIA TRACHOMATIS 0 [facility] CHLAMYDIA TRACHOMATIS Not detected [facility] DFR (A1, A5), SUL (1,2) 0 PPM [facility] DFR (A1, A5), SUL (1,2) Not detected [facility] ERMB, C; MEFA 25.226 Abnormal PPM [facility] care ERMB, C; MEFA Detected Abnormal [facility] care GARDNERELLA VAGINALIS 30.91 Abnormal [facility] GARDNERELLA VAGINALIS Detected Abnormal [facility] Interpretation and review of laboratory results Abnormal [facility] MEGASPHAERA (TYPES 1, 2) 0 [facility] MEGASPHAERA (TYPES 1, 2) Not detected [facility] MYCOPLASMA GENITALIUM 0 [facility] MYCOPLASMA GENITALIUM Not detected [facility] NEISSERIA GONORRHOEAE 0 [facility] NEISSERIA GONORRHOEAE Not detected [facility] TET B, TET M 23.014 Abnormal [facility] are TET B, TET M Detected Abnormal [facility] are TRICHOMONAS VAGINALIS 0 [facility] TRICHOMONAS VAGINALIS Not detected [facility] e Urinalysis macro (dipstick) panel (U)on 08-29-2023 Bilirubin, UA Negative Negative - 4(70) +++ mg/dL [facility] Blood, UA Negative Negative - 50 Teddy/mcL [facility] Clarity, UA Clear [facility] Healthca re Color, UA Yellow [facility] Glucose, UA Negative Negative - 1999(110) ++++ mg/dL [facility] Interpretation and review of laboratory results Abnormal [facility] Ketones, UA Positive Negative - 160(16) ++++ mg/dL [facility] Leukocytes, UA Trace Negative - 500+++ Nicolasa/mcL [facility] Nitrite, UA Negative Negative - Positive [facility] pH, UA 6.0 5 - 9 [facility] e Protein, UA Negative Negative - 1999(20) ++++ mg/dL [facility] Spec Grav, UA 1.030 1 - 1.03 [facility] Urobilinogen, UA 0.2 0.2 - 12 mg/dL [facility] CBC AUTO DIFFon 06-18-2022 BASO # 0.1 103/ul Normal 0.0-0.1 [facility] Comment on above: Performed By: #### U MICRO, UACSIND #### [facility] [address] [address] [address] Pancho Oliva Basophils/100 WBC (Bld) 0.8 % Normal 0.2-2.0 [facility] Comment on above: Performed By: #### U MICRO, UACSIND #### [facility] [address] [address] [address] Pancho Oliva EO # 0.3 103/ul Normal 0.0-0.7 [facility] Comment on above: Performed By: #### U MICRO, UACSIND #### [facility] [address] [address] [address] Pancho Oliva Eosinophils/100 WBC (Bld) 2.1 % Normal 0.9-7.0 [facility] Comment on above: Performed By: #### U MICRO, UACSIND #### [facility] [address] [address] [address] Pancho Oliva Erythrocyte distribution width (RBC) [Ratio] 13.9 % Normal 11.0-15.0 [facility] Comment on above: Performed By: #### U MICRO, UACSIND #### [facility] [address] [address] [address] Pancho Oliva Hematocrit (Bld) [Volume fraction] 36.2 % Normal 36.0-48.0 [facility] Comment on above: Performed By: #### U MICRO, UACSIND #### [facility] [address] [place] [address] Dr. Pancho Oliva Hemoglobin (Bld) [Mass/Vol] 11.8 g/dL Critically low 12.0-16.0 [facility] Comment on above: Performed By: #### U MICRO, UACSIND #### [facility] [address] [place] [address] Dr. Pancho Oliva IG # 0.16 10e3/ul Critically high 0.00-0.03 [facility] Comment on above: Performed By: #### U MICRO, UACSIND #### [facility] [address] [place] [address] Dr. Pancho Oliva IG % 1.1 % Critically high 0.0-0.5 [facility] Comment on above: Performed By: #### U MICRO, UACSIND #### [facility] [address] [place] [address] Dr. Pancho Oliva LYMPH # 3.5 103/ul Normal 1.2-3.8 [facility] Comment on above: Performed By: #### U MICRO, UACSIND #### [facility] [address] [place] [address] Dr. Pancho Oliva Lymphocytes/100 WBC (Bld) 23.3 % Normal 20.5-60.0 [facility] Comment on above: Performed By: #### U MICRO, UACSIND #### [facility] [address] [place] [address] Dr. Pancho Oliva MANUAL DIFF REQ NO Normal [facility] Comment on above: Performed By: #### U MICRO, UACSIND #### [facility] [address] [place] [address] Dr. Pancho Oliva MCH (RBC) [Entitic mass] 27.1 pg Normal 26.7-34.0 [facility] Comment on above: Performed By: #### U MICRO, UACSIND #### [facility] [address] [place] [address] Dr. Pancho Oliva MCHC (RBC) [Mass/Vol] 32.6 g/dL Normal 29.9-35.2 [facility] Comment on above: Performed By: #### U MICRO, UACSIND #### [facility] [address] [place] [address] Dr. Pancho Oliva MCV (RBC) [Entitic vol] 83.0 fL Normal 81.0-99.0 [facility] Comment on above: Performed By: #### U MICRO, UACSIND #### [facility] [address] [place] [address] Dr. Pancho Oliva MONO # 0.7 103/ul Normal 0.3-0.8 [facility] Comment on above: Performed By: #### U MICRO, UACSIND #### [facility] [address] [place] [address] Dr. Pancho Oliva Monocytes/100 WBC (Bld) 4.3 % Normal 1.7-12.0 [facility] Comment on above: Performed By: #### U MICRO, UACSIND #### [facility] [address] [place] [address] Dr. Pancho Oliva NEUT # 10.2 103/ul Critically high 1.4-6.[address] [facility] Comment on above: Performed By: #### U MICRO, UACSIND #### [facility] [address] [place] [address] Dr. Pancho Oliva Neutrophils/100 WBC (Bld) 68.4 % Normal 43.0-75.0 [facility] Comment on above: Performed By: #### U MICRO, UACSIND #### [facility] [address] [place] [address] Dr. Pancho Oliva Platelet mean volume (Bld) [Entitic vol] 9.7 fL Normal 9.5-13.5 [facility] Comment on above: Performed By: #### U MICRO, UACSIND #### [facility] [address] [address] [address] Pancho Oliva PLT 271 103/ul Normal 150-450 [facility] Comment on above: Performed By: #### U MICRO, UACSIND #### [facility] [address] [address] [address] Pancho Oliva RBC 4.36 106/ul Normal 4.20-5.40 [facility] Comment on above: Performed By: #### U MICRO, UACSIND #### [facility] [address] [address] [address] Pancho Oliva WBC 15.0 103/ul Critically high 4.0-11.0 [facility] Comment on above: Performed By: #### U MICRO, UACSIND #### [facility] [address] [address] [address] Pancho Oliva RPR QUANTon 06-18-2022 Rapid Plasma Reagin, Quant Non-Reactive Normal NonRea<1:1 [facility] Comment on above: Result Comment: Plea se Note: This test does not meet current guidelines for screening and diagnosis of syphilis. This test is intended for following treatment response in patients being treated for syphilis infection. To screen for syphilis infection, a reflex cascade that includes both RPR and a treponema-specific assay should be utilized, such as Treponema pallidum (Syphilis) Screening [place] (118708) or Rapid Plasma Reagin (RPR) Test With Reflex to Quantitative RPR and Confirmatory Treponema pallidum Antibodies (236069). Performed By: #### R PRQ #### [facility] [address] [address] [address] Pancho Oliva CBC AUTO DIFFon 06-16-2022 BASO # 0.1 103/ul Normal 0.0-0.1 [facility] Comment on above: Performed By: #### U MICRO, UACSIND #### [facility] [address] [address] [address] Pancho Oliva Basophils/100 WBC (Bld) 0.5 % Normal 0.2-2.0 [facility] Comment on above: Performed By: #### U MICRO, UACSIND #### [facility] [address] [address] [address] Pancho Oliva EO # 0.0 103/ul Normal 0.0-0.7 [facility] Comment on above: Performed By: #### U MICRO, UACSIND #### [facility] [address] [place] [address] Dr. Pancho Oliva Eosinophils/100 WBC (Bld) 0.1 % Critically low 0.9-7.0 [facility] Comment on above: Performed By: #### U MICRO, UACSIND #### [facility] [address] [place] [address] Dr. Pancho Oliva Erythrocyte distribution width (RBC) [Ratio] 13.5 % Normal 11.0-15.0 [facility] Comment on above: Performed By: #### U MICRO, UACSIND #### [facility] [address] [place] [address] Dr. Pancho Oliva Hematocrit (Bld) [Volume fraction] 38.7 % Normal 36.0-48.0 [facility] Comment on above: Performed By: #### U MICRO, UACSIND #### [facility] [address] [place] [address] Dr. Pancho Oliva Hemoglobin (Bld) [Mass/Vol] 13.0 g/dL Normal 12.0-16.0 [facility] Comment on above: Performed By: #### U MICRO, UACSIND #### [facility] [address] [place] [address] Dr. Pancho Oliva IG # 0.15 10e3/ul Critically high 0.00-0.03 [facility] Comment on above: Performed By: #### U MICRO, UACSIND #### [facility] [address] [place] [address] Dr. Pancho Oliva IG % 0.8 % Critically high 0.0-0.5 [facility] Comment on above: Performed By: #### U MICRO, UACSIND #### [facility] [address] [place] [address] Dr. Pancho Oliva LYMPH # 1.8 103/ul Normal 1.2-3.8 [facility] Comment on above: Performed By: #### U MICRO, UACSIND #### [facility] [address] [address] [address] Pancho Oliva Lymphocytes/100 WBC (Bld) 8.9 % Critically low 20.5-60.0 [facility] Comment on above: Performed By: #### U MICRO, UACSIND #### [facility] [address] [address] [address] Pancho Oliva MANUAL DIFF REQ NO Normal [facility] Comment on above: Performed By: #### U MICRO, UACSIND #### [facility] [address] [place] [address] Dr. Pancho Oliva MCH (RBC) [Entitic mass] 27.2 pg Normal 26.7-34.0 [facility] Comment on above: Performed By: #### U MICRO, UACSIND #### [facility] [address] [place] [address] Dr. Pancho Oliva MCHC (RBC) [Mass/Vol] 33.6 g/dL Normal 29.9-35.2 [facility] Comment on above: Performed By: #### U MICRO, UACSIND #### [facility] [address] [place] [address] Dr. Pancho Oliva MCV (RBC) [Entitic vol] 81.0 fL Normal 81.0-99.0 [facility] Comment on above: Performed By: #### U MICRO, UACSIND #### [facility] [address] [place] [address] Dr. Pancho Oliva MONO # 0.5 103/ul Normal 0.3-0.8 [facility] Comment on above: Performed By: #### U MICRO, UACSIND #### [facility] [address] [address] [address] Pancho Oliva Monocytes/100 WBC (Bld) 2.5 % Normal 1.7-12.0 [facility] Comment on above: Performed By: #### U MICRO, UACSIND #### [facility] [address] [address] [address] Pancho Oliva NEUT # 17.2 103/ul Critically high 1.4-6.[address] [facility] Comment on above: Performed By: #### U MICRO, UACSIND #### [facility] [address] [address] [address] Pancho Oliva Neutrophils/100 WBC (Bld) 87.2 % Critically high 43.0-75.0 [facility] Comment on above: Performed By: #### U MICRO, UACSIND #### [facility] [address] [address] [address] Pancho Oliva Platelet mean volume (Bld) [Entitic vol] 9.9 fL Normal 9.5-13.5 [facility] Comment on above: Performed By: #### U MICRO, UACSIND #### [facility] [address] [address] [address] Pancho Oliva PLT 332 103/ul Normal 150-450 [facility] Comment on above: Performed By: #### U MICRO, UACSIND #### [facility] [address] [address] [address] Pancho Oliva RBC 4.78 106/ul Normal 4.20-5.40 [facility] Comment on above: Performed By: #### U MICRO, UACSIND #### [facility] [address] [address] [address] Pancho Oliva WBC 19.8 103/ul Critically high 4.0-11.[address] [facility] Comment on above: Performed By: #### U MICRO, UACSIND #### [facility] [address] [address] [address] Pancho Oliva CULTURE URINEon 06-16-2022 CULTURE URINE Culture Observations: LIGHT GROWTH OF MIXED GENITAL XOCHITL. NO POTENTIAL PATHOGENS SEEN. Normal [facility] Comment on above: Performed By: #### U RCX #### [facility] [address] [address] [address] Pancho Oliva Covid-19 PCR (CVDTB)on 05-20 SARS-CoV-2 (COVID-19) RNA RHIANNA+probe Ql (Unsp spec) Not detected Normal NOT DETECTED [facility] Comment on above: Result Comment: When [...] for this test is supported by the [place] of Health and Human Service's declaration that [...] used). Performed By: #### C VDTBH #### [facility] [address] [place] [address] Dr. Pancho Oliva DRUG SCREEN RAPID (URINE)on 06-16-2022 AMP Negative Normal NEGATIVE [facility] Comment on above: Performed By: #### U MICRO, UACSIND #### [facility] [address] [place] [address] Dr. Pancho Oliva BAR Negative Normal NEGATIVE [facility] Comment on above: Performed By: #### U MICRO, UACSIND #### [facility] [address] [address] [address] Pancho Oliva BUP Negative Normal NEGATIVE [facility] Comment on above: Performed By: #### U MICRO, UACSIND #### [facility] [address] [place] [address] Dr. Pancho Oliva BZO Negative Normal NEGATIVE [facility] Comment on above: Performed By: #### U MICRO, UACSIND #### [facility] [address] [place] [address] Dr. Pancho Oliva CALVIN Negative Normal NEGATIVE [facility] Comment on above: Performed By: #### U MICRO, UACSIND #### [facility] [address] [place] [address] Dr. Pancho Oliva CUT-OFFS SEE BELOW Normal [facility] Comment on above: Result Comment: AMP [...] Performed By: #### U MICRO, UACSIND #### [facility] [address] [place] [address] Dr. Pancho Oliva DRUG CUT HEADER DRUG CLASS TEST SYSTEM CUT-OFF CONCENTRATIONS ARE FOLLOWS: Normal [facility] Comment on above: Performed By: #### U MICRO, UACSIND #### [facility] [address] [place] [address] Dr. Pancho Oliva mAMP Negative Normal NEGATIVE [facility] Comment on above: Performed By: #### U MICRO, UACSIND #### [facility] [address] [place] [address] Dr. Pancho Oliva MTD Negative Normal NEGATIVE [facility] Comment on above: Performed By: #### U MICRO, UACSIND #### [facility] [address] [place] [address] Dr. Pancho Oliva OPI Negative Normal NEGATIVE [facility] Comment on above: Performed By: #### U MICRO, UACSIND #### [facility] [address] [place] [address] Dr. Pancho Oliva OXY Negative Normal NEGATIVE [facility] Comment on above: Performed By: #### U MICRO, UACSIND #### [facility] [address] [place] [address] Dr. Pancho Oliva PCP Negative Normal NEGATIVE [facility] Comment on above: Performed By: #### U MICRO, UACSIND #### [facility] [address] [address] [address] Pancho Oliva PPX Negative Normal NEGATIVE [facility] Comment on above: Performed By: #### U MICRO, UACSIND #### [facility] [address] [address] [address] Pancho Oliva TCA Negative Normal NEGATIVE [facility] Comment on above: Performed By: #### U MICRO, UACSIND #### [facility] [address] [address] [address] Pancho Oliva THC Negative Normal NEGATIVE [facility] Comment on above: Performed By: #### U MICRO, UACSIND #### [facility] [address] [place] [address] Dr. Pancho Oliva TYPE AND SCREENon 06-16-2022 TYPE AND SCREEN Negative Normal [facility] Comment on above: Performed By: #### U MICRO, UACSIND #### [facility] [address] [place] [address] Dr. Pancho Oliva UA (CLEAN/CATCH) HEALTH SOCIAL WORK PROFESSOR/MICRO I F IND.on 06-16-2022 Bilirubin Ql (U) Negative Normal NEGATIVE [facility] Comment on above: Performed By: #### U MICRO, UACSIND #### [facility] [address] [place] [address] Dr. Pancho Oliva Clarity (U) CLEAR Normal CLEAR [facility] Comment on above: Performed By: #### U MICRO, UACSIND #### [facility] [address] [place] [address] Dr. Pancho Oliva Color (U) YELLOW Normal YELLOW [facility] Comment on above: Performed By: #### U MICRO, UACSIND #### [facility] [address] [place] [address] Dr. Panhco Oliva Glucose Ql (U) Negative Normal NEGATIVE [facility] Comment on above: Performed By: #### U MICRO, UACSIND #### [facility] [address] [address] [address] Pancho Oliva Hemoglobin Ql (U) SMALL Abnormal NEGATIVE [facility] Comment on above: Performed By: #### U MICRO, UACSIND #### [facility] [address] [address] [address] Pancho Oliva Ketones Ql (U) TRACE Abnormal NEGATIVE [facility] Comment on above: Performed By: #### U MICRO, UACSIND #### [facility] [address] [address] [address] Pancho Oliva LEUKOCYTES Negative Normal NEGATIVE [facility] Comment on above: Performed By: #### U MICRO, UACSIND #### [facility] [address] [address] [address] Pancho Oliva Nitrite Ql (U) Negative Normal NEGATIVE [facility] Comment on above: Performed By: #### U MICRO, UACSIND #### [facility] [address] [place] [address] Dr. Pancho Oliva pH (U) 5.5 [pH] Normal 5-9 [facility] Comment on above: Performed By: #### U MICRO, UACSIND #### [facility] [address] [address] [address] Pancho Oliva SPEC GRAVITY >=1.030 Abnormal 1.005-<=1.025 [facility] Comment on above: Performed By: #### U MICRO, UACSIND #### [facility] [address] [address] [address] Pancho Oliva UA PROTEIN 100 mg/dl Abnormal NEGATIVE/ TRACE [facility] Comment on above: Performed By: #### U MICRO, UACSIND #### [facility] [address] [address] [address] Pancho Oliva UR MICRO IND INDICATED Normal [facility] Comment on above: Performed By: #### U MICRO, UACSIND #### [facility] [address] [place] [address] Dr. Pancho Oliva Urobilinogen Qn (U) 0.2 {Pearl'U}/dL Normal 0.2 - 1. 0 [facility] [facility] Comment on above: Performed By: #### U MICRO, UACSIND #### [facility] [address] [address] [address] Pancho Oliva URINE MICROSCOPIC ONLYon AMORPHOUS CRYSTALS FEW Normal [facility] Comment on above: Performed By: #### U MICRO, UACSIND #### [facility] [address] [address] [address] Pancho Oliva BACTERIA SMALL Abnormal NONE SEEN [facility] Comment on above: Performed By: #### U MICRO, UACSIND #### [facility] [address] [address] [address] Pancho Oliva Bacteria identified Cx Nom (U) INDICATED Normal [facility] Comment on above: Performed By: #### U MICRO, UACSIND #### [facility] [address] [place] [address] Dr. Pancho Oliva CAST SEEN Abnormal NONE [facility] Comment on above: Performed By: #### U MICRO, UACSIND #### [facility] [address] [address] [address] Pancho Oliva Crystals LM Nom (Urine sed) SEEN Abnormal NONE SEEN [facility] Comment on above: Performed By: #### U MICRO, UACSIND #### [facility] [address] [address] [address] Pancho Oliva Epithelial cells LM Ql (Urine sed) FEW Abnormal NONE SEEN /RARE [facility] Comment on above: Performed By: #### U MICRO, UACSIND #### [facility] [address] [address] [address] Pancho Oliva HYALINE CAST RARE Normal [facility] Comment on above: Performed By: #### U MICRO, UACSIND #### [facility] [address] [address] [address] Pancho Oliva MUCOUS TRACE Abnormal NONE SEEN [facility] Comment on above: Performed By: #### U MICRO, UACSIND #### [facility] [address] [address] [address] Pancho Oliva RBC 2-5 Abnormal 0-2 [facility] Comment on above: Performed By: #### U MICRO, UACSIND #### [facility] [address] [address] [address] Pancho Oliva WBC 0-2 Abnormal NONE SEEN [facility] Comment on above: Performed By: #### U MICRO, UACSIND #### [facility] [address] [address] [address] Pancho Oliva CHLAMYDIA/GONOCOCCUS RHIANNA (SW AB/URINE/PAPon 06-04-2022 Chlamydia trachomatis, RHIANNA Negative Normal Negative [facility] Comment on above: Performed By: #### U MICRO, UACSIND #### [facility] [address] [address] [address] Pancho Oliva Neisseria gonorrhoeae, RHIANNA Negative Normal Negative [facility] Comment on above: Performed By: #### U MICRO, UACSIND #### [facility] [address] [address] [address] Pancho Oliva GROUP B STREP CULTUREon 05-18 S. agalactiae Ag Ql (Unsp spec) Culture Observations: NEGATIVE FOR GROUP B STREPTOCOCCUS. Normal [facility] Comment on above: Performed By: #### U MICRO, UACSIND #### [facility] [address] [address] [address] Pancho Oliva US PREG ANATOMY SINGLEon [...] KIM LEIGH Date: 2022-04-08 22:10 Normal [facility] GLUCOSE - 1HRon 04-07-2022 Glucose [Mass/Vol] 114 mg/dL Critically high 74-106 T [facility] Comment on above: Performed By: #### U MICRO, UACSIND #### [facility] [address] [place] [address] Dr. Pancho Oliva HEMOGRAM AND PLATELon 2021 Hematocrit (Bld) [Volume fraction] 36.1 % Normal 36.0-48.0 [facility] Comment on above: Performed By: #### U MICRO, UACSIND #### [facility] [address] [address] [address] Pancho Oliva Hemoglobin (Bld) [Mass/Vol] 12.1 g/dL Normal 12.0-16.0 [facility] Comment on above: Performed By: #### U MICRO, UACSIND #### [facility] [address] [place] [address] Dr. Pancho Oliva MCH (RBC) [Entitic mass] 28.5 pg Normal 26.7-34.0 [facility] Comment on above: Performed By: #### U MICRO, UACSIND #### [facility] [address] [place] [address] Dr. Pancho Oliva MCHC (RBC) [Mass/Vol] 33.5 g/dL Normal 29.9-35.2 [facility] Comment on above: Performed By: #### U MICRO, UACSIND #### [facility] [address] [address] [address] Pancho Oliva MCV (RBC) [Entitic vol] 85.1 fL Normal 81.0-99.0 [facility] Comment on above: Performed By: #### U MICRO, UACSIND #### [facility] [address] [address] [address] Pancho Oliva PLT 333 103/ul Normal 150-450 [facility] Comment on above: Performed By: #### U MICRO, UACSIND #### [facility] [address] [address] [address] Pancho Oliva RBC 4.24 106/ul Normal 4.20-5.40 [facility] Comment on above: Performed By: #### U MICRO, UACSIND #### [facility] [address] [address] [address] Pancho Oliva WBC 16.5 103/ul Critically high 4.0-11.[address] [facility] Comment on above: Performed By: #### U MICRO, CSIND #### [facility] [address] [address] [address] Pancho Oliva AFP TETRA PROFILE (MATERNAL) on 01-21-2022 AFP MoM 0.81 Normal [facility] Comment on above: Performed By: #### A FPTET #### [facility] [address] [address] [address] Pancho Oliva AFP Value 26.1 ng/mL Normal [facility] Comment on above: Performed By: #### A FPTET #### [facility] [address] [address] [address] Pancho Oliva Comment Comment Normal [facility] Comment on above: Result Comment: Marguerite Hassan, Ph.D., [facility] Director . References: Available Upon Request. . Multiples Of Median Cutoffs Abbreviation Definitions For AFP Elevations IDD- Insulin Dep Diabetes Daugherty 2.5 Black 2.8 OSBR- Open Spina Bifida IDD 2.0 Twins 4.5 Risk DSR Cutoff 1:270 DSR- Down Syndrome Risk T18 Cutoff 1:100 T18- Trisomy 18 . For further inquiries contact [facility] at [phone]. . This test was developed and its performance characteristics determined by [employer]. It has not been cleared or approved by the Food and Drug Administration. Performed By: #### A FPTET #### [facility] [address] [place] [address] Dr. Pancho Oliva INDRA MoM 0.96 Normal [facility] Comment on above: Performed By: #### A FPTET #### [facility] [address] [place] [address] Dr. Pancho Oliva INDRA Value 118.40 pg/mL Normal [facility] Comment on above: Performed By: #### A FPTET #### [facility] [address] [place] [address] Dr. Pancho Oliva DSR (By Age) 1 [place] 1121 Normal [facility] Comment on above: Performed By: #### A FPTET #### [facility] [address] [place] [address] Dr. Pancho Oliva DSR (Second Trimester) 1 [place] [address] [facility] Comment on above: Performed By: #### A FPTET #### [facility] [address] [place] [address] Dr. Pancho Billingsley Age on Collection Date 17.[address] [facility] Comment on above: Performed By: #### A FPTET #### [facility] [address] [place] [address] Dr. Pancho Foss. Age Based On LMP [facility] Comment on above: Performed By: #### A FPTET #### [facility] [address] [place] [address] Dr. Pancho Oliva hCG MoM 0.73 Normal [facility] Comment on above: Performed By: #### A FPTET #### [facility] [address] [place] [address] [place] [address] m[IU]/mL Normal [facility] Comment on above: Performed By: #### A FPTET #### [facility] [address] [place], [place] [id number] Dr. Pancho Oliva Insulin Dep Diabetes No Normal [facility] Comment on above: Performed By: #### A FPTET #### [facility] [address] [place] [address] Dr. Pancho Oliva Interpretation Comment Normal [facility] Comment on above: Result Comment: Inte [...] identifies 60% of Trisomy 18 pregnancies. The [employer] recommends amniocentesis be offered to women age 35 and older. Recalculations are not recommended when gestational dating by LMP and ultrasound are within 10 days. Performed By: #### A FPTET #### [facility] [address] [place] [address] Dr. Pancho Oliva [age] Normal [facility] Comment on above: Performed By: #### A FPTET #### [facility] [address] [place] [address] Dr. Pancho Oliva Multiple Gestation No Normal [facility] Comment on above: Performed By: #### A FPTET #### [facility] [address] [place] [address] Dr. Panch[place] Oliva [place] [address] [facility] Comment on above: Performed By: #### A FPTET #### [facility] [address] [place] [address] Dr. Pancho Oliva PDF . Normal [facility] Comment on above: Performed By: #### A FPTET #### [facility] [address] [place] [address] Dr. Pancho Oliva Race [facility] Comment on above: Performed By: #### A FPTET #### [facility] [address] [address] [address] Pancho Oliva Results Report Normal [facility] Comment on above: Performed By: #### A FPTET #### [facility] [address] [place] [address] Dr. Pancho Oliva T18 (By Age) 1:4368 Normal [facility] Comment on above: Performed By: #### A FPTET #### [facility] [address] [address] [address] Pancho Oliva T18 Risk Not increased Normal [place] Comment on above: Performed By: #### A FPTET #### [facility] [address] [place] [address] Dr. Pancho Oliva Test Results: Negative Normal [place] Comment on above: Performed By: #### A FPTET #### [facility] [address] [place] [address] Dr. Pancho Oliva uE3 MoM 1.70 Normal [facility] Comment on above: Performed By: #### A FPTET #### [facility] [address] [place] [address] Dr. Pancho Oliva uE3 Value 1.80 ng/mL Normal [facility] Comment on above: Performed By: #### A FPTET #### [facility] [address] [place] [address] Dr. Pancho Oliva HEP B SURFACE ANTIGEN SCREEN on 01-20-2022 HBsAg Screen Negative Normal Negative [facility] Comment on above: Performed By: #### U MICRO, UACSIND #### [facility] [address] [place] [address] Dr. Pancho Oliva HEPATITIS C VIRUS AB W/ REFL EX QUANTon 01-20-2022 HCV AB 0.1 s/co ratio Normal 0.0-0.9 [facility] Comment on above: Performed By: #### U MICRO, UACSIND #### [facility] [address] [place] [address] Dr. Pancho Oliva Interpretation: Comment Normal [facility] Comment on above: Result Comment: Nega tive Not infected with HCV, unless recent infection is suspected or other evidence exists to indicate HCV infection. Performed By: #### U MICRO, UACSIND #### [facility] [address] [place] [address] Dr. Pancho Oliva HIV 1 AND 2 WITH REFLEXon HIV Screen 4th Generation wRfx Non-Reactive Normal Non Reactive [facility] Comment on above: Result Comment: HIV Negative HIV-1/HIV-2 antibodies and HIV-1 p24 antigen were NOT detected. There is no laboratory evidence of HIV infection. Performed By: #### U MICRO, UACSIND #### [facility] [address] [address] [address] Pancho Oliva RPR QUANTon 01-20-2022 Rapid Plasma Reagin, Quant Non-Reactive Normal NonRea<1:1 [facility] Comment on above: Result Comment: Plea se Note: This test does not meet current guidelines for screening and diagnosis of syphilis. This test is intended for following treatment response in patients being treated for syphilis infection. To screen for syphilis infection, a reflex cascade that includes both RPR and a treponema-specific assay should be utilized, such as Treponema pallidum (Syphilis) Screening [place] (400031) or Rapid Plasma Reagin (RPR) Test With Reflex to Quantitative RPR and Confirmatory Treponema pallidum Antibodies (493658). Performed By: #### R PRQ #### [facility] [address] [place] [address] Dr. Pancho Oliva RUBELLA AB IGGon 01-20-2022 Rubella Antibodies, IgG 6.39 index Normal Immune >0.99 [facility] Comment on above: Result Comment: Non- immune <0.90 Equivocal 0.90 - 0.99 Immune >0.99 Performed By: #### R UBIGG #### [facility] [address] [place] [address] Dr. Pancho Oliva CBC AUTO DIFFon 01-19-2022 BASO # 0.1 103/ul Normal 0.0-0.1 [facility] Comment on above: Performed By: #### C BC #### [facility] [address] [address] [address] Pancho Oliva Basophils/100 WBC (Bld) 0.6 % Normal 0.2-2.0 [facility] Comment on above: Performed By: #### C BC #### [facility] [address] [place] [address] Dr. Pancho Oliva EO # 0.3 103/ul Normal 0.0-0.7 [facility] Comment on above: Performed By: #### C BC #### [facility] [address] [place] [address] Dr. Pancho Oliva Eosinophils/100 WBC (Bld) 2.1 % Normal 0.9-7.0 [facility] Comment on above: Performed By: #### C BC #### [facility] [address] [place] [address] Dr. Pancho Oliva Erythrocyte distribution width (RBC) [Ratio] 12.3 % Normal 11.0-15.0 [facility] Comment on above: Performed By: #### C BC #### [facility] [address] [place] [address] Dr. Pancho Oliva Hematocrit (Bld) [Volume fraction] 37.0 % Normal 36.0-48.0 [facility] Comment on above: Performed By: #### C BC #### [facility] [address] [place] [address] Dr. Pancho Oliva Hemoglobin (Bld) [Mass/Vol] 12.6 g/dL Normal 12.0-16.0 [facility] Comment on above: Performed By: #### C BC #### [facility] [address] [place] [address] Dr. Pancho Oliva IG # 0.19 10e3/ul Critically high 0.00-0.03 [facility] Comment on above: Performed By: #### C BC #### [facility] [address] [place] [address] Dr. Pancho Oliva IG % 1.2 % Critically high 0.0-0.5 [facility] Comment on above: Performed By: #### C BC #### [facility] [address] [place] [address] Dr. Pancho Oliva LYMPH # 2.6 103/ul Normal 1.2-3.8 [facility] Comment on above: Performed By: #### C BC #### [facility] [address] [place] [address] Dr. Pancho Oliva Lymphocytes/100 WBC (Bld) 15.6 % Critically low 20.5-60.0 [facility] Comment on above: Performed By: #### C BC #### [facility] [address] [place] [address] Dr. Pancho Oliva MANUAL DIFF REQ NO Normal [facility] Comment on above: Performed By: #### C BC #### [facility] [address] [place] [address] Dr. Pancho Oliva MCH (RBC) [Entitic mass] 28.4 pg Normal 26.7-34.0 [facility] Comment on above: Performed By: #### C BC #### [facility] [address] [place] [address] Dr. Pancho Oliva MCHC (RBC) [Mass/Vol] 34.1 g/dL Normal 29.9-35.2 [facility] Comment on above: Performed By: #### C BC #### [facility] [address] [place] [address] Dr. Pancho Oliva MCV (RBC) [Entitic vol] 83.5 fL Normal 81.0-99.0 [facility] Comment on above: Performed By: #### C BC #### [facility] [address] [place] [address] Dr. Pancho Oliva MONO # 0.7 103/ul Normal 0.3-0.8 [facility] Comment on above: Performed By: #### C BC #### [facility] [address] [place] [address] Dr. Pancho Oliva Monocytes/100 WBC (Bld) 4.2 % Normal 1.7-12.0 [facility] Comment on above: Performed By: #### C BC #### [facility] [address] [place] [address] Dr. Pnacho Oliva NEUT # 12.6 103/ul Critically high 1.4-6.5 [facility] Comment on above: Performed By: #### C BC #### [facility] [address] [place] [address] Dr. Pancho Oliva Neutrophils/100 WBC (Bld) 76.3 % Critically high 43.0-75.0 [facility] Comment on above: Performed By: #### C BC #### [facility] [address] [place] [address] Dr. Pancho Oliva Platelet mean volume (Bld) [Entitic vol] 9.0 fL Critically low 9.5-13.5 [facility] Comment on above: Performed By: #### C BC #### [facility] [address] [place] [address] Dr. Pancho Oliva PLT 359 103/ul Normal 150-450 [facility] Comment on above: Performed By: #### C BC #### [facility] [address] [place] [address] Dr. Pancho Oliva RBC 4.43 106/ul Normal 4.20-5.40 [facility] Comment on above: Performed By: #### C BC #### [facility] [address] [place] [address] Dr. Pancho Oliva WBC 16.5 103/ul Critically high 4.0-11.0 [facility] Comment on above: Performed By: #### C BC #### [facility] [address] [place] [address] Dr. Pancho Oliva CULTURE URINEon 01-19-2022 CULTURE URINE Culture Observations: HEAVY GROWTH OF MIXED GENITAL XOCHITL. NO POTENTIAL PATHOGENS SEEN. Normal [facility] Comment on above: Performed By: #### U RCX #### [facility] [address] [place] [address] Dr. Pancho Oliva GLYCOHEMOGLOBIN A1Con 2021 ADA RECOMMENDATION SEE BELOW Normal [facility] Comment on above: Result Comment: ADA RECOMMENDED LIMIT 4.0 - 6.0 ADA THERAPEUTIC TARGET < 7.0 ACTION SUGGESTED > 7.0 Performed By: #### U MICRO, UACSIND #### [facility] [address] [place], [place] [address] Dr. Pancho Oliva Glucose [Mass/Vol] 94 mg/dL Normal [facility] Comment on above: Performed By: #### U MICRO, UACSIND #### [facility] [address] [place], [place] [address] Dr. Pancho Oliva HbA1c (Bld) [Mass fraction] 4.9 % Normal 4.5-6.2 [facility] Comment on above: Performed By: #### U MICRO, UACSIND #### [facility] [address] [place], [place] [address] Dr. Pancho Oliva TYPE AND SCREENon 01-19-2022 TYPE AND SCREEN Negative Normal [facility] Comment on above: Performed By: #### U MICRO, UACSIND #### [facility] [address] [address] [address] Pancho Oliva US PREG TVon 11-23-2021 [...] KIM LEIGH Date: 2021-11-23 16:11 Normal [facility] Social History Date Type Detail Facility Start: 08-01-2023 End: 08-29-2023 Alcohol intake Lifetime non-drinker (finding) [facility] Start: 06-02-2023 [facility] Start: 02-07-2023 Gender identity Identifies as female gender (finding) [facility] Start: 02-06-[facility]23 [facility] Start: 02-06-2023 History of Social function [facility] Start: 02-06-2023 Tobacco use panel [facility] Start: 2000 Sex Assigned At Female [facility] Vital Signs Date Time Vital Sign Value Performing Clinician Facility 08-29-2023 10:55-0500 Body mass index (BMI) [Ratio] 38.11 kg/m2 Olya LE Work Phone: [facility] 08-29-2023 10:55-0500 Body weight 103.87 kg Olya LE Work Phone: [facility] 08-29-2023 10:55-0500 Diastolic blood pressure 78 mm[Hg] Olya LE Work Phone: [facility] 08-29-2023 10:55-0500 Systolic blood pressure 118 mm[Hg] Olya LE Work Phone: [facility] 01-21-2022 02:06-0400 Body weight 97.[address] AUGUSTINE ENRIQUE [facility] Comment on above: Performed By: #### AFPTET #### [facility] [address] [place] [address] Dr. Pancho Oliva History of Present illness Narrative 08-29-2023 REY [...] Problems Past Medical History: Diagnosis Date depression ([facility]) Family History Problem Relation Name Age [...] obtained without difficulty and patient was given [facility] order to have obtained. Follow Up: Patient [...] [facility] DATE CREATED AUTHOR AUTHOR'S ORGANLEIGH ANN ATION 01/12/[address] [facility] Reason for Visit (unrecogniz ed section and [...] BE BASED ON THE PRIMARY CLINICAL RECORDS. [employer] provides no warranty or guarantee of the accuracy or completeness of information in this document.
== END 2024-01-13 15:30 | disposition home or self-care (01) ==
LOC: US 12:01 → FBC 14:44
PROVIDERS: Obstetrics & Gynecology Gynecology; Admitting Provider Obstetrics & Gynecology; Visit Provider Obstetrics & Gynecology
DX: O40.3XX0 Polyhydramnios, third trimester, not applicable or unspecified (principal); Z3A.34 34 weeks gestation of pregnancy
CPT/HCPCS: 36415; 76818; 81001; 82565; 82570; 84156; 84450; 84460; 84520; 84550; 85025; 85384; 85610; 85730; 87086; G0378; G0379

== ENCOUNTER 2024-01-17 07:03 | Outpatient (OUT) | payer BC, SELFPAY ==
--- OUTSIDE RECORDS SUMMARY | 2024-01-17 07:06 | XMS_ITS | CCD ---
Author Organization [facility] Care Team Providers Care Battery Filler Name Role Phone IVA, DR BRADSHAW Admitting [...] TRACEY Attending Unavailable MERNAOLYA Attending Unavailable INESRUDI Attending Unavailable MERNAOLYA Attending Unavailable INESRUDI Attending [...] GINITIS (HTRX)on 08-31-2023 ATOPOBIUM VAGINAE 0 [facility] ATOPOBIUM VAGINAE Not detected [facility] BVAB 2,3 (BACTERIAL VAGINOSIS ASSOCIATED BACTERIA 2, 3); MOBILUNCUS SPP 22.438 Abnormal [facility] BVAB 2,3 (BACTERIAL VAGINOSIS ASSOCIATED BACTERIA 2, 3); MOBILUNCUS SPP Detected Abnormal [facility] JEREMI ALBICANS, PARAPSILOSIS, TROPICALIS 0 [facility] JEREMI ALBICANS, PARAPSILOSIS, TROPICALIS Not detected [facility] JEREMI GLABRATA 0 [facility] a lthcare JEREMI GLABRATA Not detected [facility] JEREMI KRUSEI 0 [facility] JEREMI KRUSEI Not [facility] CHLAMYDIA TRACHOMATIS 0 [facility] CHLAMYDIA TRACHOMATIS Not detected [facility] DFR (A1, A5), SUL (1,2) 0 PPM [facility] DFR (A1, A5), SUL (1,2) Not detected [facility] ERMB, C; MEFA 25.226 Abnormal PPM [facility] care ERMB, C; MEFA Detected Abnormal [facility] GARDNERELLA VAGINALIS 30.91 Abnormal [facility] GARDNERELLA VAGINALIS Detected Abnormal [facility] Interpretation and review of laboratory results Abnormal [facility] MEGASPHAERA (TYPES 1, 2) 0 [facility] MEGASPHAERA (TYPES 1, 2) Not detected [facility] MYCOPLASMA GENITALIUM 0 [facility] MYCOPLASMA GENITALIUM Not detected [facility] NEISSERIA GONORRHOEAE 0 [facility] NEISSERIA GONORRHOEAE Not detected [facility] TET B, TET M 23.014 Abnormal PPM [facility] are TET B, TET M Detected Abnormal [facility] are TRICHOMONAS VAGINALIS 0 [facility] TRICHOMONAS VAGINALIS Not detected [facility] macro (dipstick) panel (U)on 08-29-2023 Bilirubin, UA Negative Negative - 4(70) +++ mg/dL [facility] Blood, UA Negative Negative - 50 Teddy/mcL [facility] Clarity, UA Clear [facility] re Color, UA Yellow [facility] e Glucose, UA Negative Negative - 1999(110) ++++ mg/dL [facility] Interpretation and review of laboratory results Abnormal [facility] Ketones, UA Positive Negative - 160(16) ++++ mg/dL [facility] Leukocytes, UA Trace Negative - 500+++ Nicolasa/mcL [facility] Nitrite, UA Negative Negative - Positive [facility] pH, UA 6.0 5 - 9 [facility] e Protein, UA Negative Negative - 1999(20) ++++ mg/dL [facility] Spec Grav, UA 1.030 1 - 1.03 [facility] Urobilinogen, UA 0.2 0.2 - 12 mg/dL [facility] CBC AUTO DIFFon 06-18-2022 BASO # 0.1 103/ul Normal 0.0-0.1 [facility] Comment on above: Performed By: #### U MICRO, UACSIND #### [facility] [address] [address] [address] Pancho Oliva Basophils/100 WBC (Bld) 0.8 % Normal 0.2-2.0 [facility] Comment on above: Performed By: #### U MICRO, UACSIND #### [facility] [address] [address] [address] Pancho Oliva EO # 0.3 103/ul Normal 0.0-0.7 [facility] Comment on above: Performed By: #### U MICRO, UACSIND #### [facility] [address] [address] [address] Pancho Oliva Eosinophils/100 WBC (Bld) 2.1 % Normal 0.9-7.0 [facility] Comment on above: Performed By: #### U MICRO, UACSIND #### [facility] [address] [address] [address] Pancho Oliva Erythrocyte distribution width (RBC) [Ratio] 13.9 % Normal 11.0-15.0 [facility] Comment on above: Performed By: #### U MICRO, UACSIND #### [facility] [address] [place] [address] Dr. Pancho Oliva Hematocrit (Bld) [Volume fraction] 36.2 % Normal 36.0-48.0 [facility] Comment on above: Performed By: #### U MICRO, UACSIND #### [facility] [address] [address] [address] Pancho Oliva Hemoglobin (Bld) [Mass/Vol] 11.8 g/dL Critically low 12.0-16.0 [facility] Comment on above: Performed By: #### U MICRO, UACSIND #### [facility] [address] [address] [address] Pancho Oliva IG # 0.16 10e3/ul Critically high 0.00-0.03 [facility] Comment on above: Performed By: #### U MICRO, UACSIND #### [facility] [address] [address] [address] Pancho Oliva IG % 1.1 % Critically high 0.0-0.5 [facility] Comment on above: Performed By: #### U MICRO, UACSIND #### [facility] [address] [address] [address] Pancho Oliva LYMPH # 3.5 103/ul Normal 1.2-3.8 [facility] Comment on above: Performed By: #### U MICRO, UACSIND #### [facility] [address] [place] [address] Dr. Pancho Oliva Lymphocytes/100 WBC (Bld) 23.3 % Normal 20.5-60.0 [facility] Comment on above: Performed By: #### U MICRO, UACSIND #### [facility] [address] [place] [address] Dr. Pancho Oliva MANUAL DIFF REQ NO Normal [facility] Comment on above: Performed By: #### U MICRO, UACSIND #### [facility] [address] [place] [address] Dr. Pancho Oliva MCH (RBC) [Entitic mass] 27.1 pg Normal 26.7-34.0 [facility] Comment on above: Performed By: #### U MICRO, UACSIND #### [facility] [address] [place] [address] Dr. Pancho Oliva MCHC (RBC) [Mass/Vol] 32.6 g/dL Normal 29.9-35.2 [facility] Comment on above: Performed By: #### U MICRO, UACSIND #### [facility] [address] [place] [address] Dr. Pancho Oliva MCV (RBC) [Entitic vol] 83.0 fL Normal 81.0-99.0 [facility] Comment on above: Performed By: #### U MICRO, UACSIND #### [facility] [address] [place] [address] Dr. Pancho Oliva MONO # 0.7 103/ul Normal 0.3-0.8 [facility] Comment on above: Performed By: #### U MICRO, UACSIND #### [facility] [address] [place] [address] Dr. Pancho Oliva Monocytes/100 WBC (Bld) 4.3 % Normal 1.7-12.0 [facility] Comment on above: Performed By: #### U MICRO, UACSIND #### [facility] [address] [place] [address] Dr. Pancho Oliva NEUT # 10.2 103/ul Critically high 1.4-6.5 [facility] Comment on above: Performed By: #### U MICRO, UACSIND #### [facility] [address] [address] [address] Pancho Oliva Neutrophils/100 WBC (Bld) 68.4 % Normal 43.0-75.0 [facility] Comment on above: Performed By: #### U MICRO, UACSIND #### [facility] [address] [address] [address] Pancho Oliva Platelet mean volume (Bld) [Entitic vol] 9.7 fL Normal 9.5-13.5 [facility] Comment on above: Performed By: #### U MICRO, UACSIND #### [facility] [address] [place] [address] Dr. Pancho Oliva PLT 271 103/ul Normal 150-450 [facility] Comment on above: Performed By: #### U MICRO, UACSIND #### [facility] [address] [place] [address] Dr. Pancho Oliva RBC 4.36 106/ul Normal 4.20-5.40 [facility] Comment on above: Performed By: #### U MICRO, UACSIND #### [facility] [address] [place] [address] Dr. Pancho Oliva WBC 15.0 103/ul Critically high 4.0-11.0 [facility] Comment on above: Performed By: #### U MICRO, UACSIND #### [facility] [address] [place] [address] Dr. Pancho Oliva RPR QUANTon 06-18-2022 Rapid Plasma Reagin, Quant Non-Reactive Normal NonRea<1:1 [facility] Comment on above: Result Comment: Plea se Note: This test does not meet current guidelines for screening and diagnosis of syphilis. This test is intended for following treatment response in patients being treated for syphilis infection. To screen for syphilis infection, a reflex cascade that includes both RPR and a treponema-specific assay should be utilized, such as Treponema pallidum (Syphilis) Screening [place] (956538) or Rapid Plasma Reagin (RPR) Test With Reflex to Quantitative RPR and Confirmatory Treponema pallidum Antibodies (509562). Performed By: #### R PRQ #### [facility] [address] [place] [address] Dr. Pancho Oliva CBC AUTO DIFFon 06-16-2022 BASO # 0.1 103/ul Normal 0.0-0.1 [facility] Comment on above: Performed By: #### U MICRO, UACSIND #### [facility] [address] [place] [address] Dr. Pancho Oliva Basophils/100 WBC (Bld) 0.5 % Normal 0.2-2.0 [facility] Comment on above: Performed By: #### U MICRO, UACSIND #### [facility] [address] [place] [address] Dr. Pancho Oliva EO # 0.0 103/ul Normal 0.0-0.7 [facility] Comment on above: Performed By: #### U MICRO, UACSIND #### [facility] [address] [place] [address] Dr. Pancho Oliva Eosinophils/100 WBC (Bld) 0.1 % Critically low 0.9-7.0 [facility] Comment on above: Performed By: #### U MICRO, UACSIND #### [facility] [address] [place] [address] Dr. Pancho Oliva Erythrocyte distribution width (RBC) [Ratio] 13.5 % Normal 11.0-15.0 [facility] Comment on above: Performed By: #### U MICRO, UACSIND #### [facility] [address] [place] [address] Dr. Pancho Oliva Hematocrit (Bld) [Volume fraction] 38.7 % Normal 36.0-48.0 [facility] Comment on above: Performed By: #### U MICRO, UACSIND #### [facility] [address] [place] [address] Dr. Pancho Oliva Hemoglobin (Bld) [Mass/Vol] 13.0 g/dL Normal 12.0-16.0 [facility] Comment on above: Performed By: #### U MICRO, UACSIND #### [facility] [address] [place] [address] Dr. Pancho Oliva IG # 0.15 10e3/ul Critically high 0.00-0.03 [facility] Comment on above: Performed By: #### U MICRO, UACSIND #### [facility] [address] [place] [address] Dr. Pancho Oliva IG % 0.8 % Critically high 0.0-0.5 [facility] Comment on above: Performed By: #### U MICRO, UACSIND #### [facility] [address] [place] [address] Dr. Pancho Oliva LYMPH # 1.8 103/ul Normal 1.2-3.8 [facility] Comment on above: Performed By: #### U MICRO, UACSIND #### [facility] [address] [place] [address] Dr. Pancho Oliva Lymphocytes/100 WBC (Bld) 8.9 % Critically low 20.5-60.0 [facility] Comment on above: Performed By: #### U MICRO, UACSIND #### [facility] [address] [place] [address] Dr. Pancho Oliva MANUAL DIFF REQ NO Normal [facility] Comment on above: Performed By: #### U MICRO, UACSIND #### [facility] [address] [place] [address] Dr. Pancho Oliva MCH (RBC) [Entitic mass] 27.2 pg Normal 26.7-34.0 [facility] Comment on above: Performed By: #### U MICRO, UACSIND #### [facility] [address] [place] [address] Dr. Pancho Oliva MCHC (RBC) [Mass/Vol] 33.6 g/dL Normal 29.9-35.2 [facility] Comment on above: Performed By: #### U MICRO, UACSIND #### [facility] [address] [place] [address] Dr. Pancho Oliva MCV (RBC) [Entitic vol] 81.0 fL Normal 81.0-99.0 [facility] Comment on above: Performed By: #### U MICRO, UACSIND #### [facility] [address] [address] [address] Pancho Oliva MONO # 0.5 103/ul Normal 0.3-0.8 [facility] Comment on above: Performed By: #### U MICRO, UACSIND #### [facility] [address] [address] [address] Pancho Oliva Monocytes/100 WBC (Bld) 2.5 % Normal 1.7-12.0 [facility] Comment on above: Performed By: #### U MICRO, UACSIND #### [facility] [address] [place] [address] Dr. Pancho Oliva NEUT # 17.2 103/ul Critically high 1.4-6.5 [facility] Comment on above: Performed By: #### U MICRO, UACSIND #### [facility] [address] [place] [address] Dr. Pancho Oliva Neutrophils/100 WBC (Bld) 87.2 % Critically high 43.0-75.0 [facility] Comment on above: Performed By: #### U MICRO, UACSIND #### [facility] [address] [place] [address] Dr. Pancho Oliva Platelet mean volume (Bld) [Entitic vol] 9.9 fL Normal 9.5-13.5 [facility] Comment on above: Performed By: #### U MICRO, UACSIND #### [facility] [address] [place] [address] Dr. Pancho Oliva PLT 332 103/ul Normal 150-450 [facility] Comment on above: Performed By: #### U MICRO, UACSIND #### [facility] [address] [place] [address] Dr. Pancho Oliva RBC 4.78 106/ul Normal 4.20-5.40 [facility] Comment on above: Performed By: #### U MICRO, UACSIND #### [facility] [address] [address] [address] Pancho Oliva WBC 19.8 103/ul Critically high 4.0-11.0 [facility] Comment on above: Performed By: #### U MICRO, UACSIND #### [facility] [address] [address] [address] Pancho Oliva CULTURE URINEon 06-16-2022 CULTURE URINE Culture Observations: LIGHT GROWTH OF MIXED GENITAL XOCHITL. NO POTENTIAL PATHOGENS SEEN. Normal [facility] Comment on above: Performed By: #### U RCX #### [facility] [address] [address] [address] Pancho Oliva [facility] SARS-CoV-2 (COVID-19) RNA RHIANNA+probe Ql (Unsp spec) Not detected Normal NOT DETECTED [facility] Comment on above: Result Comment: When [...] for this test is supported by the [place] of Health and Human Service's declaration that [...] By: #### C VDTBH #### [facility] [id number] Pancho Oliva DRUG SCREEN RAPID (URINE)on 06-16-2022 AMP Negative Normal NEGATIVE [facility] Comment on above: Performed By: #### U MICRO, UACSIND #### [facility] [address] [address] [address] Pancho Oliva BAR Negative Normal NEGATIVE [facility] Comment on above: Performed By: #### U MICRO, UACSIND #### [facility] [address] [place] [address] Dr. Pancho Oliva BUP Negative Normal NEGATIVE [facility] Comment on above: Performed By: #### U MICRO, UACSIND #### [facility] [address] [place] [address] Dr. Pancoh Oliva BZO Negative Normal NEGATIVE [facility] Comment on above: Performed By: #### U MICRO, UACSIND #### [facility] [address] [place] [address] Dr. Pancho Oliva CALVIN Negative Normal NEGATIVE [facility] Comment on above: Performed By: #### U MICRO, UACSIND #### [facility] [address] [place] [address] Dr. Pancho Oliva CUT-OFFS SEE BELOW Normal [facility] Comment on above: Result Comment: AMP [...] #### U MICRO, UACSIND #### [facility] [address] [place] [address] Dr. Pancho Oliva DRUG CUT HEADER DRUG CLASS TEST SYSTEM CUT-OFF CONCENTRATIONS ARE FOLLOWS: Normal [facility] Comment on above: Performed By: #### U MICRO, UACSIND #### [facility] [address] [place] [address] Dr. Pancho Oliva mAMP Negative Normal NEGATIVE [facility] Comment on above: Performed By: #### U MICRO, UACSIND #### [facility] [address] [address] [address] Pancho Oliva MTD Negative Normal NEGATIVE [facility] Comment on above: Performed By: #### U MICRO, UACSIND #### [facility] [address] [address] [address] Pancho Oliva OPI Negative Normal NEGATIVE [facility] Comment on above: Performed By: #### U MICRO, UACSIND #### [facility] [address] [address] [address] Pancho Oliva OXY Negative Normal NEGATIVE [facility] Comment on above: Performed By: #### U MICRO, UACSIND #### [facility] [address] [address] [address] Pancho Oliva PCP Negative Normal NEGATIVE [facility] Comment on above: Performed By: #### U MICRO, UACSIND #### [facility] [address] [place] [address] Dr. Pancho Oliva PPX Negative Normal NEGATIVE [facility] Comment on above: Performed By: #### U MICRO, UACSIND #### [facility] [address] [address] [address] Pancho Oliva TCA Negative Normal NEGATIVE [facility] Comment on above: Performed By: #### U MICRO, UACSIND #### [facility] [address] [place] [address] Dr. Pancho Oliva THC Negative Normal NEGATIVE [facility] Comment on above: Performed By: #### U MICRO, UACSIND #### [facility] [address] [address] [address] Pancho Oliva TYPE AND SCREENon 06-16-2022 TYPE AND SCREEN Negative Normal [facility] Comment on above: Performed By: #### U MICRO, UACSIND #### [facility] [address] [place] [address] Dr. Pancho Oliva UA (CLEAN/CATCH) MICROFILM MOUNTER/MICRO I F IND.on 06-16-2022 Bilirubin Ql (U) Negative Normal NEGATIVE [facility] Comment on above: Performed By: #### U MICRO, UACSIND #### [facility] [address] [address] [address] Pancho Oliva Clarity (U) CLEAR Normal CLEAR [facility] Comment on above: Performed By: #### U MICRO, UACSIND #### [facility] [address] [place] [address] Dr. Pancho Oliva Color (U) YELLOW Normal YELLOW [facility] Comment on above: Performed By: #### U MICRO, UACSIND #### [facility] [address] [address] [address] Pancho Oliva Glucose Ql (U) Negative Normal NEGATIVE [facility] Comment on above: Performed By: #### U MICRO, UACSIND #### [facility] [address] [place] [address] Dr. Pancho Oliva Hemoglobin Ql (U) SMALL Abnormal NEGATIVE [facility] Comment on above: Performed By: #### U MICRO, UACSIND #### [facility] [address] [place] [address] Dr. Pancho Oliva Ketones Ql (U) TRACE Abnormal NEGATIVE [facility] Comment on above: Performed By: #### U MICRO, UACSIND #### [facility] [address] [place] [address] Dr. Pancho Oliva LEUKOCYTES Negative Normal NEGATIVE [facility] Comment on above: Performed By: #### U MICRO, UACSIND #### [facility] [address] [place] [address] Dr. Pancho Oliva Nitrite Ql (U) Negative Normal NEGATIVE [facility] Comment on above: Performed By: #### U MICRO, UACSIND #### [facility] [address] [place] [address] Dr. Pancho Oliva pH (U) 5.5 [pH] Normal 5-9 [facility] Comment on above: Performed By: #### U MICRO, UACSIND #### [facility] [address] [place] [address] Dr. Pancho Oliva SPEC GRAVITY >=1.030 Abnormal 1.005-<=1.025 [facility] Comment on above: Performed By: #### U MICRO, UACSIND #### [facility] [address] [address] [address] Pancho Oliva UA PROTEIN 100 mg/dl Abnormal NEGATIVE/ TRACE [facility] Comment on above: Performed By: #### U MICRO, UACSIND #### [facility] [address] [address] [address] Pancho Oliva UR MICRO IND INDICATED Normal [facility] Comment on above: Performed By: #### U MICRO, UACSIND #### [facility] [address] [address] [address] Pancho Oliva Urobilinogen Qn (U) 0.2 {Pearl'U}/dL Normal 0.2 - 1. 0 [facility] Comment on above: Performed By: #### U MICRO, UACSIND #### [facility] [address] [place] [address] Dr. Pancho Oliva URINE MICROSCOPIC ONLYon AMORPHOUS CRYSTALS FEW Normal [facility] Comment on above: Performed By: #### U MICRO, UACSIND #### [facility] [address] [place] [address] Dr. Pancho Oliva BACTERIA SMALL Abnormal NONE SEEN [facility] Comment on above: Performed By: #### U MICRO, UACSIND #### [facility] [address] [place] [address] Dr. Pancho Oliva Bacteria identified Cx Nom (U) INDICATED Normal [facility] Comment on above: Performed By: #### U MICRO, UACSIND #### [facility] [address] [place] [address] Dr. Pancho Oliva CAST SEEN Abnormal NONE SEEN [facility] Comment on above: Performed By: #### U MICRO, UACSIND #### [facility] [address] [place] [address] Dr. Pancho Oliva Crystals LM Nom (Urine sed) SEEN Abnormal NONE SEEN [facility] Comment on above: Performed By: #### U MICRO, UACSIND #### [facility] [address] [place] [address] Dr. Pancho Oliva Epithelial cells LM Ql (Urine sed) FEW Abnormal NONE SEEN /RARE [facility] Comment on above: Performed By: #### U MICRO, UACSIND #### [facility] [address] [address] [address] Pancho Oliva HYALINE CAST RARE Normal [facility] Comment on above: Performed By: #### U MICRO, UACSIND #### [facility] [address] [address] [address] Pancho Oliva MUCOUS TRACE Abnormal NONE SEEN [facility] Comment on above: Performed By: #### U MICRO, UACSIND #### [facility] [address] [address] [address] Pancho Oliva RBC 2-5 Abnormal 0-2 [facility] Comment on above: Performed By: #### U MICRO, UACSIND #### [facility] [address] [address] [address] Pancho Oliva WBC 0-2 Abnormal NONE SEEN [facility] Comment on above: Performed By: #### U MICRO, UACSIND #### [facility] [address] [address] Dr. Pancho Oliva CHLAMYDIA/GONOCOCCUS RHIANNA (SW AB/URINE/PAPon 06-04-2022 Chlamydia trachomatis, RHIANNA Negative Normal Negative [facility] Comment on above: Performed By: #### U MICRO, UACSIND #### [facility] [address] [place] [address] Dr. Pancho Oliva Neisseria gonorrhoeae, RHIANNA Negative Normal Negative [facility] Comment on above: Performed By: #### U MICRO, UACSIND #### [facility] [address] [address] [address] Pancho Oliva GROUP B STREP CULTUREon 05-18 S. agalactiae Ag Ql (Unsp spec) Culture Observations: NEGATIVE FOR GROUP B STREPTOCOCCUS. Normal [facility] Comment on above: Performed By: #### U MICRO, UACSIND #### [facility] [address] [address] [address] Pancho Oliva US PREG ANATOMY SINGLEon [...] KIM LEIGH Date: 2022-04-08 22:10 Normal [facility] GLUCOSE - 1HRon 04-07-2022 Glucose [Mass/Vol] 114 mg/dL Critically high 74-106 T [facility] Comment on above: Performed By: #### U MICRO, UACSIND #### [facility] [address] [address] [address] Pancho Oliva HEMOGRAM AND PLATELon 2021 Hematocrit (Bld) [Volume fraction] 36.1 % Normal 36.0-48.0 [facility] Comment on above: Performed By: #### U MICRO, UACSIND #### [facility] [address] [address] [address] Pancho Oliva Hemoglobin (Bld) [Mass/Vol] 12.1 g/dL Normal 12.0-16.0 [facility] Comment on above: Performed By: #### U MICRO, UACSIND #### [facility] [address] [place] [address] Dr. Pancho Oliva MCH (RBC) [Entitic mass] 28.5 pg Normal 26.7-34.0 [facility] Comment on above: Performed By: #### U MICRO, UACSIND #### [facility] [address] [place] [address] Dr. Pancho Oliva MCHC (RBC) [Mass/Vol] 33.5 g/dL Normal 29.9-35.2 [facility] Comment on above: Performed By: #### U MICRO, UACSIND #### [facility] [address] [place] [address] Dr. Pancho Oliva MCV (RBC) [Entitic vol] 85.1 fL Normal 81.0-99.0 [facility] Comment on above: Performed By: #### U MICRO, UACSIND #### [facility] [address] [place] [address] Dr. Pancho Oliva PLT 333 103/ul Normal 150-450 [facility] Comment on above: Performed By: #### U MICRO, UACSIND #### [facility] [address] [place] [address] Dr. Pancho Oliva RBC 4.24 106/ul Normal 4.20-5.40 [facility] Comment on above: Performed By: #### U MICRO, UACSIND #### [facility] [address] [place] [address] Dr. Pancho Oliva WBC 16.5 103/ul Critically high 4.0-11.0 [facility] Comment on above: Performed By: #### U MICRO, UACSIND #### [facility] [address] [place] [address] Dr. Pancho Oliva AFP TETRA PROFILE (MATERNAL) on 01-21-2022 AFP MoM 0.81 Normal [facility] Comment on above: Performed By: #### A FPTET #### [facility] [address] [place] [address] Dr. Pancho Oliva AFP Value 26.1 ng/mL Normal [facility] Comment on above: Performed By: #### A FPTET #### [facility] [address] [place] [address] Dr. Pancho Oliva Comment Comment Normal [facility] Comment on above: Result Comment: Marguerite Hassan, Ph.D., [facility] Director . References: Available Upon Request. . Multiples Of Median Cutoffs Abbreviation Definitions For AFP Elevations IDD- Insulin Dep Diabetes Daugherty 2.5 Black 2.8 OSBR- Open Spina Bifida IDD 2.0 Twins 4.5 Risk DSR Cutoff 1:270 DSR- Down Syndrome Risk T18 Cutoff 1:100 T18- Trisomy 18 . For further inquiries contact [facility] at [phone]. . This test was developed and its performance characteristics determined by [employer]. It has not been cleared or approved by the Food and Drug Administration. Performed By: #### A FPTET #### [facility] [address] [place] [address] Dr. Pancho Oliva INDRA MoM 0.96 Normal [facility] Comment on above: Performed By: #### A FPTET #### [facility] [address] [place] [address] Dr. Pancho Oliva INDRA Value 118.40 pg/mL [facility] Comment on above: Performed By: #### A FPTET #### [facility] [address] [place] [address] Dr. Pancho Oliva DSR (By Age) 1 [place] 1121 Normal [facility] Comment on above: Performed By: #### A FPTET #### [facility] [address] [place] [address] Dr. Pancho Oliva DSR (Second Trimester) 1 [place] [address] Normal [facility] Comment on above: Performed By: #### A FPTET #### [facility] [address] [place] [address] Dr. Pancho Oliva Gest. Age on Collection Date 17.1 WEEKS Normal [facility] Comment on above: Performed By: #### A FPTET #### [facility] [address] [place] [address] Dr. Pancho Oliva Gestat. Age Based On LMP Normal [facility] Comment on above: Performed By: #### A FPTET #### [facility] [address] [place] [address] Dr. Pancho Oliva hCG MoM 0.73 Normal [facility] Comment on above: Performed By: #### A FPTET #### [facility] [address] [place] [address] [place] [address] m[IU]/mL Normal [facility] Comment on above: Performed By: #### A FPTET #### [facility] [address] [place] [address] Dr. Pancho Oliva Insulin Dep Diabetes No Normal [facility] Comment on above: Performed By: #### A FPTET #### [facility] [address] [place] [address] Dr. Pancho Oliva Interpretation Comment Normal [facility] Comment on above: Result Comment: Inte [...] identifies 60% of Trisomy 18 pregnancies. The [employer] recommends amniocentesis be offered to women age 35 and older. Recalculations are not recommended when gestational dating by LMP and ultrasound are within 10 days. Performed By: #### A FPTET #### [facility] [address] [place] [address] Dr. Pancho Oliva [age] Normal [facility] Comment on above: Performed By: #### A FPTET #### [facility] [address] [place] [address] Dr. Pancho Oliva Multiple Gestation No Normal [facility] Comment on above: Performed By: #### A FPTET #### [facility] [address] [address] [address] Panch[place] Ol[place] OS[place] [address] Normal [facility] Comment on above: Performed By: #### A FPTET #### [facility] [address] [address] [address] Pancho Oliva PDF . Normal [facility] Comment on above: Performed By: #### A FPTET #### [facility] [address] [address] [address] Pancho Oliva Race Normal [facility] Comment on above: Performed By: #### A FPTET #### [facility] [address] [place] [address] Dr. Pancho Oliva Results Report [facility] Comment on above: Performed By: #### A FPTET #### [facility] [address] [address] [address] Pancho Oliva T18 (By Age) 1:4368 Normal [facility] Comment on above: Performed By: #### A FPTET #### [facility] [address] [place] [address] Dr. Pancho Oliva T18 Risk Not increased [facility] Comment on above: Performed By: #### A FPTET #### [facility] [address] [address] [address] Pancho Oliva Test Results: Negative Normal [facility] Comment on above: Performed By: #### A FPTET #### [facility] [address] [address] [address] Pancho Oliva uE3 MoM 1.70 [facility] Comment on above: Performed By: #### A FPTET #### [facility] [address] [place] [address] Dr. Pancho Oliva uE3 Value 1.80 ng/mL [facility] Comment on above: Performed By: #### A FPTET #### [facility] [address] [address] [address] Pancho Oliva HEP B SURFACE ANTIGEN SCREEN on 01-20-2022 HBsAg Screen Negative Normal Negative [facility] Comment on above: Performed By: #### U MICRO, UACSIND #### [facility] [address] [place] [address] Dr. Pancho Oliva HEPATITIS C VIRUS AB W/ REFL EX QUANTon 01-20-2022 HCV AB 0.1 s/co ratio Normal 0.0-0.9 [facility] Comment on above: Performed By: #### U MICRO, UACSIND #### [facility] [address] [place] [address] Dr. Pancho Oliva Interpretation: Comment Normal [facility] Comment on above: Result Comment: Nega tive Not infected with HCV, unless recent infection is suspected or other evidence exists to indicate HCV infection. Performed By: #### U MICRO, UACSIND #### [facility] [address] [place] [address] Dr. Pancho Oliva HIV 1 AND 2 WITH REFLEXon HIV Screen 4th Generation wRfx Non-Reactive Normal Non Reactive [facility] Comment on above: Result Comment: HIV Negative HIV-1/HIV-2 antibodies and HIV-1 p24 antigen were NOT detected. There is no laboratory evidence of HIV infection. Performed By: #### U MICRO, UACSIND #### [facility] [address] [place] [address] Dr. Pancho Oliva RPR QUANTon 01-20-2022 Rapid Plasma Reagin, Quant Non-Reactive Normal NonRea<1:1 [facility] Comment on above: Result Comment: Plea se Note: This test does not meet current guidelines for screening and diagnosis of syphilis. This test is intended for following treatment response in patients being treated for syphilis infection. To screen for syphilis infection, a reflex cascade that includes both RPR and a treponema-specific assay should be utilized, such as Treponema pallidum (Syphilis) Screening [employer] (521111) or Rapid Plasma Reagin (RPR) Test With Reflex to Quantitative RPR and Confirmatory Treponema pallidum Antibodies (425097). Performed By: #### R PRQ #### [facility] [address] [place] [address] Dr. Pancho Oliva RUBELLA AB IGGon 01-20-2022 Rubella Antibodies, IgG 6.39 index Normal Immune >0.99 [facility] Comment on above: Result Comment: Non- immune <0.90 Equivocal 0.90 - 0.99 Immune >0.99 Performed By: #### R UBIGG #### [facility] [address] [place] [address] Dr. Pancho Oliva CBC AUTO DIFFon 01-19-2022 BASO # 0.1 103/ul Normal 0.0-0.1 [facility] Comment on above: Performed By: #### C BC #### [facility] [address] [place] [address] Dr. Pancho Oliva Basophils/100 WBC (Bld) 0.6 % Normal 0.2-2.0 [facility] Comment on above: Performed By: #### C BC #### [facility] [address] [place] [address] Dr. Pancho Oliva EO # 0.3 103/ul Normal 0.0-0.7 [facility] Comment on above: Performed By: #### C BC #### [facility] [address] [place] [address] Dr. Pancho Oliva Eosinophils/100 WBC (Bld) 2.1 % Normal 0.9-7.0 [facility] Comment on above: Performed By: #### C BC #### [facility] [address] [place] [address] Dr. Pancho Oliva Erythrocyte distribution width (RBC) [Ratio] 12.3 % Normal 11.0-15.0 [facility] Comment on above: Performed By: #### C BC #### [facility] [address] [place] [address] Dr. Pancho Oliva Hematocrit (Bld) [Volume fraction] 37.0 % Normal 36.0-48.0 [facility] Comment on above: Performed By: #### C BC #### [facility] [address] [place] [address] Dr. Pancho Oliva Hemoglobin (Bld) [Mass/Vol] 12.6 g/dL Normal 12.0-16.0 [facility] Comment on above: Performed By: #### C BC #### [facility] [address] [place] [address] Dr. Pancho Oliva IG # 0.19 10e3/ul Critically high 0.00-0.03 [facility] Comment on above: Performed By: #### C BC #### [facility] [address] [address] [address] Pancho Oliva IG % 1.2 % Critically high 0.0-0.5 [facility] Comment on above: Performed By: #### C BC #### [facility] [address] [place] [address] Dr. Pancho Oliva LYMPH # 2.6 103/ul Normal 1.2-3.8 [facility] Comment on above: Performed By: #### C BC #### [facility] [address] [place] [address] Dr. Pancho Oliva Lymphocytes/100 WBC (Bld) 15.6 % Critically low 20.5-60.0 [facility] Comment on above: Performed By: #### C BC #### [facility] [address] [place] [address] Dr. Pancho Oliva MANUAL DIFF REQ NO Normal [facility] Comment on above: Performed By: #### C BC #### [facility] [address] [place] [address] Dr. Pancho Oliva MCH (RBC) [Entitic mass] 28.4 pg Normal 26.7-34.0 [facility] Comment on above: Performed By: #### C BC #### [facility] [address] [place] [address] Dr. Pancho Oliva MCHC (RBC) [Mass/Vol] 34.1 g/dL Normal 29.9-35.2 [facility] Comment on above: Performed By: #### C BC #### [facility] [address] [place] [address] Dr. Pancho Oliva MCV (RBC) [Entitic vol] 83.5 fL Normal 81.0-99.0 [facility] Comment on above: Performed By: #### C BC #### [facility] [address] [place] [address] Dr. Pancho Oliva MONO # 0.7 103/ul Normal 0.3-0.8 [facility] Comment on above: Performed By: #### C BC #### [facility] [address] [place] [address] Dr. Pancho Oliva Monocytes/100 WBC (Bld) 4.2 % Normal 1.7-12.0 [facility] Comment on above: Performed By: #### C BC #### [facility] [address] [place] [address] Dr. Pancho Oliva NEUT # 12.6 103/ul Critically high 1.4-6.5 [facility] Comment on above: Performed By: #### C BC #### [facility] [address] [place] [address] Dr. Pancho Oliva Neutrophils/100 WBC (Bld) 76.3 % Critically high 43.0-75.0 [facility] Comment on above: Performed By: #### C BC #### [facility] [address] [place] [address] Dr. Pancho Oliva Platelet mean volume (Bld) [Entitic vol] 9.0 fL Critically low 9.5-13.5 [facility] Comment on above: Performed By: #### C BC #### [facility] [address] [place] [address] Dr. Pancho Oliva PLT 359 103/ul Normal 150-450 [facility] Comment on above: Performed By: #### C BC #### [facility] [address] [place] [address] Dr. Pancho Oliva RBC 4.43 106/ul Normal 4.20-5.40 [facility] Comment on above: Performed By: #### C BC #### [facility] [address] [place] [address] Dr. Pancho Oliva WBC 16.5 103/ul Critically high 4.0-11.0 [facility] Comment on above: Performed By: #### C BC #### [facility] [address] [address] [address] Pancho Oliva CULTURE URINEon 01-19-2022 CULTURE URINE Culture Observations: HEAVY GROWTH OF MIXED GENITAL XOCHITL. NO POTENTIAL PATHOGENS SEEN. Normal [facility] Comment on above: Performed By: #### U RCX #### [facility] [address] [address] [address] Pancho Oliva GLYCOHEMOGLOBIN A1Con 2021 ADA RECOMMENDATION SEE BELOW Normal [facility] Comment on above: Result Comment: ADA RECOMMENDED LIMIT 4.0 - 6.0 ADA THERAPEUTIC TARGET < 7.0 ACTION SUGGESTED > 7.0 Performed By: #### U MICRO, UACSIND #### [facility] [address] [place] [address] Dr. Pancho Oliva Glucose [Mass/Vol] 94 mg/dL Normal [facility] Comment on above: Performed By: #### U MICRO, UACSIND #### [facility] [address] [address] [address] Pancho Oliva HbA1c (Bld) [Mass fraction] 4.9 % Normal 4.5-6.2 [facility] Comment on above: Performed By: #### U MICRO, UACSIND #### [facility] [address] [place] [address] Dr. Pancho Oliva TYPE AND SCREENon 01-19-2022 TYPE AND SCREEN Negative Normal [facility] Comment on above: Performed By: #### U MICRO, UACSIND #### [facility] [address] [address] [address] Pancho Oliva US PREG TVon 11-23-2021 [...] by: KIM LEIGH Date: 2021-11-23 16:11 Normal [facility] Vital Signs Date Time Vital Sign Value Performing Clinician Facility 08-29-2023 10:55-0500 Body mass index (BMI) [Ratio] 38.11 kg/m2 Olya LE Work Phone: [facility] 08-29-2023 10:55-0500 Body weight 103.87 kg Olya LE Work Phone: [facility] 08-29-2023 10:55-0500 Diastolic blood pressure 78 mm[Hg] Olya LE Work Phone: [facility] 08-29-2023 10:55-0500 Systolic blood pressure 118 mm[Hg] Olya LE Work Phone: [facility] 01-21-2022 02:06-0400 Body weight 97.[address] AUGUSTINE ENRIQUE [facility] Comment on above: Performed By: #### AFPTET #### [facility] [address] [place] [address] Dr. Pancho Oliva Encounters Encounter Date Encounter [...] Patient encounter procedure Olya LE Work Phone: [facility] Start: 08-29-2023 End: 08-29-2023 Periodic [...] EDT Routine [facility] [address] [place] [id number] Rudi Tracey DO [address] [place] [address] [facility] Start: 08-29-2023 End: 10-28-2023 Alpha fetoprotein, maternal Alpha fetoprotein, maternal Lab Routine Second trimester Expected: 08/29/2023 (Approximate), Expires: 10/28/2023 [facility] Comment on above: Expected: 08/29/2023 (Approximate), Expires: 10/28/2023 Start: 08-29-2023 End: 08-29-2023 Patient encounter procedure 08/29/2023 10:30 AM EST Routine [facility] [address] [place] [id number] Olya Bauman PA [address] [place] [address] Second trimester [facility] Comment on [...] direct Lab Routine STD exposure Ordered: 08/29/2023 [facility] Comment on above: Ordered: 08/29/2023 SURESWAB(R) ADVANCED VAGINITIS PLUS, TMA SURESWAB(R) ADVANCED VAGINITIS PLUS, TMA Pathology and Cytology Routine Vaginal discharge Ordered: 08/29/2023 [facility] Work Phone: Comment on above: Ordered: 08/29/2023 Payers Date Payer Category Payer Unknown BCBS BCBS xxxxxx [id number] 2022-Present [phone] [address] [place] [address] [id number] 2000 Unknown [id number] [id number] 2000 Unknown [id number] 2.16.840.1.077381.3.579.2.593 2000 Unknown [id number] 2.16.840.1.299202.3.579.2.593 2000 Unknown [id number] 2.16.840.1.123341.3.579.2.593 2000 Unknown [id number] 2.16.840.1.836841.3.579.2.593 2000 Unknown [id number] 2.16.840.1.305801.3.579.2.593 2000 Unknown [id number] 2.16.840.1.603327.3.579.2.593 2000 Unknown [id number] 2.16.840.1.888784.3.579.2.1259 2000 Unknown [id number] 2.16.840.1.922536.3.579.2.1259 2000 Unknown [id number] 2.16.840.1.637877.3.579.2.1259 2000 Unknown [id number] 2.16.840.1.453038.3.579.2.1259 2000 Unknown [id number] 2.16.840.1.589478.3.579.2.1259 2000 Unknown [id number] 2.16.840.1.038835.3.579.2.1259 2000 Unknown [id number] 2.16.840.1.592355.3.579.2.1259 2000 Unknown [id number] 2.16.840.1.162704.3.579.2.1259 2000 Unknown [id number] 2.16.840.1.151544.3.579.2.1259 1959 Self-pay 1959 Unknown [id number] 1959 Unknown [id number] Social History Date Type Detail Facility Start: 02-06-2023 Tobacco smoking stat [facility] Never smoked tobacco [facility] [...] Problems Past Medical History: Diagnosis Date depression ([facility]) Family History Problem Relation Name Age [...] obtained without difficulty and patient was given [facility] order to have obtained. Follow Up: [...] DATE CREATED AUTHOR AUTHOR'S MOJGAN BAEZA 01/12/2024 [facility] Reason for Visit (unrecogniz ed [...] BE BASED ON THE PRIMARY CLINICAL RECORDS. [employer] provides no warranty or guarantee of the accuracy or completeness of information in this document.
[2024-01-17 12:09] VITALS: BP 121/84; PULSE 113
--- NOTE | 2024-01-17 13:45 | US_ITS ---
[address] [address] Patient Name: DONAVAN WALTON MRN: [id number] date: 2000 Sex: F Assigned Patient Location: [facility] Current Patient Location: [facility] Accession/Order Number: [id number] Exam Date: 01/17/2024 13:55 Report Date: 01/17/2024 14:48 At the request of: RUDI CHACON Procedure: US OB BPP w non-stress EXAMINATION: US OB BPP w non-stress HISTORY:Polyhydramnios COMPARISON: No relevant comparison available. TECHNIQUE: Ultrasound biophysical profile was performed in the radiology department. BREATHING MOVEMENTS: 2 GROSS BODY MOVEMENTS: 2 TONE: 2 QUALITATIVE AMNIOTIC FLUID VOLUME: 2 PRESENTATION: CEPHALIC HEART RATE: 131.71 bpm AMNIOTIC FLUID VOLUME: 36.74 cm (24.8 cm is 95th percentile) GESTATIONAL AGE: 34 weeks 5 days US/US OB BPP w non-stress IMPRESSION: 1. Total biophysical profile score: 8 2. Polyhydramnios. Electronically authenticated by: KIM LEIGH Date: 01/17/2024 14:48
== END 2024-01-17 14:35 | disposition home or self-care (01) ==
LOC: FBCO 07:03 → FBC 12:02
PROVIDERS: Visit Provider Obstetrics & Gynecology
DX: O40.3XX0 Polyhydramnios, third trimester, not applicable or unspecified (principal); Z3A.34 34 weeks gestation of pregnancy
CPT/HCPCS: 59025; 76818

== ENCOUNTER 2024-01-20 07:03 | Outpatient (OUT) | payer BC, SELFPAY ==
--- OUTSIDE RECORDS SUMMARY | 2024-01-20 07:05 | XMS_ITS | CCD ---
Author Organization [facility] Care Team Providers Care Boat Loader Name Role Phone IVA, DR BRADSHAW Admitting [...] Provider Unavailabl e RUDI TRACEY Attending Unavailable MERNA, OLYA Attending Unavailable INES, RUDI Attending Unavailable MERNA, OLYA Attending Unavailable INES, RUDI Attending Unavailable INES, RUDI Attending Unavailable MERNA, OLYA Attending Unavailable INES, RUDI Attending Unavailable INES, RUDI Attending Unavailable Problems Problem Classification Problem Date [...] GINITIS (HTRX)on 08-31-2023 ATOPOBIUM VAGINAE 0 [facility] ATOPOBIUM VAGINAE Not detected [facility] BVAB 2,3 (BACTERIAL VAGINOSIS ASSOCIATED BACTERIA 2, 3); MOBILUNCUS SPP 22.438 Abnormal [facility] Healthcare BVAB 2,3 (BACTERIAL VAGINOSIS ASSOCIATED BACTERIA 2, 3); MOBILUNCUS SPP Detected Abnormal [facility] Healthcare JEREMI ALBICANS, PARAPSILOSIS, TROPICALIS 0 [facility] JEREMI ALBICANS, PARAPSILOSIS, TROPICALIS Not detected [facility] JEREMI GLABRATA 0 [facility] JEREMI GLABRATA Not detected [facility] JEREMI KRUSEI 0 [facility] JEREMI KRUSEI Not detected [facility] CHLAMYDIA TRACHOMATIS 0 [facility] CHLAMYDIA TRACHOMATIS Not detected [facility] DFR (A1, A5), SUL (1,2) 0 PPM [facility] DFR (A1, A5), SUL (1,2) Not detected [facility] ERMB, C; MEFA 25.226 Abnormal PPM [facility] ERMB, C; MEFA Detected Abnormal [facility] GARDNERELLA VAGINALIS 30.91 Abnormal [facility] GARDNERELLA VAGINALIS Detected Abnormal [facility] Interpretation and review of laboratory results Abnormal [facility] MEGASPHAERA (TYPES 1, 2) 0 [facility] MEGASPHAERA (TYPES 1, 2) Not detected [facility] MYCOPLASMA GENITALIUM 0 [facility] MYCOPLASMA GENITALIUM Not detected [facility] NEISSERIA GONORRHOEAE 0 [facility] NEISSERIA GONORRHOEAE Not detected [facility] TET B, TET M 23.014 Abnormal PPM [facility] are TET B, TET M Detected Abnormal [facility] are TRICHOMONAS VAGINALIS 0 [facility] TRICHOMONAS VAGINALIS Not detected [facility] Urinalysis macro (dipstick) panel (U)on 08-29-2023 Bilirubin, UA Negative Negative - 4(70) +++ mg/dL [facility] Blood, UA Negative Negative - 50 Teddy/mcL [facility] Clarity, UA Clear [facility] re Color, UA Yellow [facility] e Glucose, UA Negative Negative - 1999(110) ++++ mg/dL [facility] Interpretation and review of laboratory results Abnormal [facility] Ketones, UA Positive Negative - 160(16) ++++ mg/dL [facility] Leukocytes, UA Trace Negative - 500+++ Nicolasa/mcL [facility] Nitrite, UA Negative Negative - Positive [facility] pH, UA 6.0 5 - 9 [facility] e Protein, UA Negative Negative - 1999(20) ++++ mg/dL [facility] Spec Grav, UA 1.030 1 - 1.03 [facility] Urobilinogen, UA 0.2 0.2 - 12 mg/dL [facility] CBC AUTO DIFFon 06-18-2022 BASO # 0.1 103/ul Normal 0.0-0.1 [facility] Comment on above: Performed By: #### U MICRO, UACSIND #### [facility] [address] [address] [address] Pancho Oliva Basophils/100 WBC (Bld) 0.8 % Normal 0.2-2.0 [facility] Comment on above: Performed By: #### U MICRO, UACSIND #### [facility] [address] [address] [address] Pancho Oliva EO # 0.3 103/ul Normal 0.0-0.7 [facility] Comment on above: Performed By: #### U MICRO, UACSIND #### [facility] [address] [address] [address] Pancho Oliva Eosinophils/100 WBC (Bld) 2.1 % Normal 0.9-7.0 [facility] Comment on above: Performed By: #### U MICRO, UACSIND #### [facility] [address] [address] [address] Pancho Oliva Erythrocyte distribution width (RBC) [Ratio] 13.9 % Normal 11.0-15.0 [facility] Comment on above: Performed By: #### U MICRO, UACSIND #### [facility] [address] [place] [address] Dr. Pancho Oliva Hematocrit (Bld) [Volume fraction] 36.2 % Normal 36.0-48.0 [facility] Comment on above: Performed By: #### U MICRO, UACSIND #### [facility] [address] [address] [address] Pancho Oliva Hemoglobin (Bld) [Mass/Vol] 11.8 g/dL Critically low 12.0-16.0 [facility] Comment on above: Performed By: #### U MICRO, UACSIND #### [facility] [address] [address] [address] Pancho Oliva IG # 0.16 10e3/ul Critically high 0.00-0.03 [facility] Comment on above: Performed By: #### U MICRO, UACSIND #### [facility] [address] [place] [address] Dr. Pancho Oliva IG % 1.1 % Critically high 0.0-0.5 [facility] Comment on above: Performed By: #### U MICRO, UACSIND #### [facility] [address] [address] [address] Pancho Oliva LYMPH # 3.5 103/ul Normal 1.2-3.8 [facility] Comment on above: Performed By: #### U MICRO, UACSIND #### [facility] [address] [place] [address] Dr. Pancho Oliva Lymphocytes/100 WBC (Bld) 23.3 % Normal 20.5-60.0 [facility] Comment on above: Performed By: #### U MICRO, UACSIND #### [facility] [address] [place] [address] Dr. Pancho Oliva MANUAL DIFF REQ NO Normal [facility] Comment on above: Performed By: #### U MICRO, UACSIND #### [facility] [address] [place] [address] Dr. Pancho Oliva MCH (RBC) [Entitic mass] 27.1 pg Normal 26.7-34.0 [facility] Comment on above: Performed By: #### U MICRO, UACSIND #### [facility] [address] [place] [address] Dr. Pancho Oliva MCHC (RBC) [Mass/Vol] 32.6 g/dL Normal 29.9-35.2 [facility] Comment on above: Performed By: #### U MICRO, UACSIND #### [facility] [address] [place] [address] Dr. Pancho Oliva MCV (RBC) [Entitic vol] 83.0 fL Normal 81.0-99.0 [facility] Comment on above: Performed By: #### U MICRO, UACSIND #### [facility] [address] [place] [address] Dr. Pancho Oliva MONO # 0.7 103/ul Normal 0.3-0.8 [facility] Comment on above: Performed By: #### U MICRO, UACSIND #### [facility] [address] [place] [address] Dr. Pancho Oliva Monocytes/100 WBC (Bld) 4.3 % Normal 1.7-12.0 [facility] Comment on above: Performed By: #### U MICRO, UACSIND #### [facility] [address] [address] [address] Pancho Oliva NEUT # 10.2 103/ul Critically high 1.4-6.5 [facility] Comment on above: Performed By: #### U MICRO, UACSIND #### [facility] [address] [place] [address] Dr. Pancho Oliva Neutrophils/100 WBC (Bld) 68.4 % Normal 43.0-75.0 [facility] Comment on above: Performed By: #### U MICRO, UACSIND #### [facility] [address] [place] [address] Dr. Pancho Oliva Platelet mean volume (Bld) [Entitic vol] 9.7 fL Normal 9.5-13.5 [facility] Comment on above: Performed By: #### U MICRO, UACSIND #### [facility] [address] [place] [address] Dr. Pancho Oliva PLT 271 103/ul Normal 150-450 [facility] Comment on above: Performed By: #### U MICRO, UACSIND #### [facility] [address] [place] [address] Dr. Pancho Oliva RBC 4.36 106/ul Normal 4.20-5.40 [facility] Comment on above: Performed By: #### U MICRO, UACSIND #### [facility] [address] [place] [address] Dr. Pancho Oliva WBC 15.0 103/ul Critically high 4.0-11.0 [facility] Comment on above: Performed By: #### U MICRO, UACSIND #### [facility] [address] [place] [address] Dr. Pancho Oliva RPR QUANTon 06-18-2022 Rapid Plasma Reagin, Quant Non-Reactive Normal NonRea<1:1 [facility] Comment on above: Result Comment: Plevelma acuna Note: This test does not meet current guidelines for screening and diagnosis of syphilis. This test is intended for following treatment response in patients being treated for syphilis infection. To screen for syphilis infection, a reflex cascade that includes both RPR and a treponema-specific assay should be utilized, such as Treponema pallidum (Syphilis) Screening [place] (277157) or Rapid Plasma Reagin (RPR) Test With Reflex to Quantitative RPR and Confirmatory Treponema pallidum Antibodies ([id number]). Performed By: #### R PRQ #### [facility] [address] [address] [address] Pancho Oliva CBC AUTO DIFFon 06-16-2022 BASO # 0.1 103/ul Normal 0.0-0.1 [facility] Comment on above: Performed By: #### U MICRO, UACSIND #### [facility] [address] [address] [address] Pancho Oliva Basophils/100 WBC (Bld) 0.5 % Normal 0.2-2.0 [facility] Comment on above: Performed By: #### U MICRO, UACSIND #### [facility] [address] [place] [address] Dr. Pancho Oliva EO # 0.0 103/ul Normal 0.0-0.7 [facility] Comment on above: Performed By: #### U MICRO, UACSIND #### [facility] [address] [address] [address] Pancho Oliva Eosinophils/100 WBC (Bld) 0.1 % Critically low 0.9-7.0 [facility] Comment on above: Performed By: #### U MICRO, UACSIND #### [facility] [address] [address] [address] Pancho Oliva Erythrocyte distribution width (RBC) [Ratio] 13.5 % Normal 11.0-15.0 [facility] Comment on above: Performed By: #### U MICRO, UACSIND #### [facility] [address] [address] [address] Pancho Oliva Hematocrit (Bld) [Volume fraction] 38.7 % Normal 36.0-48.0 [facility] Comment on above: Performed By: #### U MICRO, UACSIND #### [facility] [address] [address] [address] Pancho Oliva Hemoglobin (Bld) [Mass/Vol] 13.0 g/dL Normal 12.0-16.0 [facility] Comment on above: Performed By: #### U MICRO, UACSIND #### [facility] [address] [address] [address] Pancho Oliva IG # 0.15 10e3/ul Critically high 0.00-0.03 [facility] Comment on above: Performed By: #### U MICRO, UACSIND #### [facility] [address] [address] [address] Pancho Oliva IG % 0.8 % Critically high 0.0-0.5 [facility] Comment on above: Performed By: #### U MICRO, UACSIND #### [facility] [address] [place] [address] Dr. Pancho Oliva LYMPH # 1.8 103/ul Normal 1.2-3.8 [facility] Comment on above: Performed By: #### U MICRO, UACSIND #### [facility] [address] [place] [address] Dr. Pancho Oliva Lymphocytes/100 WBC (Bld) 8.9 % Critically low 20.5-60.0 [facility] Comment on above: Performed By: #### U MICRO, UACSIND #### [facility] [address] [place] [address] Dr. Pancho Oliva MANUAL DIFF REQ NO Normal [facility] Comment on above: Performed By: #### U MICRO, UACSIND #### [facility] [address] [place] [address] Dr. Pancho Oliva MCH (RBC) [Entitic mass] 27.2 pg Normal 26.7-34.0 [facility] Comment on above: Performed By: #### U MICRO, UACSIND #### [facility] [address] [place] [address] Dr. Pancho Oliva MCHC (RBC) [Mass/Vol] 33.6 g/dL Normal 29.9-35.2 [facility] Comment on above: Performed By: #### U MICRO, UACSIND #### [facility] [address] [address] [address] Pancho Oliva MCV (RBC) [Entitic vol] 81.0 fL Normal 81.0-99.0 [facility] Comment on above: Performed By: #### U MICRO, UACSIND #### [facility] [address] [place] [address] Dr. Pancho Oliva MONO # 0.5 103/ul Normal 0.3-0.8 [facility] Comment on above: Performed By: #### U MICRO, UACSIND #### [facility] [address] [place] [address] Dr. Pancho Oliva Monocytes/100 WBC (Bld) 2.5 % Normal 1.7-12.0 [facility] Comment on above: Performed By: #### U MICRO, UACSIND #### [facility] [address] [place] [address] Dr. Pancho Oliva NEUT # 17.2 103/ul Critically high 1.4-6.5 [facility] Comment on above: Performed By: #### U MICRO, UACSIND #### [facility] [address] [place] [address] Dr. Pancho Oliva Neutrophils/100 WBC (Bld) 87.2 % Critically high 43.0-75.0 [facility] Comment on above: Performed By: #### U MICRO, UACSIND #### [facility] [address] [place] [address] Dr. Pancho Oliva Platelet mean volume (Bld) [Entitic vol] 9.9 fL Normal 9.5-13.5 [facility] Comment on above: Performed By: #### U MICRO, UACSIND #### [facility] [address] [place] [address] Dr. Pancho Oliva PLT 332 103/ul Normal 150-450 [facility] Comment on above: Performed By: #### U MICRO, UACSIND #### [facility] [address] [place] [address] Dr. Pancho Oliva RBC 4.78 106/ul Normal 4.20-5.40 [facility] Comment on above: Performed By: #### U MICRO, UACSIND #### [facility] [address] [address] [address] Pancho Oliva WBC 19.8 103/ul Critically high 4.0-11.0 [facility] Comment on above: Performed By: #### U MICRO, UACSIND #### [facility] [address] [address] [address] Pancho Oliva CULTURE URINEon 06-16-2022 CULTURE URINE Culture Observations: LIGHT GROWTH OF MIXED GENITAL XOCHITL. NO POTENTIAL PATHOGENS SEEN. Normal [facility] Comment on above: Performed By: #### U RCX #### [facility] [address] [address] [address] Pancho Oliva [facility] SARS-CoV-2 (COVID-19) RNA RHIANNA+probe Ql (Unsp spec) Not detected Normal NOT DETECTED [facility] Comment on above: Result Comment: [...] for this test is supported by the [place] of Health and Human Service's declaration that [...] used). Performed By: #### C VDTBH #### [facility] [address] [place] [address] Dr. Pancho Oliva DRUG SCREEN RAPID (URINE)on 06-16-2022 AMP Negative Normal NEGATIVE [facility] Comment on above: Performed By: #### U MICRO, UACSIND #### [facility] [address] [address] [address] Pancho Oliva BAR Negative Normal NEGATIVE [facility] Comment on above: Performed By: #### U MICRO, UACSIND #### [facility] [address] [address] [address] Pancho Oliva BUP Negative Normal NEGATIVE [facility] Comment on above: Performed By: #### U MICRO, UACSIND #### [facility] [address] [address] [address] Pancho Oliva BZO Negative Normal NEGATIVE [facility] Comment on above: Performed By: #### U MICRO, UACSIND #### [facility] [address] [address] [address] Pancho Oliva CALVIN Negative Normal NEGATIVE [facility] Comment on above: Performed By: #### U MICRO, UACSIND #### [facility] [address] [place] [address] Dr. Pancho Oliva CUT-OFFS SEE BELOW Normal [facility] Comment on above: Result Comment: AMP (Amphetamine): [...] Performed By: #### U MICRO, UACSIND #### [facility] [address] [address] [address] Pancho Oliva DRUG CUT HEADER DRUG CLASS TEST SYSTEM CUT-OFF CONCENTRATIONS ARE FOLLOWS: Normal [facility] Comment on above: Performed By: #### U MICRO, UACSIND #### [facility] [address] [address] [address] Pancho Oliva mAMP Negative Normal NEGATIVE [facility] Comment on above: Performed By: #### U MICRO, UACSIND #### [facility] [address] [address] [address] Pancho Oliva MTD Negative Normal NEGATIVE [facility] Comment on above: Performed By: #### U MICRO, UACSIND #### [facility] [address] [address] [address] Pancho Olvia OPI Negative Normal NEGATIVE [facility] Comment on above: Performed By: #### U MICRO, UACSIND #### [facility] [address] [address] [address] Pancho Oliva OXY Negative Normal NEGATIVE [facility] Comment on above: Performed By: #### U MICRO, UACSIND #### [facility] [address] [place] [address] Dr. Pancho Oliva PCP Negative Normal NEGATIVE [facility] Comment on above: Performed By: #### U MICRO, UACSIND #### [facility] [address] [place] [address] Dr. Pancho Oliva PPX Negative Normal NEGATIVE [facility] Comment on above: Performed By: #### U MICRO, UACSIND #### [facility] [address] [address] [address] Pancho Oliva TCA Negative Normal NEGATIVE [facility] Comment on above: Performed By: #### U MICRO, UACSIND #### [facility] [address] [place] [address] Dr. Pancho Oliva THC Negative Normal NEGATIVE [facility] Comment on above: Performed By: #### U MICRO, UACSIND #### [facility] [address] [place] [address] Dr. Pancho Oliva TYPE AND SCREENon 06-16-2022 TYPE AND SCREEN Negative Normal [facility] Comment on above: Performed By: #### U MICRO, UACSIND #### [facility] [address] [place] [address] Dr. Pancho Oliva UA (CLEAN/CATCH) PHYSIOGNOMIST/MICRO I F IND.on 06-16-2022 Bilirubin Ql (U) Negative Normal NEGATIVE [facility] Comment on above: Performed By: #### U MICRO, UACSIND #### [facility] [address] [address] [address] Pancho Oliva Clarity (U) CLEAR Normal CLEAR [facility] Comment on above: Performed By: #### U MICRO, UACSIND #### [facility] [address] [address] [address] Pancho Oliva Color (U) YELLOW Normal YELLOW [facility] Comment on above: Performed By: #### U MICRO, UACSIND #### [facility] [address] [address] [address] Pancho Oliva Glucose Ql (U) Negative Normal NEGATIVE [facility] Comment on above: Performed By: #### U MICRO, UACSIND #### [facility] [address] [address] [address] Pancho Oliva Hemoglobin Ql (U) SMALL Abnormal NEGATIVE [facility] Comment on above: Performed By: #### U MICRO, UACSIND #### [facility] [address] [address] [address] Pancho Oliva Ketones Ql (U) TRACE Abnormal NEGATIVE [facility] Comment on above: Performed By: #### U MICRO, UACSIND #### [facility] [address] [address] [address] Pancho Oliva LEUKOCYTES Negative Normal NEGATIVE [facility] Comment on above: Performed By: #### U MICRO, UACSIND #### [facility] [address] [address] [address] Pancho Oliva Nitrite Ql (U) Negative Normal NEGATIVE [facility] Comment on above: Performed By: #### U MICRO, UACSIND #### [facility] [address] [address] [address] Pancho Oilva pH (U) 5.5 [pH] Normal 5-9 [facility] Comment on above: Performed By: #### U MICRO, UACSIND #### [facility] [address] [address] [address] Pancho Oliva SPEC GRAVITY >=1.030 Abnormal 1.005-<=1.025 [facility] Comment on above: Performed By: #### U MICRO, UACSIND #### [facility] [address] [address] [address] Pancho Oliva UA PROTEIN 100 mg/dl Abnormal NEGATIVE/ TRACE [facility] Comment on above: Performed By: #### U MICRO, UACSIND #### [facility] [address] [address] [address] Pancho Oliva UR MICRO IND INDICATED Normal [facility] Comment on above: Performed By: #### U MICRO, UACSIND #### [facility] [address] [address] [address] Pancho Oliva Urobilinogen Qn (U) 0.2 {Pearl'U}/dL Normal 0.2 - 1. 0 [facility] Comment on above: Performed By: #### U MICRO, UACSIND #### [facility] [address] [place] [address] Dr. Pancho Oliva URINE MICROSCOPIC ONLYon AMORPHOUS CRYSTALS FEW Normal [facility] Comment on above: Performed By: #### U MICRO, UACSIND #### [facility] [address] [place] [address] Dr. Pancho Oliva BACTERIA SMALL Abnormal NONE SEEN [facility] Comment on above: Performed By: #### U MICRO, UACSIND #### [facility] [address] [address] [address] Pancho Oliva Bacteria identified Cx Nom (U) INDICATED Normal [facility] Comment on above: Performed By: #### U MICRO, UACSIND #### [facility] [address] [place] [address] Dr. Pancho Oliva CAST SEEN Abnormal NONE SEEN [facility] Comment on above: Performed By: #### U MICRO, UACSIND #### [facility] [address] [address] [address] Pancho Oliva Crystals LM Nom (Urine sed) SEEN Abnormal NONE SEEN [facility] Comment on above: Performed By: #### U MICRO, UACSIND #### [facility] [address] [place] [address] Dr. Pancho Oliva Epithelial cells LM Ql (Urine sed) FEW Abnormal NONE SEEN /RARE [facility] Comment on above: Performed By: #### U MICRO, UACSIND #### [facility] [address] [address] [address] Pancho Oliva HYALINE CAST RARE Normal [facility] Comment on above: Performed By: #### U MICRO, UACSIND #### [facility] [address] [address] [address] Pancho Oliva MUCOUS TRACE Abnormal NONE SEEN [facility] Comment on above: Performed By: #### U MICRO, UACSIND #### [facility] [address] [address] [address] Pancho Oliva RBC 2-5 Abnormal 0-2 [facility] Comment on above: Performed By: #### U MICRO, UACSIND #### [facility] [address] [address] [address] Pancho Oliva WBC 0-2 Abnormal NONE SEEN [facility] Comment on above: Performed By: #### U MICRO, UACSIND #### [facility] [address] [address] [address] Pancho Oliva CHLAMYDIA/GONOCOCCUS RHIANNA (SW AB/URINE/PAPon 06-04-2022 Chlamydia trachomatis, RHIANNA Negative Normal Negative [facility] Comment on above: Performed By: #### U MICRO, UACSIND #### [facility] [address] [address] [address] Pancho Oliva Neisseria gonorrhoeae, RHIANNA Negative Normal Negative [facility] Comment on above: Performed By: #### U MICRO, UACSIND #### [facility] [address] [address] [address] Pancho Oliva GROUP B STREP CULTUREon 05-18 S. agalactiae Ag Ql (Unsp spec) Culture Observations: NEGATIVE FOR GROUP B STREPTOCOCCUS. Normal [facility] Comment on above: Performed By: #### U MICRO, UACSIND #### [facility] [address] [address] [address] Pancho Oliva US PREG ANATOMY SINGLEon [...] by: KIM LEIGH Date: 2022-04-08 22:10 Normal [facility] GLUCOSE - 1HRon 04-07-2022 Glucose [Mass/Vol] 114 mg/dL Critically high 74-106 T [facility] Comment on above: Performed By: #### U MICRO, UACSIND #### [facility] [address] [address] [address] Pancho Oliva HEMOGRAM AND PLATELon 2021 Hematocrit (Bld) [Volume fraction] 36.1 % Normal 36.0-48.0 [facility] Comment on above: Performed By: #### U MICRO, UACSIND #### [facility] [address] [address] [address] Pancho Oliva Hemoglobin (Bld) [Mass/Vol] 12.1 g/dL Normal 12.0-16.0 [facility] Comment on above: Performed By: #### U MICRO, UACSIND #### [facility] [address] [place] [address] Dr. Pancho Oliva MCH (RBC) [Entitic mass] 28.5 pg Normal 26.7-34.0 [facility] Comment on above: Performed By: #### U MICRO, UACSIND #### [facility] [address] [address] [address] Pancho Oliva MCHC (RBC) [Mass/Vol] 33.5 g/dL Normal 29.9-35.2 [facility] Comment on above: Performed By: #### U MICRO, UACSIND #### [facility] [address] [place] [address] Dr. Pancho Oliva MCV (RBC) [Entitic vol] 85.1 fL Normal 81.0-99.0 [facility] Comment on above: Performed By: #### U MICRO, UACSIND #### [facility] [address] [place] [address] Dr. Pancho Oliva PLT 333 103/ul Normal 150-450 [facility] Comment on above: Performed By: #### U MICRO, UACSIND #### [facility] [address] [place] [address] Dr. Pancho Oliva RBC 4.24 106/ul Normal 4.20-5.40 [facility] Comment on above: Performed By: #### U MICRO, UACSIND #### [facility] [address] [place] [address] Dr. Pancho Oliva WBC 16.5 103/ul Critically high 4.0-11.0 [facility] Comment on above: Performed By: #### U MICRO, UACSIND #### [facility] [address] [place] [address] Dr. Pancho Oliva AFP TETRA PROFILE (MATERNAL) on 01-21-2022 AFP MoM 0.81 Normal [facility] Comment on above: Performed By: #### A FPTET #### [facility] [address] [place] [address] Dr. Pancho Oliva AFP Value 26.1 ng/mL Normal [facility] Comment on above: Performed By: #### A FPTET #### [facility] [address] [place] [address] Dr. Pancho Oliva Comment Comment Normal [facility] Comment on above: Result Comment: Marguerite Hassan, Ph.D., [facility] Director . References: Available Upon Request. . Multiples Of Median Cutoffs Abbreviation Definitions For AFP Elevations IDD- Insulin Dep Diabetes Daugherty 2.5 Black 2.8 OSBR- Open Spina Bifida IDD 2.0 Twins 4.5 Risk DSR Cutoff 1:270 DSR- Down Syndrome Risk T18 Cutoff 1:100 T18- Trisomy 18 . For further inquiries contact [employer] [facility] at [phone]. . This test was developed and its performance characteristics determined by [employer]. It has not been cleared or approved by the Food and Drug Administration. Performed By: #### A FPTET #### [facility] [address] [place] [address] Dr. Pancho Oliva INDRA MoM 0.96 Normal [facility] Comment on above: Performed By: #### A FPTET #### [facility] [address] [place] [address] Dr. Pancho Oliva INDRA Value 118.40 pg/mL Normal [facility] Comment on above: Performed By: #### A FPTET #### [facility] [address] [place] [address] Dr. Pancho Oliva DSR (By Age) 1 [place] 1121 Normal [facility] Comment on above: Performed By: #### A FPTET #### [facility] [address] [place] [address] Dr. Pancho Oliva DSR (Second Trimester) 1 [place] [address] Normal [facility] Comment on above: Performed By: #### A FPTET #### [facility] [address] [place] [address] Dr. Pancho Oliva Gest. Age on Collection Date 17.1 WEEKS Normal [facility] Comment on above: Performed By: #### A FPTET #### [facility] [address] [place] [address] Dr. Pancho Oliva Gestat. Age Based On LMP Normal [facility] Comment on above: Performed By: #### A FPTET #### [facility] [address] [place] [address] Dr. Pancho Oliva hCG MoM 0.73 Normal [facility] Comment on above: Performed By: #### A FPTET #### [facility] [address] [place] [address] [place] [address] m[IU]/mL Normal [facility] Comment on above: Performed By: #### A FPTET #### [facility] [address] [place] [address] Dr. Pancho Oliva Insulin Dep Diabetes No Normal [facility] Comment on above: Performed By: #### A FPTET #### [facility] [address] [place] [address] Dr. Pancho Oliva Interpretation Comment Normal [facility] Comment on above: Result [...] identifies 60% of Trisomy 18 pregnancies. The [employer] recommends amniocentesis be offered to women age 35 and older. Recalculations are not recommended when gestational dating by LMP and ultrasound are within 10 days. Performed By: #### A FPTET #### [facility] [address] [place] [address] Dr. Pancho Oliva [age] Normal [facility] Comment on above: Performed By: #### A FPTET #### [facility] [address] [place] [address] Dr. Pancho Oliva Multiple Gestation No Normal [facility] Comment on above: Performed By: #### A FPTET #### [facility] [address] [address] [address] Panch[place] [address] Normal [facility] Comment on above: Performed By: #### A FPTET #### [facility] [address] [address] [address] Pancho Oliva PDF . Normal [facility] Comment on above: Performed By: #### A FPTET #### [facility] [address] [address] [address] Pancho Oliva Race [facility] Comment on above: Performed By: #### A FPTET #### [facility] [address] [place] [address] Dr. Pancho Oliva Results Report [facility] Comment on above: Performed By: #### A FPTET #### [facility] [address] [place] [address] Dr. Pancho Oliva T18 (By Age) 1:4368 Normal [facility] Comment on above: Performed By: #### A FPTET #### [facility] [address] [place] [address] Dr. Pancho Oliva T18 Risk Not increased Normal [facility] Comment on above: Performed By: #### A FPTET #### [facility] [address] [place] [address] Dr. Pancho Oliva Test Results: Negative Normal [facility] Comment on above: Performed By: #### A FPTET #### [facility] [address] [address] [address] Pancho Oliva uE3 MoM 1.70 [facility] Comment on above: Performed By: #### A FPTET #### [facility] [address] [address] [address] Pancho Oliva uE3 Value 1.80 ng/mL [facility] Comment on above: Performed By: #### A FPTET #### [facility] [address] [address] [address] Pancho Oliva HEP B SURFACE ANTIGEN SCREEN on 01-20-2022 HBsAg Screen Negative Normal Negative [facility] Comment on above: Performed By: #### U MICRO, UACSIND #### [facility] [address] [address] [address] Pancho Oliva HEPATITIS C VIRUS AB W/ REFL EX QUANTon 01-20-2022 HCV AB 0.1 s/co ratio Normal 0.0-0.9 [facility] Comment on above: Performed By: #### U MICRO, UACSIND #### [facility] [address] [address] [address] Pancho Oliva Interpretation: Comment Normal [facility] Comment on above: Result Comment: Nega tive Not infected with HCV, unless recent infection is suspected or other evidence exists to indicate HCV infection. Performed By: #### U MICRO, UACSIND #### [facility] [address] [address] [address] Pancho Oliva HIV 1 AND 2 WITH REFLEXon HIV Screen 4th Generation wRfx Non-Reactive Normal Non Reactive [facility] Comment on above: Result Comment: HIV Negative HIV-1/HIV-2 antibodies and HIV-1 p24 antigen were NOT detected. There is no laboratory evidence of HIV infection. Performed By: #### U MICRO, UACSIND #### [facility] [address] [address] [address] Pancho Oliva RPR QUANTon 01-20-2022 Rapid Plasma Reagin, Quant Non-Reactive Normal NonRea<1:1 [facility] Comment on above: Result Comment: Plea se Note: This test does not meet current guidelines for screening and diagnosis of syphilis. This test is intended for following treatment response in patients being treated for syphilis infection. To screen for syphilis infection, a reflex cascade that includes both RPR and a treponema-specific assay should be utilized, such as Treponema pallidum (Syphilis) Screening [place] (087598) or Rapid Plasma Reagin (RPR) Test With Reflex to Quantitative RPR and Confirmatory Treponema pallidum Antibodies (897544). Performed By: #### R PRQ #### [facility] [address] [place] [address] Dr. Pancho Oliva RUBELLA AB IGGon 01-20-2022 Rubella Antibodies, IgG 6.39 index Normal Immune >0.99 [facility] Comment on above: Result Comment: Non- immune <0.90 Equivocal 0.90 - 0.99 Immune >0.99 Performed By: #### R UBIGG #### [facility] [address] [place] [address] Dr. Pancho Oliva CBC AUTO DIFFon 01-19-2022 BASO # 0.1 103/ul Normal 0.0-0.1 [facility] Comment on above: Performed By: #### C BC #### [facility] [address] [place] [address] Dr. Pancho Oliva Basophils/100 WBC (Bld) 0.6 % Normal 0.2-2.0 [facility] Comment on above: Performed By: #### C BC #### [facility] [address] [place] [address] Dr. Pancho Oliva EO # 0.3 103/ul Normal 0.0-0.7 [facility] Comment on above: Performed By: #### C BC #### [facility] [address] [place] [address] Dr. Pancho Oliva Eosinophils/100 WBC (Bld) 2.1 % Normal 0.9-7.0 [facility] Comment on above: Performed By: #### C BC #### [facility] [address] [place] [address] Dr. Pancho Oliva Erythrocyte distribution width (RBC) [Ratio] 12.3 % Normal 11.0-15.0 [facility] Comment on above: Performed By: #### C BC #### [facility] [address] [place] [address] Dr. Pancho Oliva Hematocrit (Bld) [Volume fraction] 37.0 % Normal 36.0-48.0 [facility] Comment on above: Performed By: #### C BC #### [facility] [address] [place] [address] Dr. Pancho Oliva Hemoglobin (Bld) [Mass/Vol] 12.6 g/dL Normal 12.0-16.0 [facility] Comment on above: Performed By: #### C BC #### [facility] [address] [place] [address] Dr. Pancho Oliva IG # 0.19 10e3/ul Critically high 0.00-0.03 [facility] Comment on above: Performed By: #### C BC #### [facility] [address] [place] [address] Dr. Pancho Oliva IG % 1.2 % Critically high 0.0-0.5 [facility] Comment on above: Performed By: #### C BC #### [facility] [address] [place] [address] Dr. Pancho Oliva LYMPH # 2.6 103/ul Normal 1.2-3.8 [facility] Comment on above: Performed By: #### C BC #### [facility] [address] [place] [address] Dr. Pancho Oliva Lymphocytes/100 WBC (Bld) 15.6 % Critically low 20.5-60.0 [facility] Comment on above: Performed By: #### C BC #### [facility] [address] [place] [address] Dr. Pancho Oliva MANUAL DIFF REQ NO Normal [facility] Comment on above: Performed By: #### C BC #### [facility] [address] [place] [address] Dr. Pancho Oliva MCH (RBC) [Entitic mass] 28.4 pg Normal 26.7-34.0 [facility] Comment on above: Performed By: #### C BC #### [facility] [address] [place] [address] Dr. Pancho Oliva MCHC (RBC) [Mass/Vol] 34.1 g/dL Normal 29.9-35.2 [facility] Comment on above: Performed By: #### C BC #### [facility] [address] [place] [address] Dr. Pancho Oliva MCV (RBC) [Entitic vol] 83.5 fL Normal 81.0-99.0 [facility] Comment on above: Performed By: #### C BC #### [facility] [address] [place] [address] Dr. Pancho Oliva MONO # 0.7 103/ul Normal 0.3-0.8 [facility] Comment on above: Performed By: #### C BC #### [facility] [address] [place] [address] Dr. Pancho Oliva Monocytes/100 WBC (Bld) 4.2 % Normal 1.7-12.0 [facility] Comment on above: Performed By: #### C BC #### [facility] [address] [place] [address] Dr. Pancho Oliva NEUT # 12.6 103/ul Critically high 1.4-6.[address] [facility] Comment on above: Performed By: #### C BC #### [facility] [address] [place] [address] Dr. Pancho Oliva Neutrophils/100 WBC (Bld) 76.3 % Critically high 43.0-75.0 [facility] Comment on above: Performed By: #### C BC #### [facility] [address] [place] [address] Dr. Pancho Oliva Platelet mean volume (Bld) [Entitic vol] 9.0 fL Critically low 9.5-13.5 [facility] Comment on above: Performed By: #### C BC #### [facility] [address] [place] [address] Dr. Pancho Oliva PLT 359 103/ul Normal 150-450 [facility] Comment on above: Performed By: #### C BC #### [facility] [address] [place] [address] Dr. Pancho Oliva RBC 4.43 106/ul Normal 4.20-5.40 [facility] Comment on above: Performed By: #### C BC #### [facility] [address] [place] [address] Dr. Pancho Oliva WBC 16.5 103/ul Critically high 4.0-11.0 [facility] Comment on above: Performed By: #### C BC #### [facility] [address] [address] [address] Pancho Oliva CULTURE URINEon 01-19-2022 CULTURE URINE Culture Observations: HEAVY GROWTH OF MIXED GENITAL XOCHITL. NO POTENTIAL PATHOGENS SEEN. Normal [facility] Comment on above: Performed By: #### U RCX #### [facility] [address] [address] [address] Pancho Oliva GLYCOHEMOGLOBIN A1Con 2021 ADA RECOMMENDATION SEE BELOW Normal [facility] Comment on above: Result Comment: ADA RECOMMENDED LIMIT 4.0 - 6.0 ADA THERAPEUTIC TARGET < 7.0 ACTION SUGGESTED > 7.0 Performed By: #### U MICRO, UACSIND #### [facility] [address] [address] [address] Pancho Oliva Glucose [Mass/Vol] 94 mg/dL Normal [facility] Comment on above: Performed By: #### U MICRO, UACSIND #### [facility] [address] [address] [address] Pancho Oliva HbA1c (Bld) [Mass fraction] 4.9 % Normal 4.5-6.2 [facility] Comment on above: Performed By: #### U MICRO, UACSIND #### [facility] [address] [address] [address] Pancho Oliva TYPE AND SCREENon 01-19-2022 TYPE AND SCREEN Negative Normal [facility] Comment on above: Performed By: #### U MICRO, UACSIND #### [facility] [address] [address] [address] Pancho Oliva US PREG TVon 11-23-2021 [...] by: KIM LEIGH Date: 2021-11-23 16:11 Normal [facility] Vital Signs Date Time Vital Sign Value Performing Clinician Facility 08-29-2023 10:55-0500 Body mass index (BMI) [Ratio] 38.11 kg/m2 Olya LE Work Phone: [facility] 08-29-2023 10:55-0500 Body weight 103.87 kg Olya LE Work Phone: [facility] 08-29-2023 10:55-0500 Diastolic blood pressure 78 mm[Hg] Olya LE Work Phone: [facility] 08-29-2023 10:55-0500 Systolic blood pressure 118 mm[Hg] Olya LE Work Phone: [facility] 01-21-2022 02:06-0400 Body weight 97.[address] AUGUSTINE ENRIQUE [facility] Comment on above: Performed By: #### AFPTET #### [facility] [address] [place] [address] Dr. Pancho Oliva Encounters Encounter Date Encounter Type Care Provider Facility Start: 01-18-2024 End: 01-18-2024 ambulatory RUDI INES Not Available Start: 01-11-2024 End: 01-11-2024 ambulatory RUDI NIES Not Available Start: 12-29-2023 End: 12-29-2023 ambulatory [...] AM EDT Routine [facility] [address] [place] [phone] Rudi Tracey, [address] [place], [place] [phone] [facility] Start: 08-29-2023 End: 10-28-2023 Alpha fetoprotein, maternal Alpha fetoprotein, maternal Lab Routine Second trimester Expected: 08/29/2023 (Approximate), Expires: 10/28/2023 [facility] Comment on above: Expected: 08/29/2023 (Approximate), Expires: 10/28/2023 Start: 08-29-2023 End: 08-29-2023 Patient encounter procedure 08/29/2023 10:30 AM EST Routine [facility] [address] [place] [phone] Olya Bauman PA [address] [place], [place] [phone] Second trimester [facility] Comment on above: Second trimester pre gnancy CHLAMYDIA TRACHOMATI S (GENITO/STI) CHLAMYDIA TRACHOMATIS (GENITO/STI) Lab Routine STD exposure Ordered: 08/29/2023 [facility] Comment on above: Ordered: 08/29/2023 Cytology Cervical or vaginal smear or scraping study Pap Smear Pathology and Cytology Routine Well woman exam with routine gynecological exam Ordered: 08/29/2023 [facility] Comment on above: Ordered: 08/29/2023 Neisseria gonorrhoea e DNA [Presence] in Unspecified specimen by RHIANNA with probe detection Neisseria gonorrhea DNA probe, direct Lab Routine STD exposure Ordered: 08/29/2023 [facility] Comment on above: Ordered: 08/29/2023 SURESWAB(R) ADVANCED VAGINITIS PLUS, TMA SURESWAB(R) ADVANCED VAGINITIS PLUS, TMA Pathology and Cytology Routine Vaginal discharge Ordered: 08/29/2023 [facility] [employer] Work Phone: Comment on above: Ordered: 08/29/2023 Payers Date Payer Category Payer Unknown BCBS BCBS xxxxxx [id number] 2022-Present [phone] [address] [place] [address] [id number] 2000 Unknown [id number] [id number] 2000 Unknown [id number] 2.16.840.1.969904.3.579.2.593 2000 Unknown [id number] 2.16.840.1.171744.3.579.2.593 2000 Unknown [id number] 2.16.840.1.594283.3.579.2.593 2000 Unknown [id number] 2.16.840.1.789789.3.579.2.593 2000 Unknown [id number] 2.16.840.1.017049.3.579.2.593 2000 Unknown [id number] 2.16.840.1.484472.3.579.2.593 2000 Unknown [id number] 2.16.840.1.012393.3.579.2.1259 2000 Unknown [id number] 2.16.840.1.923781.3.579.2.1259 2000 Unknown [id number] 2.16.840.1.714598.3.579.2.1259 2000 Unknown [id number] 2.16.840.1.204601.3.579.2.1259 2000 Unknown [id number] 2.16.840.1.352706.3.579.2.9 2000 Unknown [id number] 2.16.840.1.204125.3.579.2.9 2000 Unknown [id number] 2.16.840.1.748644.3.579.2.9 2000 Unknown [id number] 2.16.840.1.274130.3.579.2.9 2000 Unknown [id number] 2.16.840.1.995001.3.579.2.9 2000 Unknown [id number] 2.16.840.1.422739.3.579.2.1259 1959 Self-pay 1959 Unknown [id number] 1959 Unknown [id number] Social History Date Type Detail Facility Start: 02-06-2023 Tobacco smoking stat [facility] Never smoked tobacco [facility] Start: [...] Problems Past Medical History: Diagnosis Date depression (CMS/HCC) Family History Problem Relation Name Age of [...] obtained without difficulty and patient was given [facility] order to have obtained. Follow Up: Patient [...] pital DATE CREATED AUTHOR AUTHOR'S ORGANIZ ATION 01/19/2024 [facility] EPIC Reason for Visit (unrecogniz ed [...] BE BASED ON THE PRIMARY CLINICAL RECORDS. [facility]. provides no warranty or guarantee of the accuracy or completeness of information in this document.
--- NOTE | 2024-01-20 10:07 | US_ITS ---
[address] [address] Patient Name: DONAVAN WALTON MRN: [id number] date: 2000 Sex: F Assigned Patient Location: [facility] Current Patient Location: Accession/Order Number: [id number] Exam Date: 01/20/2024 10:17 Report Date: 01/20/2024 12:46 At the request of: RUDI CHACON Procedure: US OB BPP w non-stress EXAMINATION: US OB BPP w non-stress HISTORY:POLYHYDRAMNIOS AFFECTING O40.9XX0 COMPARISON: No relevant comparison available. TECHNIQUE: Ultrasound biophysical profile was performed in the radiology department. BREATHING MOVEMENTS: 2 GROSS BODY MOVEMENTS: 2 TONE: 2 QUALITATIVE AMNIOTIC FLUID VOLUME: 2 PRESENTATION: CEPHALIC HEART RATE: 139.90 bpm AMNIOTIC FLUID VOLUME: 35.88 cm (greater than 95th percentile) GESTATIONAL AGE: 35 weeks 1 day US/US OB BPP w non-stress IMPRESSION: Total biophysical profile score: 8 Electronically authenticated by: KIM LEIGH Date: 01/20/2024 12:46
--- NOTE | 2024-01-20 10:08 | US_ITS ---
[address] [address] Patient Name: DONAVAN WALTON MRN: [id number] date: 2000 Sex: F Assigned Patient Location: [facility] Current Patient Location: [place] Accession/Order Number: [id number] Exam Date: 01/20/2024 10:17 Report Date: 01/20/2024 12:48 At the request of: RUDI CHACON Procedure: US OB growth EXAMINATION: US OB growth HISTORY: EXCESSIVE GROWTH AFFECTING O36.63X0 COMPARISON: Ultrasound OB growth 12/14/2023 FINDINGS: Heart Rate: 139.90 bpm Amniotic Fluid Volume: 35.9 cm (greater than 95th percentile) Number: 1 Position: CEPHALIC BIOMETRY: BPD: 8.72 cm cm; 35 weeks 1 day; 55 %% HC: 32.63 cm cm; 37 weeks 0 days; 63.50 %% AC: 29.75 cm cm; 33 weeks 5 days; 18.40 %% FL: 7.07 cm cm; 36 weeks 2 days; 71.40 %% EFW: 2547.28 g; 40.60 % FL/AC: 23.75 FL/BPD: 81.04 HC/AC: 1.10 GESTATIONAL AGE: Age by EDC: 35 weeks 1 day JIGNESH by EDC: 2024-02-23 Age by US: 35 weeks 4 days JIGNESH by US: 2024-02-20 US/US OB growth IMPRESSION: 1. Single live intrauterine with growth detailed above. 2. Polyhydramnios. Electronically authenticated by: KIM LEIGH Date: 01/20/2024 12:48
[2024-01-20 11:04] VITALS: BP 134/77; PULSE 106
== END 2024-01-20 12:20 | disposition home or self-care (01) ==
LOC: US 07:03 → FBC 10:07
PROVIDERS: Visit Provider Obstetrics & Gynecology
DX: L29.9 Pruritus, unspecified (principal); O36.63X0 Maternal care for excessive fetal growth, third trimester, not applicable or unspecified; Z3A.35 35 weeks gestation of pregnancy; O40.3XX0 Polyhydramnios, third trimester, not applicable or unspecified
CPT/HCPCS: 36415; 59025; 76816; 76818; 82239; 84450; 84460

== ENCOUNTER 2024-01-20 12:22 | Outpatient (OUT) | payer BC, SELFPAY ==
--- OUTSIDE RECORDS SUMMARY | 2024-01-20 12:26 | XMS_ITS | CCD ---
Author Organization [facility] Care Team Providers Care Commercial Manager Name Role Phone IVA, DR BRADSHAW [...] (HTRX)on 08-31-2023 ATOPOBIUM VAGINAE 0 [facility] ATOPOBIUM VAGINAE Not detected [facility] BVAB 2,3 (BACTERIAL VAGINOSIS ASSOCIATED BACTERIA 2, 3); MOBILUNCUS SPP 22.438 Abnormal [facility] BVAB 2,3 (BACTERIAL VAGINOSIS ASSOCIATED BACTERIA 2, 3); MOBILUNCUS SPP Detected Abnormal [facility] JEREMI ALBICANS, PARAPSILOSIS, TROPICALIS 0 [...] Health care ERMB, C; MEFA Detected Abnormal [facility] GARDNERELLA VAGINALIS 30.91 Abnormal [facility] GARDNERELLA VAGINALIS Detected Abnormal [facility] Interpretation and review of laboratory results Abnormal [facility] MEGASPHAERA (TYPES 1, 2) 0 [facility] MEGASPHAERA (TYPES 1, 2) Not detected [facility] MYCOPLASMA GENITALIUM 0 [facility] MYCOPLASMA GENITALIUM Not detected [facility] NEISSERIA GONORRHOEAE 0 [facility] NEISSERIA GONORRHOEAE Not detected [facility] TET B, TET M 23.014 Abnormal [facility] are TET B, TET M Detected Abnormal [facility] are TRICHOMONAS VAGINALIS 0 [facility] TRICHOMONAS VAGINALIS Not [facility] macro (dipstick) panel (U)on 08-29-2023 Bilirubin, UA Negative Negative - 4(70) +++ mg/dL [facility] Blood, UA Negative Negative - 50 Teddy/mcL [facility] Clarity, UA Clear Merged with [facility] re Color, UA Yellow [facility] e Glucose, UA Negative Negative - 1999(110) ++++ mg/dL [facility] Interpretation and review of laboratory results Abnormal [facility] Ketones, UA Positive Negative - 160(16) ++++ mg/dL [facility] Leukocytes, UA Trace Negative - 500+++ Nicolasa/mcL [facility] Nitrite, UA Negative Negative - Positive [facility] pH, UA 6.0 5 - 9 [facility] e Protein, UA Negative Negative - 1999(20) ++++ mg/dL [facility] Spec Grav, UA 1.030 1 - 1.03 [facility] Urobilinogen, UA 0.2 0.2 - 12 mg/dL [facility] CBC AUTO DIFFon 06-18-2022 BASO # 0.1 103/ul Normal 0.0-0.1 [facility] Comment on above: Performed By: #### U MICRO, UACSIND #### [facility] [address] [address] [address] Pancho Oliva Basophils/100 WBC (Bld) 0.8 % Normal 0.2-2.0 [facility] Comment on above: Performed By: #### U MICRO, UACSIND #### [facility] [address] [address] [address] Pancho Oliva EO # 0.3 103/ul Normal 0.0-0.7 [facility] Comment on above: Performed By: #### U MICRO, UACSIND #### [facility] [address] [address] [address] Pancho Oliva Eosinophils/100 WBC (Bld) 2.1 % Normal 0.9-7.0 [facility] Comment on above: Performed By: #### U MICRO, UACSIND #### [facility] [address] [address] [address] Pancho Oliva Erythrocyte distribution width (RBC) [Ratio] 13.9 % Normal 11.0-15.0 [facility] Comment on above: Performed By: #### U MICRO, UACSIND #### [facility] [address] [place] [address] Dr. Pancho Oliva Hematocrit (Bld) [Volume fraction] 36.2 % Normal 36.0-48.0 [facility] Comment on above: Performed By: #### U MICRO, UACSIND #### [facility] [address] [address] [address] Pancho Oliva Hemoglobin (Bld) [Mass/Vol] 11.8 g/dL Critically low 12.0-16.0 [facility] Comment on above: Performed By: #### U MICRO, UACSIND #### [facility] [address] [address] [address] Pancho Oliva IG # 0.16 10e3/ul Critically high 0.00-0.03 [facility] Comment on above: Performed By: #### U MICRO, UACSIND #### [facility] [address] [place] [address] Dr. Pancho Oliva IG % 1.1 % Critically high 0.0-0.5 [facility] Comment on above: Performed By: #### U MICRO, UACSIND #### [facility] [address] [address] [address] Pancho Oliva LYMPH # 3.5 103/ul Normal 1.2-3.8 [facility] Comment on above: Performed By: #### U MICRO, UACSIND #### [facility] [address] [place] [address] Dr. Pancho Oliva Lymphocytes/100 WBC (Bld) 23.3 % Normal 20.5-60.0 [facility] Comment on above: Performed By: #### U MICRO, UACSIND #### [facility] [address] [place] [address] Dr. Pancho Oliva MANUAL DIFF REQ NO Normal [facility] Comment on above: Performed By: #### U MICRO, UACSIND #### [facility] [address] [place] [address] Dr. Pancho Oliva MCH (RBC) [Entitic mass] 27.1 pg Normal 26.7-34.0 [facility] Comment on above: Performed By: #### U MICRO, UACSIND #### [facility] [address] [place] [address] Dr. Pancho Oliva MCHC (RBC) [Mass/Vol] 32.6 g/dL Normal 29.9-35.2 [facility] Comment on above: Performed By: #### U MICRO, UACSIND #### [facility] [address] [place] [address] Dr. Pancho Oliva MCV (RBC) [Entitic vol] 83.0 fL Normal 81.0-99.0 [facility] Comment on above: Performed By: #### U MICRO, UACSIND #### [facility] [address] [place] [address] Dr. Pancho Oliva MONO # 0.7 103/ul Normal 0.3-0.8 [facility] Comment on above: Performed By: #### U MICRO, UACSIND #### [facility] [address] [place] [address] Dr. Pancho Oliva Monocytes/100 WBC (Bld) 4.3 % Normal 1.7-12.0 [facility] Comment on above: Performed By: #### U MICRO, UACSIND #### [facility] [address] [address] [address] Pancho Oliva NEUT # 10.2 103/ul Critically high 1.4-6.5 [facility] Comment on above: Performed By: #### U MICRO, UACSIND #### [facility] [address] [place] [address] Dr. Pancho Oliva Neutrophils/100 WBC (Bld) 68.4 % Normal 43.0-75.0 [facility] Comment on above: Performed By: #### U MICRO, UACSIND #### [facility] [address] [place] [address] Dr. Pancho Oliva Platelet mean volume (Bld) [Entitic vol] 9.7 fL Normal 9.5-13.5 [facility] Comment on above: Performed By: #### U MICRO, UACSIND #### [facility] [address] [place] [address] Dr. Pancho Oliva PLT 271 103/ul Normal 150-450 [facility] Comment on above: Performed By: #### U MICRO, UACSIND #### [facility] [address] [place] [address] Dr. Pancho Oliva RBC 4.36 106/ul Normal 4.20-5.40 [facility] Comment on above: Performed By: #### U MICRO, UACSIND #### [facility] [address] [place] [address] Dr. Pancho Oliva WBC 15.0 103/ul Critically high 4.0-11.0 [facility] Comment on above: Performed By: #### U MICRO, UACSIND #### [facility] [address] [place] [address] Dr. Pancho Oliva RPR QUANTon 06-18-2022 Rapid Plasma Reagin, Quant Non-Reactive Normal NonRea<1:1 [facility] Comment on above: Result Comment: Plevelma acuna Note: This test does not meet current guidelines for screening and diagnosis of syphilis. This test is intended for following treatment response in patients being treated for syphilis infection. To screen for syphilis infection, a reflex cascade that includes both RPR and a treponema-specific assay should be utilized, such as Treponema pallidum (Syphilis) Screening [place] (385387) or Rapid Plasma Reagin (RPR) Test With Reflex to Quantitative RPR and Confirmatory Treponema pallidum Antibodies (278800). Performed By: #### R PRQ #### [facility] [address] [address] [address] Pancho Oliva CBC AUTO DIFFon 06-16-2022 BASO # 0.1 103/ul Normal 0.0-0.1 [facility] Comment on above: Performed By: #### U MICRO, UACSIND #### [facility] [address] [address] [address] Pancho Oliva Basophils/100 WBC (Bld) 0.5 % Normal 0.2-2.0 [facility] Comment on above: Performed By: #### U MICRO, UACSIND #### [facility] [address] [place] [address] Dr. Pancho Oliva EO # 0.0 103/ul Normal 0.0-0.7 [facility] Comment on above: Performed By: #### U MICRO, UACSIND #### [facility] [address] [address] [address] Pancho Oliva Eosinophils/100 WBC (Bld) 0.1 % Critically low 0.9-7.0 [facility] Comment on above: Performed By: #### U MICRO, UACSIND #### [facility] [address] [address] [address] Pancho Oliva Erythrocyte distribution width (RBC) [Ratio] 13.5 % Normal 11.0-15.0 [facility] Comment on above: Performed By: #### U MICRO, UACSIND #### [facility] [address] [address] [address] Pancho Oliva Hematocrit (Bld) [Volume fraction] 38.7 % Normal 36.0-48.0 [facility] Comment on above: Performed By: #### U MICRO, UACSIND #### [facility] [address] [address] [address] Pancho Oliva Hemoglobin (Bld) [Mass/Vol] 13.0 g/dL Normal 12.0-16.0 [facility] Comment on above: Performed By: #### U MICRO, UACSIND #### [facility] [address] [address] [address] Pancho Oliva IG # 0.15 10e3/ul Critically high 0.00-0.03 [facility] Comment on above: Performed By: #### U MICRO, UACSIND #### [facility] [address] [address] [address] Pancho Oliva IG % 0.8 % Critically high 0.0-0.5 [facility] Comment on above: Performed By: #### U MICRO, UACSIND #### [facility] [address] [place] [address] Dr. Pancho Oliva LYMPH # 1.8 103/ul Normal 1.2-3.8 [facility] Comment on above: Performed By: #### U MICRO, UACSIND #### [facility] [address] [place] [address] Dr. Pancho Oliva Lymphocytes/100 WBC (Bld) 8.9 % Critically low 20.5-60.0 [facility] Comment on above: Performed By: #### U MICRO, UACSIND #### [facility] [address] [place] [address] Dr. Pancho Oliva MANUAL DIFF REQ NO Normal [facility] Comment on above: Performed By: #### U MICRO, UACSIND #### [facility] [address] [place] [address] Dr. Pancho Oliva MCH (RBC) [Entitic mass] 27.2 pg Normal 26.7-34.0 [facility] Comment on above: Performed By: #### U MICRO, UACSIND #### [facility] [address] [place] [address] Dr. Pancho Oliva MCHC (RBC) [Mass/Vol] 33.6 g/dL Normal 29.9-35.2 [facility] Comment on above: Performed By: #### U MICRO, UACSIND #### [facility] [address] [address] [address] Pancho Oliva MCV (RBC) [Entitic vol] 81.0 fL Normal 81.0-99.0 [facility] Comment on above: Performed By: #### U MICRO, UACSIND #### [facility] [address] [place] [address] Dr. Pancho Oliva MONO # 0.5 103/ul Normal 0.3-0.8 [facility] Comment on above: Performed By: #### U MICRO, UACSIND #### [facility] [address] [place] [address] Dr. Pancho Oliva Monocytes/100 WBC (Bld) 2.5 % Normal 1.7-12.0 [facility] Comment on above: Performed By: #### U MICRO, UACSIND #### [facility] [address] [place] [address] Dr. Pancho Oliva NEUT # 17.2 103/ul Critically high 1.4-6.5 [facility] Comment on above: Performed By: #### U MICRO, UACSIND #### [facility] [address] [place] [address] Dr. Pancho Oliva Neutrophils/100 WBC (Bld) 87.2 % Critically high 43.0-75.0 [facility] Comment on above: Performed By: #### U MICRO, UACSIND #### [facility] [address] [place] [address] Dr. Pancho Oliva Platelet mean volume (Bld) [Entitic vol] 9.9 fL Normal 9.5-13.5 [facility] Comment on above: Performed By: #### U MICRO, UACSIND #### [facility] [address] [place] [address] Dr. Pancho Oliva PLT 332 103/ul Normal 150-450 [facility] Comment on above: Performed By: #### U MICRO, UACSIND #### [facility] [address] [place] [address] Dr. Pancho Oliva RBC 4.78 106/ul Normal 4.20-5.40 [facility] Comment on above: Performed By: #### U MICRO, UACSIND #### [facility] [address] [address] [address] Pancho Oliva WBC 19.8 103/ul Critically high 4.0-11.0 [facility] Comment on above: Performed By: #### U MICRO, UACSIND #### [facility] [address] [address] [address] Pancho Oliva CULTURE URINEon 06-16-2022 CULTURE URINE Culture Observations: LIGHT GROWTH OF MIXED GENITAL XOCHITL. NO POTENTIAL PATHOGENS SEEN. Normal [facility] Comment on above: Performed By: #### U RCX #### [facility] [address] [address] [address] Panch[facility] Ol[facility] SARS-CoV-2 (COVID-19) RNA RHIANNA+probe Ql (Unsp spec) Not detected Normal NOT DETECTED [facility] Comment on above: Result Comment: [...] for this test is supported by the [place] of Health and Human Service's declaration that [...] used). Performed By: #### C VDTBH #### [facility] [address] [place] [address] Dr. Pancho Oliva DRUG SCREEN RAPID (URINE)on 06-16-2022 AMP Negative Normal NEGATIVE [facility] Comment on above: Performed By: #### U MICRO, UACSIND #### [facility] [address] [address] [address] Pancho Oliva BAR Negative Normal NEGATIVE [facility] Comment on above: Performed By: #### U MICRO, UACSIND #### [facility] [address] [address] [address] Pancho Oliva BUP Negative Normal NEGATIVE [facility] Comment on above: Performed By: #### U MICRO, UACSIND #### [facility] [address] [address] [address] Pancho Oliva BZO Negative Normal NEGATIVE [facility] Comment on above: Performed By: #### U MICRO, UACSIND #### [facility] [address] [address] [address] Pancho Oliva CALVIN Negative Normal NEGATIVE [facility] Comment on above: Performed By: #### U MICRO, UACSIND #### [facility] [address] [place] [address] Dr. Pancho Oliva CUT-OFFS SEE BELOW Normal [facility] Comment on above: Result Comment: AMP [...] Performed By: #### U MICRO, UACSIND #### [facility] [address] [address] [address] Pancho Oliva DRUG CUT HEADER DRUG CLASS TEST SYSTEM CUT-OFF CONCENTRATIONS ARE FOLLOWS: Normal [facility] Comment on above: Performed By: #### U MICRO, UACSIND #### [facility] [address] [address] [address] Pancho Oliva mAMP Negative Normal NEGATIVE [facility] Comment on above: Performed By: #### U MICRO, UACSIND #### [facility] [address] [address] [address] Pancho Oliva MTD Negative Normal NEGATIVE [facility] Comment on above: Performed By: #### U MICRO, UACSIND #### [facility] [address] [address] [address] Pancho Oliva OPI Negative Normal NEGATIVE [facility] Comment on above: Performed By: #### U MICRO, UACSIND #### [facility] [address] [address] [address] Pancho Oliva OXY Negative Normal NEGATIVE [facility] Comment on above: Performed By: #### U MICRO, UACSIND #### [facility] [address] [place] [address] Dr. Pancho Oliva PCP Negative Normal NEGATIVE [facility] Comment on above: Performed By: #### U MICRO, UACSIND #### [facility] [address] [place] [address] Dr. Pancho Oliva PPX Negative Normal NEGATIVE [facility] Comment on above: Performed By: #### U MICRO, UACSIND #### [facility] [address] [address] [address] Pancho Oliva TCA Negative Normal NEGATIVE [facility] Comment on above: Performed By: #### U MICRO, UACSIND #### [facility] [address] [place] [address] Dr. Pancho Oliva THC Negative Normal NEGATIVE [facility] Comment on above: Performed By: #### U MICRO, UACSIND #### [facility] [address] [place] [address] Dr. Pancho Oliva TYPE AND SCREENon 06-16-2022 TYPE AND SCREEN Negative Normal [facility] Comment on above: Performed By: #### U MICRO, UACSIND #### [facility] [address] [place] [address] Dr. Pancho Oliva UA (CLEAN/CATCH) SUPERVISOR INSTRUMENT REPAIR/MICRO I F IND.on 06-16-2022 Bilirubin Ql (U) Negative Normal NEGATIVE [facility] Comment on above: Performed By: #### U MICRO, UACSIND #### [facility] [address] [address] [address] Pancho Oliva Clarity (U) CLEAR Normal CLEAR [facility] Comment on above: Performed By: #### U MICRO, UACSIND #### [facility] [address] [address] [address] Pancho Oliva Color (U) YELLOW Normal YELLOW [facility] Comment on above: Performed By: #### U MICRO, UACSIND #### [facility] [address] [address] [address] Pancho Oliva Glucose Ql (U) Negative Normal NEGATIVE [facility] Comment on above: Performed By: #### U MICRO, UACSIND #### [facility] [address] [address] [address] Pancho Oliva Hemoglobin Ql (U) SMALL Abnormal NEGATIVE [facility] Comment on above: Performed By: #### U MICRO, UACSIND #### [facility] [address] [address] [address] Pancho Oliva Ketones Ql (U) TRACE Abnormal NEGATIVE [facility] Comment on above: Performed By: #### U MICRO, UACSIND #### [facility] [address] [address] [address] Pancho Oliva LEUKOCYTES Negative Normal NEGATIVE [facility] Comment on above: Performed By: #### U MICRO, UACSIND #### [facility] [address] [address] [address] Pancho Oliva Nitrite Ql (U) Negative Normal NEGATIVE [facility] Comment on above: Performed By: #### U MICRO, UACSIND #### [facility] [address] [address] [address] Pancho Oliva pH (U) 5.5 [pH] Normal 5-9 [facility] Comment on above: Performed By: #### U MICRO, UACSIND #### [facility] [address] [address] [address] Pancho Oliva SPEC GRAVITY >=1.030 Abnormal 1.005-<=1.025 [facility] Comment on above: Performed By: #### U MICRO, UACSIND #### [facility] [address] [address] [address] Pancho Oliva UA PROTEIN 100 mg/dl Abnormal NEGATIVE/ TRACE [facility] Comment on above: Performed By: #### U MICRO, UACSIND #### [facility] [address] [address] [address] Pancho Oliva UR MICRO IND INDICATED Normal [facility] Comment on above: Performed By: #### U MICRO, UACSIND #### [facility] [address] [address] [address] Pancho Oliva Urobilinogen Qn (U) 0.2 {Pearl'U}/dL Normal 0.2 - 1. 0 [facility] Comment on above: Performed By: #### U MICRO, UACSIND #### [facility] [address] [place] [address] Dr. Pancho Oliva URINE MICROSCOPIC ONLYon AMORPHOUS CRYSTALS FEW Normal [facility] Comment on above: Performed By: #### U MICRO, UACSIND #### [facility] [address] [place] [address] Dr. Pancho Oliva BACTERIA SMALL Abnormal NONE SEEN [facility] Comment on above: Performed By: #### U MICRO, UACSIND #### [facility] [address] [address] [address] Pancho Oliva Bacteria identified Cx Nom (U) INDICATED Normal [facility] Comment on above: Performed By: #### U MICRO, UACSIND #### [facility] [address] [place] [address] Dr. Pancho Oliva CAST SEEN Abnormal NONE SEEN [facility] Comment on above: Performed By: #### U MICRO, UACSIND #### [facility] [address] [address] [address] Pancho Oliva Crystals LM Nom (Urine sed) SEEN Abnormal NONE SEEN [facility] Comment on above: Performed By: #### U MICRO, UACSIND #### [facility] [address] [place] [address] Dr. Pancho Oliva Epithelial cells LM Ql (Urine sed) FEW Abnormal NONE SEEN /RARE [facility] Comment on above: Performed By: #### U MICRO, UACSIND #### [facility] [address] [address] [address] Pancho Oliva HYALINE CAST RARE Normal [facility] Comment on above: Performed By: #### U MICRO, UACSIND #### [facility] [address] [address] [address] Pancho Oliva MUCOUS TRACE Abnormal NONE SEEN [facility] Comment on above: Performed By: #### U MICRO, UACSIND #### [facility] [address] [address] [address] Pancho Oliva RBC 2-5 Abnormal 0-2 [facility] Comment on above: Performed By: #### U MICRO, UACSIND #### [facility] [facility] [address] [address] [address] Pancho Oliva WBC 0-2 Abnormal NONE SEEN [facility] Comment on above: Performed By: #### U MICRO, UACSIND #### [facility] [address] [address] [address] Pancho Oliva CHLAMYDIA/GONOCOCCUS RHIANNA (SW AB/URINE/PAPon 06-04-2022 Chlamydia trachomatis, RHIANNA Negative Normal Negative [facility] Comment on above: Performed By: #### U MICRO, UACSIND #### [facility] [address] [address] [address] Pancho Oliva Neisseria gonorrhoeae, RHIANNA Negative Normal Negative [facility] Comment on above: Performed By: #### U MICRO, UACSIND #### [facility] [address] [address] [address] Pancho Oliva GROUP B STREP CULTUREon 05-18 S. agalactiae Ag Ql (Unsp spec) Culture Observations: NEGATIVE FOR GROUP B STREPTOCOCCUS. Normal [facility] Comment on above: Performed By: #### U MICRO, UACSIND #### [facility] [address] [address] [address] Pancho Oliva US PREG ANATOMY SINGLEon [...] by: KIM LEIGH Date: 2022-04-08 22:10 Normal [facility] GLUCOSE - 1HRon 04-07-2022 Glucose [Mass/Vol] 114 mg/dL Critically high 74-106 [facility] Comment on above: Performed By: #### U MICRO, UACSIND #### [facility] [address] [address] [address] Pancho Oliva HEMOGRAM AND PLATELon 2021 Hematocrit (Bld) [Volume fraction] 36.1 % Normal 36.0-48.0 [facility] Comment on above: Performed By: #### U MICRO, UACSIND #### [facility] [address] [address] [address] Pancho Oliva Hemoglobin (Bld) [Mass/Vol] 12.1 g/dL Normal 12.0-16.0 [facility] Comment on above: Performed By: #### U MICRO, UACSIND #### [facility] [address] [place] [address] Dr. Pacnho Oliva MCH (RBC) [Entitic mass] 28.5 pg Normal 26.7-34.0 [facility] Comment on above: Performed By: #### U MICRO, UACSIND #### [facility] [address] [address] [address] Pancho Oliva MCHC (RBC) [Mass/Vol] 33.5 g/dL Normal 29.9-35.2 [facility] Comment on above: Performed By: #### U MICRO, UACSIND #### [facility] [address] [place] [address] Dr. Pancho Oliva MCV (RBC) [Entitic vol] 85.1 fL Normal 81.0-99.0 [facility] Comment on above: Performed By: #### U MICRO, UACSIND #### [facility] [address] [place] [address] Dr. Pancho Oliva PLT 333 103/ul Normal 150-450 [facility] Comment on above: Performed By: #### U MICRO, UACSIND #### [facility] [address] [place] [address] Dr. Pancho Oliva RBC 4.24 106/ul Normal 4.20-5.40 [facility] Comment on above: Performed By: #### U MICRO, UACSIND #### [facility] [address] [place] [address] Dr. Pancho Oliva WBC 16.5 103/ul Critically high 4.0-11.0 [facility] Comment on above: Performed By: #### U MICRO, UACSIND #### [facility] [address] [place] [address] Dr. Pancho Oliva AFP TETRA PROFILE (MATERNAL) on 01-21-2022 AFP MoM 0.81 Normal [facility] Comment on above: Performed By: #### A FPTET #### [facility] [address] [place] [address] Dr. Pancho Oliva AFP Value 26.1 ng/mL Normal [facility] Comment on above: Performed By: #### A FPTET #### [facility] [address] [place] [address] Dr. Pancho Oliva Comment Comment Normal [facility] Comment on above: Result Comment: Marguerite Hassan, Ph.D., [facility] Director . References: Available Upon Request. . Multiples Of Median Cutoffs Abbreviation Definitions For AFP Elevations IDD- Insulin Dep Diabetes Daugherty 2.5 Black 2.8 OSBR- Open Spina Bifida IDD 2.0 Twins 4.5 Risk DSR Cutoff 1:270 DSR- Down Syndrome Risk T18 Cutoff 1:100 T18- Trisomy 18 . For further inquiries contact [facility] at [phone]. . This test was developed and its performance characteristics determined by [employer]. It has not been cleared or approved by the Food and Drug Administration. Performed By: #### A FPTET #### [facility] [address] [place] [address] Dr. Pancho Oliva INDRA MoM 0.96 Normal [facility] Comment on above: Performed By: #### A FPTET #### [facility] [address] [place] [address] Dr. Pancho Oliva INDRA Value 118.40 pg/mL Normal [facility] Comment on above: Performed By: #### A FPTET #### [facility] [address] [place] [address] Dr. Pancho Oliva DSR (By Age) 1 [place] 1121 Normal [facility] Comment on above: Performed By: #### A FPTET #### [facility] [address] [place] [address] Dr. Pancho Oliva DSR (Second Trimester) 1 [place] [address] Normal [facility] Comment on above: Performed By: #### A FPTET #### [facility] [address] [place] [address] Dr. Pancho Oliva Gest. Age on Collection Date 17.1 WEEKS Normal [facility] Comment on above: Performed By: #### A FPTET #### [facility] [address] [place] [address] Dr. Pancho Oliva Gestat. Age Based On LMP Normal [facility] Comment on above: Performed By: #### A FPTET #### [facility] [address] [place] [address] Dr. Pancho Oliva hCG MoM 0.73 Normal [facility] Comment on above: Performed By: #### A FPTET #### [facility] [address] [place] [address] [place] [address] m[IU]/mL Normal [facility] Comment on above: Performed By: #### A FPTET #### [facility] [address] [place] [address] Dr. Pancho Oliva Insulin Dep Diabetes No Normal [facility] Comment on above: Performed By: #### A FPTET #### [facility] [address] [place] [address] Dr. Pancho Oliva Interpretation Comment Normal [facility] Comment on above: Result Comment: [...] identifies 60% of Trisomy 18 pregnancies. The [employer] recommends amniocentesis be offered to women age 35 and older. Recalculations are not recommended when gestational dating by LMP and ultrasound are within 10 days. Performed By: #### A FPTET #### [facility] [address] [place] [address] Dr. Pancho Oliva [age] Normal [facility] Comment on above: Performed By: #### A FPTET #### [facility] [address] [place] [address] Dr. Pancho Oliva Multiple Gestation No Normal [facility] Comment on above: Performed By: #### A FPTET #### [facility] [address] [address] [address] Panch[place] Oliva OS[place] 1 [place] [address] Normal [facility] Comment on above: Performed By: #### A FPTET #### [facility] [address] [address] [address] Pancho Oliva PDF . Normal [facility] Comment on above: Performed By: #### A FPTET #### [facility] [address] [address] [address] Pancho Oliva Race [facility] Comment on above: Performed By: #### A FPTET #### [facility] [address] [place] [address] Dr. Pancho Oliva Results Report [facility] Comment on above: Performed By: #### A FPTET #### [facility] [address] [place] [address] Dr. Pancho Oliva T18 (By Age) 1:4368 Normal [facility] Comment on above: Performed By: #### A FPTET #### [facility] [address] [place] [address] Dr. Pancho Oliva T18 Risk Not increased Normal [facility] Comment on above: Performed By: #### A FPTET #### [facility] [address] [place] [address] Dr. Pancho Oliva Test Results: Negative Normal [facility] Comment on above: Performed By: #### A FPTET #### [facility] [address] [address] [address] Pancho Oliva uE3 MoM 1.70 [facility] Comment on above: Performed By: #### A FPTET #### [facility] [address] [address] [address] Pancho Oliva uE3 Value 1.80 ng/mL [facility] Comment on above: Performed By: #### A FPTET #### [facility] [address] [address] [address] Pancho Oliva HEP B SURFACE ANTIGEN SCREEN on 01-20-2022 HBsAg Screen Negative Normal Negative [facility] Comment on above: Performed By: #### U MICRO, UACSIND #### [facility] [address] [address] [address] Pancho Oliva HEPATITIS C VIRUS AB W/ REFL EX QUANTon 01-20-2022 HCV AB 0.1 s/co ratio Normal 0.0-0.9 [facility] Comment on above: Performed By: #### U MICRO, UACSIND #### [facility] [address] [address] [address] Pancho Oliva Interpretation: Comment Normal [facility] Comment on above: Result Comment: Nega tive Not infected with HCV, unless recent infection is suspected or other evidence exists to indicate HCV infection. Performed By: #### U MICRO, UACSIND #### [facility] [address] [address] [address] Pancho Oliva HIV 1 AND 2 WITH REFLEXon HIV Screen 4th Generation wRfx Non-Reactive Normal Non Reactive [facility] Comment on above: Result Comment: HIV Negative HIV-1/HIV-2 antibodies and HIV-1 p24 antigen were NOT detected. There is no laboratory evidence of HIV infection. Performed By: #### U MICRO, UACSIND #### [facility] [address] [address] [address] Pancho Oliva RPR QUANTon 01-20-2022 Rapid Plasma Reagin, Quant Non-Reactive Normal NonRea<1:1 [facility] Comment on above: Result Comment: Plea se Note: This test does not meet current guidelines for screening and diagnosis of syphilis. This test is intended for following treatment response in patients being treated for syphilis infection. To screen for syphilis infection, a reflex cascade that includes both RPR and a treponema-specific assay should be utilized, such as Treponema pallidum (Syphilis) Screening [place] (408763) or Rapid Plasma Reagin (RPR) Test With Reflex to Quantitative RPR and Confirmatory Treponema pallidum Antibodies (175617). Performed By: #### R PRQ #### [facility] [address] [place] [address] Dr. Pancho Oliva RUBELLA AB IGGon 01-20-2022 Rubella Antibodies, IgG 6.39 index Normal Immune >0.99 [facility] Comment on above: Result Comment: Non- immune <0.90 Equivocal 0.90 - 0.99 Immune >0.99 Performed By: #### R UBIGG #### [facility] [address] [place] [address] Dr. Pancho Oliva CBC AUTO DIFFon 01-19-2022 BASO # 0.1 103/ul Normal 0.0-0.1 [facility] Comment on above: Performed By: #### C BC #### [facility] [address] [place] [address] Dr. Pancho Oliva Basophils/100 WBC (Bld) 0.6 % Normal 0.2-2.0 [facility] Comment on above: Performed By: #### C BC #### [facility] [address] [place] [address] Dr. Pancho Oliva EO # 0.3 103/ul Normal 0.0-0.7 [facility] Comment on above: Performed By: #### C BC #### [facility] [address] [place] [address] Dr. Pancho Oliva Eosinophils/100 WBC (Bld) 2.1 % Normal 0.9-7.0 [facility] Comment on above: Performed By: #### C BC #### [facility] [address] [place] [address] Dr. Pancho Oliva Erythrocyte distribution width (RBC) [Ratio] 12.3 % Normal 11.0-15.0 [facility] Comment on above: Performed By: #### C BC #### [facility] [address] [place] [address] Dr. Pancho Oliva Hematocrit (Bld) [Volume fraction] 37.0 % Normal 36.0-48.0 [facility] Comment on above: Performed By: #### C BC #### [facility] [address] [place] [address] Dr. Pancho Oliva Hemoglobin (Bld) [Mass/Vol] 12.6 g/dL Normal 12.0-16.0 [facility] Comment on above: Performed By: #### C BC #### [facility] [address] [place] [address] Dr. Pancho Oliva IG # 0.19 10e3/ul Critically high 0.00-0.03 [facility] Comment on above: Performed By: #### C BC #### [facility] [address] [place] [address] Dr. Pancho Oliva IG % 1.2 % Critically high 0.0-0.5 [facility] Comment on above: Performed By: #### C BC #### [facility] [address] [place] [address] Dr. Pancho Oliva LYMPH # 2.6 103/ul Normal 1.2-3.8 [facility] Comment on above: Performed By: #### C BC #### [facility] [address] [place] [address] Dr. Pancho Oliva Lymphocytes/100 WBC (Bld) 15.6 % Critically low 20.5-60.0 [facility] Comment on above: Performed By: #### C BC #### [facility] [address] [place] [address] Dr. Pancho Oliva MANUAL DIFF REQ NO Normal [facility] Comment on above: Performed By: #### C BC #### [facility] [address] [place] [address] Dr. Pancho Oliva MCH (RBC) [Entitic mass] 28.4 pg Normal 26.7-34.0 [facility] Comment on above: Performed By: #### C BC #### [facility] [address] [place] [address] Dr. Pancho Oliva MCHC (RBC) [Mass/Vol] 34.1 g/dL Normal 29.9-35.2 [facility] Comment on above: Performed By: #### C BC #### [facility] [address] [place] [address] Dr. Pancho Oliva MCV (RBC) [Entitic vol] 83.5 fL Normal 81.0-99.0 [facility] Comment on above: Performed By: #### C BC #### [facility] [address] [place] [address] Dr. Pancho Oliva MONO # 0.7 103/ul Normal 0.3-0.8 [facility] Comment on above: Performed By: #### C BC #### [facility] [address] [place] [address] Dr. Pancho Oliva Monocytes/100 WBC (Bld) 4.2 % Normal 1.7-12.0 [facility] Comment on above: Performed By: #### C BC #### [facility] [address] [place] [address] Dr. Pancho Oliva NEUT # 12.6 103/ul Critically high 1.4-6.5 [facility] Comment on above: Performed By: #### C BC #### [facility] [address] [place] [address] Dr. Pancho Oliva Neutrophils/100 WBC (Bld) 76.3 % Critically high 43.0-75.0 [facility] Comment on above: Performed By: #### C BC #### [facility] [address] [place] [address] Dr. Pancho Oliva Platelet mean volume (Bld) [Entitic vol] 9.0 fL Critically low 9.5-13.5 [facility] Comment on above: Performed By: #### C BC #### [facility] [address] [place] [address] Dr. Pancho Oliva PLT 359 103/ul Normal 150-450 [facility] Comment on above: Performed By: #### C BC #### [facility] [address] [place] [address] Dr. Pancho Oliva RBC 4.43 106/ul Normal 4.20-5.40 [facility] Comment on above: Performed By: #### C BC #### [facility] [address] [place] [address] Dr. Pancho Oliva WBC 16.5 103/ul Critically high 4.0-11.0 [facility] Comment on above: Performed By: #### C BC #### [facility] [address] [address] [address] Pancho Oliva CULTURE URINEon 01-19-2022 CULTURE URINE Culture Observations: HEAVY GROWTH OF MIXED GENITAL XOCHITL. NO POTENTIAL PATHOGENS SEEN. Normal [facility] Comment on above: Performed By: #### U RCX #### [facility] [address] [address] [address] Pancho Oliva GLYCOHEMOGLOBIN A1Con 2021 ADA RECOMMENDATION SEE BELOW Normal [facility] Comment on above: Result Comment: ADA RECOMMENDED LIMIT 4.0 - 6.0 ADA THERAPEUTIC TARGET < 7.0 ACTION SUGGESTED > 7.0 Performed By: #### U MICRO, UACSIND #### [facility] [address] [address] [address] Pancho Oliva Glucose [Mass/Vol] 94 mg/dL Normal [facility] Comment on above: Performed By: #### U MICRO, UACSIND #### [facility] [address] [address] [address] Pancho Oliva HbA1c (Bld) [Mass fraction] 4.9 % Normal 4.5-6.2 [facility] Comment on above: Performed By: #### U MICRO, UACSIND #### [facility] [address] [address] [address] Pancho Oliva TYPE AND SCREENon 01-19-2022 TYPE AND SCREEN Negative Normal [facility] Comment on above: Performed By: #### U MICRO, UACSIND #### [facility] [address] [address] [address] Pancho Oliva US PREG TVon 11-23-2021 [...] by: KIM LEIGH Date: 2021-11-23 16:11 Normal [facility] Vital Signs Date Time Vital Sign Value Performing Clinician Facility 08-29-2023 10:55-0500 Body mass index (BMI) [Ratio] 38.11 kg/m2 Olya LE Work Phone: [facility] 08-29-2023 10:55-0500 Body weight 103.87 kg Olya LE Work Phone: [facility] 08-29-2023 10:55-0500 Diastolic blood pressure 78 mm[Hg] Olya LE Work Phone: [facility] 08-29-2023 10:55-0500 Systolic blood pressure 118 mm[Hg] Olya LE Work Phone: [facility] 01-21-2022 02:06-0400 Body weight 97.[address] AUGUSTINE ENRIQUE [facility] Comment on above: Performed By: #### AFPTET #### [facility] [address] [place] [address] Dr. Pancho Oliva Encounters Encounter Date Encounter Type Care Provider Facility Start: 01-18-2024 End: 01-18-2024 ambulatory RUDI INES Not Available Start: 01-11-2024 End: 01-11-2024 ambulatory RUDI INES [...] AM EDT Routine [facility] [address] [place] [id number] Rudi Tracey, [address] [place], [place] [id number] [facility] Start: 08-29-2023 End: 10-28-2023 Alpha fetoprotein, maternal Alpha fetoprotein, maternal Lab Routine Second trimester Expected: 08/29/2023 (Approximate), Expires: 10/28/2023 [facility] Comment on above: Expected: 08/29/2023 (Approximate), Expires: 10/28/2023 Start: 08-29-2023 End: 08-29-2023 Patient encounter procedure 08/29/2023 10:30 AM EST Routine [facility] [address] [place] [address] Olya Bauman PA [address] [place], [place] [id number] Second trimester [facility] Comment on above: Second trimester pre gnancy CHLAMYDIA TRACHOMATI S (GENITO/STI) CHLAMYDIA TRACHOMATIS (GENITO/STI) Lab Routine STD exposure Ordered: 08/29/2023 [facility] Comment on above: Ordered: 08/29/2023 Cytology Cervical or vaginal smear or scraping study Pap Smear Pathology and Cytology Routine Well woman exam with routine gynecological exam Ordered: 08/29/2023 [facility] Comment on above: Ordered: 08/29/2023 Neisseria gonorrhoea e DNA [Presence] in Unspecified specimen by RHIANNA with probe detection Neisseria gonorrhea DNA probe, direct Lab Routine STD exposure Ordered: 08/29/2023 [facility] Comment on above: Ordered: 08/29/2023 SURESWAB(R) ADVANCED VAGINITIS PLUS, TMA SURESWAB(R) ADVANCED VAGINITIS PLUS, TMA Pathology and Cytology Routine Vaginal discharge Ordered: 08/29/2023 [facility] [employer] Contact Work Phone: Comment on above: Ordered: 08/29/2023 Payers Date Payer Category Payer Unknown BCBS BCBS xxxxxx [id number] 2022-Present [phone] [address] [place] [address] [id number] 2000 Unknown [id number] [id number]3 2000 Unknown [id number] 2.16.840.1.638410.3.579.2.593 2000 Unknown [id number] 2.16.840.1.969336.3.579.2.593 2000 Unknown [id number] 2.16.840.1.529342.3.579.2.593 2000 Unknown [id number] 2.16.840.1.313666.3.579.2.593 2000 Unknown [id number] 2.16.840.1.290303.3.579.2.593 2000 Unknown [id number] 2.16.840.1.691226.3.579.2.593 2000 Unknown [id number] 2.16.840.1.862641.3.579.2.1259 2000 Unknown [id number] 2.16.840.1.187174.3.579.2.1259 2000 Unknown [id number] 2.16.840.1.828682.3.579.2.1259 2000 Unknown [id number] 2.16.840.1.572992.3.579.2.1259 2000 Unknown [id number] 2.16.840.1.365081.3.579.2.9 2000 Unknown [id number] 2.16.840.1.408398.3.579.2.9 2000 Unknown [id number] 2.16.840.1.679297.3.579.2.9 2000 Unknown [id number] 2.16.840.1.964390.3.579.2.9 2000 Unknown [id number] 2.16.840.1.394557.3.579.2.9 2000 Unknown [id number] 2.16.840.1.403595.3.579.2.1259 1959 Self-pay 1959 Unknown [id number] 1959 Unknown [id number] Social History Date Type Detail Facility Start: 02-06-2023 Tobacco smoking stat [facility] Never smoked tobacco [facility] [...] obtained without difficulty and patient was given [facility] order to have obtained. Follow Up: [...] DATE CREATED AUTHOR AUTHOR'S ORGANIZ ATION 01/19/2024 [facility] EPIC Reason for Visit (unrecogniz ed [...] BE BASED ON THE PRIMARY CLINICAL RECORDS. [facility] [employer] [facility]. provides no warranty or guarantee of the accuracy or completeness of information in this document.
[2024-01-20 13:14] LABS: Alanine Aminotransferase 17 U/L (14-59); Aspartate Amino Transferase 16 U/L (15-37)
[2024-01-23 17:07] LABS: Bile Acids 3.9 umol/L (0.0-10.0)
== END 2024-01-20 12:23 | disposition home or self-care (01) ==
LOC: LAB 12:22
PROVIDERS: Visit Provider Obstetrics & Gynecology
DX: L29.9 Pruritus, unspecified (principal)
CPT/HCPCS: 36415; 82239; 84450; 84460

== ENCOUNTER 2024-01-24 22:28 | Inpatient (IN) | payer BC, SELFPAY ==
[2024-01-24] VITALS (18 sets, daily range): BP systolic 115–132; BP diastolic 70–85; PULSE 73–103; TEMP 36.6–36.9; O2SAT 97–99
--- NOTE | 2024-01-24 13:37 | US_ITS ---
[address] [address] Patient Name: DONAVAN WALTON MRN: [id number] date: 2000 Sex: F Assigned Patient Location: [facility] Current Patient Location: [facility] Accession/Order Number: [id number] Exam Date: 01/24/2024 14:00 Report Date: 01/24/2024 14:39 At the request of: RUDI CHACON Procedure: US OB BPP w non-stress EXAMINATION: US OB BPP w non-stress HISTORY: decreased movement, poly COMPARISON: 01/20/2024 TECHNIQUE: Ultrasound biophysical profile was performed in the radiology department. non-reactive stress testing was performed by nursing staff in the birthing center. FINDINGS: BREATHING MOVEMENTS: 0 GROSS BODY MOVEMENTS: 2 TONE: 2 QUALITATIVE AMNIOTIC FLUID VOLUME: 2 PRESENTATION: CEPHALIC HEART RATE: 121.62 bpm AMNIOTIC FLUID VOLUME: 34.5 cm GESTATIONAL AGE: 35 weeks 5 days US/US OB BPP w non-stress IMPRESSION: Total biophysical profile score: 6 Polyhydramnios Electronically authenticated by: ÁNGELA PRIETO Date: 01/24/2024 14:39
[2024-01-24 21:29] LABS: Basophils Absolute Auto 0.1 10^3/uL (0.0-0.1); Basophils Percent Auto 0.5 % (0.2-2.0); Eosinophils Absolute Auto 0.3 10^3/uL (0.0-0.7); Eosinophils Percent Auto 1.8 % (0.9-7.0); Hematocrit 34.5 % (36.0-48.0); Hemoglobin 11.4 g/dL (12.0-16.0); Immature Granulocytes Abs Auto 0.11 10^3/uL (0.00-0.03); Immature Granulocytes Pct Auto 0.8 % (0.0-0.5); Lymphocytes Absolute Auto 2.8 10^3/uL (1.2-3.8); Lymphocytes Percent Auto 20.2 % (20.5-60.0); Mean Corpuscular Hemoglobin 26.7 pg (26.7-34.0); Mean Corpuscular Volume 80.8 fL (81.0-99.0); Mean Platelet Volume 10.8 fL (9.5-13.5); Monocytes Absolute Auto 0.7 10^3/uL (0.3-0.8); Monocytes Percent Auto 4.7 % (1.7-12.0); Platelet Count 328 10^3/uL (150-450); Red Blood Count 4.27 10^6/uL (4.20-5.40); Red Cell Distribution Width 13.3 % (11.0-15.0); White Blood Count 13.8 10^3/uL (4.0-11.0)
[2024-01-24] MEDS: METOCLOPRAMIDE HCL 10 MG/2 ML VIAL IVP (21:42)
[2024-01-24] MEDS: CITRIC ACID/SODIUM CITRATE 30 ML SOLUTION ORACIT SHOHL'S SOLN PO (21:42)
[2024-01-24] MEDS: CEFAZOLIN SODIUM/DEXTROSE,ISO 2 GM/50 ML PIGGYBACK IV (21:43)
[2024-01-24] MEDS: FAMOTIDINE/PF 20 MG/2 ML VIAL IV (21:43)
[2024-01-24] MEDS: LACTATED RINGER'S SOLUTION 1,000 ML 50 ML IV (22:20)
--- NOTE | 2024-01-24 22:45 | P.ON_ITS ---
Brief Operative Note Date of procedure: 01/24/24 Pre-op diagnosis general: iup at 35 5/7wks, significant polyhydramnios, htn af fecting requiring labetalol, bpp 6/10, non reactive strip Post-op diagnosis: same as pre-op Procedure: NAME OF PROCEDURE: [ section ] PROCEDURE: Patient was taken back to the Operating Room where she was given a spinal anesthesia with Duramorph without difficulty. She was prepped and draped in the normal sterile fashion. A Pfannenstiel skin incision was then made 2 cm above the symphysis pubis and carried down to underlying rectus fascia using a Bovie. The fascia was incised in the midline and extended laterally using Dennis scissors. Two Aliza clamps were placed on the superior aspect of the fascia and dissected off the underlying rectus muscles. The same was performed on the infe rior aspect as well. The muscles were then in the midline. Peritoneum was identified and entered bluntly. The peritoneum was then extended superiorly and inferiorly with good visualization of the bladder. The bladder blade was inserted. A low transverse incision was made on the patient's uterus and extended laterally digitally. The was then delivered atraumatically after the bladder blade was removed in the cephalic position. The cord was clamped and cut. Cord blood was obtained. The was handed off to awaiting team. The patient's placenta was spontaneously delivered. The uterus was then exteriorized. The uterus was cleared of all clots and debris. The bladder blade was reinserted. The patient's uterine incision was closed using #0 Vicryl in a running lock fashion. Excellent hemostasis was assured. The uterus was then returned to the patient's abdomen. The patient's abdomen was copiously irrigated using warm saline. Peritoneal gutters were cleared of all clots and debris. Again excellent hemostasis was assured. The patient's peritoneum was closed using 3-0 Vicryl in a running fashion. The patient's fascia was closed using #0 Vicryl in a running fashion. The patient's skin was closed using 4-0 Vicryl subcuticularly. The patient tolerated the procedure well. Sponge, lap, and needle counts were correct x2. The patient was taken to the Recovery Room in stable condition. Anesthesia: spinal Surgeon: Aditya Tracey Personal Service Workers: Concetta Harry Estimated blood loss (mL): 575 Pathology: other (placenta) Condition: stable Disposition: floor Urinary Catheter Management Urinary Catheter Management Urethral: Cath placed during this visit: no
--- NOTE | 2024-01-24 22:47 | P.OBPRC_ITS ---
Procedure Pre-op/Post-op diagnoses: Pre-Op/Post-Op Diagnoses Operation Date: 01/24/24 21:30 <No data on this case meets the specified criteria> Procedure: Procedures Operation Date: 01/24/24 21:30 Actual Procedure Side Surgeon p Not Applicable Aditya Tracey DO [employer] Operator Truck Driver: Concetta Harry Estimated blood loss (mL): 575 Disposition: floor Anesthesia type: Spinal
[2024-01-24] MEDS: BUPIVACAINE HCL 0.5% PF 50 MG/10 ML VIAL 20 ML INJ (23:05)
[2024-01-24] MEDS: DEXAMETHASONE SOD PHOS (PF) 10 MG/ML VIAL INJ (23:05)
[2024-01-24] MEDS: 0.9 % SODIUM CHLORIDE 10 ML VIAL 20 ML INJ (23:05)
[2024-01-24] MEDS: OXYTOCIN/0.9 % SODIUM CHLORIDE 20 UNITS/1,000 ML PLAST..BAG 125 UNIT IV (23:35)
[2024-01-24] MEDS: 0.9 % SODIUM CHLORIDE 1,000 ML 125 ML IV (23:36)
[2024-01-25] VITALS (22 sets, daily range): BP systolic 108–145; BP diastolic 57–98; PULSE 66–97; TEMP 36.6–37; O2SAT 95–98
[2024-01-25] MEDS: CEFAZOLIN SODIUM/DEXTROSE,ISO 2 GM/50 ML PIGGYBACK IV (04:10)
[2024-01-25] MEDS: KETOROLAC TROMETHAMINE 30 MG/ML VIAL IVP ×3 (04:48→18:06)
[2024-01-25] MEDS: ACETAMINOPHEN 500 MG TABLET 1000 MG PO ×3 (06:30→22:05)
[2024-01-25] MEDS: DIPHENHYDRAMINE HCL 50 MG/ML VIAL 25 MG IV (06:38)
[2024-01-25 06:44] LABS: Basophils Percent Auto 0.2 % (0.2-2.0); Hematocrit 31.6 % (36.0-48.0); Hemoglobin 10.2 g/dL (12.0-16.0); Immature Granulocytes Abs Auto 0.16 10^3/uL (0.00-0.03); Immature Granulocytes Pct Auto 0.8 % (0.0-0.5); Lymphocytes Absolute Auto 1.5 10^3/uL (1.2-3.8); Lymphocytes Percent Auto 7.7 % (20.5-60.0); Mean Corpuscular HGB Conc 32.3 g/dL (29.9-35.2); Mean Corpuscular Hemoglobin 26.8 pg (26.7-34.0); Mean Corpuscular Volume 82.9 fL (81.0-99.0); Mean Platelet Volume 9.9 fL (9.5-13.5); Monocytes Absolute Auto 0.3 10^3/uL (0.3-0.8); Monocytes Percent Auto 1.4 % (1.7-12.0); Neutrophils Absolute Auto 17.5 10^3/uL (1.4-6.5); Neutrophils Percent Auto 89.9 % (43.0-75.0); Platelet Count 272 10^3/uL (150-450); Red Blood Count 3.81 10^6/uL (4.20-5.40); White Blood Count 19.4 10^3/uL (4.0-11.0)
--- NOTE | 2024-01-25 07:41 | P.OBPN_ITS ---
OB - PN: Subj Subjective Patient comments: no complaints and pain well controlled [place] status: doing well Exam Constitutional Vital Signs, click to edit/add: Last Vital Signs Temp 98.3 F 01/25/24 03:51 Pulse 85 01/25/24 03:51 Resp 16 01/25/24 03:51 BP 114/73 01/25/24 03:51 Pulse Ox 97 01/25/24 03:51 O2 Del Method Room Air 01/25/24 03:51 Documenting provider has reviewed patient's vital signs: yes Common normals: no apparent distress Respiratory Common normals: normal respiratory effort and clear to auscultation bilaterally Cardio Common normals: regular rate and regular rhythm GI Common normals: Normal to inspection, nondistended, normoactive bowel sounds present Extremity Common normals: normal to inspection, no clubbing, cyanosis or edema and no calf tenderness Results Labs Labs: Short CBC 01/24/24 01/25/24 Range/Units 21:00 06:38 WBC 13.8 H 19.4 H (4.0-11.0) 10^3/uL Hgb 11.4 L 10.2 L (12.0-16.0) g/dL Hct 34.5 L 31.6 L (36.0-48.0) % Plt Count 328 272 (150-450) 10^3/uL Urinary Catheter Management Urinary Catheter Management Urethral: Cath placed during this visit: yes Urethral indwelling: No Insertion date: 01/24/24 Insertion time: 21:10 OB - PN: A/P Plan - day: 1 Plan: routine postop care Time Spent with Patient Time: Total time spent is greater than 50% in coordination of care (as documented) at patient's floor/unit and/or counseling patient: Total time spent with greater than 50% in coordination of care (as documented) at patient's floor/unit and/or counseling patient: less than 15 minutes
[2024-01-25] MEDS: LABETALOL HCL 200 MG TABLET PO ×2 (10:01→21:13)
[2024-01-25] MEDS: CITALOPRAM HYDROBROMIDE 20 MG TABLET PO (10:01)
[2024-01-25] MEDS: DOCUSATE SODIUM 100 MG CAPSULE PO ×2 (10:01→21:14)
[2024-01-25] MEDS: ENOXAPARIN SODIUM 40 MG/0.4 ML SYRINGE SUBQ (10:56)
[2024-01-26] MEDS: IBUPROFEN 400 MG TABLET 800 MG PO ×2 (00:07→06:19)
[2024-01-26 00:10] VITALS: BP 136/88; TEMP 36.6
[2024-01-26] MEDS: ACETAMINOPHEN 500 MG TABLET 1000 MG PO (06:20)
--- NOTE | 2024-01-26 07:59 | PM.OBPN ---
OB - PN: Subj Subjective Patient comments: no complaints and pain well controlled [place] status: doing well Exam Constitutional Vital Signs, click to edit/add: Last Vital Signs Temp 98 F 01/26/24 00:10 Pulse 97 H 01/25/24 15:46 Resp 16 01/26/24 00:10 BP 136/88 01/26/24 00:10 Pulse Ox 97 01/25/24 03:51 O2 Del Method Room Air 01/26/24 00:10 Documenting provider has reviewed patient's vital signs: yes Common normals: no apparent distress Respiratory Common normals: normal respiratory effort and clear to auscultation bilaterally Cardio Common normals: regular rate and regular rhythm GI Common normals: Normal to inspection, nondistended, normoactive bowel sounds present Extremity Common normals: no clubbing, cyanosis or edema and no calf tenderness Urinary Catheter Management Urinary Catheter Management Urethral: Cath placed during this visit: yes, but has since been removed by the nurse Urethral indwelling: No Insertion date: 01/24/24 Insertion time: 21:10 Removal date: 01/25/24 Removal time: 10:10 OB - PN: A/P Plan - day: 2 Plan: routine postop care, discharge home and other (fu 1wk) Time Spent with Patient Time: Total time spent is greater than 50% in coordination of care (as documented) at patient's floor/unit and/or counseling patient: Total time spent with greater than 50% in coordination of care (as documented) at patient's floor/unit and/or counseling patient: less than 15 minutes
[2024-01-26] MEDS: CITALOPRAM HYDROBROMIDE 20 MG TABLET PO (08:08)
[2024-01-26] MEDS: DOCUSATE SODIUM 100 MG CAPSULE PO (08:08)
[2024-01-26] MEDS: LABETALOL HCL 200 MG TABLET PO (08:08)
[2024-01-26 08:10] VITALS: BP 145/109; PULSE 82; TEMP 36.5
[2024-01-26 09:03] VITALS: BP 143/91
== END 2024-01-26 09:30 | disposition home or self-care (01) | DRG 788 ==
LOC: FBCO 23:09 → FBC 23:09
PROVIDERS: Admitting Provider Obstetrics & Gynecology; Visit Provider Obstetrics & Gynecology
PROC: 10D00Z1 Extraction of Products of Conception, Low, Open Approach (ICD-10-PCS; CPT 59514; principal; 2024-01-24 21:30)
DX: O40.3XX0 Polyhydramnios, third trimester, not applicable or unspecified (principal); O16.4 Unspecified maternal hypertension, complicating childbirth; O99.344 Other mental disorders complicating childbirth; F41.1 Generalized anxiety disorder; Z3A.35 35 weeks gestation of pregnancy; Z37.0 Single live birth
CPT/HCPCS: 36415; 51702; 59025; 59050; 64488; 76818; 85025; 86850; 86900; 86901; 88307; 94667; 94668; 96372; 96374; 96375; 96376; J0131; J0665; J0690; J1100; J1200; J1650; J1885; J2274; J2405; J2590; J2765